=== PATIENT | female | born 1965 | race Caucasian/White ===

== ENCOUNTER → 2017-04-16 12:01 | Outpatient (CLI) | payer MEDICAID, SELFPAY ==
--- NOTE | 2017-04-16 12:06 | RAD_ITS ---
STUDY: X-RAY - ABDOMEN/PELVIS REASON FOR EXAM: Female, 51 years old. Left flank pain TECHNIQUE: Supine views of the abdomen and pelvis were obtained. COMPARISON: July 09, 2016 FINDINGS: The lung bases are unremarkable. There is an unremarkable bowel gas pattern. There is no demonstrated free abdominal air. There is no demonstrated abnormality of the major organs. The soft tissues are unremarkable. The osseous structures are unremarkable. RAD/Abdomen Single View IMPRESSION: No acute abnormalities are seen in the abdomen or pelvis. No abnormal calcifications are seen over the left renal shadow or along the expected course of the left ureter. Electronically Signed: Radha Sosa MD at 23:10 EST Tel Direct: [phone], Service support ,
--- NOTE | 2017-04-16 12:06 | RAD_ITS ---
STUDY: X-RAY - LUMBAR SPINE REASON FOR EXAM: Female, 51 years old. Low back pain TECHNIQUE: Five view(s) of the lumbar spine were obtained. COMPARISON: February 21, 2017 FINDINGS: Normal lumbar lordosis. There is no significant scoliosis. There is normal alignment of the vertebrae. The vertebral bodies show no significant abnormalities. Vertebral body heights are maintained. There are no significant disc abnormalities. The soft tissues are unremarkable. RAD/L/S Spine Min 4 Views IMPRESSION: No significant abnormalities are seen radiographically in the lumbar spine. Electronically Signed: Radha Sosa MD at 23:05 EST Tel Direct: [phone], Service support ,
[2017-04-16 12:11] LABS: Bacteria 0 SEEN /hpf (None Seen); Mucous, Urine 0 SEEN /hpf (<or=2+); White Blood Cells 0 SEEN /hpf (0-5)
[2017-04-16 14:05] LABS: Color, Urine Yellow (Yellow); Glucose, Dipstick Normal (Normal); Ketone-Dipstick Negative (Negative); Leukocyte Esterase-Dipstick Negative /ul (Negative); Nitrite-Dipstick Negative (Negative); Occult Blood-Urine 25 /ul (Negative); Protein-Dipstick Negative (Negative); Urine Bilirubin Dipstick Negative (Negative); Urine Clarity Sl. Cloudy (Clear); Urine Urobilinogen Normal (Normal)
[2017-04-16 14:13] LABS: Red Blood Cells-Urine 0-5 SEEN /hpf (0-5); Squamous Epithelial Cells - UA 0-5 SEEN /hpf (5-10)
[2017-04-16 14:14] LABS: Absolute Lymphocyte Count 2.33 X10^3/ul (0.83-4.51); Absolute Neutrophil Count 5.3 X10^3/uL (2.0-7.7); Basophil# 0.02 X10^3/uL; Basophil% 0.2 % (0-1); Eosinophil# 0.29 X10^3/uL; Eosinophils% 3.3 % (0-5); Hematocrit 45.9 % (37-47); Hemoglobin 15.4 g/dl (12.0-15.0); Lymphocyte # 2.33 X10^3/ul (4.0); Lymphocyte % 26.2 % (19-41); Mean Corp Hgb Conc 33.6 g/gl (32-36); Mean Corpuscular Hgb 30.4 pg (27.0-32.0); Mean Corpuscular Volume 90.7 fL (81-99); Mean Platelet Vol. 9.8 fl (6.2-12.0); Monocyte# 0.97 X10^3/uL; Monocyte% 10.9 % (0-10); Neutrophil # 5.28 X10^3/uL (2.7-7.7); Neutrophil % 59.2 % (47-70); Platelet Count 309 K/mm3 (150-450); RBC Distribution Width CV 13.2 % (11.6-14.6); RBC Distribution Width SD 43.2 fl (35.1-43.9); Red Blood Count 5.06 M/mm3 (4.2-5.4); White Blood Count 8.9 K/mm3 (4.4-11.0)
[2017-04-16 14:18] LABS: POSITIVE COUNT NO; POSITIVE DIFFERENTIAL NO; POSITIVE MORPHOLOGY NO
[2017-04-16 14:35] LABS: BUN 13 mg/dL (7-18); BUN/Creat Ratio 12.1 RATIO (10-20); Creatinine, Serum 1.07 mg/dL (0.55-1.02); EST Glomerular Filtration Rate 57 mL/min (>60); Est Glom Filt Rate - Afr Amer 69 mL/min (>60); Glucose 82 mg/dL (74-106); Protein, Total 7.5 g/dL (6.4-8.2)
[2017-04-16 14:36] LABS: ALB/GLOB Ratio 0.7 RATIO (0.9-2.4); AST(SGOT) 18 U/L (15-37); Alanine Aminotransfer ALT/SGPT 28 U/L (13-56); Alkaline Phosphatase 100 U/L (45-117); Anion Gap 5 (5-15); Chloride 105 mmol/L (98-107); Globulin 4.5 g/dL (2.2-4.2); Potassium 3.9 mmol/L (3.5-5.1); Sodium Level 139 mmol/L (136-145)
== END ==
PROVIDERS: Family Provider Family Medicine; PCP Family Medicine; Visit Provider Family Medicine
DX: R10.9 Unspecified abdominal pain (principal); M54.5 Low back pain
CPT/HCPCS: 36415; 72110; 74018; 80053; 81001; 85025; 87086; 87088

== ENCOUNTER 2017-04-28 16:13 | Emergency (ER) | payer MEDICAID, SELFPAY ==
[2017-04-28 16:14] VITALS: BP 155/93; PULSE 79; RESP 16; TEMP 36.6; O2SAT 96; BMI 44.9
--- NOTE | 2017-04-28 16:25 | RAD_ITS ---
STUDY: X-RAY CHEST REASON FOR EXAM: Female, 51 years old. Cough and wheezing for one week. TECHNIQUE: PA and lateral views of the chest. COMPARISON: November 24, 2016. FINDINGS: Lungs are expanded. There is interstitial thickening visible in both lungs. There is no demonstrated pleural abnormality. Normal size heart. Normal mediastinum and cecilia. Normal visualized pulmonary arteries. Normal visualized aortic arch and descending thoracic aorta. Normal visualized thoracic spine. Normal visualized ribs, clavicles, and shoulders. There is no demonstrated abnormality of the visualized soft tissue structures of the upper abdomen. RAD/Chest PA and Lateral IMPRESSION: No radiographic evidence of acute cardiopulmonary disease. Electronically Signed: Rosalee Villar MD at 17:19 EST , Service support ,
--- NOTE | 2017-04-28 16:29 | ED.DCSUM_ITS ---
- ER Visit Summary Date of Service: 04/28/17 Chief Complaint: Cough History of Present Illness: The patient is a 51 F states for 1 week she has had a cough of yellowish sputum. Denies any hemoptysis. She does have COPD and continues to smoke. She denies fever but has chills. No chest pain. She denies vomiting or diarrhea. Physical Examination: Middle-aged female. Vital signs are stable afebrile. Pulse ox 96% on room air no signs of hypoxia. HEENT exam unremarkable neck nontender. Lungs coarse breath sounds bilaterally equal and symmetrical. Expiratory wheezing and prolonged expiratory phase. No rhonchi. No rales. Heart regular rate and rhythm no murmur. Abdomen is morbidly obese but soft nontender normal bowel sounds no peritoneal signs. She is moving all 4 extremities. They are neurovascularly intact. Calves are nontender. Neurological exam is unremarkable. Test Results: Chest x-ray two-view shows changes no acute process no pneumonia. Emergency Department Course and Treatment: Treated with DuoNeb aerosol. Treatment Plan: Repeat exam at 1730 patient is doing well. Her wheezing is much improved after the aerosol treatment. She will be given a dose of prednisone here and placed on prednisone 40 mg a day for 1 week. She was strongly encouraged to stop smoking. Disposition: dc Impression: Acute bronchitis Acute exacerbation COPD Tobacco abuse This note was generated with [employer] dictation software. It may contain incorrect words, spelling, and punctuation that were not noted in review of the chart prior to signing ED Disposition - Plan for ED Patient: Chief Complaint: Cold Sx Referrals: Ayad Pichardo DO [Primary Care Provider] -
[2017-04-28] MEDS: Ipratropium/Albuterol Sulfate 3 ML AMPUL.NEB INHALATION (16:38)
[2017-04-28 16:41] VITALS: PULSE 96; RESP 16
[2017-04-28 17:08] VITALS: O2SAT 96
[2017-04-28] MEDS: HYDROcodone Bitartrate/Apap 5/325 Tablet PO (17:20)
--- NOTE | 2017-04-28 17:34 | ED.DEP ---
ED Disposition - Plan for ED Patient: Disposition: Home or Assisted Living Chief Complaint: Cold Sx Instructions: ED COPD Flare Prescriptions: Prednisone [Deltasone] 40 mg PO DAILY 10 Days tab Referrals: Ayad Pichardo DO [Primary Care Provider] - 1 Week if not improving Additional Instructions: Absolutely needs to stop smoking. Prednisone 40 mg a day till gone. Call follow-up your primary care physician if not improving. Or return to the ER feeling worse.
[2017-04-28 17:48] VITALS: PULSE 82; RESP 18; O2SAT 95
== END 2017-04-28 17:49 | disposition home or self-care (01) ==
PROVIDERS: Emergency Provider Emergency Medicine; Family Provider Family Medicine; PCP Family Medicine
DX: J44.0 Chronic obstructive pulmonary disease with (acute) lower respiratory infection (principal); J44.1 Chronic obstructive pulmonary disease with (acute) exacerbation; J20.9 Acute bronchitis, unspecified; F41.9 Anxiety disorder, unspecified; F17.200 Nicotine dependence, unspecified, uncomplicated; Z79.899 Other long term (current) drug therapy
CPT/HCPCS: 71046; 94640; 99284; A4216

== ENCOUNTER 2017-05-11 14:50 | Emergency (ER) | payer MEDICAID, SELFPAY ==
[2017-05-11 14:50] VITALS: BP 131/81; PULSE 91; RESP 17; TEMP 36.9; O2SAT 95; BMI 47.7
[2017-05-11] MEDS: oxyCODONE 5 MG Tablet PO (15:28)
--- NOTE | 2017-05-11 15:31 | RAD_ITS ---
STUDY: X-RAY - RIGHT KNEE REASON FOR EXAM: Female, 51 years old. Trauma. Pain. TECHNIQUE: 4 view(s) of the knee. COMPARISON: None. FINDINGS: There is no evidence of fracture or dislocation. There are mild tricompartmental degenerative changes. There are no radiodense foreign bodies. RAD/Knee 4 or More Views IMPRESSION: No fracture or dislocation. Mild degenerative change. Electronically Signed: Oz Aranda, at 15:54 EST Tel , Service support ,
--- NOTE | 2017-05-11 15:53 | ED.VISSUMM ---
- ER Visit Summary Date of Service: 05/11/17 Chief Complaint: [] Right knee pain History of Present Illness: The patient is a 51 F [] complaining of right knee pain. Patient denies injury. Reports knee has been giving out. Reports pain with ambulation. No other complaints at this time. Physical Examination: [] Mild right knee pain with range of motion testing. No significant swelling. No erythema or warmth. No effusion. Test Results: [] Right knee x-ray shows degenerative joint disease without obvious fracture. Emergency Department Course and Treatment: [] Patient given 1 oxycodone for analgesia and underwent x-rays. X-rays reveal no obvious pathology per my interpretation. Patient given prescription for Naprosyn and Vin bandages. She was encouraged to follow-up with her orthopedic surgeon. Treatment Plan: [] Follow-up with orthopedic surgeon. Disposition: [] Discharge, stable. Impression: [] Right knee pain Osteoarthritis This note was generated with [employer] dictation software. It may contain incorrect words, spelling, and punctuation that were not noted in review of the chart prior to signing ED Disposition - Plan for ED Patient: Chief Complaint: Lower Extremity Injury Referrals: Ayad Pichardo DO [Primary Care Provider] -
--- NOTE | 2017-05-11 15:58 | ED.DCSUM_ITS ---
- ER Visit Summary Date of Service: 05/11/17 Chief Complaint: [] Right knee pain History of Present Illness: The patient is a 51 F [] complaining of right knee pain. Patient denies injury. Reports knee has been giving out. Reports pain with ambulation. No other complaints at this time. Physical Examination: [] Mild right knee pain with range of motion testing. No significant swelling. No erythema or warmth. No effusion. Test Results: [] Right knee x-ray shows degenerative joint disease without obvious fracture. Emergency Department Course and Treatment: [] Patient given 1 oxycodone for analgesia and underwent x-rays. X-rays reveal no obvious pathology per my interpretation. Patient given prescription for Naprosyn and Vin bandages. She was encouraged to follow-up with her orthopedic surgeon. Treatment Plan: [] Follow-up with orthopedic surgeon. Disposition: [] Discharge, stable. Impression: [] Right knee pain Osteoarthritis This note was generated with [employer] dictation software. It may contain incorrect words, spelling, and punctuation that were not noted in review of the chart prior to signing ED Disposition - Plan for ED Patient: Chief Complaint: Lower Extremity Injury Referrals: Ayad Pichardo DO [Primary Care Provider] -
--- NOTE | 2017-05-11 15:58 | ED.DEP ---
ED Disposition - Plan for ED Patient: Disposition: Home or Assisted Living Chief Complaint: Lower Extremity Injury Instructions: ED Sprain Knee, What Is Osteoarthritis? Prescriptions: Naproxen 500 mg PO BID PRN PRN #20 tab PRN Reason: Pain Referrals: Ayad Pichardo DO [Primary Care Provider] -
== END 2017-05-11 16:29 | disposition home or self-care (01) ==
LOC: ED 16:26
PROVIDERS: Emergency Provider Emergency Medicine; Family Provider Family Medicine; PCP Family Medicine
DX: M17.11 Unilateral primary osteoarthritis, right knee (principal); M25.561 Pain in right knee; J44.9 Chronic obstructive pulmonary disease, unspecified; E66.9 Obesity, unspecified; Z72.0 Tobacco use; Z79.899 Other long term (current) drug therapy
CPT/HCPCS: 73564; 99283

== ENCOUNTER → 2017-05-31 09:51 | Outpatient (CLI) | payer MEDICAID, SELFPAY ==
--- NOTE | 2017-05-31 09:59 | MRI_ITS ---
STUDY: MRI RIGHT KNEE REASON FOR EXAM: Medial knee pain for years, no specific injury. TECHNIQUE: Standardized fat and water weighted pulse sequences were obtained in all 3 orthogonal planes. COMPARISON: Radiographs 05/11/2017. FINDINGS: Normal medial meniscus. There is arthrosis of the medial femorotibial compartment with small marginal osteophytes and partial-thickness chondral loss (T2 sagittal image 16). There is mild subchondral bone edema of the medial tibial plateau (T2 coronal images 8, 12-14), a stress phenomenon. Normal medial collateral ligamentous complex (MCL). Normal distal semimembranosus, gracilis and semitendinosus tendons. Normal lateral meniscus. Normal hyaline cartilage of the lateral femorotibial compartment. There are small marginal osteophytes of the lateral femorotibial compartment. Normal lateral femoral condyle and tibial plateau. Normal proximal tibiofibular articulation. Normal lateral collateral (fibular) ligament. Normal popliteus tendon. Normal biceps femoris tendon. Normal anterior cruciate ligament (ACL). Normal posterior cruciate ligament (PCL). Normal congruent patellofemoral articulation. There is arthrosis of the patellofemoral compartment with very small marginal osteophytes, partial-thickness chondral loss of the patella (T2 sagittal image 7) and subchondral cystic change of the patella and medial femoral trochlea. Normal medial and lateral patellar retinaculum. Normal quadriceps tendon. Normal patellar tendon. Normal Hoffa's fat pad. There is a small joint effusion. There is a ganglion cyst posterior to the distal posterior cruciate ligament (T2 coronal images 6, 7) measuring 1.4 cm in transverse dimension. There is edema in the anterior subcutis adipose space. The otherwise visualized osseous structures are unremarkable. MRI/Lower Ext Joint Only (Routine) IMPRESSION: Arthrosis of the medial femorotibial and patellofemoral compartments. Mild subchondral bone edema of the medial tibial plateau, a stress phenomenon. Small joint effusion. Ganglion cyst posterior to the distal posterior cruciate ligament. No demonstrated medial meniscal tear. Electronically Signed: Mir Francis MD at 12:38 EDT Tel , Service support ,
== END ==
PROVIDERS: Family Provider Family Medicine; PCP Family Medicine; Visit Provider Orthopaedic Surgery
DX: S83.241A Other tear of medial meniscus, current injury, right knee, initial encounter (principal); X58.XXXA Exposure to other specified factors, initial encounter; Y93.9 Activity, unspecified; Y92.9 Unspecified place or not applicable; Y99.9 Unspecified external cause status
CPT/HCPCS: 73721

== ENCOUNTER 2017-08-04 17:54 | Emergency (ER) | payer MEDICAID, SELFPAY ==
[2017-08-04 17:55] VITALS: BP 139/95; PULSE 85; RESP 16; TEMP 36.1; O2SAT 98; BMI 44.6
--- NOTE | 2017-08-04 18:26 | ED.VISSUMM ---
- ER Visit Summary Date of Service: 08/04/17 Chief Complaint: Acute on chronic right knee pain. History of Present Illness: The patient is a 51 F history of arthritis to her right knee. Has had knee injections before in the past which she states has not given her significant relief. She is also looking for a pain management doctor. She states that she has had pain and intermittent swelling in her right knee for 1-2 weeks. Denies any fever. No redness. No acute trauma. Physical Examination: Well-appearing middle-age female. Vital signs are stable afebrile. H EENT exam unremarkable. Neck nontender no lymphadenopathy. Lungs clear to auscultation bilaterally. Heart regular rate and rhythm no murmur. Abdomen soft without tenderness. Normal bowel sounds. Morbidly obese. She is moving all 4 extremities. Neurovascular intact. Her right knee she has crepitance consistent with arthritis. There is really no significant swelling at this time. ACL PCL, MCL LCL appear to be intact. Extensor mechanism is intact. She has normal range of motion. There is no significant effusion at this time. There is no redness or warmth. No signs of septic joint. Distally the right foot is neurovascularly intact. The calf is nontender. She is a normal DP pulse. Left lower extremity is unremarkable. Neurologically she is awake and alert without focal motor deficits. Test Results: None Emergency Department Course and Treatment: History and exam are consistent with degenerative arthritis of the right knee. She was offered but deferred a knee joint injection. She will be given 2 [place] here for pain. Treatment Plan: Motrin, ice and elevate and limited [place] for pain. Disposition: Discharge Impression: Acute on chronic right knee pain secondary to degenerative joint disease This note was generated with [employer] dictation software. It may contain incorrect words, spelling, and punctuation that were not noted in review of the chart prior to signing ED Disposition - Plan for ED Patient: Chief Complaint: Lower Extremity Injury Referrals: Ayad Pichardo DO [Primary Care Provider] -
--- NOTE | 2017-08-04 18:29 | ED.DCSUM_ITS ---
- ER Visit Summary Date of Service: 08/04/17 Chief Complaint: Acute on chronic right knee pain. History of Present Illness: The patient is a 51 F history of arthritis to her right knee. Has had knee injections before in the past which she states has not given her significant relief. She is also looking for a pain management doctor. She states that she has had pain and intermittent swelling in her right knee for 1-2 weeks. Denies any fever. No redness. No acute trauma. Physical Examination: Well-appearing middle-age female. Vital signs are stable afebrile. H EENT exam unremarkable. Neck nontender no lymphadenopathy. Lungs clear to auscultation bilaterally. Heart regular rate and rhythm no murmur. Abdomen soft without tenderness. Normal bowel sounds. Morbidly obese. She is moving all 4 extremities. Neurovascular intact. Her right knee she has crepitance consistent with arthritis. There is really no significant swelling at this time. ACL PCL, MCL LCL appear to be intact. Extensor mechanism is intact. She has normal range of motion. There is no significant effusion at this time. There is no redness or warmth. No signs of septic joint. Distally the right foot is neurovascularly intact. The calf is nontender. She is a normal DP pulse. Left lower extremity is unremarkable. Neurologically she is awake and alert without focal motor deficits. Test Results: None Emergency Department Course and Treatment: History and exam are consistent with degenerative arthritis of the right knee. She was offered but deferred a knee joint injection. She will be given 2 [place] here for pain. Treatment Plan: Motrin, ice and elevate and limited [place] for pain. Disposition: Discharge Impression: Acute on chronic right knee pain secondary to degenerative joint disease This note was generated with [employer] dictation software. It may contain incorrect words, spelling, and punctuation that were not noted in review of the chart prior to signing ED Disposition - Plan for ED Patient: Chief Complaint: Lower Extremity Injury Referrals: Ayad Pichardo DO [Primary Care Provider] -
--- NOTE | 2017-08-04 18:29 | ED.DEP ---
ED Disposition - Plan for ED Patient: Disposition: Home or Assisted Living Chief Complaint: Lower Extremity Injury Instructions: ED Degenerative Joint Disease Prescriptions: Hydrocodone/Acetaminophen [[place] 7.5-325 Tablet] 1 ea PO Q6H PRN PRN #20 tab PRN Reason: Pain Referrals: Ayad Pichardo DO [Primary Care Provider] - As Needed Robyn Jordan DO [STAFF PHYSICIAN] - As soon as possible Renato Zaidi MD [NON-STAFF] - 1-2 Weeks Delaney Chauhan MD [STAFF PHYSICIAN] - Additional Instructions: Ice to the right knee. Motrin for pain and swelling. [place] for pain. Call and follow-up with Dr. Chauhan for chronic pain. Call and follow-up with Dr. Jordan about possible evaluation of left hand carpal tunnel syndrome. If Dr. Jordan does not take care of carpal tunnel you can try the [place] clinic in [facility].
--- NOTE | 2017-08-04 18:35 | DCINST.ED_ITS ---
ED Disposition - Plan for ED Patient: Disposition: Home or Assisted Living Chief Complaint: Lower Extremity Injury Instructions: ED Degenerative Joint Disease Prescriptions: Hydrocodone/Acetaminophen [[place] 7.5-325 Tablet] 1 ea PO Q6H PRN PRN #20 tab PRN Reason: Pain Referrals: Ayad Pichardo DO [Primary Care Provider] - As Needed Robyn Jordan DO [STAFF PHYSICIAN] - As soon as possible Renato Zaidi MD [NON-STAFF] - 1-2 Weeks Delaney Chauhan MD [STAFF PHYSICIAN] - Additional Instructions: Ice to the right knee. Motrin for pain and swelling. [place] for pain. Call and follow-up with Dr. Chauhan for chronic pain. Call and follow-up with Dr. Jordan about possible evaluation of left hand carpal tunnel syndrome. If Dr. Jordan does not take care of carpal tunnel you can try the [place] clinic in [facility].
[2017-08-04] MEDS: HYDROcodone Bitartrate/Apap 5/325 Tablet PO (18:41)
[2017-08-04 18:43] VITALS: BP 139/95; PULSE 85; RESP 18
== END 2017-08-04 18:45 | disposition home or self-care (01) ==
PROVIDERS: Emergency Provider Emergency Medicine; Family Provider Family Medicine; PCP Family Medicine
DX: M17.11 Unilateral primary osteoarthritis, right knee (principal); M25.561 Pain in right knee; G89.29 Other chronic pain; E66.01 Morbid (severe) obesity due to excess calories; Z72.0 Tobacco use
CPT/HCPCS: 99283

== ENCOUNTER 2017-08-14 20:30 | Emergency (ER) | payer MEDICAID, SELFPAY ==
[2017-08-14 20:31] VITALS: PULSE 98; RESP 18; TEMP 36.1; O2SAT 98; BMI 45.0
[2017-08-14 20:33] VITALS: BP 143/87
[2017-08-14] MEDS: HYDROcodone Bitartrate/Apap 5/325 Tablet PO (21:19)
--- NOTE | 2017-08-14 22:07 | ED.DCSUM_ITS ---
- ER Visit Summary Date of Service: 08/14/17 Chief Complaint: Abscess History of Present Illness: The patient is a 51 F with an abscess to the right posterior parietal scalp over the past week. She denies any spontaneous drainage. She has had similar in the past requiring I&D. Patient has multiple antibiotic allergies listed. Physical Examination: Vital signs unremarkable. Head and neck examination is significant for 2 x 3 similar fluctuant abscess to the right posterior parietal scalp. Heart is regular rate and rhythm without murmur. Lung sounds are clear. Test Results: [] Emergency Department Course and Treatment: Patient was given 2 tabs p.o. [place]. 1/2 cc 1% lidocaine with epinephrine was used locally. 1/2 cm incision was made with return of pus. Wound is cleansed. Patient will be given [place], doxycycline, and Zofran for home. Patient does list doxycycline as an allergy but states it just makes her nauseated, she is willing to take it with nausea meds. Treatment Plan: [] Disposition: Discharge Impression: Scalp abscess status post I&D This note was generated with [employer] dictation software. It may contain incorrect words, spelling, and punctuation that were not noted in review of the chart prior to signing ED Disposition - Plan for ED Patient: Chief Complaint: Abscess Referrals: Ayad Pichardo DO [Primary Care Provider] -
--- NOTE | 2017-08-14 22:07 | ED.DEP ---
ED Disposition - Plan for ED Patient: Disposition: Home or Assisted Living Chief Complaint: Abscess Instructions: ED Abscess IandD Prescriptions: Hydrocodone Bitart/Apap 5-325 [[place] 5MG-325MG] 1 tablet PO Q6H PRN PRN 3 Days #10 tablet PRN Reason: Pain Ondansetron [Zofran Odt] 4 mg PO Q6H PRN PRN #20 tab PRN Reason: Nausea Doxycycline Monohydrate 100 mg PO BID #14 cap Referrals: Ayad Pichardo DO [Primary Care Provider] - 1 Week
--- NOTE | 2017-08-14 22:10 | DCINST.ED_ITS ---
ED Disposition - Plan for ED Patient: Disposition: Home or Assisted Living Chief Complaint: Abscess Instructions: ED Abscess IandD Prescriptions: Hydrocodone Bitart/Apap 5-325 [[place] 5MG-325MG] 1 tablet PO Q6H PRN PRN 3 Days # 10 tablet PRN Reason: Pain Ondansetron [Zofran Odt] 4 mg PO Q6H PRN PRN #20 tab PRN Reason: Nausea Doxycycline Monohydrate 100 mg PO BID #14 cap Referrals: Ayad Pichardo DO [Primary Care Provider] - 1 Week
[2017-08-14 22:15] VITALS: BP 142/80; PULSE 90; RESP 14; O2SAT 99
[2017-08-14] MEDS: Doxycycline 100 MG CAPSULE PO (22:23)
[2017-08-14] MEDS: Ondansetron ODT 4 MG Tablet PO (22:26)
== END 2017-08-14 22:27 | disposition home or self-care (01) ==
PROVIDERS: Emergency Provider Emergency Medicine; Family Provider Family Medicine; PCP Family Medicine
DX: L02.811 Cutaneous abscess of head [any part, except face] (principal); J44.9 Chronic obstructive pulmonary disease, unspecified; I10 Essential (primary) hypertension; M54.9 Dorsalgia, unspecified; Z72.0 Tobacco use; Z79.899 Other long term (current) drug therapy; Z90.710 Acquired absence of both cervix and uterus
CPT/HCPCS: 10060; 99282

== ENCOUNTER 2017-08-18 13:36 | Emergency (ER) | payer MEDICAID, SELFPAY ==
[2017-08-18 13:37] VITALS: BP 125/95; PULSE 91; RESP 16; TEMP 36.7; O2SAT 97; BMI 44.3
--- NOTE | 2017-08-18 13:57 | ED.VISSUMM ---
- ER Visit Summary Date of Service: 08/18/17 Chief Complaint: Abscess History of Present Illness: The patient is a 51 F who complains of right inner thigh abscess. Started yesterday. She states it itches. Denies any drainage. She does have a history of these in the past. She is currently on doxycycline because of a abscess in her scalp. She denies a fever. Physical Examination: Vital signs reviewed. Skin exam reveals a 1.5 x 1.5 cm abscess on the right inner thigh. There is some slight erythema but it is mostly induration. No fluctuance Test Results: None performed Emergency Department Course and Treatment: Patient had incision and drainage at bedside. The area was cleansed with chlorhexidine. Lidocaine was used to anesthetize the area. Cruciate incision was made over the dome. Minimal purulent material returned. There was some blood. Patient is already on doxycycline. She will continue this. She will use warm compresses. I will give her one [place] here for her pain. Treatment Plan: [] Disposition: Discharge Impression: Right inner thigh abscess I&D by ED physician This note was generated with [employer] dictation software. It may contain incorrect words, spelling, and punctuation that were not noted in review of the chart prior to signing ED Disposition - Plan for ED Patient: Chief Complaint: Abscess Referrals: Ayad Pichardo DO [Primary Care Provider] -
--- NOTE | 2017-08-18 13:59 | ED.DEP ---
ED Disposition - Plan for ED Patient: Disposition: Home or Assisted Living Chief Complaint: Abscess Instructions: ED Abscess IandD Referrals: Ayad Pichardo DO [Primary Care Provider] -
[2017-08-18] MEDS: HYDROcodone Bitartrate/Apap 5/325 Tablet PO (14:13)
== END 2017-08-18 14:14 | disposition home or self-care (01) ==
LOC: ED 14:11
PROVIDERS: Emergency Provider Emergency Medicine; Family Provider Family Medicine; PCP Family Medicine
DX: L02.415 Cutaneous abscess of right lower limb (principal); J44.9 Chronic obstructive pulmonary disease, unspecified; Z72.0 Tobacco use; Z79.899 Other long term (current) drug therapy
CPT/HCPCS: 10060; 99283

== ENCOUNTER → 2017-08-22 09:27 | Outpatient (CLI) | payer MEDICAID, SELFPAY ==
--- NOTE | 2017-08-22 09:28 | RAD_ITS ---
STUDY: X-RAY - LEFT WRIST REASON FOR EXAM: Chronic wrist pain, previous carpal tunnel and ganglion surgery. TECHNIQUE: 3 view(s) of the wrist were obtained. COMPARISON: None. FINDINGS: Normal visualized distal radius and ulna. Normal radiocarpal articulation. Normal distal radioulnar articulation. Normal carpal bones. Normal carpal articulations. Normal carpometacarpal articulation of the thumb. Normal second through fifth carpometacarpal articulations. Normal visualized metacarpal bones. The soft tissue structures are unremarkable. RAD/Wrist min 3 Views IMPRESSION: Normal x-ray examination of the left wrist. Electronically Signed: Mir Francis MD at 10:04 EDT Tel , Service support ,
--- NOTE | 2017-08-22 09:28 | RAD_ITS ---
STUDY: X-RAY - RIGHT WRIST REASON FOR EXAM: Chronic pain. TECHNIQUE: 3 view(s) of the wrist were obtained. COMPARISON: Radiographs 04/04/2015. FINDINGS: Normal visualized distal radius. There is a small cyst in the distal ulna without interval change. Normal radiocarpal articulation. Normal distal radioulnar articulation. There is an ossific density at the dorsal aspect of the proximal carpal row, unchanged since the prior exam, possibly representing a remote avulsion injury of the triquetrum. Otherwise, unremarkable carpal bones. Normal carpal articulations. Normal carpometacarpal articulation of the thumb. Normal second through fifth carpometacarpal articulations. Normal visualized metacarpal bones. The soft tissue structures are unremarkable. RAD/Wrist min 3 Views IMPRESSION: No interval change with small ossific density at the dorsal aspect of the wrist, suggestive of remote injury. Electronically Signed: Mir Francis MD at 11:50 EDT Tel , Service support ,
== END ==
PROVIDERS: Family Provider Family Medicine; PCP Family Medicine; Visit Provider Orthopaedic Surgery
DX: M25.531 Pain in right wrist (principal); M25.532 Pain in left wrist
CPT/HCPCS: 73110

== ENCOUNTER 2017-08-29 16:59 | Emergency (ER) | payer MEDICAID, SELFPAY ==
[2017-08-29 17:00] VITALS: BP 140/117; PULSE 111; RESP 16; TEMP 36.9; O2SAT 100; BMI 44.6
--- NOTE | 2017-08-29 17:22 | RAD_ITS ---
STUDY: X-RAY - RIGHT ELBOW REASON FOR EXAM: Female, 51 years old. Trauma TECHNIQUE: 3 view(s) of the elbow. COMPARISON: None. FINDINGS: Normal visualized humerus, radius and ulna. Normal radiocapitellar and ulnotrochlear articulations. The soft tissue structures are unremarkable. RAD/Elbow min 3 Views IMPRESSION: Normal x-ray examination of the elbow. Electronically Signed: Boni Best MD at 17:57 EDT , Service support ,
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
[2017-08-29] MEDS: HYDROcodone Bitartrate/Apap 5/325 Tablet PO (18:20)
[2017-08-29 18:22] VITALS: BP 138/73; PULSE 82; RESP 16; O2SAT 98
== END 2017-08-29 18:23 | disposition home or self-care (01) ==
LOC: ED 17:53
PROVIDERS: Emergency Provider Emergency Medicine; Family Provider Family Medicine; PCP Family Medicine
DX: S09.90XA Unspecified injury of head, initial encounter (principal); S40.021A Contusion of right upper arm, initial encounter; Y04.2XXA Assault by strike against or bumped into by another person, initial encounter; Y93.9 Activity, unspecified; Y92.9 Unspecified place or not applicable; Y99.9 Unspecified external cause status; Z23 Encounter for immunization; J44.9 Chronic obstructive pulmonary disease, unspecified; F41.9 Anxiety disorder, unspecified; Z72.0 Tobacco use; Z79.899 Other long term (current) drug therapy
CPT/HCPCS: 70450; 72125; 73080; 73110; 73130; 99283

== ENCOUNTER 2017-09-05 17:20 | Emergency (ER) | payer MEDICAID, SELFPAY ==
[2017-09-05 17:21] VITALS: BP 137/86; PULSE 84; RESP 18; TEMP 36.6; O2SAT 98; BMI 46.3
--- NOTE | 2017-09-05 18:55 | ED.DCSUM_ITS ---
- ER Visit Summary Date of Service: 09/05/17 Chief Complaint: Bumps on scalp History of Present Illness: The patient is a 51 F presents to the emergency department bumps on scalp. Patient has a history of recurrent abscess on the scalp. She was actually seen here just about 3 weeks ago and had it drained. She was placed on doxycycline. States that her symptoms resolved, but then came back 3 days ago. She has increasing pain in her left scalp. She denies any fevers or chills. She has a history of immunosuppression. Physical Examination: Exam is relatively unremarkable. Patient has 3 small follicular lesions all less than 1 cm with no fluctuance on the left parietal area. There is no streaking or cellulitis. There is no active drainage. Neck is supple. There is no lymphadenopathy. Test Results: [] Emergency Department Course and Treatment: Patient has localized cellulitis of the scalp. There is no large lesions that would require incision and drainage. The patient will be placed back on doxycycline for 10 days. I did review prescription traffic reporter and the patient was upfront about her analgesics. She will be given 2 days of pain control, nausea control, and oral antibiotics. I did peer financial counselor her that her symptoms worsen or not improving in the next 24-48 hours she should return. She will be discharged. Treatment Plan: [] Disposition: Discharge Impression: Scalp folliculitis This note was generated with [employer] dictation software. It may contain incorrect words, spelling, and punctuation that were not noted in review of the chart prior to signing ED Disposition - Plan for ED Patient: Chief Complaint: Abscess Instructions: ED Folliculitis Prescriptions: Hydrocodone Bitart/Apap 5-325 [[place] 5MG-325MG] 1 tab PO Q6H PRN PRN 3 Days #8 tab PRN Reason: Pain Ondansetron [Zofran Odt] 4 mg PO Q8H PRN PRN #10 tab PRN Reason: Nausea Doxycycline Monohydrate 100 mg PO BID #20 cap Referrals: Ayad Pichardo DO [Primary Care Provider] -
[2017-09-05] MEDS: Doxycycline 100 MG CAPSULE PO (19:03)
[2017-09-05] MEDS: HYDROcodone Bitartrate/Apap 5/325 Tablet PO (19:03)
[2017-09-05] MEDS: Ondansetron ODT 4 MG Tablet PO (19:03)
[2017-09-05 19:08] VITALS: PULSE 88; RESP 16
== END 2017-09-05 19:08 | disposition home or self-care (01) ==
LOC: ED 18:41
PROVIDERS: Emergency Provider Emergency Medicine; Family Provider Family Medicine; PCP Family Medicine
DX: L73.8 Other specified follicular disorders (principal); L03.811 Cellulitis of head [any part, except face]; E11.9 Type 2 diabetes mellitus without complications; I10 Essential (primary) hypertension; Z79.899 Other long term (current) drug therapy; Z87.891 Personal history of nicotine dependence
CPT/HCPCS: 99283

== ENCOUNTER 2017-09-28 19:56 | Emergency (ER) | payer MEDICAID, SELFPAY ==
[2017-09-28 19:56] VITALS: BP 133/70; PULSE 81; RESP 14; TEMP 37.1; O2SAT 98; BMI 44.1
--- NOTE | 2017-09-28 20:33 | ED.VIS.GEN ---
History of Present Illness Chief Complaint: Lower Extremity Injury Informant: Patient Onset: - 06-06 Context: Gradual Onset Timing: Continuous Quality: achy Location: both knees and hips Current Severity: Moderate Maximum Severity: Severe Worsened by: walking, bending Relieved by: remaining still Associated Symptoms: no systemic sx or fevers Narrative: Patient states she has long-standing history of arthritis for years especially in her knees which are hurting them most now. She also has a history of fibromyalgia. She thinks it is osteoarthritis in her knees. She states she used to receive cortisone injections which helped temporarily but they do not want to do that anymore. She follows with Dr. Frazier for this problem. Denies any recent injury Prior similar symptoms: Yes - Past Medical History (1) Arthritis Status: Chronic (2) Fibromyalgia Status: Chronic Past Medical History - Allergies and Home Meds Allergies/Adverse Reactions: Allergies ceftriaxone sodium [From Rocephin] Allergy (Verified 09/28/17 19:56) Hives diclofenac potassium [From Cataflam] Adverse Reaction (Verified 09/28/17 19:56) Upset Stomach meperidine HCl [From Demerol] Adverse Reaction (Verified 09/28/17 19:56) Upset Stomach naproxen [From Aleve] Adverse Reaction (Verified 09/28/17 19:56) Upset Stomach Penicillins [PCN] Adverse Reaction (Verified 09/28/17 19:56) Upset Stomach Sulfa (Sulfonamide Antibiotics) Adverse Reaction (Verified 09/28/17 19:56) Upset Stomach Primary Care Physician: Ayad Pichardo DO [Primary Care Provider] - Lives: Spouse/ Significant Other Smoking Status: Current every day smoker Review of Systems All systems negative except as indicated Musculoskeletal: Reports: Arthralgias. Denies: Back pain Neurological: Denies: Headache, Weakness, Parasthesia Psych: Reports: Anxiety Physical Exam Vital Signs/Narrative: Vital Signs Temp Pulse Resp BP Pulse Ox 09/28/17 19:56 98.7 F 81 14 133/70 H 98 Inital Vital Signs reviewed: Yes General: Well nourished, Well developed, Obese Head: Normocephalic, Atraumatic Cardiovascular: - - Strong dorsalis pedis pulses bilaterally. Brisk cap refill bilaterally Extremities: Tenderness - Right knee more than left. No erythema or excessive warmth. Full range of motion but hurts her knees to bend them. No pain with passive range of motion of both hips or ankles. Painless full range of motion throughout her upper extremities. All compartments soft all 4 extremities. Skin: Normal color, No rash Neurological: Alert, Oriented x3, Cranial nerves II-XII grossly intact, Normal Strength, Normal Sensation Psychological: Normal affect Diagnostic/Tx/Re-eval - Medical Decision Making I think she will feel better with a course of prednisone. She states that even with few days prednisone will make her gain weight. However, she is willing to try it and request that the dose be lowered. I will put her on a 5 day course of 20 mg and advised that she follow-up with her knee specialist. She is comfortable with that plan. ED Disposition - Plan for ED Patient: Disposition: Home or Assisted Living Chief Complaint: Lower Extremity Injury Diagnosis: Degenerative arthritis of knee, bilateral Instructions: Understanding Osteoarthritis Prescriptions: Prednisone [Deltasone] 20 mg PO DAILY #8 tab Referrals: Ayad Pichardo DO [Primary Care Provider] - Robyn Jordan DO [STAFF PHYSICIAN] - 1-2 Weeks (call for appt)
[2017-09-28] MEDS: predniSONE 20 MG Tablet PO (20:37)
[2017-09-28] MEDS: HYDROcodone Bitartrate/Apap 5/325 Tablet PO (21:04)
[2017-09-28 21:05] VITALS: RESP 16
--- NOTE | 2017-09-28 21:05 | ED.RN ---
REVIEWED D/C INSTRUCTIONS, FOLLOW UP CARE, PRESCRIPTION, AND S/S THAT WOULD WARRANT A RETURN TO THE ED WITH PT. PT VERBALIZED AN UNDERSTANDING AND DENIES FURTHER QUESTIONS FOR THIS RN. PT SKIN P/W/D, RESP EVEN AND UNLABORED, PT A&O X 3, NO DISTRESS NOTED. PT AMBULATED OUT OF ED, GAIT STEADY.
== END 2017-09-28 21:07 | disposition home or self-care (01) ==
PROVIDERS: Emergency Provider Emergency Medicine
DX: M17.0 Bilateral primary osteoarthritis of knee (principal); M79.7 Fibromyalgia; E66.9 Obesity, unspecified; Z79.899 Other long term (current) drug therapy; F17.200 Nicotine dependence, unspecified, uncomplicated
CPT/HCPCS: 99282

== ENCOUNTER 2017-10-07 19:30 | Emergency (ER) | payer MEDICAID, SELFPAY ==
[2017-10-07 19:31] VITALS: BP 139/77; PULSE 90; RESP 18; TEMP 36.2; O2SAT 95; BMI 44.6
--- NOTE | 2017-10-07 20:31 | US_ITS ---
STUDY: VENOUS DOPPLER ULTRASOUND - BILATERAL LOWER EXTREMITIES REASON FOR EXAM: Female, 51 years old. Bilateral foot pain and swelling. TECHNIQUE: Ultrasound evaluation of the deep vein system to include bess-scale imaging and compression was performed. Bess-scale imaging and Doppler sonographic evaluation, including duplex spectral analysis and qualitative color flow sonography, was performed. COMPARISON: None. FINDINGS: RIGHT LEG Common Femoral Vein: Normal compression, spontaneity and augmentation. Normal color Doppler. Common Femoral Vein/Greater Saphenous Junction: Normal compression, spontaneity and augmentation. Normal color Doppler. Deep Femoral Vein: Normal compression, spontaneity and augmentation. Normal color Doppler. Femoral Proximal: Normal compression, spontaneity and augmentation. Normal color Doppler. Femoral Middle: Normal compression, spontaneity and augmentation. Normal color Doppler. Femoral Distal: Normal compression, spontaneity and augmentation. Normal color Doppler. Popliteal Vein: Normal compression, spontaneity and augmentation. Normal color Doppler. Posterior Tibial Vein: Normal compression. Peroneal Vein: Normal compression. LEFT LEG Common Femoral Vein: Normal compression, spontaneity and augmentation. Normal color Doppler. Common Femoral Vein/Greater Saphenous Junction: Normal compression, spontaneity and augmentation. Normal color Doppler. Deep Femoral Vein: Normal compression, spontaneity and augmentation. Normal color Doppler. Femoral Proximal: Normal compression, spontaneity and augmentation. Normal color Doppler. Femoral Middle: Normal compression, spontaneity and augmentation. Normal color Doppler. Femoral Distal: Normal compression, spontaneity and augmentation. Normal color Doppler. Popliteal Vein: Normal compression, spontaneity and augmentation. Normal color Doppler. Posterior Tibial Vein: Normal compression. Peroneal Vein: Normal compression. Within the popliteal fossa there is a 2.5 x 1.9 x 2.5 cm fluid collection. US/Venous Duplex Imag/Mark Extrem IMPRESSION: No demonstrated deep vein thrombosis. 2.5 x 1.9 x 2.5 cm left popliteal cyst. Electronically Signed: Avril Schulz MD at 21:32 EDT Tel , Service support ,
[2017-10-07 20:45] LABS: Absolute Lymphocyte Count 2.48 X10^3/ul (0.83-4.51); Absolute Neutrophil Count 5.2 X10^3/uL (2.0-7.7); Basophil# 0.01 X10^3/uL; Basophil% 0.1 % (0-1); Eosinophils% 3.3 % (0-5); Hematocrit 42.4 % (37-47); Lymphocyte # 2.48 X10^3/ul (4.0); Lymphocyte % 27.6 % (19-41); Mean Corpuscular Hgb 29.9 pg (27.0-32.0); Mean Corpuscular Volume 90.4 fL (81-99); Mean Platelet Vol. 9.7 fl (6.2-12.0); Monocyte# 1.02 X10^3/uL; Monocyte% 11.4 % (0-10); Neutrophil # 5.15 X10^3/uL (2.7-7.7); Neutrophil % 57.5 % (47-70); POSITIVE COUNT NO; POSITIVE DIFFERENTIAL NO; POSITIVE MORPHOLOGY NO; Platelet Count 240 K/mm3 (150-450); RBC Distribution Width CV 13.1 % (11.6-14.6); RBC Distribution Width SD 42.7 fl (35.1-43.9); Red Blood Count 4.69 M/mm3 (4.2-5.4)
[2017-10-07 20:56] LABS: Anion Gap 4 (5-15); BUN 14 mg/dL (7-18); BUN/Creat Ratio 12.4 RATIO (10-20); Calcium,Total 8.9 mg/dL (8.5-10.1); Chloride 108 mmol/L (98-107); Creatinine, Serum 1.13 mg/dL (0.55-1.02); EST Glomerular Filtration Rate 54 mL/min (>60); Est Glom Filt Rate - Afr Amer 65 mL/min (>60); Estimated Creatinine Clearance 55.14 ml/min; Glucose 105 mg/dL (74-106); Potassium 4.1 mmol/L (3.5-5.1); Sodium Level 141 mmol/L (136-145)
[2017-10-07 21:49] LABS: BNP,B-Type NATRIURETIC PEPTIDE 22.6 pg/mL (0-100)
[2017-10-07 22:14] VITALS: RESP 17
--- NOTE | 2017-10-07 22:31 | ED.VISSUMM ---
- ER Visit Summary Date of Service: 10/07/17 Chief Complaint: Bilateral lower extremity pain and swelling History of Present Illness: The patient is a 51 F with bilateral lower extremity pain and swelling for the past 2 days. Patient denies any injury. She does not have DVT risk factors. She denies history of CHF. She denies having problems with leg swelling in the past. Past history significant for COPD, hypertension, high cholesterol, reflux disease, fiber myalgia, anxiety, and arthritis. Physical Examination: Vital signs unremarkable. Patient sitting upright in bed no acute distress. Heart is regular rate and rhythm. Lung sounds are clear. Abdomen is soft and nontender. Lower external examination was 3+ edema to the bilateral lower extremities below the knee. There is no erythema or sign of infection. She has strong distal pulses. Test Results: Venous ultrasound reveals no evidence of DVT. There is a left popliteal cyst noted. CBC is unremarkable. Chemistry studies significant only for creatinine 1.13. BNP is 22. Emergency Department Course and Treatment: Patient was advised on elevation of her legs. She will be given just 2 tabs of Lasix to take at home. She refuses a dose tonight. Treatment Plan: [] Disposition: Discharge Impression: Bilateral lower extremity edema This note was generated with [employer] dictation software. It may contain incorrect words, spelling, and punctuation that were not noted in review of the chart prior to signing ED Disposition - Plan for ED Patient: Chief Complaint: Lower Extremity Injury Referrals: Care Physician,No Primary [Primary Care Provider] -
--- NOTE | 2017-10-07 22:34 | ED.DEP ---
ED Disposition - Plan for ED Patient: Disposition: Home or Assisted Living Chief Complaint: Lower Extremity Injury Instructions: ED Leg Swelling Bilateral Prescriptions: Furosemide [Lasix] 40 mg PO DAILY #3 tablet Referrals: Apple Mari DO [STAFF PHYSICIAN] - As Needed
--- NOTE | 2017-10-07 22:35 | NURSING ---
NOTIFIED PT GETTING MAD. PT WANTS TO BE D/C SO SHE CAN GO BACK TO [employer]
[2017-10-07] MEDS: oxyCODONE 5 MG Tablet PO (22:40)
[2017-10-07 22:42] VITALS: BP 125/72; PULSE 84; RESP 17; O2SAT 99
== END 2017-10-07 22:43 | disposition home or self-care (01) ==
PROVIDERS: Emergency Provider Emergency Medicine
DX: R60.0 Localized edema (principal); M71.22 Synovial cyst of popliteal space [Baker], left knee; M16.0 Bilateral primary osteoarthritis of hip; M17.0 Bilateral primary osteoarthritis of knee; M46.90 Unspecified inflammatory spondylopathy, site unspecified; M79.7 Fibromyalgia; J44.9 Chronic obstructive pulmonary disease, unspecified; I10 Essential (primary) hypertension; E78.00 Pure hypercholesterolemia, unspecified; K21.9 Gastro-esophageal reflux disease without esophagitis; F41.9 Anxiety disorder, unspecified; Z79.899 Other long term (current) drug therapy
CPT/HCPCS: 80048; 83880; 85025; 93970; 99284; A4216

== ENCOUNTER 2017-10-26 10:43 | Emergency (ER) | payer MEDICAID, SELFPAY ==
[2017-10-26 10:44] VITALS: BP 131/83; PULSE 84; RESP 16; TEMP 36.2; O2SAT 95; BMI 44.0
--- NOTE | 2017-10-26 12:29 | ED.VISSUMM ---
- ER Visit Summary Date of Service: 10/26/17 Chief Complaint: Scalp lumps History of Present Illness: The patient is a 52 F presenting for evaluation secondary to lumps on her scalp. Patient reports that these have been present for 2 months and 1 of them seems to be getting worse. It is associated with increasing pain. She denies any drainage. She was on a course of antibiotics for this which did not seem to alleviate it. Physical Examination: HEENT exam shows some areas of folliculitis on the patient's posterior scalp one area seems to have potential for having some underlying fluctuance no overlying erythema Test Results: None indicated Emergency Department Course and Treatment: Patient's area of fluctuance on her right occipital scalp was cleaned with Betadine. It was anesthetized using 2 cc 1% lidocaine. An 11 blade was used, and a stab incision was made with very minimal fluid expressed. Wound was left open. Patient tolerated this well. Patient was discharged with a course of doxycycline ibuprofen and follow-up with [facility]. Disposition: Discharge Impression: Scalp folliculitis This note was generated with [employer] dictation software. It may contain incorrect words, spelling, and punctuation that were not noted in review of the chart prior to signing ED Disposition - Plan for ED Patient: Disposition: Home or Assisted Living Chief Complaint: Abscess Diagnosis: Folliculitis Instructions: ED Abscess IandD Prescriptions: Doxycycline Monohydrate 100 mg PO BID #14 cap Ibuprofen 800 mg PO TID PRN #15 tab PRN Reason: Pain Referrals: Angelina Rivera [NON-STAFF] - As soon as possible
[2017-10-26 12:32] VITALS: BP 129/59; PULSE 77; RESP 18; O2SAT 95
--- NOTE | 2017-10-26 12:37 | ED.DCSUM_ITS ---
- ER Visit Summary Date of Service: 10/26/17 Chief Complaint: Scalp lumps History of Present Illness: The patient is a 52 F presenting for evaluation secondary to lumps on her scalp. Patient reports that these have been present for 2 months and 1 of them seems to be getting worse. It is associated with increasing pain. She denies any drainage. She was on a course of antibiotics for this which did not seem to alleviate it. Physical Examination: HEENT exam shows some areas of folliculitis on the patient 's posterior scalp one area seems to have potential for having some underlying fluctuance no overlying erythema Test Results: None indicated Emergency Department Course and Treatment: Patient's area of fluctuance on her right occipital scalp was cleaned with Betadine. It was anesthetized using 2 cc 1% lidocaine. An 11 blade was used, and a stab incision was made with very minimal fluid expressed. Wound was left open. Patient tolerated this well. Patient was discharged with a course of doxycycline ibuprofen and follow-up with [facility]. Disposition: Discharge Impression: Scalp folliculitis This note was generated with [employer] dictation software. It may contain incorrect words, spelling, and punctuation that were not noted in review of the chart prior to signing ED Disposition - Plan for ED Patient: Disposition: Home or Assisted Living Chief Complaint: Abscess Diagnosis: Folliculitis Instructions: ED Abscess IandD Prescriptions: Doxycycline Monohydrate 100 mg PO BID #14 cap Ibuprofen 800 mg PO TID PRN #15 tab PRN Reason: Pain Referrals: Angelina Rivera [NON-STAFF] - As soon as possible
== END 2017-10-26 12:38 | disposition home or self-care (01) ==
PROVIDERS: Emergency Provider Emergency Medicine
DX: L73.9 Follicular disorder, unspecified (principal); J44.9 Chronic obstructive pulmonary disease, unspecified; F41.9 Anxiety disorder, unspecified; E66.9 Obesity, unspecified; Z79.899 Other long term (current) drug therapy
CPT/HCPCS: 10060; 99282

== ENCOUNTER 2017-11-03 18:06 | Emergency (ER) | payer MEDICAID, SELFPAY ==
[2017-11-03 18:07] VITALS: BP 128/73; PULSE 95; RESP 18; TEMP 36.1; O2SAT 98; BMI 44.6
--- NOTE | 2017-11-03 18:25 | ED.DCSUM_ITS ---
- ER Visit Summary Date of Service: 11/03/17 Chief Complaint: Cough History of Present Illness: The patient is a 52 F with no primary care physician. She reports she has cough began today. It is nonproductive. She has had subjective fever and chills. She reports that she has been wheezing had moderate difficulty breathing. She has not used her nebulizer she complains of congestion. No sore throat. No chest pain. She reports that she kind of has a headache. She is nauseated. She denies any abdominal pain or vomiting. Physical Examination: Vitals: Stable. Afebrile. General: Well-nourished and well-developed. Head: Normocephalic atraumatic. Neck: Supple, no lymphadenopathy. No JVD. Nontender. Cardiovascular: Regular rate and rhythm. No murmurs. Respiratory: No respiratory distress. Mild wheezing bilaterally with good air movement. Abdominal: Soft, nontender, nondistended, normal bowel sounds. No guarding, rebound, or peritoneal signs. Back: Nontender. Extremities: Nontender, no edema. Skin: Normal color, no rash. Neurologic: Alert and oriented ?3. Cranial nerves II through XII are intact. Normal strength and sensation. Psych: Normal affect. Test Results: EKG is sinus at 92 with artifact and no acute changes. CBC is more for monocytes of 11. Chem-7 is more for creatinine 1.13 and glucose 115. Chest x-ray shows chronic changes. Emergency Department Course and Treatment: Patient had an IV placed. She was given a liter normal saline. She was given albuterol and Atrovent aerosols. Treatment Plan: Patient be discharged with a 5 day burst of prednisone. Instructed to follow-up with the [facility] in 3-5 days not improving. Return to the emergency department for any worsening symptoms. Disposition: To home in improved and stable condition. Impression: 1. COPD exacerbation. This note was generated with [employer] dictation software. It may contain incorrect words, spelling, and punctuation that were not noted in review of the chart prior to signing ED Disposition - Plan for ED Patient: Chief Complaint: Shortness of Breath Instructions: ED COPD Flare Prescriptions: Prednisone [Deltasone] 40 mg PO DAILY #8 tablet Referrals: Angelina Rivera [NON-STAFF] - 3-5 Days if not improving
[2017-11-03 19:01] VITALS: O2SAT 94
[2017-11-03 19:05] VITALS: PULSE 97; RESP 20; O2SAT 95
[2017-11-03] MEDS: Ondansetron 4 MG/2 ML Vial IV (19:08)
[2017-11-03] MEDS: 0.9% Normal Saline 1,000 ML 999 ML IV (19:08)
[2017-11-03 19:14] LABS: Absolute Neutrophil Count 5.7 X10^3/uL (2.0-7.7); Basophil# 0.02 X10^3/uL; Basophil% 0.2 % (0-1); Eosinophils% 3.5 % (0-5); Hematocrit 40.3 % (37-47); Lymphocyte % 19.6 % (19-41); Mean Corp Hgb Conc 32.3 g/gl (32-36); Mean Corpuscular Hgb 29.1 pg (27.0-32.0); Mean Corpuscular Volume 90.4 fL (81-99); Mean Platelet Vol. 9.6 fl (6.2-12.0); Monocyte# 0.97 X10^3/uL; Monocyte% 11.2 % (0-10); Neutrophil # 5.68 X10^3/uL (2.7-7.7); Neutrophil % 65.4 % (47-70); POSITIVE COUNT NO; POSITIVE DIFFERENTIAL NO; POSITIVE MORPHOLOGY NO; Platelet Count 241 K/mm3 (150-450); RBC Distribution Width CV 13.2 % (11.6-14.6); RBC Distribution Width SD 43.2 fl (35.1-43.9); Red Blood Count 4.46 M/mm3 (4.2-5.4); White Blood Count 8.7 K/mm3 (4.4-11.0)
[2017-11-03 19:30] LABS: Anion Gap 10 (5-15); BUN 12 mg/dL (7-18); BUN/Creat Ratio 10.6 RATIO (10-20); Calcium,Total 8.5 mg/dL (8.5-10.1); Chloride 106 mmol/L (98-107); Creatinine, Serum 1.13 mg/dL (0.55-1.02); EST Glomerular Filtration Rate 54 mL/min (>60); Est Glom Filt Rate - Afr Amer 65 mL/min (>60); Estimated Creatinine Clearance 54.52 ml/min; Glucose 115 mg/dL (74-106); Potassium 3.5 mmol/L (3.5-5.1); Sodium Level 142 mmol/L (136-145)
[2017-11-03] MEDS: predniSONE 20 MG Tablet 40 MG PO (20:18)
[2017-11-03 20:19] VITALS: BP 119/73; PULSE 96; RESP 16; O2SAT 96
== END 2017-11-03 20:22 | disposition home or self-care (01) ==
PROVIDERS: Emergency Provider Emergency Medicine
DX: J44.1 Chronic obstructive pulmonary disease with (acute) exacerbation (principal); R11.0 Nausea; F41.9 Anxiety disorder, unspecified; Z72.0 Tobacco use; Z79.899 Other long term (current) drug therapy
CPT/HCPCS: 71046; 80048; 85025; 93005; 94640; 96361; 96374; 99284; J7030; J2405

== ENCOUNTER 2017-12-22 16:17 | Emergency (ER) | payer MEDICAID, SELFPAY ==
[2017-12-22 16:17] VITALS: BP 162/95; PULSE 77; RESP 16; TEMP 36.9; O2SAT 99; BMI 43.5
[2017-12-22] MEDS: oxyCODONE 5 MG Tablet 10 MG PO (16:46)
--- NOTE | 2017-12-22 16:47 | ED.DCSUM_ITS ---
- ER Visit Summary Date of Service: 12/22/17 Chief Complaint: Back pain History of Present Illness: The patient is a 52 F with a history of chronic back pain which occasionally flares. Patient states her back pain worsened about 4 days ago. She denies any new injury. She is been having difficulty sleeping because of the pain. She states the pain does radiate to both legs to the level of her knees. She has had this with her previous flares of pain. She denies bowel or bladder problems. She has not had fever. She been taking ibuprofen as well as Tylenol. Last dose of Tylenol was approximately 3 hours prior to arrival. Patient states that muscle relaxers and steroids typically do not help her when she gets these flares. Past history significant for COPD, hypertension, high cholesterol, back pain, GERD. Physical Examination: Vital signs significant for blood pressure 162/95, otherwise unremarkable. Patient is lying in bed. She appears uncomfortable but she is in no acute distress. Heart is regular rate and rhythm. Lung sounds are clear. Abdomen is soft and nontender. Back examination was reproducible tenderness in the low lumbar area and over the sacrum. Lower extremity examination reveals 1-2+ edema to the bilateral ankles that is symmetric. She has strong distal pulses and normal sensation. She has 1+ bilateral patellar reflexes. She has good strength on testing. Test Results: [] Emergency Department Course and Treatment: [facility] report was obtained and her last narcotic prescription was in September of this year. She is given 10 mg of p.o. oxycodone. On repeat evaluation patient is starting to get some relief. She will be given prescription for Percocet at home. She will continue her ibuprofen as well. Treatment Plan: [] Disposition: Discharge Impression: Acute on chronic back pain This note was generated with [employer] dictation software. It may contain incorrect words, spelling, and punctuation that were not noted in review of the chart prior to signing ED Disposition - Plan for ED Patient: Chief Complaint: Back Referrals: Onesimo Griffith MD [Primary Care Provider] -
--- NOTE | 2017-12-22 17:17 | ED.DEP ---
ED Disposition - Plan for ED Patient: Disposition: Home or Assisted Living Chief Complaint: Back Instructions: ED Sprain Strain Lumbar Referrals: Onesimo Griffith MD [Primary Care Provider] -
--- NOTE | 2017-12-22 17:19 | ED.DEP ---
ED Disposition - Plan for ED Patient: Disposition: Home or Assisted Living Chief Complaint: Back Instructions: ED Sprain Strain Lumbar Prescriptions: Oxycodone HCl/Acetaminophen [Percocet 5/325] 1 tablet PO Q6H PRN PRN 3 Days #12 tablet PRN Reason: Pain Referrals: Onesimo Griffith MD [Primary Care Provider] - 1 Week
[2017-12-22] MEDS: oxyCODONE 5 MG Tablet PO (17:28)
[2017-12-22 17:29] VITALS: BP 128/79; PULSE 81; RESP 15; O2SAT 97
== END 2017-12-22 17:30 | disposition home or self-care (01) ==
PROVIDERS: Emergency Provider Emergency Medicine; Family Provider Internal Medicine; PCP Internal Medicine
DX: M54.9 Dorsalgia, unspecified (principal); G89.29 Other chronic pain; J44.9 Chronic obstructive pulmonary disease, unspecified; I10 Essential (primary) hypertension; E78.00 Pure hypercholesterolemia, unspecified; K21.9 Gastro-esophageal reflux disease without esophagitis; M79.7 Fibromyalgia; Z72.0 Tobacco use; Z79.899 Other long term (current) drug therapy
CPT/HCPCS: 99283

== ENCOUNTER 2017-12-27 11:01 | Emergency (ER) | payer MEDICAID, SELFPAY ==
[2017-12-27 11:02] VITALS: BP 129/67; PULSE 76; RESP 15; TEMP 36.6; O2SAT 96; BMI 43.5
--- NOTE | 2017-12-27 11:18 | ED.RN ---
rt eye abrasion and swelling.
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
[2017-12-27] MEDS: Acetaminophen 500 MG Tablet 1000 MG PO (12:08)
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
[2017-12-27 12:52] VITALS: BP 124/80; PULSE 74; RESP 16; O2SAT 96
== END 2017-12-27 12:53 | disposition home or self-care (01) ==
PROVIDERS: Emergency Provider Emergency Medicine; Family Provider Internal Medicine; PCP Internal Medicine
DX: S00.83XA Contusion of other part of head, initial encounter (principal); S00.211A Abrasion of right eyelid and periocular area, initial encounter; V89.2XXA Person injured in unspecified motor-vehicle accident, traffic, initial encounter; Y93.9 Activity, unspecified; Y92.9 Unspecified place or not applicable; Y99.9 Unspecified external cause status; K21.9 Gastro-esophageal reflux disease without esophagitis; F32.9 Major depressive disorder, single episode, unspecified; F41.9 Anxiety disorder, unspecified; Z72.0 Tobacco use; Z79.899 Other long term (current) drug therapy
CPT/HCPCS: 70450; 70486; 71046; 72125; 99284

== ENCOUNTER 2018-01-17 15:35 | Emergency (ER) | payer MEDICAID, SELFPAY ==
[2018-01-17 15:36] VITALS: BP 140/82; PULSE 90; RESP 14; TEMP 36; O2SAT 95; BMI 43.2
[2018-01-17] MEDS: HYDROcodone Bitartrate/Apap 5/325 Tablet PO (16:36)
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
--- NOTE | 2018-01-17 18:45 | ED.DEP ---
ED Disposition - Plan for ED Patient: Chief Complaint: Back Instructions: ED Low Back Pain Injury Referrals: Onesimo Griffith MD [Primary Care Provider] -
[2018-01-17 18:56] VITALS: BP 144/97; PULSE 86; RESP 16; O2SAT 94
== END 2018-01-17 19:01 | disposition home or self-care (01) ==
LOC: ED 16:30
PROVIDERS: Emergency Provider Emergency Medicine; Family Provider Internal Medicine; PCP Internal Medicine
DX: M54.5 Low back pain (principal); M79.7 Fibromyalgia; M19.90 Unspecified osteoarthritis, unspecified site; K21.9 Gastro-esophageal reflux disease without esophagitis; F32.9 Major depressive disorder, single episode, unspecified; F41.9 Anxiety disorder, unspecified; Z72.0 Tobacco use; Z79.899 Other long term (current) drug therapy
CPT/HCPCS: 99282

== ENCOUNTER 2018-01-30 09:57 | Emergency (ER) | payer MEDICAID, SELFPAY ==
[2018-01-30 09:59] VITALS: BP 138/75; PULSE 78; RESP 20; TEMP 36.1; O2SAT 96; BMI 44.9
--- NOTE | 2018-01-30 10:37 | EKG12_ITS ---
Test Reason : DYSRHYTHMIA Blood Pressure : / mmHG Vent. Rate : 079 BPM Atrial Rate : 079 BPM P-R Int : 164 ms QRS Dur : 068 ms QT Int : 366 ms P-R-T Axes : 056 074 050 degrees QTc Int : 419 ms Normal sinus rhythm Low voltage QRS Borderline ECG Confirmed by SABINO LUIS, TOPHER ([id number]), graphics editor TANNA LAZO ([id number]) on 02/04/2018 3:31:48 PM Referred By: LEX Confirmed By:TOPHER GALLO MD
--- NOTE | 2018-01-30 10:37 | RAD_ITS ---
STUDY: X-RAY CHEST REASON FOR EXAM: Female, 52 years old. Upper abdominal pain. TECHNIQUE: Single AP portable view of the chest. COMPARISON: Comparison is made with prior study dated December 27, 2017. FINDINGS: The lungs are clear and expanded. Scattered calcified granulomas. There is no demonstrated pleural abnormality. Normal size heart. Normal mediastinum and cecilia. Normal visualized pulmonary arteries. Normal visualized aortic arch and descending thoracic aorta. There are degenerative changes of the visualized thoracic spine. Normal visualized ribs, clavicles, and shoulders. There is no demonstrated abnormality of the visualized soft tissue structures of the upper abdomen. RAD/Chest 1 View (Portable) IMPRESSION: Normal x-ray examination of the chest. Electronically Signed: Junior Davis MD at 11:14 EST Tel [phone], Service support ,
[2018-01-30 10:50] LABS: Basophil# 0.02 X10^3/uL; Basophil% 0.3 % (0-1); Eosinophil# 0.26 X10^3/uL; Eosinophils% 3.3 % (0-5); Hematocrit 46.2 % (37-47); Hemoglobin 15.3 g/dl (12.0-15.0); Lymphocyte % 22.5 % (19-41); Mean Corp Hgb Conc 33.1 g/gl (32-36); Mean Corpuscular Hgb 29.9 pg (27.0-32.0); Mean Corpuscular Volume 90.2 fL (81-99); Mean Platelet Vol. 9.5 fl (6.2-12.0); Monocyte# 0.88 X10^3/uL; Neutrophil # 5.03 X10^3/uL (2.7-7.7); Neutrophil % 62.8 % (47-70); Platelet Count 273 K/mm3 (150-450); RBC Distribution Width CV 12.8 % (11.6-14.6); RBC Distribution Width SD 42.3 fl (35.1-43.9); Red Blood Count 5.12 M/mm3 (4.2-5.4)
[2018-01-30] MEDS: Mag Hydrox/Al Hydrox/Simeth 30 ML UDC PO (10:50)
[2018-01-30 10:51] LABS: POSITIVE COUNT NO; POSITIVE DIFFERENTIAL NO; POSITIVE MORPHOLOGY NO
[2018-01-30] MEDS: 0.9% Normal Saline 1,000 ML 1000 ML IV (10:51)
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
[2018-01-30 11:09] LABS: BUN 10 mg/dL (7-18); Creatinine, Serum 1.05 mg/dL (0.55-1.02); Glucose 93 mg/dL (74-106)
[2018-01-30 11:10] LABS: ALB/GLOB Ratio 0.6 RATIO (0.9-2.4); AST(SGOT) 15 U/L (15-37); Alanine Aminotransfer ALT/SGPT 18 U/L (13-56); Alkaline Phosphatase 101 U/L (45-117); Anion Gap 4 (5-15); BUN/Creat Ratio 9.5 RATIO (10-20); Calcium,Total 8.8 mg/dL (8.5-10.1); Chloride 106 mmol/L (98-107); EST Glomerular Filtration Rate 58 mL/min (>60); Est Glom Filt Rate - Afr Amer 71 mL/min (>60); Globulin 4.9 g/dL (2.2-4.2); Lipase 114 U/L (73-393); Potassium 3.8 mmol/L (3.5-5.1); Protein, Total 7.9 g/dL (6.4-8.2); Sodium Level 141 mmol/L (136-145)
--- NOTE | 2018-01-30 11:16 | ED.RN ---
PATIENT LEAVING AMA. THIS NURSE DISCUSSED WITH THE PATIENT TH SEVERITY OF THE HEALTH PROBLEMS THAT WE WERE CHECKING HER FOR AND PATIENT STILL REFUSED TO STAY. NOTIFIED. IV REMOVED BY THIS NURSE.
[2018-01-30 11:22] LABS: Mucous, Urine 0 SEEN /hpf (<or=2+); Red Blood Cells-Urine 0 SEEN /hpf (0-5)
[2018-01-30 11:23] LABS: Color, Urine Straw (Yellow); Glucose, Dipstick Normal (Normal); Ketone-Dipstick Negative (Negative); Leukocyte Esterase-Dipstick Negative /ul (Negative); Nitrite-Dipstick Negative (Negative); Occult Blood-Urine 10 /ul (Negative); Protein-Dipstick Negative (Negative); Urine Bilirubin Dipstick Negative (Negative); Urine Clarity Clear (Clear); Urine Urobilinogen Normal (Normal)
[2018-01-30 11:29] LABS: Bacteria RARE /hpf (None Seen); Squamous Epithelial Cells - UA 0-5 SEEN /hpf (5-10); White Blood Cells 0-5 SEEN /hpf (0-5)
--- OUTSIDE RECORDS SUMMARY | 2018-03-27 13:56 | XMS RPT_ITS ---
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 MIRZA[facility] During your visit today, we recorded the following information about you: Temperature Pulse Respiration Blood pressure 98 degrees 72/minute 20/minute 110/68 Weight Height 122.9 kg 1.59 m Marion Mirza MD 12/03/2017 10:02 PM Signed Chief Complaint Patient presents with: physical/est care HPI Hiro Polanco is a 52 year old female who presents here today for establish care visit. Previously seeing Dr. Pichardo for PCP, last OV was about 3-4 months ago. Complaining today of left sided chest pain which has been present for the last 2-3 days. Described as constant soreness without radiation, currently 5/10. Exacerbated when she leans on her left arm. Treated with ibuprofen 800mg x2 this morning which did not help with symptoms. Admits to lightheadedness and improvement with rest. Denies sweating, nausea, SOB, exertional. Also would like lesions on the left side of her neck checked today. First noticed today with TTP. Denies erythema, drainage, fever, chills. History of folliculitis on her scalp. Has history of COPD, has not had PFTs in the past. Albuterol nebulizer PRN. Currently smoking 1 pack per day. Does not want to quit. Follows up with Dr. Holland for psychiatry for anxiety. Well controlled on current regimen. Refusing immunizations today. Due for screening mammogram. Past medical history, appointments, medications, allergies reviewed. Previous Medical History PAST MEDICAL HISTORY Diagnosis Date - Anemia, unspecified transfused 2002, [facility] - Anxiety Seeing Dr. Holland - Carpal tunnel syndrome - COPD (chronic obstructive pulmonary disease) (HCC) - Depressive disorder, not elsewhere classified hospitalized 1999, [facility], [facility] center Dr. Rubén Merino - Esophageal reflux 04/26/2005 - EXCESSIVE MENSTRUATION 04/26/2005 s/p hysterectomy - Fibromyalgia 05/28/2016 - Morbid obesity (HCC) - Panic disorder with agoraphobia Counseling center, Dr. Rubén Merino - Tobacco use - Vertigo Previous Surgical History PAST SURGICAL HISTORY Procedure Laterality Date - CARPAL TUNNEL left wrist - LAP VAG HYST <=250 G RMV T/O 12/01/2014 LAVH, BSO due to excessive menstrual bleeding - LIGATE FALLOPIAN TUBE 1986 - WRIST SPLINT 06/05 l wrist Family History FAMILY HISTORY Problem Relation Age of Onset - Hypertension Mother - other (ovarian cancer) Mother - Alcohol/Drug Brother ETOH - Cancer Brother lung, liver - other (lung cancer) Maternal Uncle - Cancer Maternal Uncle - Cancer Sister thyroid Patient Allergies ALLERGIES Allergen Reactions - Demerol [Meperidine* GI Upset - Doxycycline Intolerance rapid heart beat anxiety attack. - Penicillins Intolerance rash - Sulfa (Sulfonamide * GI Upset - Caffeine Intolerance - Cephalosporins Rash - Gabapentin Mental Status Change - Iron GI Upset - Naproxen GI Upset - Rocephin [Ceftriaxo* Rash Current Medications Current Outpatient Prescriptions on File Prior to Visit: estradiol (ESTRACE) 1 mg tablet Take 1 tablet by mouth once daily. ERYTHROMYCIN BASE (ERYTHROMYCIN OPHTHALMIC) Use in eyes. meclizine (ANTIVERT) 25 mg tab Take 1 Tablet by Mouth Three Times Daily as Needed (Vertigo Symptoms) albuterol (PROVENTIL) 2.5 mg /3 mL (0.083 %) nebulizer solution Inhale The Contents Of 1 [address]ial Via Nebulizer Every 4 Hours As Needed For Shortness Of Breath Or Wheezing Use Over 5 -15 Minutes LORazepam (ATIVAN) 2 mg tab Take 1 tablet by mouth three times daily as needed. naproxen (NAPROSYN) 500 mg tablet Take 1 tablet by mouth twice daily as needed (for pain/inflammation). Take with food. (Patient not taking: Reported on 09/27/2017 ) HYDROcodone-acetaminophen (NORCO) 5-325 mg per tablet Take 1 tablet by mouth every 6 hours as needed. hydroCHLOROthiazide (HYDRODIURIL, ESIDRIX) 25 mg tablet Take 0.5 tablets by mouth once daily. losartan (COZAAR) 100 mg tablet Take 1 tablet by mouth once daily. venlafaxine hcl(EFFEXOR XR 75 MG 24 HR CAP) Take one(1) tablet daily. No current facility-administered medications on file prior to visit. 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 Lives in house full of people, including ex and his new girlfriend who is , her boyfriend, oldest son and several other friends. Very stressful home / living situation. Saw Dr. Chauhan for pain mgmt on 06/23/12- getting epidural injections Review of Symptoms REVIEW OF SYSTEMS GENERAL: No weight loss, malaise or fevers RESPIRATORY: Negative for cough, hemoptysis, wheezing, COPD, dyspnea or shortness of breath CARDIOVASCULAR: See HPI GI: No nausea, vomiting, or diarrhea SKIN: See HPI EXAM: BP 110/68 (BP Site: Left Arm, BP Position: Sitting, BP Cuff Size: Large Adult) Pulse 72 Temp 36.7 ?C (98 ?F) Resp 20 Ht 159 cm (5' 2.6) Wt 122.9 kg (271 lb) LMP 12/20/2006 SpO2 98% BMI 48.62 kg/m? General Appearance: Well appearing, alert, in no acute distress, well-hydrated, well nourished.. Skin: mild foliculitis on left occiput. Lungs: Lungs clear to auscultation. No wheezing, rhonchi, rales. Heart: RRR without murmur, gallop, or rubs. No ectopy. TTP over left side of chest which reproduces pain. Abdomen: Normal abdominal exam, Abdomen soft, non-tender. Bowel sounds normal. No masses, organomegaly. Extremities: No deformities, edema, skin discoloration, clubbing or cyanosis. Good capillary refill. . Health Maintenance List ANNUAL PCP TEAM CHRONIC DISEASE VISIT due on 10/24/1983 BP CONTROLLED (<130/80) due on 10/24/1983 ONE PNEUMOVAX PRIOR TO AGE 65 due on 1984 COLORECTAL CANCER SCREENING,SEE MODIFIER due on 10/24/2015 DIABETES SCREEN due on 10/19/2016 LIPID SCREEN due on 05/15/2017 MAMMOGRAM due on 05/28/2017 INFLUENZA(1) due on 11/02/2017 PAP EVERY 5 YEARS due on 05/28/2021 HPV EVERY 5 YEARS due on 05/28/2021 DTAP,TDAP,TD(2 - Td) due on 06/20/2022 Data reviewed EKG: NSR at 66 bpm, low voltage QRS ASSESSMENT/PLAN: 1. Chest pain, unspecified type - ICD9: 786.50, ICD10: R07.9 (primary diagnosis) Negative EKG. Agreeable to CXR but refusing cardiac workup despite multiple risk factors. Chest TTP today, likely musculoskeletal cause. - ECG COMPLETE W INTERPRETATION - XR CHEST 2V FRONTAL/LAT 2. Folliculitis - ICD9: 704.8, ICD10: L73.9 Warm compress BID, OTC abx ointment as directed. 3. Morbid obesity (HCC) - ICD9: 278.01, ICD10: E66.01 Discussed improved diet and exercise. - COMP METABOLIC PANEL - LIPID PANEL BASIC - HGB A1C 4. Chronic obstructive pulmonary disease, unspecified COPD type (HCC) - ICD9: 496, ICD10: J44.9 Obtain PFTs, recommend smoking cessation, continue albuterol PRN. - SPIROMETRY - BASELINE AND POST DILATOR 5. Anxiety - ICD9: 300.00, ICD10: F41.9 Controlled on current regimen. Follow up with Dr. Holland. 6. Tobacco use disorder - ICD9: 305.1, ICD10: F17.200 - Cessation encouraged. - Physiologic and physical aspects of tobacco addiction as well as strategies for quitting were discussed. - Counseling was given focusing on the harmful effects of this addiction especially given the patient's medical condition(s) which will be worsened because of the chemicals in tobacco. 7. Screening mammogram, encounter for - ICD9: V76.12, ICD10: Z12.31 - Set up for mammogram, yearly mammogram recommended - Follow up for annual exam in one year. - [facility] S[facility]EN[facility] Marion Mirza MD Referring Provider: SELF [200] Allergies As of Date: 12/02/2017 Noted Allergy Reaction DEMEROL (MEPERIDINE HCL) 01/01/2005 8 - GI Upset DOXYCYCLINE 01/01/2005 5 - Intolerance Comments: rapid heart beat anxiety attack. PENICILLINS 01/01/2005 5 - Intolerance Comments: rash SULFA (SULFONAMIDE ANTIBIOTICS) 01/01/2005 8 - GI Upset CAFFEINE 08/12/2009 5 - Intolerance CEPHALOSPORINS 05/31/2013 2 - Rash GABAPENTIN 05/28/2016 1 - Mental Status Change IRON 05/08/2005 8 - GI Upset NAPROXEN 12/02/2017 8 - GI Upset ROCEPHIN (CEFTRIAXONE SODIUM) 02/22/2005 2 - Rash Date Reviewed: 12/02/2017 Reviewed by: Daina Levy LPN - Fully Assessed Reason for Visit: physical/est care [Other] Primary Visit Diagnosis:Chest pain, unspecified type [R07.9] Other Visit Diagnoses:Folliculitis [L73.9] Morbid obesity (HCC) [E66.01] Chronic obstructive pulmonary disease, unspecified COPD type (HCC) [J44.9] Anxiety [F41.9] Tobacco use disorder [F17.200] Screening mammogram, encounter for [Z12.31] Order(s):ECG COMPLETE W INTERPRETATION [ECG01] Order #: [id number] FUTURE XR CHEST 2V FRONTAL/LAT [[id number]] Order #: [id number] FUTURE COMP METABOLIC PANEL [SQCMP] Order #: [id number] FUTURE LIPID PANEL BASIC [SQLIPB] Order #: [id number] FUTURE HGB A1C [DJFHD7T] Order #: [id number] FUTURE SHIRLEY SCREENING [[id number]] Order #: [id number] FUTURE SPIROMETRY - BASELINE AND POST DILATOR [[id number]] Order #: [id number] FUTURE Prescriptions as of 12/02/2017 Sig: ESTRADIOL 1 MG TABLET Take 1 tablet by mouth once d* MECLIZINE 25 MG TABLET Take 1 Tablet by Mouth Three * ALBUTEROL SULFATE 2.5 MG/3 ML* Inhale The Contents Of 1 Vial* LORAZEPAM 2 MG TABLET Take 1 tablet by mouth three * * EFFEXOR XR 75 MG CAPSULE,EXTE* Take one(1) tablet daily. Problem List As Of Date 12/02/2017 Noted Resolved Depressive disorder, not elsewhere classified [*INVALID FOR* More... ANXIETY STATE NOS [F41.1] INVALID FOR* Esophageal reflux [K21.9] INVALID FOR* More... Chronic airway obstruction, not elsewhere class*INVALID FOR* More... Excessive or frequent menstruation [N92.0] INVALID FOR*02/19/2012 Anemia, unspecified [D64.9] INVALID FOR*02/19/2012 Tobacco use disorder [F17.200] INVALID FOR* More... Urinary tract infection, site not specified [N3*INVALID FOR*02/19/2012 LUMBAGO [M54.5] INVALID FOR* Plantar Fascial Fibromatosis [M72.2] INVALID FOR* Calcaneal spur [M77.30] INVALID FOR* Low blood potassium [E87.6] INVALID FOR* More... Low HDL (under 40) [E78.6] INVALID FOR* Hyperlipidemia LDL goal < 130 [E78.5] INVALID FOR* More... UTI (lower urinary tract infection) [N39.0] INVALID FOR*08/12/2013 Myofascial pain [M79.18] INVALID FOR* DDD (degenerative disc disease), lumbar [M51.36]INVALID FOR* Chronic back pain [M54.9, G89.29] INVALID FOR* More... Physical deconditioning [R53.81] INVALID FOR* More... Chest pain [R07.9] INVALID FOR* More... Dizziness [R42] INVALID FOR* More... Hypertension [I10] INVALID FOR*12/02/2017 More... Actinomyces infection [A42.9] INVALID FOR*12/07/2014 Hematuria [R31.9] INVALID FOR* Morbid obesity (HCC) [E66.01] INVALID FOR* Urgency of urination [R39.15] INVALID FOR* Frequency of urination [R35.0] INVALID FOR* Generalized abdominal pain [R10.84] INVALID FOR* Stress fracture of calcaneus [M84.376A] INVALID FOR* Chronic pelvic pain in female [R10.2, G89.29] INVALID FOR* Adenomyosis [N80.0] INVALID FOR* Dyspareunia due to non-psychogenic cause in fem*INVALID FOR* Medications Discontinued During This Encounter HYDROcodone-acetaminophen (NORCO) 5-* 12/02/2017 Class: Historical Med Route: ORAL Sig: Take 1 tablet by mouth every 6 hours as needed. Disc: Reason for discontinue is not on file. naproxen (NAPROSYN) 500 mg tablet 30 t* 0 04/06/2017 12/02/2017 Route: ORAL Sig: Take 1 tablet by mouth twice daily as needed (for pain/inflammation). Take with food. Patient not taking: Reported on 09/27/2017 Disc: Reason for discontinue is not on file. ERYTHROMYCIN BASE (ERYTHROMYCIN OPHT* 12/02/2017 Class: Historical Med Route: OPHTHALMIC Sig: Use in eyes. Disc: Reason for discontinue is not on file. hydroCHLOROthiazide (HYDRODIURIL, ES* 90 t* 3 05/28/2016 12/02/2017 Class: Med Update Route: ORAL Sig: Take 0.5 tablets by mouth once daily. Disc: Reason for discontinue is not on file. losartan (COZAAR) 100 mg tablet 90 t* 3 06/19/2013 12/02/2017 Class: Print RX Route: ORAL Sig: Take 1 tablet by mouth once daily. Disc: Reason for discontinue is not on file. Disposition: Return in about 3 months (around 03/04/2018). Follow-up and Disposition History Recorded Encounter Status:Closed by MARION MIRZA MD on 12/03/17 INTERNAL MEDICINE Observed: 11/19/2017 Status: F Source: [place] OFFICE VISIT 5:16 PM [facility] Internal Medicine [address] [place] [address] [place] [address] OFFICE VISIT Date of Service: 11/19/17 MR#: [id number] Acct: [id number] Name: HIRO POLANCO Rep #: [id number] : 1965 Provider: Onesimo Ovalle MD Age/Sex: 52/F Location: [facility] Status: Signed Intake Vital Signs11/19/17 Height 5 ft 6 in 11/19/17 Weight: 271 lb 11/19/17 Body Mass Index (BMI) 43.7 11/19/17 Blood Pressure 115/74 Intake Visit Reasons: 1 mo f/u Chief Complaint: 1 mo FU - Cough AND Lt ankle pain Is patient in pain?: Yes (Lt ankle pain) Pain scale (1-10): 9 Allergies ceftriaxone sodium [From Rocephin] Allergy (Verified 11/19/17 08:37) Hives diclofenac potassium [From Cataflam] Adverse Reaction (Verified 11/19/17 08:37) Upset Stomach meperidine HCl [From Demerol] Adverse Reaction (Verified 11/19/17 08:37) Upset Stomach naproxen [From Aleve] Adverse Reaction (Verified 11/19/17 08:37) Upset Stomach Penicillins [PCN] Adverse Reaction (Verified 11/19/17 08:37) Upset Stomach Sulfa (Sulfonamide Antibiotics) Adverse Reaction (Verified 11/19/17 08:37) Upset Stomach Medications Lorazepam [Ativan] 1 mg PO Q12H PRN PRN 12/27/12 [History Confirmed 11/19/17] Venlafaxine XR [Effexor Xr] 75 mg PO DAILY 12/01/14 [History Confirmed 11/19/17] Estradiol 1 mg PO DAILY 02/21/17 [History Confirmed 11/19/17] Ranitidine [Zantac] 150 mg PO BID 09/28/17 [History Confirmed 11/19/17] meclizine 25 mg tablet 25 mg PO QDAY PRN 10/18/17 [History Confirmed 11/19/17] Compression stockings #4 ea 11/11/17 [Rx] ibuprofen 800 mg tablet 800 mg PO TID PRN #60 tab 11/19/17 [Rx Confirmed 11/19/17] PFSH Medical History Abdominal pain (Acute) Anxiety and depression (Acute) Frequent headaches (Acute) Impaired glucose tolerance (Acute) Vertigo (Acute) Arthritis of hip (Chronic) COPD (chronic obstructive pulmonary disease) (Chronic) Chronic constipation (Chronic) Chronic low back pain (Chronic) Dyslipidemia (Chronic) GERD (gastroesophageal reflux disease) (Chronic) Hypertension (Chronic) Osteoarthritis of knee (Chronic) Surgical History History of hysterectomy (Acute) H/O total hysterectomy (Inactive) s/p left wrist (Inactive) Family History Mother Hypertension Ovarian cancer Colon cancer Breast cancer Brother Alcoholism Cancer lung, liver Sister Kidney disease Thyroid disorder Cancer Social History Smoking Status: Current every day smoker alcohol intake: never substance use type: does not use what type of physical activity do you participate in: none HPI HPI Chief Complaint: 1 mo FU - Cough AND Lt ankle pain Details: HIRO POLANCO, is a 52yo F who presents to the office today due to concerns of left ankle pain. Since having sudden onset. Denies any known trauma. Pain is described as sharp and worse with internal rotation of the foot. ROS Const Constitutional: No chills, fatigue, fever(s), frequent falls, malaise, weakness, sleep problems or change in appetite Eyes Eyes: No blurry vision, change in vision, double vision, discharge or visual disturbances ENT ENT: No abnormal hearing, ear pain, ear pressure, tinnitus or dizziness/vertigo Resp Respiratory: No shortness of breath or wheezing Cardio Cardiology: No chest pain at rest, chest pain with exertion, shortness of breath, dyspnea on exertion, generalized swelling, irregular heart rhythm, lightheadedness, orthopnea, fast heart rate or palpitations Gastro GI: No abdominal pain, change in bowel habits, constipation, diarrhea, nausea/dyspepsia or vomiting Genitourinary-Female: No difficulty urinating, burning urination, painful urination, urinary incontinence, urinary frequency, urinary urgency, urinary hesitancy, urinary retention, Frequent nighttime urination/ nocturia, sexual problems, genital lesions, abnormal vaginal bleeding, pelvic pain, vaginal dryness, vaginal odor or Vaginal Itching Musc Musculoskeletal: Positive for joint pain (Left ankle); no back pain, limited range of motion, muscle weakness, numbness or tingling Skin Skin: No change in skin color, itching, rash or wounds Breast Breast: No breast lump or breast pain Neuro Neurology: No frequent falls, weakness, abnormal hearing, numbness, tingling, unsteady gait/balance, dizziness, loss of vision, memory loss or visual disturbances Psych Psychiatric: No memory loss, No anxiety, No change in appetite, No depression, No Thoughts of harming yourself/Others Endo Endocrine: No fatigue, heat intolerance, increased thirst/drinking, increased hunger or increased urination Aller/Imm Allergy/Immunologic: No wheezing, itchy eyes or seasonal allergy symptoms Dio/Lymp Hematologic/Lymphatic: No easy bleeding, easy bruising or enlarged lymph nodes Exam Const General: cooperative, no acute distress Orientation: alert, awake, oriented x3 HENMT Head: atraumatic, normal to inspection, normocephalic Ears: hearing grossly normal bilaterally Resp Effort AND Inspection: normal respiratory effort, able to speak in complete sentences Auscultation: Bilateral: Clear to Auscultation Cardio Rate: regular rate Rhythm: regular rhythm Heart Sounds: S1 normal, S2 normal GI Palpation: soft, no hepatosplenomegaly Musc Musculoskeletal: No muscle weakness Other: Point tenderness of left lateral foot. Tenderness on inversion noted also. Neuro General: alert, awake, oriented x3, moves all extremities, CN's II-XI intact bilaterally Assessment AND Plan 1. Left foot pain M79.672 Plan Acute. No known history of trauma. Possibly a sprain. Rest ice and elevate foot. Ibuprofen as needed. X-ray ordered. Advised to call with worsening symptoms. Follow-up with podiatry as previously scheduled. Orders Orders: 2. COPD exacerbation J44.1 Plan Resolved. No concerns at this time. This note was generated with [employer] dictation software. It may contain incorrect words, spelling, and punctuation that were not noted in checking the note before signing. Plan Detail Other Medications Changed: Coding Level of Care Code Off vis,est,level 3 Diagnoses Left foot pain M79.672 COPD exacerbation J44.1 11/19/17 1716 <Electronically signed by Onesimo Ovalle MD> Date Onesimo Ovalle MD Cosigner Signature: Date (if applicable) CC: INTERNAL MEDICINE Observed: 11/12/2017 Status: F Source: [facility] OFFICE VISIT 11:58 AM [facility] Internal Medicine [address] [place] [address] OFFICE VISIT Date of Service: 11/12/17 MR#: [id number] Acct: [id number] Name: HIRO POLANCO Rep #: [id number] : 1965 Provider: Ayad Lee NP Age/Sex: 52/F Location: [facility] Status: Signed Intake Vital Signs11/12/17 Height 5 ft 6 in Intake Visit Reasons: S/P [facility] ED, COPD Chief Complaint: cough, SOB Is patient in pain?: Yes (headache) Pain scale (1-10): 8 Allergies ceftriaxone sodium [From Rocephin] Allergy (Verified 11/03/17 19:12) Hives diclofenac potassium [From Cataflam] Adverse Reaction (Verified 11/03/17 19:12) Upset Stomach meperidine HCl [From Demerol] Adverse Reaction (Verified 11/03/17 19:12) Upset Stomach naproxen [From Aleve] Adverse Reaction (Verified 11/03/17 19:12) Upset Stomach Penicillins [PCN] Adverse Reaction (Verified 11/03/17 19:12) Upset Stomach Sulfa (Sulfonamide Antibiotics) Adverse Reaction (Verified 11/03/17 19:12) Upset Stomach Medications Lorazepam [Ativan] 1 mg PO Q12H PRN PRN 12/27/12 [History Confirmed 11/12/17] Venlafaxine XR [Effexor Xr] 75 mg PO DAILY 12/01/14 [History Confirmed 11/12/17] Estradiol 1 mg PO DAILY 02/21/17 [History Confirmed 11/12/17] levalbuterol 1.25 mg/3 mL solution for nebulization 1.25 mg INHALATION Q1-4H PRN 03/21/17 [History Confirmed 11/12/17] Ranitidine [Zantac] 150 mg PO BID 09/28/17 [History Confirmed 11/12/17] meclizine 25 mg tablet 25 mg PO QDAY PRN 10/18/17 [History Confirmed 11/12/17] Ibuprofen 800 mg PO TID PRN #15 tab 10/26/17 [Rx Confirmed 11/12/17] Compression stockings #4 ea 11/11/17 [Rx] guaifenesin ER 1,200 mg tablet, extended release 12 hr 1,200 mg PO Q12H PRN #14 tab 11/12/17 [Rx Confirmed 11/12/17] levofloxacin 750 mg tablet 750 mg PO DAILY #5 tab 11/12/17 [Rx Confirmed 11/12/17] prednisone 10 mg tablet See Label Instructions PO QDAY #30 tab 11/12/17 [Rx Confirmed 11/12/17] Post menopausal: Yes PFSH Medical History Abdominal pain (Acute) Anxiety and depression (Acute) Frequent headaches (Acute) Impaired glucose tolerance (Acute) Vertigo (Acute) Arthritis of hip (Chronic) COPD (chronic obstructive pulmonary disease) (Chronic) Chronic constipation (Chronic) Chronic low back pain (Chronic) Dyslipidemia (Chronic) GERD (gastroesophageal reflux disease) (Chronic) Hypertension (Chronic) Osteoarthritis of knee (Chronic) Surgical History History of hysterectomy (Acute) H/O total hysterectomy (Inactive) s/p left wrist (Inactive) Family History Mother Hypertension Ovarian cancer Colon cancer Breast cancer Brother Alcoholism Cancer lung, liver Sister Kidney disease Thyroid disorder Cancer Social History Smoking Status: Current every day smoker alcohol intake: never substance use type: does not use what type of physical activity do you participate in: none HPI HPI Chief Complaint: cough, SOB Details: HIRO POLANCO, is a 52 F who presents to the office today for an ER f/u and complaints of cough and shortness of breath. She has a past medical history of COPD, arthritis and fibromyalgia. The patient presents today with complaints of cough and shortness of breath that have been going on for 10 days. She complains of shortness of breath at rest and with exertion, cough with occasional sputum production yellow thick. She is currently living at the [facility], [place] and states that she has come in contact with numerous sick people. On November 03, 2017 she presented to [facility] emergency room for cough and shortness of breath. She states she was given a breathing treatment, steroids and fluids. She was sent home with a prescription for steroids but admits to not taking because it makes her gain weight. She has been using albuterol nebulizer with moderate relief of her shortness of breath. She is also been using cough syrup with codeine that she states helps reduce her cough. The patient is a poor historian and states that she has been diagnosed with COPD but is unsure if any pulmonary tests were completed. She states she has inhalers that she is supposed to be using but they are locked up in storage and she has not used them for months. She was recently treated with doxycycline for what she says were lumps on her head. The patient otherwise denies any fever, chills, nausea, vomiting, chest pain or pressure, palpitations, orthopnea, lower extremity edema, syncope or presyncopal episodes. ROS Const Constitutional: Positive for headache(s) and excessive sweating; no weight change, body ache, chills, fatigue, sleep problems, change in appetite, snoring, weakness or frequent falls Eyes Eyes: No change in vision, eye pain, light sensitivity or blurry vision ENT ENT: Positive for headache(s); no abnormal hearing, ear pain, tinnitus, nasal congestion, sore throat or neck pain Resp Respiratory: Positive for cough Cough: Yes productive and shortness of breath; no snoring or wheezing Cardio Cardiology: Positive for excessive sweating and generalized swelling (ankles); no chest pain at rest, chest pain with exertion, shortness of breath, dyspnea on exertion, palpitations, orthopnea or lightheadedness Gastro GI: No abdominal pain, change in bowel habits, constipation, diarrhea, vomiting, nausea/dyspepsia or cramping Genitourinary-Female: No burning urination, painful urination, urinary incontinence, urinary frequency, abnormal vaginal bleeding, pelvic pain or other Musc Musculoskeletal: No neck pain, abnormal walking, joint pain, back pain, limited range of motion, numbness, tingling or muscle weakness Skin Skin: No redness, dry skin, itching, lesions, wounds or rash Neuro Neurology: Positive for headache(s); no weakness, frequent falls, abnormal hearing, abnormal walking, numbness, tingling, abnormal speech, dizziness or memory loss Psych Psychiatric: No change in appetite, No memory loss, No anxiety, No depression, No Thoughts of harming yourself/Others Endo Endocrine: Positive for excessive sweating; no fatigue, cold intolerance, increased thirst/drinking, heat intolerance, flushing or increased hunger Aller/Imm Allergy/Immunologic: No wheezing, itchy eyes, hives or seasonal allergy symptoms Dio/Lymp Hematologic/Lymphatic: No easy bleeding, easy bruising or enlarged lymph nodes Exam Const General: cooperative, comfortable, no acute distress, ill appearing acutely Nutritional Appearance: well nourished, obese Orientation: alert, oriented x3 Limitations: mental status not altered [facility] Head: normal to inspection Ears: hearing grossly normal bilaterally, external ears normal, TM's normal bilaterally Nose: external nose normal Face and sinus: normal facial exam, sinuses nontender Mouth: oral mucosae normal Throat: posterior oropharynx normal Eyes General: appearance normal, both eyes and all related structures Neck Neck: normal visual inspection, no lymphadenopathy Chest Chest palpation AND inspection: normal inspection of the chest Resp Effort AND Inspection: normal respiratory effort, able to speak in complete sentences, normal respiratory pattern, symmetric chest movement, audible wheezes, cough Quality of cough: actively coughing Auscultation: Bilateral: Inspiratory Wheezes, Expiratory Wheezes Percussion: percussion normal Cardio Palpation: normal PMI Rate: regular rate Heart Sounds: S1 normal, S2 normal, normal S1 and S2, no click, no gallops, no murmurs, no rubs Musc Musculoskeletal: No joint tenderness, decreased ROM or muscle weakness Skin General: no rashes or lesions noted, elasticity normal, turgor normal Lesions: no lesions Rashes: no rashes Neuro General: alert, awake, oriented x3, CN's II-XI intact bilaterally Speech: speech normal Gait: normal gait Motor: muscle tone normal throughout Extrem General: normal to inspection, normal gait, no edema, no pedal edema Psych Appearance: grossly normal Mental Status: mental status grossly normal Affect: normal affect Attitude: cooperative Thought Process: normal Assessment AND Plan Problems 1. COPD exacerbation J44.1 2. Cough R05 3. SOB (shortness of breath) R06.02 Plan Pt is in an exacerbation of her COPD. Patient given prednisone taper, Levaquin and Mucinex. Encouraged to continue using nebulized albuterol as needed. Recommended to stop taking cough syrup with codeine. Educated on risk of pneumonia and how to properly take meds. Educated on good hand hygiene, avoiding sick contacts and increasing fluid intake especially with Mucinex. Patient will keep previously scheduled appointment with Dr. Ovalle. Patient also has an upcoming appointment with pulmonary. Medications New: Discontinued: Plan Detail Follow Up as previously scheduled Coding Level of Care Code Off vis,est,level 3 Diagnoses COPD exacerbation J44.1 Cough R05 SOB (shortness of breath) R06.02 11/12/17 1158 <Electronically signed by Ayad TORIBIO> Date Ayad TORIBIO Cosigner Signature: Date (if applicable) CC: 12 LEAD ELECTROCARDIOGRAM Observed: 11/05/2017 Status: F Source: RUBEN 1:18 PM [facility] Cardiovascular Services [address] [place] [address] 12 Lead EKG 11/03/17 1900 MR#: [id number] Acct: [id number] Name: HIRO POLANCO Rep #: [id number] : 1965 52 From: Jose Sanchez MD Attending Dr: Status: DEP ER Ordering Dr: Weston Garrett MD Date: 11/03/17 Location: ED Sex: F C Admitted: Test Reason : SOB Blood Pressure : / mmHG Vent. Rate : 092 BPM Atrial Rate : 092 BPM P-R Int : 170 ms QRS Dur : 066 ms QT Int : 350 ms P-R-T Axes : 067 068 056 degrees QTc Int : 432 ms Normal sinus rhythm Low voltage QRS Borderline ECG Confirmed by JOSE SANCHEZ ([id number]), tape editor TANNA LAZO ([id number]) on 11/05/2017 1:17:34 PM Referred By: ANDREEA Confirmed By:JOSE SANCHEZ 11/05/17 1317 Date Jose Sanchez MD CC: No Primary Care Physician; Weston Garrett MD Signed EMERGENCY DEPARTMENT Observed: 11/04/2017 Status: F Source: RUBEN SUMMARY 12:24 AM [facility] Medical Records Department [address] [place] [address] Emergency Department Summary 11/03/17 1824 MR#: [id number] Acct: [id number] Name: HIRO POLANCO Rep #: [id number] : 1965 52 From: Weston Garrett MD PCP: Care Physician, No Primary Status: DEP ER - ER Visit Summary Date of Service: 11/03/17 Chief Complaint: Cough History of Present Illness: The patient is a 52 F with no primary care physician. She reports she has cough began today. It is nonproductive. She has had subjective fever and chills. She reports that she has been wheezing had moderate difficulty breathing. She has not used her nebulizer she complains of congestion. No sore throat. No chest pain. She reports that she kind of has a headache. She is nauseated. She denies any abdominal pain or vomiting. Physical Examination: Vitals: Stable. Afebrile. General: Well-nourished and well-developed. Head: Normocephalic atraumatic. Neck: Supple, no lymphadenopathy. No JVD. Nontender. Cardiovascular: Regular rate and rhythm. No murmurs. Respiratory: No respiratory distress. Mild wheezing bilaterally with good air movement. Abdominal: Soft, nontender, nondistended, normal bowel sounds. No guarding, rebound, or peritoneal signs. Back: Nontender. Extremities: Nontender, no edema. Skin: Normal color, no rash. Neurologic: Alert and oriented 3. Cranial nerves II through XII are intact. Normal strength and sensation. Psych: Normal affect. Test Results: EKG is sinus at 92 with artifact and no acute changes. CBC is more for monocytes of 11. Chem-7 is more for creatinine 1.13 and glucose 115. Chest x-ray shows chronic changes. Emergency Department Course and Treatment: Patient had an IV placed. She was given a liter normal saline. She was given albuterol and Atrovent aerosols. Treatment Plan: Patient be discharged with a 5 day burst of prednisone. Instructed to follow-up with the [facility] in 3-5 days not improving. Return to the emergency department for any worsening symptoms. Disposition: To home in improved and stable condition. Impression: 1. COPD exacerbation. This note was generated with [employer] dictation software. It may contain incorrect words, spelling, and punctuation that were not noted in review of the chart prior to signing ED Disposition - Plan for ED Patient: Chief Complaint: Shortness of Breath Instructions: ED COPD Flare Prescriptions: Prednisone [Deltasone] 40 mg PO DAILY #8 tablet Referrals: [facility] Rivera [NON-STAFF] - 3-5 Days if not improving What to do if you have Problems For any increased pain, shortness of breath, bleeding, nausea or vomiting, chest pain, or any unexpected problems, contact your Primary Care Provider. Call [facility] ([phone]) or report to the closest Emergency Room. Call 911 if necessary. 11/04/17 0024 <Electronically signed by Weston Garrett MD> Date Weston Garrett MD Cosigner Signature (If Indicated): Date CC: No Primary Care Physician CBC W/DIFF, AUTOMATED Collected: 11/03/2017 Status: F Source: RUBEN 6:56 PM [facility] REPOSITORY TYPE CODE TESTS RESULT OUT OF RANGE REFERENCE UNITS LAB L100.1000 4.4-11.0 K/mm3 Normal WBC 8.7 LAB L100.1200 4.2-5.4 M/mm3 Normal RBC 4.46 LAB L100.1300 12.0-15.0 g/dl Normal HGB 13.0 LAB L100.1400 37-47 % Normal HCT 40.3 LAB L100.1500 81-99 fL Normal MCV 90.4 LAB L100.1600 27.0-32.0 pg Normal MCH 29.1 LAB L100.1700 32-36 g/gl Normal MCHC 32.3 LAB L100.1810 11.6-14.6 % Normal RDW CV 13.2 LAB L100.1820 35.1-43.9 fl Normal RDW SD 43.2 LAB L100.1900 150-450 K/mm3 Normal PLT 241 LAB L100.2000 6.2-12.0 fl Normal MPV 9.6 LAB L100.2100 47-70 % Normal NEUT% 65.4 LAB L100.2200 19-41 % Normal LY% 19.6 LAB L100.2300 0-10 % High MONO% 11.2 LAB L100.2400 0-5 % Normal EO% 3.5 LAB L100.2500 0-1 % Normal BASO% 0.2 LAB L100.2550 0.0-0.9 % Normal IM GRAN % 0.100 Result Comment: IG% - Immature Granulocytes (promyelocytes, myelocytes and metamyelocytes) > 1% indicates that a LEFT SHIFT is Present. LAB L100.2620 2.0-7.7 X10 3/uL Normal Absolute Neut 5.7 LAB L100.2720 0.83-4.51 X10 3/ul Normal Absolute Lymph 1.70 Performed By: #### L100.0100 #### [facility] [address] [facility] [address]. [place], [place], [address] BASIC METABOLIC Collected: 11/03/2017 Status: F Source: TRUJILLO ALTO PROFILE (BMP) 6:56 PM [facility] REPOSITORY TYPE CODE TESTS RESULT OUT OF RANGE REFERENCE UNITS LAB L501.0100 74-106 mg/dL High GLU 115 Result Comment: Fasting Glucose result from 100 to 125 mg/dL suggests IMPAIRED HOMEOSTASIS per A.D.A. criteria. Please note revised GLUCOSE reference range effective 2017. LAB L501.1000 7-18 mg/dL Normal BUN 12 LAB L501.1100 0.55-1.02 mg/dL High CREAT,SERUM 1.13 Result Comment: The validity of the calculated GFR AND GFRAA in patients over 70 years has not been determined. Clinical correlation is essential. LAB L501.1110 >60 mL/min Low EST GFR 54 Result Comment: Non- GFR Calc LAB L501.1115 >60 mL/min Normal EST GFR - AA 65 Result Comment: GFR Calc LAB L501.1255 ml/min Normal Estimated CRCL 54.52 LAB L501.1300 10-20 RATIO Normal BUN/CRE 10.6 LAB L501.2200 8.5-10 mg/dL Normal .1 CA 8.5 LAB L501.5300 136-14 mmol/L Normal 5 NA 142 LAB L501.5600 3.5-5. mmol/L Normal 1 K 3.5 LAB L501.5900 98-107 mmol/L Normal CL 106 LAB L501.6100 21.0-3 mmol/L Normal 2.0 CO2 26.0 LAB L501.6200 5-15 Normal GAP 10 Performed By: #### L500.2500 #### [facility] [address] [place], [place], [address] CHEST PA AND LATERAL Observed: 11/03/2017 Status: F Source: RUBEN 6:23 PM [facility] REPOSITORY [facility] Imaging Services [address] [place] [address] Chest PA and Lateral MR#: [id number] Acct: [id number] Name: HIRO POLANCO Rep #: [id number] : 1965 F 52 From: Nick Najera MD PCP: Care Physician, No Primary Status: DEP ER Study: Chest PA and Lateral Date of Exam: 11/03/17 Exam# [id number] Ordering Dr: Weston Garrett MD STUDY: X-RAY CHEST REASON FOR EXAM: Female, 52 years old. Cough TECHNIQUE: Frontal and lateral views of the chest. COMPARISON: 04/28/2017 FINDINGS: The lungs are clear and expanded. There is no demonstrated pleural abnormality. Normal size heart. Normal mediastinum and cecilia. Normal visualized pulmonary arteries. Normal visualized aortic arch and descending thoracic aorta. Normal visualized thoracic spine. Normal visualized ribs, clavicles, and shoulders. There is no demonstrated abnormality of the visualized soft tissue structures of the upper abdomen. RAD/Chest PA and Lateral IMPRESSION: Normal x-ray examination of the chest. Electronically Signed: Nick Najera MD at 20:24 EDT , Service support , CC: No Primary Care Physician; Weston Garrett MD Cable Swager: Signed EMERGENCY DEPARTMENT Observed: 10/26/2017 Status: F Source: RUBEN SUMMARY 5:24 PM [facility] REPOSITORY [facility] Medical Records Department [address] [place] [address] Emergency Department Summary 10/26/17 1229 MR#: [id number] Acct: [id number] Name: HIRO POLANCO Jacek Rep #: [id number] : 1965 52 From: Jerman Bernardo MD PCP: Care Physician, No Primary Status: DEP ER - ER Visit Summary Date of Service: 10/26/17 Chief Complaint: Scalp lumps History of Present Illness: The patient is a 52 F presenting for evaluation secondary to lumps on her scalp. Patient reports that these have been present for 2 months and 1 of them seems to be getting worse. It is associated with increasing pain. She denies any drainage. She was on a course of antibiotics for this which did not seem to alleviate it. Physical Examination: HEENT exam shows some areas of folliculitis on the patient's posterior scalp one area seems to have potential for having some underlying fluctuance no overlying erythema Test Results: None indicated Emergency Department Course and Treatment: Patient's area of fluctuance on her right occipital scalp was cleaned with Betadine. It was anesthetized using 2 cc 1% lidocaine. An 11 blade was used, and a stab incision was made with very minimal fluid expressed. Wound was left open. Patient tolerated this well. Patient was discharged with a course of doxycycline ibuprofen and follow-up with [facility]. Disposition: Discharge Impression: Scalp folliculitis This note was generated with [employer]an dictation software. It may contain incorrect words, spelling, and punctuation that were not noted in review of the chart prior to signing ED Disposition - Plan for ED Patient: Disposition: Home or Assisted Living Chief Complaint: Abscess Diagnosis: Folliculitis Instructions: ED Abscess IandD Prescriptions: Doxycycline Monohydrate 100 mg PO BID #14 cap Ibuprofen 800 mg PO TID PRN #15 tab PRN Reason: Pain Referrals: [facility] Rivera [NON-STAFF] - As soon as possible What to do if you have Problems For any increased pain, shortness of breath, bleeding, nausea or vomiting, chest pain, or any unexpected problems, contact your Primary Care Provider. Call [facility] ([phone]) or report to the closest Emergency Room. Call 911 if necessary. 10/26/17 4954 <Electronically signed by Jerman Bernardo MD> Date Jerman Bernardo MD Cosigner Signature (If Indicated): Date CC: No Primary Care Physician INTERNAL MEDICINE Observed: 10/18/2017 Status: F Source: RUBEN OFFICE VISIT 3:59 PM [facility] Internal Medicine [address] [place] [address] [place] [address] OFFICE VISIT Date of Service: 10/18/17 MR#: [id number] Acct: [id number] Name: HIRO POLANCO Rep #: [id number] : 1965 Provider: Onesimo Ovalle MD Age/Sex: 51/F Location: [facility] Status: Signed Intake Vital Signs10/18/17 Height 5 ft 3 in 10/18/17 Weight: 275 lb 10/18/17 Body Mass Index (BMI) 48.6 10/18/17 Blood Pressure 122/70 10/18/17 Blood Pressure Location Lt radial Intake Visit Reasons: ref by Dr. Jordan/swelling in legs Chief Complaint: lower leg swelling Is patient in pain?: Yes (both knees and feet) Pain scale (1-10): 10 Allergies ceftriaxone sodium [From Rocephin] Allergy (Verified 10/07/17 19:32) Hives diclofenac potassium [From Cataflam] Adverse Reaction (Verified 10/07/17 19:32) Upset Stomach meperidine HCl [From Demerol] Adverse Reaction (Verified 10/07/17 19:32) Upset Stomach naproxen [From Aleve] Adverse Reaction (Verified 10/07/17 19:32) Upset Stomach Penicillins [PCN] Adverse Reaction (Verified 10/07/17 19:32) Upset Stomach Sulfa (Sulfonamide Antibiotics) Adverse Reaction (Verified 10/07/17 19:32) Upset Stomach Medications Lorazepam [Ativan] 2 mg PO Q12H PRN PRN 12/27/12 [History Confirmed 10/18/17] Venlafaxine XR [Effexor Xr] 75 mg PO DAILY 12/01/14 [History Confirmed 10/18/17] Estradiol 1 mg PO DAILY 02/21/17 [History Confirmed 10/18/17] levalbuterol 1.25 mg/3 mL solution for nebulization 1.25 mg INHALATION Q1-4H PRN 03/21/17 [History Confirmed 10/18/17] Ranitidine [Zantac] 150 mg PO BID 09/28/17 [History Confirmed 10/18/17] compression stockings. #4 ea 10/18/17 [Rx Confirmed 10/18/17] meclizine 25 mg tablet 25 mg PO QDAY PRN 10/18/17 [History Confirmed 10/18/17] Post menopausal: Yes PFSH Medical History Abdominal pain (Acute) Anxiety and depression (Acute) Frequent headaches (Acute) Impaired glucose tolerance (Acute) Vertigo (Acute) Arthritis of hip (Chronic) COPD (chronic obstructive pulmonary disease) (Chronic) Chronic constipation (Chronic) Chronic low back pain (Chronic) Dyslipidemia (Chronic) GERD (gastroesophageal reflux disease) (Chronic) Hypertension (Chronic) Osteoarthritis of knee (Chronic) Surgical History History of hysterectomy (Acute) H/O total hysterectomy (Inactive) s/p left wrist (Inactive) Family History Mother Hypertension Ovarian cancer Colon cancer Breast cancer Brother Alcoholism Cancer lung, liver Sister Kidney disease Thyroid disorder Cancer Social History Smoking Status: Current every day smoker alcohol intake: never substance use type: does not use what type of physical activity do you participate in: none HPI HPI Chief Complaint: lower leg swelling Details: HIRO POLANCO, is a 51yo F who presents to the office today to establish care. She also has some concerns. She was referred by her orthopedic surgeon due to concerns of bilateral lower extremity swelling. She reports a chronic history of bilateral lower extremity swelling. Denies any prior known history of heart disease however, she also reports shortness of breath. Swelling is said to be improved in the morning but worse with prolonged standing. There is significant history of increased somnolence. Had been recommended sleep study in the past however she has not done this. Also of concern is bilateral foot pain. Said to be worse on rising from a sitting or lying position and after prolonged periods on her feet. ROS Const Constitutional: Positive for frequent falls (due to foot and knee pain); no weight change, body ache, chills, fatigue, fever(s), change in appetite, snoring, weakness or excessive sweating Eyes Eyes: No change in vision, eye pain, light sensitivity or blurry vision ENT ENT: No abnormal hearing, ear pain, tinnitus, nasal congestion, sore throat or neck pain Resp Respiratory: Positive for cough and wheezing; no snoring or shortness of breath Cardio Cardiology: No excessive sweating, chest pain at rest, chest pain with exertion, shortness of breath, dyspnea on exertion, palpitations, orthopnea or lightheadedness Gastro GI: Positive for heartburn; no abdominal pain, change in bowel habits, constipation, diarrhea, vomiting, nausea/dyspepsia or cramping Genitourinary-Female: No burning urination, painful urination, urinary incontinence, urinary frequency, abnormal vaginal bleeding, pelvic pain or other Musc Musculoskeletal: Positive for joint pain and back pain; no neck pain, abnormal walking or limited range of motion Skin Skin: No redness, dry skin, itching, lesions, wounds or rash Neuro Neurology: Positive for frequent falls (due to foot and knee pain); no weakness, abnormal hearing, abnormal walking, abnormal speech, dizziness or memory loss Psych Psychiatric: No change in appetite, No memory loss, Positive for anxiety, Positive for depression, No Thoughts of harming yourself/Others Endo Endocrine: No fatigue, excessive sweating, cold intolerance, increased thirst/drinking, heat intolerance, flushing or increased hunger Aller/Imm Allergy/Immunologic: Positive for wheezing; no itchy eyes, hives or seasonal allergy symptoms Dio/Lymp Hematologic/Lymphatic: No easy bleeding, easy bruising or enlarged lymph nodes Exam Const General: cooperative Nutritional Appearance: obese Orientation: alert, awake, oriented x3 [facility] Head: atraumatic, normocephalic, normal to inspection Ears: hearing grossly normal bilaterally Resp Effort AND Inspection: normal respiratory effort, able to speak in complete sentences Auscultation: Bilateral: Clear to Auscultation Cardio Rate: regular rate Rhythm: regular rhythm Heart Sounds: S1 normal, S2 normal GI Inspection: obesity Palpation: soft, no hepatosplenomegaly Neuro General: alert, awake, oriented x3, moves all extremities, CN's II-XI intact bilaterally Extrem General: pedal edema bilaterally Location: of the leg Severity: 2+ Psych Appearance: grossly normal Mood: congruent mood Affect: normal affect Assessment AND Plan 1. Bilateral lower extremity edema R60.0 Plan Chronic. Appears to be secondary to some venous insufficiency due to nature of swelling. Venous studies ordered. Compression stockings also ordered. Other conservative measures discussed. Orders Orders: 2. Shortness of breath R06.02 Plan Chronic. More on exertion. I believe this is multifactorial. 2D Echo ordered. Follow up with result. Orders Orders: 3. Hypersomnolence G47.10 Plan Associated with fatigue. Symptoms concerning for sleep apnea. Sleep study ordered. Orders Orders: 4. Bilateral foot pain M79.671; M79.672 Plan Likely due to bilateral plantar fascitis/Tendinitis. Appropriate foot wear and stretching exercises discussed. Refer to Podiatry. Orders Referrals: 5. Obesity E66.9 Plan I believe she will benefit form weight loss surgery due to her significant co morbidities. Life style modifications discussed and encouraged. Discuss referral to a weight loss center at next visit. This note was generated with [employer] software. It may contain incorrect words, spelling, and punctuation that were not noted in checking the note before signing. Orders Orders: Plan Detail Other Orders Orders: Other Medications New: Discontinued: Coding Level of Care Code Off vis,new,level 4 Diagnoses Bilateral lower extremity edema R60.0 Shortness of breath R06.02 Hypersomnolence G47.10 Bilateral foot pain M79.671; M79.672 Obesity E66.9 Serious obesity comorbidity presence: with serious comorbidity Body mass index: BMI 45.0-49.9 10/18/17 4699 <Electronically signed by Onesimo Ovalle MD> Date Onesimo Ovalle MD Cosigner Signature: Date (if applicable) CC: ORTHOPEDIC VISIT Observed: 10/15/2017 Status: F Source: RUBEN REPORT 12:44 PM [facility] REPOSITORY [facility] Orthopaedics AND Sports Medicine [address] [place] [address] OFFICE VISIT Date of Service: 10/10/17 MR#: [id number] Acct: [id number] Name: HIRO OPLANCO Rep #: [id number] : 1965 Provider: Robyn Jordan DO Age/Sex: 51/F Location[facility] Status: Signed Intake Intake Visit Reasons: DISCUSS KNEE SURGERY - BOTH KNEES Allergies ceftriaxone sodium [From Rocephin] Allergy (Verified 10/07/17 19:32) Hives diclofenac potassium [From Cataflam] Adverse Reaction (Verified 10/07/17 19:32) Upset Stomach meperidine HCl [From Demerol] Adverse Reaction (Verified 10/07/17 19:32) Upset Stomach naproxen [From Aleve] Adverse Reaction (Verified 10/07/17 19:32) Upset Stomach Penicillins [PCN] Adverse Reaction (Verified 10/07/17 19:32) Upset Stomach Sulfa (Sulfonamide Antibiotics) Adverse Reaction (Verified 10/07/17 19:32) Upset Stomach Medications Lorazepam [Ativan] 2 mg PO Q12H PRN PRN 12/27/12 [History Confirmed 10/07/17] Venlafaxine XR [Effexor Xr] 75 mg PO DAILY 12/01/14 [History Confirmed 10/07/17] Estradiol 1 mg PO DAILY 02/21/17 [History Confirmed 10/07/17] levalbuterol 1.25 mg/3 mL solution for nebulization 1.25 mg INHALATION Q1-4H PRN 03/21/17 [History Confirmed 10/07/17] Ranitidine [Zantac] 150 mg PO BID 09/28/17 [History Confirmed 10/07/17] Furosemide [Lasix] 40 mg PO DAILY #3 tab 10/07/17 [Rx] PFSH Medical History Abdominal pain (Acute) Anxiety and depression (Acute) Frequent headaches (Acute) Impaired glucose tolerance (Acute) Vertigo (Acute) Arthritis of hip (Chronic) COPD (chronic obstructive pulmonary disease) (Chronic) Chronic constipation (Chronic) Chronic low back pain (Chronic) Dyslipidemia (Chronic) GERD (gastroesophageal reflux disease) (Chronic) Hypertension (Chronic) Osteoarthritis of knee (Chronic) Surgical History H/O total hysterectomy (Inactive) s/p left wrist (Inactive) Family History Mother Hypertension Ovarian cancer Brother Alcoholism Sister Kidney disease Thyroid disorder Cancer Social History Smoking Status: Current every day smoker HPI DISCUSS KNEE SURGERY - BOTH KNEES: Details: HIRO POLANCO is a 51 year old F here today for bilateral knee pain, right is greater than left. She is also complaining of pain in her feet. She has swelling of the feet and ankles and stopping her from being able to walk. She has no PCP at this point. She resides at the [facility] and has to stand on her feet that increases her pain. She went to ED for the swelling and pain and they said she was just retaining fluid but her cardiac test where clear. was prescribed what sounds like lasix, but did not take and has not followed up with pcp since er visit. bilateral le swelling, no calf pain today. patient states they did dopplers and were negative for blood clot. Ortho Exam Right Ankle Skin/Wound: Yes Soft Tissue Swelling Contralateral Normal: No Left Ankle Skin: Yes Soft Tissue Swelling Exam: Yes Soft tissue swelling Assessment AND Plan 1. Bilateral knee pain M25.561; M25.562 Plan patient issues today appear to be much more significant that knee oa and the le swelling, lack of PCP, lack of permanent dwelling, etc are issues that affect her livelihood. we contacted pcp in town, see chart, and got patient in to see them today. patient needs to be on meds that decrease swelling, get her blood drawn and then follow up with us once she is stabilized for either injections or furhter intervention discussion. All questions answered. Patient in agreement of plan.Follow up after seen by dr ovalle/ ayad lee or sooner if pain, swelling, numbness or associated symptoms, or concerns develop. Reviewed her need to address the lower extremity swelling and pain. Will refer to Dr Ovalle for consult and discussion of her fluid retention. She needs to focus on her overall health prior to knee surgery. She has 2+ pitting edema of the ankles today. Follow up after seeing Dr Ovalle or sooner if pain, swelling, numbness or associated symptoms, or concerns develop. All questions answered. Patient in agreement of plan. 2. Swelling of both ankles M25.471; M25.472 Coding Level of Care Code Off vis,est,level 4 Diagnoses Bilateral knee pain M25.561; M25.562 Swelling of both ankles M25.471; M25.472 10/15/17 1244 <Electronically signed by Robyn Jordan DO> Date Robyn Harman Signature: Date (if applicable) CC: Onesimo Ovalle MD EMERGENCY DEPARTMENT Observed: 10/07/2017 Status: F Source: [place] SUMMARY 11:29 PM [facility] REPOSITORY [facility] Medical Records Department [address] [place] [address] Emergency Department Summary 10/07/17 2231 MR#: [id number] Acct: [id number] Name: HIRO POLANCO Rep #: [id number] : 1965 51 From: Radha Austin MD PCP: Care Physician, No Primary Status: DEP ER - ER Visit Summary Date of Service: 10/07/17 Chief Complaint: Bilateral lower extremity pain and swelling History of Present Illness: The patient is a 51 F with bilateral lower extremity pain and swelling for the past 2 days. Patient denies any injury. She does not have DVT risk factors. She denies history of CHF. She denies having problems with leg swelling in the past. Past history significant for COPD, hypertension, high cholesterol, reflux disease, fiber myalgia, anxiety, and arthritis. Physical Examination: Vital signs unremarkable. Patient sitting upright in bed no acute distress. Heart is regular rate and rhythm. Lung sounds are clear. Abdomen is soft and nontender. Lower external examination was 3+ edema to the bilateral lower extremities below the knee. There is no erythema or sign of infection. She has strong distal pulses. Test Results: Venous ultrasound reveals no evidence of DVT. There is a left popliteal cyst noted. CBC is unremarkable. Chemistry studies significant only for creatinine 1.13. BNP is 22. Emergency Department Course and Treatment: Patient was advised on elevation of her legs. She will be given just 2 tabs of Lasix to take at home. She refuses a dose tonight. Treatment Plan: [] Disposition: Discharge Impression: Bilateral lower extremity edema This note was generated with Field[employer]ation software. It may contain incorrect words, spelling, and punctuation that were not noted in review of the chart prior to signing ED Disposition - Plan for ED Patient: Chief Complaint: Lower Extremity Injury Referrals: Care Physician,No Primary [Primary Care Provider] - What to do if you have Problems For any increased pain, shortness of breath, bleeding, nausea or vomiting, chest pain, or any unexpected problems, contact your Primary Care Provider. Call [facility] ([phone]) or report to the closest Emergency Room. Call 911 if necessary. 10/07/172328 <Electronically signed by Radha Austin MD> Date Radha Austin MD Cosigner Signature (If Indicated): Date CC: No Primary Care Physician DISCHARGE INSTRUCTION Observed: 10/07/2017 Status: F Source: [place] 10:35 PM [facility] REPOSITORY [facility] Medical Records Department [address] [place] [address] Discharge Instruction 10/07/172233 MR#: [id number] Acct: [id number] Name: HIRO POLANCO Rep #: [id number] : 1965 51 From: Radha Austin MD PCP: Care Physician, No Primary Status: REG ER ED Disposition - Plan for ED Patient: Disposition: Home or Assisted Living Chief Complaint: Lower Extremity Injury Instructions: ED Leg Swelling Bilateral Prescriptions: Furosemide [Lasix] 40 mg PO DAILY #3 tablet Referrals: Apple Mari DO [STAFF PHYSICIAN] - As Needed What to do if you have Problems For any increased pain, shortness of breath, bleeding, nausea or vomiting, chest pain, or any unexpected problems, contact your Primary Care Provider. Call [facility] ([phone]) or report to the closest Emergency Room. Call 911 if necessary. 10/07/172234 <Electronically signed by Radha Austin MD> Date Radha Sullivan Signature (If Indicated): Date CC: No Primary Care Physician CBC W/DIFF, AUTOMATED Collected: 10/07/2017 Status: F Source: [place] 8:35 PM [facility] REPOSIT[facility] TYPE CODE TESTS RESULT OUT OF RANGE REFERENCE UNITS LAB L100.1000 4.4-11.0 K/mm3 Normal WBC 9.0 LAB L100.1200 4.2-5.4 M/mm3 Normal RBC 4.69 LAB L100.1300 12.0-15.0 g/dl Normal HGB 14.0 LAB L100.1400 37-47 % Normal HCT 42.4 LAB L100.1500 81-99 fL Normal MCV 90.4 LAB L100.1600 27.0-32.0 pg Normal MCH 29.9 LAB L100.1700 32-36 g/gl Normal MCHC 33.0 LAB L100.1810 11.6-14.6 % Normal RDW CV 13.1 LAB L100.1820 35.1-43.9 fl Normal RDW SD 42.7 LAB L100.1900 150-450 K/mm3 Normal PLT 240 LAB L100.2000 6.2-12.0 fl Normal MPV 9.7 LAB L100.2100 47-70 % Normal NEUT% 57.5 LAB L100.2200 19-41 % Normal LY% 27.6 LAB L100.2300 0-10 % High MONO% 11.4 LAB L100.2400 0-5 % Normal EO% 3.3 LAB L100.2500 0-1 % Normal BASO% 0.1 LAB L100.2550 0.0-0.9 % Normal IM GRAN % 0.100 Result Comment: IG% - Immature Granulocytes (promyelocytes, myelocytes and metamyelocytes) > 1% indicates that a LEFT SHIFT is Present. LAB L100.2620 2.0-7.7 X10 3/uL Normal Absolute Neut 5.2 LAB L100.2720 0.83-4.51 X10 3/ul Normal Absolute Lymph 2.48 Performed By: #### L100.0100 #### [facility] [address] [place], [place], [address] BASIC METABOLIC Collected: 10/07/2017 Status: F Source: [place] PROFILE (BMP) 8:35 PM [facility] REPOSITORY TYPE CODE TESTS RESULT OUT OF RANGE REFERENCE UNITS LAB L501.0100 74-106 mg/dL Normal GLU 105 Result Comment: Fasting Glucose result from 100 to 125 mg/dL suggests IMPAIRED HOMEOSTASIS per A.D.A. criteria. Please note revised GLUCOSE reference range effective 2017. LAB L501.1000 7-18 mg/dL Normal BUN 14 LAB L501.1100 0.55-1.02 mg/dL High CREAT,SERUM 1.13 Result Comment: The validity of the calculated GFR AND GFRAA in patients over 70 years has not been determined. Clinical correlation is essential. LAB L501.1110 >60 mL/min Low EST GFR 54 Result Comment: Non- GFR Calc LAB L501.1115 >60 mL/min Normal EST GFR - AA 65 Result Comment: GFR Calc LAB L501.1255 ml/min Normal Estimated CRCL 55.14 LAB L501.1300 10-20 RATIO Normal BUN/CRE 12.4 LAB L501.2200 8.5-10 mg/dL Normal .1 CA 8.9 LAB L501.5300 136-14 mmol/L Normal 5 NA 141 LAB L501.5600 3.5-5. mmol/L Normal 1 K 4.1 Result Comment: Slight Hemolysis, Result may be falsely increased. LAB L501.5900 98-107 mmol/L High CL 108 LAB L501.6100 21.0-32.0 mmol/L Normal CO2 29.0 LAB L501.6200 5-15 Low 4 GAP Performed By: #### L500.2500 #### [facility] [address] [place], [place], [address] BNP,B-TYPE NATRIURETIC Collected: 10/07/2017 Status: F Source: [place] PEPTIDE 8:35 PM [facility] REPOSITORY TYPE CODE TESTS RESULT OUT OF RANGE REFERENCE UNITS LAB L503.6620 0-100 pg/mL Normal B-TYPE 22.6 SUBHA PEP Performed By: #### L503.6620 #### [facility] [address] [place], [address] VENOUS DUPLEX Observed: 10/07/2017 Status: F Source: [place] IMAG/MARK EXTREM 8:31 PM [facility] REPOSITORY [facility] Imaging Services [address] [place] [address] Venous Duplex Imag/Mark Extrem MR#: [id number] Acct: [id number] Name: HIRO POLANCO Rep #: [id number] : 1965 F 51 From: Avril Schulz MD PCP: Care Physician, No Primary Status: REG ER Study: Venous Duplex Imag/Mark Extrem Date of Exam: 10/07/17 Exam# [id number] Ordering Dr: Radha Austin MD STUDY: VENOUS DOPPLER ULTRASOUND - BILATERAL LOWER EXTREMITIES REASON FOR EXAM: Female, 51 years old. Bilateral foot pain and swelling. TECHNIQUE: Ultrasound evaluation of the deep vein system to include bess-scale imaging and compression was performed. Bess-scale imaging and Doppler sonographic evaluation, including duplex spectral analysis and qualitative color flow sonography, was performed. COMPARISON: None. FINDINGS: RIGHT LEG Common Femoral Vein: Normal compression, spontaneity and augmentation. Normal color Doppler. Common Femoral Vein/Greater Saphenous Junction: Normal compression, spontaneity and augmentation. Normal color Doppler. Deep Femoral Vein: Normal compression, spontaneity and augmentation. Normal color Doppler. Femoral Proximal: Normal compression, spontaneity and augmentation. Normal color Doppler. Femoral Middle: Normal compression, spontaneity and augmentation. Normal color Doppler. Femoral Distal: Normal compression, spontaneity and augmentation. Normal color Doppler. Popliteal Vein: Normal compression, spontaneity and augmentation. Normal color Doppler. Posterior Tibial Vein: Normal compression. Peroneal Vein: Normal compression. LEFT LEG Common Femoral Vein: Normal compression, spontaneity and augmentation. Normal color Doppler. Common Femoral Vein/Greater Saphenous Junction: Normal compression, spontaneity and augmentation. Normal color Doppler. Deep Femoral Vein: Normal compression, spontaneity and augmentation. Normal color Doppler. Femoral Proximal: Normal compression, spontaneity and augmentation. Normal color Doppler. Femoral Middle: Normal compression, spontaneity and augmentation. Normal color Doppler. Femoral Distal: Normal compression, spontaneity and augmentation. Normal color Doppler. Popliteal Vein: Normal compression, spontaneity and augmentation. Normal color Doppler. Posterior Tibial Vein: Normal compression. Peroneal Vein: Normal compression. Within the popliteal fossa there is a 2.5 x 1.9 x 2.5 cm fluid collection. US/Venous Duplex Imag/Mark Extrem IMPRESSION: No demonstrated deep vein thrombosis. 2.5 x 1.9 x 2.5 cm left popliteal cyst. Electronically Signed: Avril Schulz MD at 21:32 EDT Tel , Service support , CC: No Primary Care Physician; Radha Austin MD Cable Swager: Signed CNCO Observed: 10/04/2017 Status: COMPLETED Source: [place] 12:00 AM [facility] [place] REPOSITORY Letter Text Hiro Polanco [address] [place] [address] 10/04/2017 [facility] #: [id number] Dear , Due to a change in the provider's schedule it has been necessary to reschedule your Appointment. Your original appointment was scheduled for 12/25/2017 at 2:00 PM with Marion Mirza M.D. Your new appointment is now scheduled on 01/03/2018 at 2:00 PM with Marion Mirza M.D. If this new appointment is not convenient for you, please contact our office at [phone]. Thank you for choosing the [facility] as your Healthcare Provider . Sincerely, Family Medicine Appointment Office CNCO Observed: 09/30/2017 Status: COMPLETED Source: [place] 12:00 AM [facility] [place] REPOSITORY Letter Text Sherin Forte CNM [facility] [address] [place], [place] [address] Hiro Vossier [address] [place] [id number] 09/30/2017 Dear Hiro, This letter is to inform you that the culture(s) you had recently were normal. If you have any questions or further problems or concerns, please feel free to call our office at [phone]. We appreciate your confidence in choosing the [facility] for your medical care and we look forward to seeing you at your next appointment. The [facility] EMERGENCY DEPARTMENT Observed: 09/28/2017 Status: F Source: [place] SUMMARY 8:40 PM [facility] REPOSITORY [facility] Medical Records Department [address] [place] [address] Emergency Department Summary 09/28/172032 MR#: [id number] Acct: [id number] Name: HIRO POLANCO Rep #: [id number] : 1965 51 From: Johnny Mckinney MD PCP: Ayad Pichardo DO Status: REG ER History of Present Illness Chief Complaint: Lower Extremity Injury Informant: Patient Onset: Days - 4- Context: Gradual Onset Timing: Continuous Quality: achy Location: both knees and hips Current Severity: Moderate Maximum Severity: Severe Worsened by: walking, bending Relieved by: remaining still Associated Symptoms: no systemic sx or fevers Narrative: Patient states she has long-standing history of arthritis for years especially in her knees which are hurting them most now. She also has a history of fibromyalgia. She thinks it is osteoarthritis in her knees. She states she used to receive cortisone injections which helped temporarily but they do not want to do that anymore. She follows with Dr. Frazier for this problem. Denies any recent injury Prior similar symptoms: Yes - Past Medical History (1) Arthritis Status: Chronic (2) Fibromyalgia Status: Chronic Past Medical History - Allergies and Home Meds Allergies/Adverse Reactions: Allergies ceftriaxone sodium [From Rocephin] Allergy (Verified 09/28/17 19:56) Hives diclofenac potassium [From Cataflam] Adverse Reaction (Verified 09/28/17 19:56) Upset Stomach meperidine HCl [From Demerol] Adverse Reaction (Verified 09/28/17 19:56) Upset Stomach naproxen [From Aleve] Adverse Reaction (Verified 09/28/17 19:56) Upset Stomach Penicillins [PCN] Adverse Reaction (Verified 09/28/17 19:56) Upset Stomach Sulfa (Sulfonamide Antibiotics) Adverse Reaction (Verified 09/28/17 19:56) Upset Stomach Primary Care Physician: Ayad Pichardo DO [Primary Care Provider] - Lives: Spouse/ Significant Other Smoking Status: Current every day smoker Review of Systems All systems negative except as indicated Musculoskeletal: Reports: Arthralgias. Denies: Back pain Neurological: Denies: Headache, Weakness, Parasthesia Psych: Reports: Anxiety Physical Exam Vital Signs/Narrative: Vital Signs 09/28/17 19:56 98.7 F 81 14 133/70 H 98 Inital Vital Signs reviewed: Yes General: Well nourished, Well developed, Obese Head: Normocephalic, Atraumatic Cardiovascular: - - Strong dorsalis pedis pulses bilaterally. Brisk cap refill bilaterally Extremities: Tenderness - Right knee more than left. No erythema or excessive warmth. Full range of motion but hurts her knees to bend them. No pain with passive range of motion of both hips or ankles. Painless full range of motion throughout her upper extremities. All compartments soft all 4 extremities. Skin: Normal color, No rash Neurological: Alert, Oriented x3, Cranial nerves II-XII grossly intact, Normal Strength, Normal Sensation Psychological: Normal affect Diagnostic/Tx/Re-eval - Medical Decision Making I think she will feel better with a course of prednisone. She states that even with few days prednisone will make her gain weight. However, she is willing to try it and request that the dose be lowered. I will put her on a 5 day course of 20 mg and advised that she follow-up with her knee specialist. She is comfortable with that plan. ED Disposition - Plan for ED Patient: Disposition: Home or Assisted Living Chief Complaint: Lower Extremity Injury Diagnosis: Degenerative arthritis of knee, bilateral Instructions: Understanding Osteoarthritis Prescriptions: Prednisone [Deltasone] 20 mg PO DAILY #8 tab Referrals: Ayad Pichardo DO [Primary Care Provider] - Robyn Jordan DO [STAFF PHYSICIAN] - 1-2 Weeks (call for appt) What to do if you have Problems For any increased pain, shortness of breath, bleeding, nausea or vomiting, chest pain, or any unexpected problems, contact your Primary Care Provider. Call [facility] ([phone]) or report to the closest Emergency Room. Call 911 if necessary. 09/28/172039 <Electronically signed by Johnny Mckinney MD> Date Johnny Mckinney MD Cosigner Signature (If Indicated): Date CC: Ayad Pichardo DO Observed: 09/27/2017 Status: F Source: [place]ONAS PREP 3:11 PM [facility] REPOSITORY Sp. Request/Comment: - Swab Smear Result - Negative for Trichomonas vaginalis antigen This test was developed and its performance characteristics determined by [facility] [place] ([facility]). It has not been cleared or approved by the FDA. -[facility] is regulated under CLIA as qualified to perform high-complexity testing. This test is used for clinical purposes. It should not be regarded as investigational or for research. Performed By: #### TRICHO #### [facility] [address] [place], [place] [address] CNOV Observed: 09/27/2017 Status: COMPLETED Source: [place] 2:30 PM [facility] REPOSITORY Office Visit (WOOB) HIRO POLANCO ([id number]) 1965 F U[place] Date Time Provider Department 09/27/17 2:30 PM SHERIN FORTE ([place]) WOOB During your visit today, we recorded the following information about you: Blood pressure Weight 120/84 122.5 kg Sherin Forte ALEXISERIKA 09/27/2017 3:01 PM Signed Roll Inspector offered: Patient declines. Hiro Polanco is a 51 year old female who presents for problem visit vaginal discharge. HPI: Here today for vaginal itching and vaginal odor for past week. Denies any new medications or changes in personal care products. Patient also requesting STD testing. PAST MEDICAL HISTORY Diagnosis Date - Anemia, unspecified transfused 2002, [facility] - Carpal tunnel syndrome - Chronic airway obstruction, not elsewhere classified - Depressive disorder, not elsewhere classified hospitalized 1999, [facility], Counseling center Dr. Rubén Merino - Esophageal reflux 04/26/2005 - EXCESSIVE MENSTRUATION 04/26/2005 - Fibromyalgia 05/28/2016 - Panic disorder with agoraphobia Counseling center, Dr. Rubén Merino PAST SURGICAL HISTORY Procedure Laterality Date - CARPAL TUNNEL left wrist - LAP VAG HYST <=250 G RMV T/O 12/01/14 [facility], BSO - LIGATE FALLOPIAN TUBE 1986 - WRIST SPLINT 06/05 l wrist FAMILY HISTORY Problem Relation Age of Onset - Hypertension Mother - ovarian cancer [OTHER] Mother - Alcohol/Drug Brother - lung cancer [OTHER] Maternal Uncle - Cancer Maternal Uncle - Cancer Sister thyroid Social History Marital status: Spouse name: Years of education: 10 Number of children: 4 Occupational History Occupation Employer Comment disabled Social History Main Topics Smoking status: Current Every Day Smoker Packs/day: 1.00 Years: 20.00 Types: Cigarettes Smokeless tobacco: Never Used Alcohol use: No Drug use: No Sexual activity: Yes Partners with: Male control/protection: Tubal Ligation Social History Narrative Homemaker, 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 Lives in house full of people, including ex and his new girlfriend who is , her boyfriend, oldest son and several other friends. Very stressful home / living situation. Saw Dr. Chauhan for pain mgmt on 06/23/12- getting epidural injections Current Outpatient Prescriptions: estradiol (ESTRACE) 1 mg tablet Take 1 tablet by mouth once daily. ERYTHROMYCIN BASE (ERYTHROMYCIN OPHTHALMIC) Use in eyes. meclizine (ANTIVERT) 25 mg tab Take 1 Tablet by Mouth Three Times Daily as Needed (Vertigo Symptoms) albuterol (PROVENTIL) 2.5 mg /3 mL (0.083 %) nebulizer solution Inhale The Contents Of 1 Vial Via Nebulizer Every 4 Hours As Needed For Shortness Of Breath Or Wheezing Use Over 5 -15 Minutes LORazepam (ATIVAN) 2 mg tab Take 1 tablet by mouth three times daily as needed. (Patient taking differently: Take 1 mg by mouth three times daily as needed.) venlafaxine hcl(EFFEXOR XR 75 MG 24 HR CAP) Take one(1) tablet daily. naproxen (NAPROSYN) 500 mg tablet Take 1 tablet by mouth twice daily as needed (for pain/inflammation). Take with food. (Patient not taking: Reported on 09/27/2017 ) HYDROcodone-acetaminophen (NORCO) 5-325 mg per tablet Take 1 tablet by mouth every 6 hours as needed. hydroCHLOROthiazide (HYDRODIURIL, ESIDRIX) 25 mg tablet Take 0.5 tablets by mouth once daily. losartan (COZAAR) 100 mg tablet Take 1 tablet by mouth once daily. No current facility-administered medications for this visit. Allergies As of Date: 09/27/2017 Allergen Noted Reaction DEMEROL [MEPERIDINE HCL] 01/01/2005 GI Upset DOXYCYCLINE 01/01/2005 Intolerance PENICILLINS 01/01/2005 Intolerance SULFA (SULFONAMIDE ANTIBIOTICS) 01/01/2005 GI Upset CAFFEINE 08/12/2009 Intolerance CEPHALOSPORINS 05/31/2013 Rash GABAPENTIN 05/28/2016 Mental Status Change IRON 05/08/2005 GI Upset ROCEPHIN [CEFTRIAXONE SODIUM] 02/22/2005 Rash Fully Assessed 09/27/2017 REVIEW OF SYSTEMS Abdomen: No bloating, early satiety, indigestion, or increased flatulence. No abdominal pain, nausea, vomiting, diarrhea, or constipation. Bladder: No dysuria, gross hematuria, urinary frequency, urinary urgency, or incontinence. Breast: No breast lumps, nipple d/c, overlying skin changes, redness or skin retraction. Expanded ROS: N/A Allergies and current medication updated:Yes EXAM: BP 120/84 Wt 270 lb (122.5kg) LMP 12/20/2006 GENERAL: pleasant, female in no apparent distress HEENT: Normocephalic and atraumatic NECK: Supple and full range of motion PELVIC: external genitalia normal, normal Bartholin's glands, urethra, Col[place]'s glands, no vulvar lesions, no cervical lesions, good vaginal support, physiologic discharge present, no odor. Diminished rugation, atrophic changes. normal appearing perineal body and perianal region BIMANUAL: uterus normal size, shape and consistency, no adnexal masses and non-tender NEURO: alert and oriented x3,exam grossly non-focal EXTREMITIES: normal ASSESSMENT AND PLAN: 1. Vaginal discharge - ICD9: 623.5, ICD10: N89.8 (primary diagnosis) 2. Vaginal odor - ICD9: 625.8, ICD10: N89.8 3. Vaginal irritation - ICD9: 623.9, ICD10: N89.8 4. Possible exposure to STD - ICD9: V01.6, ICD10: Z20.2 -BV, yeast, Trich, GC/CT done today. Will call patient with results. 5. To schedule annual exam. ELEANOR Rodriguez APRN.CNM 09/27/2017 3:11 PM Signed Addended by: SHERIN FORTE on: 09/27/2017 03:11 PM Modules accepted: Orders Referring Provider: SELF [[id number]] Allergies As of Date: 09/27/2017 Noted Allergy Reaction DEMEROL (MEPERIDINE HCL) 01/01/2005 8 - GI Upset DOXYCYCLINE 01/01/2005 5 - Intolerance Comments: rapid heart beat anxiety attack. PENICILLINS 01/01/2005 5 - Intolerance Comments: rash SULFA (SULFONAMIDE ANTIBIOTICS) 01/01/2005 8 - GI Upset CAFFEINE 08/12/2009 5 - Intolerance CEPHALOSPORINS 05/31/2013 2 - Rash GABAPENTIN 05/28/2016 1 - Mental Status Change IRON 05/08/2005 8 - GI Upset ROCEPHIN (CEFTRIAXONE SODIUM) 02/22/2005 2 - Rash Date Reviewed: 09/27/2017 Reviewed by: Bhargavi Galarza Ma - Fully Assessed Reason for Visit: Vaginal Problem [117] Cmt: Itching Primary Visit Diagnosis:Vaginal discharge [N89.8] Other Visit Diagnoses:Vaginal odor [N89.8] Vaginal irritation [N89.8] Possible exposure to STD [Z20.2] Order(s):BACT/ROMÁN VAG GRAM STAIN [SQBVCNSM] Order #: [id number] FUTURE TRICHOMONAS PREP [SQTRICHO] Order #: [id number] GC/CHLAMYDIA DNA DET [SQGCCAMP] Order #: [id number] Prescriptions as of 09/27/2017 Sig: ESTRADIOL 1 MG TABLET Take 1 tablet by mouth once d* ERYTHROMYCIN OPHTHALMIC Use in eyes. MECLIZINE 25 MG TABLET Take 1 Tablet by Mouth Three * ALBUTEROL SULFATE 2.5 MG/3 ML* Inhale The Contents Of 1 Vial* LORAZEPAM 2 MG TABLET Take 1 tablet by mouth three * Patient taking differently: Take 1 mg by mouth three time* * EFFEXOR XR 75 MG CAPSULE,EXTE* Take one(1) tablet daily. NAPROXEN 500 MG TABLET Take 1 tablet by mouth twice * Patient not taking: Reported on 09/27/2017 HYDROCODONE 5 MG-ACETAMINOPHE* Take 1 tablet by mouth every * HYDROCHLOROTHIAZIDE 25 MG TAB* Take 0.5 tablets by mouth onc* LOSARTAN 100 MG TABLET Take 1 tablet by mouth once d* Problem List As Of Date 09/27/2017 Noted Resolved Depressive disorder, not elsewhere classified [*INVALID FOR* More... ANXIETY STATE NOS [F41.1] INVALID FOR* Esophageal reflux [K21.9] INVALID FOR* More... Chronic airway obstruction, not elsewhere class*INVALID FOR* More... Excessive or frequent menstruation [N92.0] INVALID FOR*02/19/2012 Anemia, unspecified [D64.9] INVALID FOR*02/19/2012 Tobacco use disorder [F17.200] INVALID FOR* More... Urinary tract infection, site not specified [N3*INVALID FOR*02/19/2012 LUMBAGO [M54.5] INVALID FOR* Plantar Fascial Fibromatosis [M72.2] INVALID FOR* Calcaneal spur [M77.30] INVALID FOR* Low blood potassium [E87.6] INVALID FOR* More... Low HDL (under 40) [E78.6] INVALID FOR* Hyperlipidemia LDL goal < 130 [E78.5] INVALID FOR* More... UTI (lower urinary tract infection) [N39.0] INVALID FOR*08/12/2013 Myofascial pain [M79.1] INVALID FOR* DDD (degenerative disc disease), lumbar [M51.36]INVALID FOR* Chronic back pain [M54.9, G89.29] INVALID FOR* More... Physical deconditioning [R53.81] INVALID FOR* More... Chest pain [R07.9] INVALID FOR* More... Dizziness [R42] INVALID FOR* More... Hypertension [I10] INVALID FOR* More... Actinomyces infection [A42.9] INVALID FOR*12/07/2014 Hematuria [R31.9] INVALID FOR* Morbid obesity (HCC) [E66.01] INVALID FOR* Urgency of urination [R39.15] INVALID FOR* Frequency of urination [R35.0] INVALID FOR* Generalized abdominal pain [R10.84] INVALID FOR* Stress fracture of calcaneus [M84.376A] INVALID FOR* Chronic pelvic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 here today for bilateral wrist pain and numbness that has been increasing over the last few months. She complains of n/t into most of the fingers as well as itching sensation. She has not been dropping things but notes that the left hand feels weak. Denies bracing, emg or injections. She also complains of a ganglion cyst in the radial aspect of the left wrist. ROS Const Reports weakness Musc Reports as per HPI, Reports joint pain, Reports tingling Neuro Yes weakness, Yes tingling, Yes radiating pain, Yes as per HPI Ortho Exam Left Wrist/Hand Skin/Wound: Yes CDI Contralateral Normal: Yes A1 yuriy trigger: No Left Wrist: Yes ROM-Extension 0-60, Yes ROM-Flexion 0-80, Yes ROM-Pronation 0-80, Yes ROM-Supination 0-90 and Yes Durken's Test Motor: EPL: 5, FDP-2: 5, 1st Dorsal Interosseous: 5, APB: 5 Sensation: Radial: I, Ulnar: I, Median: D WRIST: neg two pt Assessment AND Plan Plan X-rays were reviewed. There is no obvious fracture, dislocation, or lucency noted. Educated on the anatomy of the hand and innervation of the nerves. Explained that she has carpal tunnel and decreased ulnar innervation in the left hand as well. We will order an EMG, instructed to wear braces at night. Follow up after EMG or sooner if pain, swelling, numbness or associated symptoms, or concerns develop. All questions answered. Patient in agreement of plan. Orders Orders: Coding Level of Care Code Off vis,est,level 4 08/22/17 1236 <Electronically signed by Robyn Jordan DO> Date Robyn Jordan DO Cosigner Signature: Date (if applicable) CC: WRIST MIN 3 VIEWS Observed: 08/22/2017 Status: F Source: RUBEN 9:28 AM [facility] REPOSITORY [facility] Imaging Services [address] [place] [address] Wrist min 3 Views MR#: [id number] Acct: [id number] Name: HIRO POLANCO Rep #: [id number] : 1965 F 51 From: Mir Francis MD PCP: Ayad Pichardo DO Status: REG CLI Study: Wrist min 3 Views Date of Exam: 08/22/17 Exam# [id number] Ordering Dr: Robyn Jordan DO STUDY: X-RAY - LEFT WRIST REASON FOR EXAM: Chronic wrist pain, previous carpal tunnel and ganglion surgery. TECHNIQUE: 3 view(s) of the wrist were obtained. COMPARISON: None. FINDINGS: Normal visualized distal radius and ulna. Normal radiocarpal articulation. Normal distal radioulnar articulation. Normal carpal bones. Normal carpal articulations. Normal carpometacarpal articulation of the thumb. Normal second through fifth carpometacarpal articulations. Normal visualized metacarpal bones. The soft tissue structures are unremarkable. RAD/Wrist min 3 Views IMPRESSION: Normal x-ray examination of the left wrist. Electronically Signed: Mir Francis MD at 10:04 EDT Tel , Service support , CC: Robyn Jordan DO; Ayad Pichardo DO Cable Swager: Signed WRIST MIN 3 VIEWS Observed: 08/22/2017 Status: F Source: RUBEN 9:28 AM [facility] REPOSITORY [facility] Imaging Services [address] [place] [address] Wrist min 3 Views MR#: [id number] Acct: [id number] Name: HIRO POLANCO Rep #: [id number] : 1965 F 51 From: Mir Francis MD PCP: Ayad Pichardo DO Status: REG CLI Study: Wrist min 3 Views Date of Exam: 08/22/17 Exam# [id number] Ordering Dr: Robyn Jordan DO STUDY: X-RAY - RIGHT WRIST REASON FOR EXAM: Chronic pain. TECHNIQUE: 3 view(s) of the wrist were obtained. COMPARISON: Radiographs 04/04/2015. FINDINGS: Normal visualized distal radius. There is a small cyst in the distal ulna without interval change. Normal radiocarpal articulation. Normal distal radioulnar articulation. There is an ossific density at the dorsal aspect of the proximal carpal row, unchanged since the prior exam, possibly representing a remote avulsion injury of the triquetrum. Otherwise, unremarkable carpal bones. Normal carpal articulations. Normal carpometacarpal articulation of the thumb. Normal second through fifth carpometacarpal articulations. Normal visualized metacarpal bones. The soft tissue structures are unremarkable. RAD/Wrist min 3 Views IMPRESSION: No interval change with small ossific density at the dorsal aspect of the wrist, suggestive of remote injury. Electronically Signed: Mir Francis MD at 11:50 EDT Tel , Service support , CC: Robyn Jordan DO; Ayad Pichardo DO Cable Swager: Signed DISCHARGE INSTRUCTION Observed: 08/18/2017 Status: F Source: RUBEN 1:59 PM [facility] REPOSITORY [facility] Medical Records Department [address] [place] [address] Discharge Instruction 08/18/17 1359 MR#: [id number] Acct: [id number] Name: HIRO POLANCO Rep #: [id number] : 1965 51 From: Cesar Bautista MD PCP: Ayad Pichardo DO Status: PRE ER ED Disposition - Plan for ED Patient: Disposition: Home or Assisted Living Chief Complaint: Abscess Instructions: ED Abscess IandD Referrals: Ayad Pichardo DO [Primary Care Provider] - What to do if you have Problems For any increased pain, shortness of breath, bleeding, nausea or vomiting, chest pain, or any unexpected problems, contact your Primary Care Provider. Call [facility] ([phone]) or report to the closest Emergency Room. Call 911 if necessary. 08/18/17 8592 <Electronically signed by Cesar Bautista MD> Date Cesar Bautista MD Cosigner Signature (If Indicated): Date CC: Ayad Pichardo DO EMERGENCY DEPARTMENT Observed: 08/15/2017 Status: F Source: [place] SUMMARY 12:27 AM [facility] REPOSITORY [facility] Medical Records Department [address] [place] [address] Emergency Department Summary 08/14/17 2206 MR#: [id number] Acct: [id number] Name: HIRO POLANCO Rep #: [id number] : 1965 51 From: Radha Austin MD PCP: Ayad Pichardo DO Status: DEP ER - ER Visit Summary Date of Service: 08/14/17 Chief Complaint: Abscess History of Present Illness: The patient is a 51 F with an abscess to the right posterior parietal scalp over the past week. She denies any spontaneous drainage. She has had similar in the past requiring I AND D. Patient has multiple antibiotic allergies listed. Physical Examination: Vital signs unremarkable. Head and neck examination is significant for 2 x 3 similar fluctuant abscess to the right posterior parietal scalp. Heart is regular rate and rhythm without murmur. Lung sounds are clear. Test Results: [] Emergency Department Course and Treatment: Patient was given 2 tabs p.o. Rosedale. 1/2 cc 1% lidocaine with epinephrine was used locally. 1/2 cm incision was made with return of pus. Wound is cleansed. Patient will be given Rosedale, doxycycline, and Zofran for home. Patient does list doxycycline as an allergy but states it just makes her nauseated, she is willing to take it with nausea meds. Treatment Plan: [] Disposition: Discharge Impression: Scalp abscess status post I AND D This note was generated with Naviscan dictation software. It may contain incorrect words, spelling, and punctuation that were not noted in review of the chart prior to signing ED Disposition - Plan for ED Patient: Chief Complaint: Abscess Referrals: Ayad Pichardo DO [Primary Care Provider] - What to do if you have Problems For any increased pain, shortness of breath, bleeding, nausea or vomiting, chest pain, or any unexpected problems, contact your Primary Care Provider. Call [facility] ([phone]) or report to the closest Emergency Room. Call 911 if necessary. 08/15/17 0027 <Electronically signed by Radha Austin MD> Date Radha Austin MD Cosigner Signature (If Indicated): Date CC: Ayad Pichardo DO DISCHARGE INSTRUCTION Observed: 08/14/2017 Status: F Source: RUBEN 10:10 PM [facility] REPOSITORY [facility] Medical Records Department [address] [place] [address] Discharge Instruction 08/14/17 2207 MR#: [id number] Acct: [id number] Name: SHERRIHIRO L Rep #: [id number] : 1965 51 From: Radha Austin MD PCP: Ayad Pichardo DO Status: REG ER ED Disposition - Plan for ED Patient: Disposition: Home or Assisted Living Chief Complaint: Abscess Instructions: ED Abscess IandD Prescriptions: Hydrocodone Bitart/Apap 5-325 [Rosedale 5MG-325MG] 1 tablet PO Q6H PRN PRN 3 Days #10 tablet PRN Reason: Pain Ondansetron [Zofran Odt] 4 mg PO Q6H PRN PRN #20 tab PRN Reason: Nausea Doxycycline Monohydrate 100 mg PO BID #14 cap Referrals: Ayad Pichardo, [Primary Care Provider] - 1 Week What to do if you have Problems For any increased pain, shortness of breath, bleeding, nausea or vomiting, chest pain, or any unexpected problems, contact your Primary Care Provider. Call [facility] ([phone]) or report to the closest Emergency Room. Call 911 if necessary. 08/14/170 <Electronically signed by Radha Austin MD> Date Radha Austin MD Cosigner Signature (If Indicated): Date CC: Ayad Pichardo DO EMERGENCY DEPARTMENT Observed: 08/05/2017 Status: F Source: [place] SUMMARY 12:18 AM [facility] Medical Records Department [address] [place] [address] Emergency Department Summary 08/04/17 1826 MR#: [id number] Acct: [id number] Name: SHERRIHIRO Jacek Rep #: [id number] : 1965 51 From: Boni Anaya MD PCP: Ayad Pichardo DO Status: DEP ER - ER Visit Summary Date of Service: 08/04/17 Chief Complaint: Acute on chronic right knee pain. History of Present Illness: The patient is a 51 F history of arthritis to her right knee. Has had knee injections before in the past which she states has not given her significant relief. She is also looking for a pain management doctor. She states that she has had pain and intermittent swelling in her right knee for 1-2 weeks. Denies any fever. No redness. No acute trauma. Physical Examination: Well-appearing middle-age female. Vital signs are stable afebrile. H EENT exam unremarkable. Neck nontender no lymphadenopathy. Lungs clear to auscultation bilaterally. Heart regular rate and rhythm no murmur. Abdomen soft without tenderness. Normal bowel sounds. Morbidly obese. She is moving all 4 extremities. Neurovascular intact. Her right knee she has crepitance consistent with arthritis. There is really no significant swelling at this time. ACL PCL, MCL LCL appear to be intact. Extensor mechanism is intact. She has normal range of motion. There is no significant effusion at this time. There is no redness or warmth. No signs of septic joint. Distally the right foot is neurovascularly intact. The calf is nontender. She is a normal DP pulse. Left lower extremity is unremarkable. Neurologically she is awake and alert without focal motor deficits. Test Results: None Emergency Department Course and Treatment: History and exam are consistent with degenerative arthritis of the right knee. She was offered but deferred a knee joint injection. She will be given 2 Rosedale here for pain. Treatment Plan: Motrin, ice and elevate and limited Rosedale for pain. Disposition: Discharge Impression: Acute on chronic right knee pain secondary to degenerative joint disease This note was generated with Naviscan dictation software. It may contain incorrect words, spelling, and punctuation that were not noted in review of the chart prior to signing ED Disposition - Plan for ED Patient: Chief Complaint: Lower Extremity Injury Referrals: Ayad Pichardo, [Primary Care Provider] - What to do if you have Problems For any increased pain, shortness of breath, bleeding, nausea or vomiting, chest pain, or any unexpected problems, contact your Primary Care Provider. Call [facility] ([phone]) or report to the closest Emergency Room. Call 911 if necessary. 08/05/17 0018 <Electronically signed by Boni Anaya MD> Date Boni Anaya MD Cosigner Signature (If Indicated): Date CC: Ayad Pichardo DO DISCHARGE INSTRUCTION Observed: 08/05/2017 Status: F Source: RUBEN 12:18 AM [facility] REPOSITORY [facility] Medical Records Department [address] [address] Discharge Instruction 08/04/17 1829 MR#: [id number] Acct: [id number] Name: HIRO POLANCO Rep #: [id number] : 1965 51 From: Boni Anaya MD PCP: Ayad Pichadro DO Status: DEP ER ED Disposition - Plan for ED Patient: Disposition: Home or Assisted Living Chief Complaint: Lower Extremity Injury Instructions: ED Degenerative Joint Disease Prescriptions: Hydrocodone/Acetaminophen [Rosedale 7.5-325 Tablet] 1 ea PO Q6H PRN PRN #20 tab PRN Reason: Pain Referrals: Ayad Pichardo DO [Primary Care Provider] - As Needed Robyn Jordan DO [STAFF PHYSICIAN] - As soon as possible Renato Zaidi MD [NON-STAFF] - 1-2 Weeks Delaney Chauhan MD [STAFF PHYSICIAN] - Additional Instructions: Ice to the right knee. Motrin for pain and swelling. Rosedale for pain. Call and follow-up with Dr. Chauhan for chronic pain. Call and follow-up with Dr. Jordan about possible evaluation of left hand carpal tunnel syndrome. If Dr. Jordan does not take care of carpal tunnel you can try the [facility] in [facility]. What to do if you have Problems For any increased pain, shortness of breath, bleeding, nausea or vomiting, chest pain, or any unexpected problems, contact your Primary Care Provider. Call [facility] ([phone]) or report to the closest Emergency Room. Call 911 if necessary. 08/05/17 0018 <Electronically signed by Boni Anaya MD> Date Boni Anaya MD Cosigner Signature (If Indicated): Date CC: Ayad Pichardo DO LOWER EXT JOINT ONLY Observed: 05/31/2017 Status: F Source: RUBEN (ROUTINE) 9:59 AM [facility] REPOSITORY [facility] Imaging Services [address] [place] [address] Lower Ext Joint Only (Routine) MR#: [id number] Acct: [id number] Name: HIRO POLANCO Rep #: [id number] : 1965 F 51 From: Mir Francis MD PCP: Ayad Pichardo DO Status: REG CLI Study: Lower Ext Joint Only (Routine) Date of Exam: 05/31/17 Exam# [id number] Ordering Dr: Robyn Jordan DO STUDY: MRI RIGHT KNEE REASON FOR EXAM: Medial knee pain for years, no specific injury. TECHNIQUE: Standardized fat and water weighted pulse sequences were obtained in all 3 orthogonal planes. COMPARISON: Radiographs 05/11/2017. FINDINGS: Normal medial meniscus. There is arthrosis of the medial femorotibial compartment with small marginal osteophytes and partial-thickness chondral loss (T2 sagittal image 16). There is mild subchondral bone edema of the medial tibial plateau (T2 coronal images 8, 12-14), a stress phenomenon. Normal medial collateral ligamentous complex (MCL). Normal distal semimembranosus, gracilis and semitendinosus tendons. Normal lateral meniscus. Normal hyaline cartilage of the lateral femorotibial compartment. There are small marginal osteophytes of the lateral femorotibial compartment. Normal lateral femoral condyle and tibial plateau. Normal proximal tibiofibular articulation. Normal lateral collateral (fibular) ligament. Normal popliteus tendon. Normal biceps femoris tendon. Normal anterior cruciate ligament (ACL). Normal posterior cruciate ligament (PCL). Normal congruent patellofemoral articulation. There is arthrosis of the patellofemoral compartment with very small marginal osteophytes, partial-thickness chondral loss of the patella (T2 sagittal image 7) and subchondral cystic change of the patella and medial femoral trochlea. Normal medial and lateral patellar retinaculum. Normal quadriceps tendon. Normal patellar tendon. Normal Hoffa's fat pad. There is a small joint effusion. There is a ganglion cyst posterior to the distal posterior cruciate ligament (T2 coronal images 6, 7) measuring 1.4 cm in transverse dimension. There is edema in the anterior subcutis adipose space. The otherwise visualized osseous structures are unremarkable. MRI/Lower Ext Joint Only (Routine) IMPRESSION: Arthrosis of the medial femorotibial and patellofemoral compartments. Mild subchondral bone edema of the medial tibial plateau, a stress phenomenon. Small joint effusion. Ganglion cyst posterior to the distal posterior cruciate ligament. No demonstrated medial meniscal tear. Electronically Signed: Mir Francis MD at 12:38 EDT Tel , Service support , CC: Robyn Jordan DO; Ayad Pichardo DO Cable Swager: Signed ORTHOPEDIC VISIT Observed: 05/14/2017 Status: F Source: [place] REPORT 3:04 PM [facility] REPOSITORY [facility] Orthopaedics AND Sports Medicine [address] [place] [address] OFFICE VISIT Date of Service: 05/14/17 MR#: [id number] Acct: [id number] Name: HIRO POLANCO Rep #: [id number] : 1965 Provider: Robyn Jordan DO Age/Sex: 51/F Location: [facility] Status: Signed Intake Intake Visit Reasons: bilateral knee pain Is patient in pain?: Yes Pain scale (1-10): 10 Allergies ceftriaxone sodium [From Rocephin] Allergy (Verified 05/14/17 12:47) Hives diclofenac potassium [From Cataflam] Adverse Reaction (Verified 05/14/17 12:47) Upset Stomach doxycycline Adverse Reaction (Verified 05/14/17 12:47) Upset Stomach meperidine HCl [From Demerol] Adverse Reaction (Verified 05/14/17 12:47) Upset Stomach naproxen [From Aleve] Adverse Reaction (Verified 05/14/17 12:47) Upset Stomach Penicillins [PCN] Adverse Reaction (Verified 05/14/17 12:47) Upset Stomach Sulfa (Sulfonamide Antibiotics) Adverse Reaction (Verified 05/14/17 12:47) Upset Stomach Medications Lorazepam [Ativan] 2 mg PO Q12H PRN PRN 12/27/12 [History Confirmed 05/14/17] Meclizine HCl [Antivert] 25 mg PO DAILY 12/27/12 [History Confirmed 05/14/17] Venlafaxine XR [Effexor Xr] 75 mg PO DAILY 12/01/14 [History Confirmed 05/14/17] Estradiol 1 mg PO DAILY 02/21/17 [History Confirmed 05/14/17] levalbuterol 1.25 mg/3 mL solution for nebulization 1.25 mg INHALATION Q1-4H PRN 03/21/17 [History Confirmed 05/14/17] Naproxen 500 mg PO BID PRN PRN #20 tab 05/11/17 [Rx Confirmed 05/14/17] Pantoprazole Sodium [Protonix] 40 mg PO BID 05/11/17 [History Confirmed 05/14/17] PFSH Medical History Abdominal pain (Acute) Anxiety and depression (Acute) Frequent headaches (Acute) Impaired glucose tolerance (Acute) Vertigo (Acute) Arthritis of hip (Chronic) COPD (chronic obstructive pulmonary disease) (Chronic) Chronic constipation (Chronic) Chronic low back pain (Chronic) Dyslipidemia (Chronic) GERD (gastroesophageal reflux disease) (Chronic) Hypertension (Chronic) Osteoarthritis of knee (Chronic) Surgical History H/O total hysterectomy (Inactive) s/p left wrist (Inactive) Family History Mother Hypertension Ovarian cancer Brother Alcoholism Sister Kidney disease Thyroid disorder Cancer Social History Smoking Status: Current every day smoker HPI bilateral knee pain: Details: HIRO POLANCO is a 51 year old F here today for bilateral knees. On 03/21/17 she received injection in right knee which helped for about 2- 3 weeks. She complains of constant medial right knee pain with intermittent medial left knee pain. She complains of pain radiating down her right calf. No swelling. No tingling/numbness. She did not go to see Dr. Chauhan as recommended for her back pain. Frequently knees are giving out, she has fallen frequently. Right knee locking. She takes Naproxen for pain but is not helping with the pain. ROS Const Reports system reviewed and no additional complaints, except as docu Eyes Reports system reviewed and no additional complaints, except as docu ENT Reports system reviewed and no additional complaints, except as docu Card Reports system reviewed and no additional complaints, except as docu Resp Reports system reviewed and no additional complaints, except as docu GI Reports system reviewed and no additional complaints, except as docu Reports system reviewed and no additional complaints, except as docu Musc Reports joint pain Skin/Breast Reports system reviewed and no additional complaints, except as docu Neuro Yes system reviewed and no additional complaints, except as docu Psych Reports system reviewed and no additional complaints, except as docu Endo Reports system reviewed and no additional complaints, except as docu Dio/Lymph Reports system reviewed and no additional complaints, except as docu Aller/Immun Reports system reviewed and no additional complaints, except as docu Ortho Exam Left Knee Homans Sign: No Knee ROM: Yes ROM-Extension -20 to 0, Yes ROM-Passive Extension -10 to 0, Yes ROM-Passive Flexion 0-140, Yes ROM-Flexion 0-140 Examination: Yes med jt line tenderness, Yes Enmanuel's Test, Yes Pain with flexion, No Lat jt line tenderness, No TTP inf pole patella, No Crepitus, No Dial at 90, No Dial at 60, Yes Duck Walk (unable) Office Procedures Ortho Injections Injections Yes Knee Left Details: Obtained consent for injection. Under sterile conditions, injected the patients left knee with a 10cc cocktail of 8cc bupivacaine and 2cc kenalog . The patient tolerated the injection well without any noted complication. Patient should call our office if redness develops, pain worsens or if they have any concerns. Office Meds Kenalog Performing Provider: Robyn Jordan DO Administered by: Robyn Jordan DO on 05/14/17 14:17 Dose Route Admin Location Lot Number Expiration DateNDC Life Science Research Assistant 2 mg Intra-Articularleft knee [id number] 07/01/18 [id number] BRISTOL LAZCANO SQUIBB Assessment AND Plan Problems 1. Bilateral knee pain M25.561; M25.562 2. Torn medial meniscus S83.249A Plan Patient has medial knee pain right greater than left. She had an injection and has been doing home exercises with limited benefit. States that it is clicking and unstable she is unable to walk around Effexor daily life. She has essentially failed conservative treatment of her right knee at this point wants to know what else can be done. An MRI will determine whether or not she will be a good candidate for surgical intervention for knee arthroscopy. As that is the next step. We injected her left knee today for pain control and also told her that losing weight and getting stronger would be of benefit to her knees as well as her overall body function. We gave her the information on Dr. Rodriguez told her to see him for chronic pain management for lower back issues. Patient is aware and agreement of plan she will follow-up with us after the MRI of her right knee. Told to call with increased pain numbness tingling or other issues arise Patient aware and agree with plan. Follow-up after MRI. This note was generated with Naviscan dictation software. It may contain incorrect words, spelling, and punctuation that were not noted in checking the note before signing. Orders Orders: Medications Discontinued: Kenalog (triamcinolone acetonide)2 mg (0.2 mL) Intra-Articular ONCM25.562 Kiley Valencia Discontinued Reason: Office E NS Medication has been Documented as given Coding Level of Care Code Off vis,est,level 4 Diagnoses Bilateral knee pain M25.561; M25.562 Torn medial meniscus S83.249A Additional Codes parcel post carrier.knee ([id number]) 05/14/17 1504 <Electronically signed by Robyn Jordan DO> Date Robyn Jordan DO Cosigner Signature: Date (if applicable) CC: EMERGENCY DEPARTMENT Observed: 05/11/2017 Status: F Source: [place] SUMMARY 5:00 PM [facility] REPOSITORY [facility] Medical Records Department [address] [place] [address] Emergency Department Summary 05/11/17 1553 MR#: [id number] Acct: [id number] Name: HIRO POLANCO Rep #: [id number] : 1965 51 From: Caitlin Munoz DO PCP: Ayad Pichardo DO Status: DEP ER - ER Visit Summary Date of Service: 05/11/17 Chief Complaint: [] Right knee pain History of Present Illness: The patient is a 51 F [] complaining of right knee pain. Patient denies injury. Reports knee has been giving out. Reports pain with ambulation. No other complaints at this time. Physical Examination: [] Mild right knee pain with range of motion testing. No significant swelling. No erythema or warmth. No effusion. Test Results: [] Right knee x-ray shows degenerative joint disease without obvious fracture. Emergency Department Course and Treatment: [] Patient given 1 oxycodone for analgesia and underwent x-rays. X-rays reveal no obvious pathology per my interpretation. Patient given prescription for Naprosyn and Vin bandages. She was encouraged to follow-up with her orthopedic surgeon. Treatment Plan: [] Follow-up with orthopedic surgeon. Disposition: [] Discharge, stable. Impression: [] Right knee pain Osteoarthritis This note was generated with Naviscan dictation software. It may contain incorrect words, spelling, and punctuation that were not noted in review of the chart prior to signing ED Disposition - Plan for ED Patient: Chief Complaint: Lower Extremity Injury Referrals: Ayad Pichardo DO [Primary Care Provider] - What to do if you have Problems For any increased pain, shortness of breath, bleeding, nausea or vomiting, chest pain, or any unexpected problems, contact your Primary Care Provider. Call AA Party Registry ([phone]) or report to the closest Emergency Room. Call 911 if necessary. 05/11/17 1700 <Electronically signed by Caitlin Munoz DO> Date Caitlin Munoz DO Cosigner Signature (If Indicated): Date CC: Ayad Pichardo DO DISCHARGE INSTRUCTION Observed: 05/11/2017 Status: F Source: [place] 3:59 PM [facility] REPOSITORY [facility] Medical Records Department [address] [address] Discharge Instruction 05/11/17 1558 MR#: [id number] Acct: [id number] Name: HIRO POLANCO Jacek Rep #: [id number] : 1965 51 From: Caitlin Munoz DO PCP: Ayad Pichardo DO Status: PRE ER ED Disposition - Plan for ED Patient: Disposition: Home or Assisted Living Chief Complaint: Lower Extremity Injury Instructions: ED Sprain Knee, What Is Osteoarthritis? Prescriptions: Naproxen 500 mg PO BID PRN PRN #20 tab PRN Reason: Pain Referrals: Ayad Pichardo DO [Primary Care Provider] - What to do if you have Problems For any increased pain, shortness of breath, bleeding, nausea or vomiting, chest pain, or any unexpected problems, contact your Primary Care Provider. Call Doctors Registry ([phone]) or report to the closest Emergency Room. Call 911 if necessary. 05/11/17 1559 <Electronically signed by Caitlin Munoz DO> Date Caitlin Munoz DO Cosigner Signature (If Indicated): Date CC: Ayad Pichardo DO KNEE 4 OR MORE Observed: 05/11/2017 Status: F Source: [place] VIEWS 3:21 PM [facility] REPOSITORY [facility] Imaging Services [address] [place] [address] Knee 4 or More Views MR#: [id number] Acct: [id number] Name: HIRO POLANCO Rep #: [id number] : 1965 F 51 From: Oz Aranda MD PCP: Ayad Pichardo DO Status: PRE ER Study: Knee 4 or More Views Date of Exam: 05/11/17 Exam# [id number] Ordering Dr: Caitlin Munoz DO STUDY: X-RAY - RIGHT KNEE REASON FOR EXAM: Female, 51 years old. Trauma. Pain. TECHNIQUE: 4 view(s) of the knee. COMPARISON: None. FINDINGS: There is no evidence of fracture or dislocation. There are mild tricompartmental degenerative changes. There are no radiodense foreign bodies. RAD/Knee 4 or More Views IMPRESSION: No fracture or dislocation. Mild degenerative change. Electronically Signed: Oz Aranda, at 15:54 EST Tel , Service support , CC: Ayad Pichadro DO; Caitlin Munoz DO Cable Swager: Signed EMERGENCY DEPARTMENT Observed: 04/29/2017 Status: F Source: [place] SUMMARY 12:05 AM [facility] REPOSITORY [facility] Medical Records Department [address] [place] [address] Emergency Department Summary 04/28/17 1627 MR#: [id number] Acct: [id number] Name: HIRO POLANCO Rep #: [id number] : 1965 51 From: Boni Anaya MD PCP: Ayad Pichardo DO Status: DEP ER - ER Visit Summary Date of Service: 04/28/17 Chief Complaint: Cough History of Present Illness: The patient is a 51 F states for 1 week she has had a cough of yellowish sputum. Denies any hemoptysis. She does have COPD and continues to smoke. She denies fever but has chills. No chest pain. She denies vomiting or diarrhea. Physical Examination: Middle-aged female. Vital signs are stable afebrile. Pulse ox 96% on room air no signs of hypoxia. HEENT exam unremarkable neck nontender. Lungs coarse breath sounds bilaterally equal and symmetrical. Expiratory wheezing and prolonged expiratory phase. No rhonchi. No rales. Heart regular rate and rhythm no murmur. Abdomen is morbidly obese but soft nontender normal bowel sounds no peritoneal signs. She is moving all 4 extremities. They are neurovascularly intact. Calves are nontender. Neurological exam is unremarkable. Test Results: Chest x-ray two-view shows changes no acute process no pneumonia. Emergency Department Course and Treatment: Treated with DuoNeb aerosol. Treatment Plan: Repeat exam at 1730 patient is doing well. Her wheezing is much improved after the aerosol treatment. She will be given a dose of prednisone here and placed on prednisone 40 mg a day for 1 week. She was strongly encouraged to stop smoking. Disposition: dc Impression: Acute bronchitis Acute exacerbation COPD Tobacco abuse This note was generated with Naviscan dictation software. It may contain incorrect words, spelling, and punctuation that were not noted in review of the chart prior to signing ED Disposition - Plan for ED Patient: Chief Complaint: Cold Sx Referrals: Ayad Pichardo, [Primary Care Provider] - What to do if you have Problems For any increased pain, shortness of breath, bleeding, nausea or vomiting, chest pain, or any unexpected problems, contact your Primary Care Provider. Call Doctors Registry ([phone]) or report to the closest Emergency Room. Call 911 if necessary. 04/29/17 0005 <Electronically signed by Boni Anaya MD> Date Boni Anaya MD Cosigner Signature (If Indicated): Date CC: Ayad Pichardo DO DISCHARGE INSTRUCTION Observed: 04/29/2017 Status: F Source: [place] 12:05 AM [facility] REPOSITORY [facility] Medical Records Department [address] [place] [address] Discharge Instruction 04/28/17 1734 MR#: [id number] Acct: [id number] Name: HIRO POLANCO Rep #: [id number] : 1965 51 From: Boni Anaya MD PCP: Ayad Pichardo DO Status: DEP ER ED Disposition - Plan for ED Patient: Disposition: Home or Assisted Living Chief Complaint: Cold Sx Instructions: ED COPD Flare Prescriptions: Prednisone [Deltasone] 40 mg PO DAILY 10 Days tab Referrals: Ayad Pichardo DO [Primary Care Provider] - 1 Week if not improving Additional Instructions: Absolutely needs to stop smoking. Prednisone 40 mg a day till gone. Call follow-up your primary care physician if not improving. Or return to the ER feeling worse. What to do if you have Problems For any increased pain, shortness of breath, bleeding, nausea or vomiting, chest pain, or any unexpected problems, contact your Primary Care Provider. Call AA Party Registry ([phone]) or report to the closest Emergency Room. Call 911 if necessary. 04/29/17 0005 <Electronically signed by Boni Anaya MD> Date Boni Anaya MD Cosigner Signature (If Indicated): Date CC: Ayad Pichardo DO CHEST PA AND LATERAL Observed: 04/28/2017 Status: F Source: [place] 4:26 PM [facility] REPOSITORY [facility] Imaging Services [address] [place] [address] Chest PA and Lateral MR#: [id number] Acct: [id number] Name: HIRO POLANCO Rep #: [id number] : 1965 F 51 From: Rosalee Lazo MD PCP: Ayad Pichardo DO Status: REG ER Study: Chest PA and Lateral Date of Exam: 04/28/17 Exam# [id number] Ordering Dr: Boni Anaya MD STUDY: X-RAY CHEST REASON FOR EXAM: Female, 51 years old. Cough and wheezing for one week. TECHNIQUE: PA and lateral views of the chest. COMPARISON: November 24, 2016. FINDINGS: Lungs are expanded. There is interstitial thickening visible in both lungs. There is no demonstrated pleural abnormality. Normal size heart. Normal mediastinum and cecilia. Normal visualized pulmonary arteries. Normal visualized aortic arch and descending thoracic aorta. Normal visualized thoracic spine. Normal visualized ribs, clavicles, and shoulders. There is no demonstrated abnormality of the visualized soft tissue structures of the upper abdomen. RAD/Chest PA and Lateral IMPRESSION: No radiographic evidence of acute cardiopulmonary disease. Electronically Signed: Rosalee Lazo MD at 17:19 EST , Service support , CC: Boni Anaya MD; Ayad JordanMarino DO Cable Swager: Signed URINALYSIS, COMPLETE Collected: 04/16/2017 Status: F Source: [place] 12:10 PM [facility] RE[facility] Order Comment: How was Urine Obtained? CLEAN CATCH TYPE CODE TESTS RESULT OUT OF RANGE REFERENCE UNITS LAB L400.3000 Yellow COLOR Normal Yellow LAB L400.3050 Clear Normal CLARITY Sl. Cloudy LAB L400.3200 Normal mg/dl Normal GLUCOSE, UR Normal LAB L400.3300 Negative mg/dL Normal BILIRUBIN URINE Negative LAB L400.3400 Negative mg/dl Normal KETONE UR Negative LAB L400.3465 1.002-1.030 Normal SP.GR. DIPSTX 1.010 LAB L400.3550 5.0 - 8.0 pH UR Normal 6.0 LAB L400.3600 Negative mg/dl PROT Normal DIPSTX Negative LAB L400.3700 Normal mg/dl Normal UROBILI Normal LAB L400.3750 Negative Normal NITRITE UR Negative LAB L400.3780 Negative /ul High 25 OCCULT BLOOD-UR LAB L400.3800 Negative /ul LEUK Normal ESTERASE Negative LAB L400.4050 0-5 /hpf WBC 0 Normal SEEN LAB L400.4100 0-5 /hpf Normal RBC-UA 0-5 SEEN LAB L400.4150 5-10 /hpf SQUAM Normal EPI 0-5 SEEN LAB L400.4300 None Seen /hpf 0 Normal BACTERIA SEEN LAB L400.4350 <or=2+ /hpf 0 Normal MUCUS, URINE SEEN Performed By: #### L400.0001 #### [facility] [address] [place], [address] CBC W/DIFF, AUTOMATED Collected: 04/16/2017 Status: F Source: [place] 12:10 PM [facility] RE[facility] TYPE CODE TESTS RESULT OUT OF RANGE REFERENCE UNITS LAB L100.1000 4.4-11.0 K/mm3 Normal WBC 8.9 LAB L100.1200 4.2-5.4 M/mm3 Normal RBC 5.06 LAB L100.1300 12.0-15.0 g/dl High HGB 15.4 LAB L100.1400 37-47 % Normal HCT 45.9 LAB L100.1500 81-99 fL Normal MCV 90.7 LAB L100.1600 27.0-32.0 pg Normal MCH 30.4 LAB L100.1700 32-36 g/gl Normal MCHC 33.6 LAB L100.1810 11.6-14.6 % Normal RDW CV 13.2 LAB L100.1820 35.1-43.9 fl Normal RDW SD 43.2 LAB L100.1900 150-450 K/mm3 Normal PLT 309 LAB L100.2000 6.2-12.0 fl Normal MPV 9.8 LAB L100.2100 47-70 % Normal NEUT% 59.2 LAB L100.2200 19-41 % Normal LY% 26.2 LAB L100.2300 0-10 % High MONO% 10.9 LAB L100.2400 0-5 % Normal EO% 3.3 LAB L100.2500 0-1 % Normal BASO% 0.2 LAB L100.2550 0.0-0.9 % Normal IM GRAN % 0.200 Result Comment: IG% - Immature Granulocytes (promyelocytes, myelocytes and metamyelocytes) > 1% indicates that a LEFT SHIFT is Present. LAB L100.2620 2.0-7.7 X10 3/uL Normal Absolute Neut 5.3 LAB L100.2720 0.83-4.51 X10 3/ul Normal Absolute Lymph 2.33 Performed By: #### L100.0100 #### [facility] [address] [place], [address] COMPREHENSIVE METABOLIC Collected: 04/16/2017 Status: F Source: [place] [facility] 12:10 PM [facility] RE[facility] TYPE CODE TESTS RESULT OUT OF RANGE REFERENCE UNITS LAB L501.0100 74-106 mg/dL Normal GLU 82 Result Comment: Please note revised GLUCOSE reference range effective 2017. LAB L501.1000 7-18 mg/dL Normal BUN 13 LAB L501.1100 0.55-1.02 mg/dL High CREAT,SERUM 1.07 Result Comment: The validity of the calculated GFR AND GFRAA in patients over 70 years has not been determined. Clinical correlation is essential. LAB L501.1110 >60 mL/min Low EST GFR 57 Result Comment: Non- GFR Calc LAB L501.1115 >60 mL/min Normal EST GFR - AA 69 Result Comment: GFR Calc LAB L501.1300 10-20 RATIO Normal BUN/CRE 12.1 LAB L501.1500 6.4-8.2 g/dL T Normal PROT 7.5 LAB L501.1800 3.2-5.0 g/dL Low ALB 3.0 LAB L501.1950 2.2-4.2 g/dL High GLOB 4.5 LAB L501.2000 0.9-2.4 RATIO Low A/G 0.7 LAB L501.2200 8.5-10.1 mg/dL CA Normal 9.0 LAB L501.4100 15-37 U/L Normal AST 18 LAB L501.4305 45-117 U/L Normal ALK P 100 LAB L501.4405 13-56 U/L Normal ALT 28 Result Comment: Please note revised ALT reference range effective 2017. LAB L501.4600 0.20-1.00 mg/dL Normal T BILI 0.30 LAB L501.5300 136-145 mmol/L Normal NA 139 LAB L501.5600 3.5-5.1 mmol/L Normal K 3.9 LAB L501.5900 98-107 mmol/L Normal CL 105 LAB L501.6100 21.0-32.0 mmol/L Normal CO2 29.0 LAB L501.6200 5-15 Normal GAP 5 Performed By: #### L500.4050 #### [facility] [address] [facility] [place], [address] Observed: 04/16/2017 Status: F Source: [place] CULTURE, URINE 12:10 PM [facility] REPOSITORY Urine Culture Probable skin contamination. ORGANISM 1: Mixed Gram Positive Organisms [place] Count >100,000 MIX CULTURE Mixed contaminants. Submit a new specimen if indicated. Performed By: #### M100.0650 #### [facility] [address] [facility] [place], [address] L/S SPINE MIN 4 Observed: 04/16/2017 Status: F Source: [place] VIEWS 12:06 PM [facility] REPOSITORY [facility] Imaging Services [address] [place] [address] L/S Spine Min 4 Views MR#: [id number] Acct: [id number] Name: HIRO POLANCO Rep #: [id number] : 1965 F 51 From: Radha Sosa MD PCP: Ayad Pichardo DO Status: REG CLI Study: L/S Spine Min 4 Views Date of Exam: 04/16/17 Exam# [id number] Ordering Dr: Ayad Pichardo DO STUDY: X-RAY - LUMBAR SPINE REASON FOR EXAM: Female, 51 years old. Low back pain TECHNIQUE: Five view(s) of the lumbar spine were obtained. COMPARISON: February 21, 2017 FINDINGS: Normal lumbar lordosis. There is no significant scoliosis. There is normal alignment of the vertebrae. The vertebral bodies show no significant abnormalities. Vertebral body heights are maintained. There are no significant disc abnormalities. The soft tissues are unremarkable. RAD/L/S Spine Min 4 Views IMPRESSION: No significant abnormalities are seen radiographically in the lumbar spine. Electronically Signed: Radha Sosa MD at 23:05 EST Tel Direct: [phone], Service support , CC: Ayad Pichardo DO Cable Swager: Signed ABDOMEN SINGLE VIEW Observed: 04/16/2017 Status: F Source: [place] 12:06 PM [facility] REPOSITORY [facility] Imaging Services [address] [place], [place] [address] [address] Abdomen Single View MR#: [id number] Acct: [id number] Name: HIRO POLANCO Rep #: [id number] : 1965 F 51 From: Radha Sosa MD PCP: Ayad Pichardo DO Status: REG CLI Study: Abdomen Single View Date of Exam: 04/16/17 Exam# [id number] Ordering Dr: Ayad Pichardo DO STUDY: X-RAY - ABDOMEN/PELVIS REASON FOR EXAM: Female, 51 years old. Left flank pain TECHNIQUE: Supine views of the abdomen and pelvis were obtained. COMPARISON: July 09, 2016 FINDINGS: The lung bases are unremarkable. There is an unremarkable bowel gas pattern. There is no demonstrated free abdominal air. There is no demonstrated abnormality of the major organs. The soft tissues are unremarkable. The osseous structures are unremarkable. RAD/Abdomen Single View IMPRESSION: No acute abnormalities are seen in the abdomen or pelvis. No abnormal calcifications are seen over the left renal shadow or along the expected course of the left ureter. Electronically Signed: Radha Sosa MD at 23:10 EST Tel Direct: [phone], Service support , CC: Ayad Pichardo DO Cable Swager: Signed Observed: 04/06/2017 Status: F Source: [place] URINE CULTURE 11:11 PM [facility] REPOSITORY Sp. Request/Comment: - Specimen received in preservative Culture Result - 10,000 - <50,000 CFU/ml Normal urogenital gus Performed By: #### URCUL #### [facility] [address] [place] [address] PROGRESS Observed: 04/06/2017 Status: COMPLETED Source: [place] 11:27 AM [facility] REPOSITORY HNO ID: [id number] Author: Caridad (Slicing Machine Feeder) Azeb Service: (none) Author Type: Nurse Practitioner Type: Progress Notes Filed: 04/06/2017 11:43 AM Note Text: HUSSEIN Hiro Polanco is a 51 year old female who presents with left flank pain for one day. She rates the pain a 7/10. She took ibuprofen yesterday for the pain. She describes the pain as tight. Review of Systems Constitutional: Negative. Negative for fever. Respiratory: Negative. Cardiovascular: Negative. Gastrointestinal: Positive for diarrhea and nausea. Negative for abdominal pain and vomiting. Genitourinary: Positive for flank pain (left) and urgency. Negative for dysuria and hematuria. Musculoskeletal: Negative for back pain. BP 116/80 Pulse 72 Temp 37 ?C (98.6 ?F) (Tympanic) Resp 18 Wt 122.3 kg (269 lb 9.6 oz) LMP 12/20/2006 BMI 47.76 kg/m2 PAST MEDICAL HISTORY Diagnosis Date - Anemia, unspecified transfused 2002, [facility] - Carpal tunnel syndrome - Chronic airway obstruction, not elsewhere classified - Depressive disorder, not elsewhere classified hospitalized 1999, [facility], Counseling center Dr. Rubén Merino - Esophageal reflux 04/26/2005 - EXCESSIVE MENSTRUATION 04/26/2005 - Fibromyalgia 05/28/2016 - Panic disorder with agoraphobia Counseling center, Dr. Rubén Merino PAST SURGICAL HISTORY Procedure Laterality Date - CARPAL TUNNEL left wrist - LAP VAG HYST <=250 G RMV T/O 12/01/14 L[facility], BSO - LIGATE FALLOPIAN TUBE 1986 - WRIST SPLINT 04 l wrist ALLERGIES Demerol [Meperidine Hcl]; Doxycycline; Penicillins; Sulfa (Sulfonamide Antibiotics); Caffeine; Cephalosporins; Gabapentin; Iron; Rocephin [Ceftriaxone Sodium] MEDICATIONS estradiol (ESTRACE) 1 mg tablet Take 1 tablet by mouth once daily. ERYTHROMYCIN BASE (ERYTHROMYCIN OPHTHALMIC) Use in eyes. meclizine (ANTIVERT) 25 mg tab Take 1 Tablet by Mouth Three Times Daily as Needed (Vertigo Symptoms) albuterol (PROVENTIL) 2.5 mg /3 mL (0.083 %) nebulizer solution Inhale The Contents Of 1 Vial Via Nebulizer Every 4 Hours As Needed For Shortness Of Breath Or Wheezing Use Over 5 -15 Minutes LORazepam (ATIVAN) 2 mg tab Take 1 tablet by mouth three times daily as needed. venlafaxine hcl(EFFEXOR XR 75 MG 24 HR CAP) Take one(1) tablet daily. HYDROcodone-acetaminophen (NORCO) 5-325 mg per tablet Take 1 tablet by mouth every 6 hours as needed. hydroCHLOROthiazide (HYDRODIURIL, ESIDRIX) 25 mg tablet Take 0.5 tablets by mouth once daily. losartan (COZAAR) 100 mg tablet Take 1 tablet by mouth once daily. FAMILY HISTORY Problem Relation Age of Onset - Hypertension Mother - ovarian cancer [OTHER] Mother - Alcohol/Drug Brother - lung cancer [OTHER] Maternal Uncle - Cancer Maternal Uncle - Cancer Sister thyroid Social History Substance Use Topics - Smoking status: Current Every Day Smoker Packs/day: 1.00 Years: 20.00 Types: Cigarettes - Smokeless tobacco: Never Used - Alcohol use No Physical Exam Constitutional: She is well-developed, well-nourished, and in no distress. Obese Cardiovascular: Normal rate, regular rhythm and normal heart sounds. Pulmonary/Chest: Effort normal and breath sounds normal. No respiratory distress. She has no wheezes. Abdominal: Bowel sounds are normal. There is no hepatosplenomegaly. There is no tenderness. There is CVA tenderness (left). Neurological: She is alert. Skin: Skin is warm and dry. No rash noted. Nursing note and vitals reviewed. ASSESSMENT/PLAN: 1. Flank pain - ICD9: 789.09, ICD10: R10.9 (primary diagnosis) - UA DIP B/O-positive for blood, nitrites - URINE CULTURE - Patient advised if flank pain worsens or she develops a fever or nausea, she should go to ER where abdominal imaging can be performed. 2. Acute cystitis with hematuria - ICD9: 595.0, ICD10: N30.01 - NITROFURANTOIN MONOHYDRATE AND MACROCRYSTAL 100 MG ORAL CAP - NAPROXEN 500 MG TABLET - Encourage fluid intake - Follow-up with your PCP in 3-5 days if symptoms have not improved or sooner if symptoms worsen - Discussed red flags and need for immediate medical evaluation if any occur. - Discussed supportive care treatment with fluids, rest and analgesia. - Discussed expected course of illness Caridad Bowie CNP ORTHOPEDIC VISIT Observed: 03/21/2017 Status: F Source: [place] REPORT 4:05 PM [facility] REPOSITORY [facility] [address] [place] [address] [address] [place] [address] OFFICE VISIT Date of Service: 03/21/17 MR#: [id number] Acct: [id number] Name: HIRO POLANCO Rep #: [id number] : 1965 Provider: Robyn Jordan DO Age/Sex: 51/F [place] [facility] [place]: Signed Intake Intake Visit Reasons: LEFT KNEE Is patient in pain?: Yes Pain scale (1-10): 10 Allergies ceftriaxone sodium [From Rocephin] Allergy (Verified 03/21/17 09:57) Hives diclofenac potassium [From Cataflam] Adverse Reaction (Verified 03/21/17 09:57) Upset Stomach doxycycline Adverse Reaction (Verified 03/21/17 09:57) Upset Stomach meperidine HCl [From Demerol] Adverse Reaction (Verified 03/21/17 09:57) Upset Stomach naproxen [From Aleve] Adverse Reaction (Verified 03/21/17 09:57) Upset Stomach Penicillins [PCN] Adverse Reaction (Verified 03/21/17 09:57) Upset Stomach Sulfa (Sulfonamide Antibiotics) Adverse Reaction (Verified 03/21/17 09:57) Upset Stomach Medications Lorazepam [Ativan] 2 mg PO Q12H PRN PRN 12/27/12 [History Confirmed 03/21/17] Meclizine HCl [Antivert] 25 mg PO DAILY 12/27/12 [History Confirmed 03/21/17] Venlafaxine XR [Effexor Xr] 75 mg PO DAILY 12/01/14 [History Confirmed 03/21/17] Albuterol Inhaler [Ventolin Hfa (SP)] 1 - 2 puff INHALATION Q4H PRN PRN 06/25/15 [History Confirmed 03/21/17] Ranitidine [Zantac] 150 mg PO BID 01/29/17 [History Confirmed 03/21/17] Estradiol 1 mg PO DAILY 02/21/17 [History Confirmed 03/21/17] fluticasone 200 mcg-vilanterol 25 mcg/dose powder for inhalation 1 inh INHALATION Q24H 03/21/17 [History Confirmed 03/21/17] levalbuterol 1.25 mg/3 mL solution for nebulization 1.25 mg INHALATION Q1-4H PRN 03/21/17 [History Confirmed 03/21/17] tiotropium bromide 18 mcg capsule with inhalation device 1 cap INHALATION QDAY 03/21/17 [History Confirmed 03/21/17] PFS Medical History Abdominal pain (Acute) Anxiety and depression (Acute) Frequent headaches (Acute) Impaired glucose tolerance (Acute) Vertigo (Acute) Arthritis of hip (Chronic) COPD (chronic obstructive pulmonary disease) (Chronic) Chronic constipation (Chronic) Chronic low back pain (Chronic) Dyslipidemia (Chronic) GERD (gastroesophageal reflux disease) (Chronic) Hypertension (Chronic) Osteoarthritis of knee (Chronic) Surgical History H/O total hysterectomy (Inactive) s/p left wrist (Inactive) Family History Mother Hypertension Ovarian cancer Brother Alcoholism Sister Kidney disease Thyroid disorder Cancer Social History Smoking Status: Current every day smoker HPI LEFT KNEE: Details: HIRO POLANCO is a 51 year old F here today for bilateral knee pain. She complains of bilateral lateral, medial knee pain with the right knee worse. She does complain of pain radiating down her right leg. She complains of right knee swelling. No tingling/numbness. Frequent locking of the right knee, occasionally the left. Frequently the right knee is giving out and she has fallen. She takes Ibuprofen for pain but is not helping. She would like bilateral knee injections. Her last injections were on 11/30/16 along with aspirations of both knees. ROS Const Reports system reviewed and no additional complaints, except as docu Eyes Reports system reviewed and no additional complaints, except as docu ENT Reports system reviewed and no additional complaints, except as docu Card Reports system reviewed and no additional complaints, except as docu Resp Reports system reviewed and no additional complaints, except as docu GI Reports system reviewed and no additional complaints, except as docu Reports system reviewed and no additional complaints, except as docu Musc Reports joint pain, Reports joint swelling Skin/Breast Reports system reviewed and no additional complaints, except as docu Neuro Yes system reviewed and no additional complaints, except as docu Psych Reports system reviewed and no additional complaints, except as docu Endo Reports system reviewed and no additional complaints, except as docu Dio/Lymph Reports system reviewed and no additional complaints, except as docu Aller/Immun Reports system reviewed and no additional complaints, except as docu Ortho Exam Right Knee Skin/Wound: Yes CDI Contralateral Normal: No Swelling: No Homans Sign: No Knee ROM: Yes ROM-Extension -20 to 0, Yes ROM-Flexion 0-140 Examination: Med jt line tenderness, Pain with flexion Left Knee Skin/Wound: Yes CDI Contralateral Normal: No Swelling: No Homans Sign: No Examination: Med jt line tenderness, Pain with flexion Office Procedures Ortho Injections Injections Yes Knee Right Details: Obtained consent for injection. Under sterile conditions, injected the patients right knee with a 10cc cocktail of 8cc bupivacaine and 2cc kenalog. The patient tolerated the injection well without any noted complication. Patient should call our office if redness develops, pain worsens or if they have any concerns. Office Meds Kenalog Performing Provider: Robyn Jordan DO Administered by: Robyn Jordan DO on 03/21/17 10:36 Dose Route Admin Location Lot Number Expiration DateNDC Life [employer] Research Assistant 2 mg Intra-Articularright knee [id number] 06/02/18 4811-7125-35 [employer] Assessment AND Plan 1. Chronic pain of both knees M25.561; M25.562; G89.29 Plan Treatment options are injections, she is trying to postpone surgery. Discussed seeing Dr Chauhan for her back pain. She is also wheezing during exam and instructed to follow up with her pcp and gave her the AAOS program to work on. If this injection fails we will order an MRI of the right knee. Follow up as needed or sooner if pain, swelling, numbness or associated symptoms, or concerns develop. All questions answered. Patient in agreement of plan. 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 ([id number]) 03/21/17 1605 <Electronically signed by Robyn Jordan DO> Date Robyn Jordan DO Cosigner Signature: Date (if applicable) CC: EMERGENCY DEPARTMENT Observed: 02/21/2017 Status: F Source: [place]UJ[place] AL[place] SUMMARY 10:39 PM [facility] REPOSITORY [facility] Medical Records Department [address] [place] [address] Emergency Department Summary 02/21/17 1729 MR#: [id number] Acct: [id number] Name: HIRO POLANCO Jacek Rep #: [id number] : 1965 51 From: eJrman Anna MD PCP: Care Physician, No Primary Status: DEP ER - ER Visit Summary Date of Service: 02/21/17 Chief Complaint: Fall, knee pain, back pain History of Present Illness: The patient is a 51 F obese female presents to the emergency department 1 week after fall. Patient states she has recurrent effusions in her knee. She follows with Dr. Anand and will intermittently have them drained. She states she has been unable to be seen for the past month. She states a week ago, she got pulled off of her porch by her dog. She landed on her right hip. Since then, she has had increasing pain in her low back and hip. She is also noted some fluid in her knee. She denies any fevers. She has been taking ibuprofen with little relief. She is still able to ambulate. Physical Examination: Name is relatively unremarkable. Patient has no midline lumbar tenderness. Her pelvis is stable. There is no pain with palpation along the hip. She does have a small effusion of the knee and guards against range of motion, but when distracted her examination is unremarkable. There is no gross laxity is appreciated. Her pulses are normal. Test Results: [] Emergency Department Course and Treatment: The patient had plain films done of her lumbar spine and of her knee. There is no evidence of acute fracture. She is no gross laxity of the joint. She does have a small effusion, but nothing that I feel would benefit from arthrocentesis. The patient was given 2 days of acute analgesics. She will follow-up with orthopedics as initially prescribed. Treatment Plan: [] Disposition: Discharge Impression: 1. Lumbar contusion status post fall 2. Knee sprain status post fall This note was generated with [employer] dictation software. It may contain incorrect words, spelling, and punctuation that were not noted in review of the chart prior to signing ED Disposition - Plan for ED Patient: Disposition: Home or Assisted Living Chief Complaint: Fall Instructions: ED Mechanical Fall Prescriptions: Hydrocodone Bitart/Apap 5-325 [[place] 5/325] 1 tab PO Q4H PRN PRN #6 tab PRN Reason: Pain Referrals: Care Physician,No Primary [Primary Care Provider] - What to do if you have Problems For any increased pain, shortness of breath, bleeding, nausea or vomiting, chest pain, or any unexpected problems, contact your Primary Care Provider. Call [facility] ([phone]) or report to the closest Emergency Room. Call 911 if necessary. 02/21/17 5854 <Electronically signed by Jerman Anna MD> Date Jerman Anna MD Cosigner Signature (If Indicated): Date CC: No Primary Care Physician KNEE 4 OR MORE Observed: 02/21/2017 Status: F Source: RUBEN VIEWS 5:12 PM [facility] REPOSITORY [facility] Imaging Services [address] [place] [address] Knee 4 or More Views MR#: [id number] Acct: [id number] Name: HIRO POLANCO Rep #: [id number] : 1965 F 51 From: Anibal Bean MD PCP: Care Physician, No Primary Status: REG ER Study: Knee 4 or More Views Date of Exam: 02/21/17 Exam# [id number] Ordering Dr: Jerman Anna MD STUDY: X-RAY - RIGHT KNEE REASON FOR EXAM: Female, 51 years old. Pain after fall TECHNIQUE: 4 view(s) of the knee. COMPARISON: None. FINDINGS: Normal visualized distal femur. Normal visualized proximal tibia and fibula. Normal proximal tibiofibular articulation. There is moderate degenerative arthrosis of the medial femorotibial compartment with moderate joint space narrowing. Normal lateral femorotibial compartment. Normal patellofemoral articulation. The soft tissue structures are unremarkable. RAD/Knee 4 or More Views IMPRESSION: No acute osseous injury is evident. Electronically Signed: Anibal Bean MD at 17:55 EST Tel , Service support , CC: No Primary Care Physician; Jerman Anna MD Cable Swager: Signed LUMBAR SPINE 2 OR 3 Observed: 02/21/2017 Status: F Source: RUBEN VIEWS 5:12 PM [facility] REPOSITORY [facility] Imaging Services [address] [place] [address] Lumbar Spine 2 or 3 Views MR#: [id number] Acct: [id number] Name: HIRO POLANCO Rep #: [id number] : 1965 F 51 From: Anibal Bean MD PCP: Care Physician, No Primary Status: REG ER Study: Lumbar Spine 2 or 3 Views Date of Exam: 02/21/17 Exam# [id number] Ordering Dr: Jerman Anna MD STUDY: X-RAY - LUMBAR SPINE REASON FOR EXAM: Female, 51 years old. Pain after fall TECHNIQUE: 3 view(s) of the lumbar spine were obtained. COMPARISON: None FINDINGS: Normal lumbar lordosis. There is no substantial scoliosis. There is a normal alignment of the vertebrae. Normal vertebral bodies and endplates. Normal disc space heights. There is atherosclerotic calcification of the abdominal aorta without a demonstrated aneurysm. RAD/Lumbar Spine 2 or 3 Views IMPRESSION: No acute osseous abnormality is evident. Comment: If there is further clinical concern for a radiographically occult spinal fracture, consider CT correlation if possible. Electronically Signed: Anibal Bean MD at 17:55 EST Tel , Service support , CC: No Primary Care Physician; Jerman Anna MD Cable Swager: Signed ALLERGIES ALLERGIES DATE TYPE / NAME / CODE REACTION SEVERITY SOURCE CODE 02/16/2018 Drug meperidine Upset Stomach Unknown [place] Allergy/41 HCl/C143603078(RXNOR Community 3176703( M) [facility] CT) Repository 02/16/2018 Drug ceftriaxone Hives Unknown [place] Allergy/41 sodium/M570372393(RX Community 3258613( NORM) [facility] CT) Repository 02/16/2018 Drug diclofenac Upset Stomach Unknown [place] Allergy/41 potassium/G199362746 Community 6056110( (RXNORM) [facility] CT) Repository 02/16/2018 Drug Penicillins/I4502260 Upset Stomach Unknown [place] Allergy/41 76(RXNORM) Community 3177974([facility] OME CT) Repository 02/16/2018 Drug Sulfa (Sulfonamide Upset Stomach Unknown [place] Allergy/41 Antibiotics)/V307776 Community 6906752( 491(RXNORM) Hospital OME CT) Repository 02/16/2018 Drug naproxen/L064499287( Upset Stomach Unknown [place] Allergy/41 RXNORM) Community 6515763([facility] OMED CT) Repository 12/02/2017 DRUG NAPROXEN GI UPSET [place] INGREDI/41 Clinic Main 0199700([facility] OME CT) Repository 08/29/2017 Drug doxycycline/Y2663078 Upset Stomach Unknown [place] Allergy/41 48(RXNORM) Community 8090272([facility]) Repository 05/28/2016 DRUG GABAPENTIN Mental Chg [place] INGREDI/41 Clinic Main 5493847([facility] OMED CT) Repository 05/31/2013 Drug CEPHALOSPORINS RASH [place] Class/4195 Clinic Main 66561([facility] ED CT) Repository 08/12/2009 DRUG CAFFEINE INTOLERANCE [place] INGREDI/41 Clinic Main 7842949([facility] OMED CT) Repository 05/08/2005 DRUG IRON GI UPSET [place] INGREDI/41 Clinic Main 2156582([facility] OMED CT) Repository 02/22/2005 DRUG CEFTRIAXONE SODIUM RASH [place] [facility]GREDI/41 [facility] 01/01/2005 DRUG MEPERIDINE HCL GI UPSET High [place] INGREDI/41 Clinic Main 7642620([facility] OMED CT) Repository 01/01/2005 DRUG DOXYCYCLINE INTOLERANCE High [place] INGREDI/41 Clinic Main 9822473([facility] OMED CT) Repository 01/01/2005 Drug PENICILLINS INTOLERANCE Med [place] Class/4195 Clinic Main [address]40([facility] ED CT) Repository 01/01/2005 Drug SULFA (SULFONAMIDE GI UPSET Med [place] Class/4195 ANTIBIOTICS) Clinic Main [address]236([facility] ED CT) Repository ENCOUNTERS ENCOUNTERS ADMIT/DISCHARGE ACCOUNT ADMITTING ENCOUNTER LOCATION SOURCE NUMBER CLASS 02/18/2018/02/19/20 [id number] Ambulatory BMSBuilding:B [place] 18 MS.BIM [facility] Repository 02/16/2018/02/17/20 [id number] Emergency [place] Hospital ing:ED Repository 02/04/2018/02/05/20 [id number] Ambulatory BMSBuilding:B [place] 18 MS.NAV [facility] Repository 01/30/2018/01/31/20 [id number] Emergency [address] Hospital ing:ED Repository 01/17/2018/01/18/20 [id number] Emergency [address] Hospital ing:ED Repository 01/10/2018/01/14/20 [id number] Ambulatory [address] Repository 12/27/2017/12/28/19 [id number] Emergency [address] Hospital ing:ED Repository 12/22/2017/12/23/19 [id number] Emergency [address] Hospital ing:ED Repository 12/03/2017 [id number] Ambulatory [facility] Hospital ing:SL Repository 12/02/2017/12/04/19 [id number] Ambulatory [address] Repository 12/02/2017/12/05/19 [id number] Ambulatory [address] Repository 11/26/2017 [id number] Ambulatory BMSBuilding:B [place] MS.NAV [facility] Repository 11/22/2017 [id number] Ambulatory [facility] Hospital ing:CVS Repository 11/19/2017/11/20/19 [id number] Ambulatory BMSBuilding:B [place] 18 MS.NAV [facility] Repository 11/12/2017/11/13/19 [id number] Ambulatory BMSBuilding:B [place] 18 MS.NAV [facility] Repository 11/03/2017/11/04/19 [id number] Emergency [address] Hospital ing:ED Repository 10/26/2017/10/27/19 [id number] Emergency [address] Hospital ing:ED Repository 10/18/2017/10/19/19 [id number] Ambulatory BMSBuilding:B [place] 18 MS.NAV [facility] Repository 10/10/2017/10/11/19 [id number] Ambulatory BMSBuilding:B [place] 18 MS.[facility] Repository 10/07/2017/10/08/19 [id number] Emergency [place] [facility] Hospital ing:ED Repository 09/28/2017/09/29/19 [id number] Emergency [place] [facility] [facility] ing[facility]ED Repository 09/27/2017/10/01/19 [id number] Ambulatory [address] Repository 09/05/2017/09/06/19 [id number] Emergency [place] [address] [facility] ing:ED Repository 08/29/2017/08/30/19 [id number] Emergency [place] [facility] Hospital ing:ED Repository 08/22/2017 [id number] Ambulatory [facility] Hospital ing:HPRAD Repository 08/22/2017/08/23/19 [id number] Ambulatory BMSBuilding:B [place] 18 MS.[facility] Repository 08/18/2017/08/19/19 [id number] Emergency [place] [facility] Hospital ing:ED Repository 08/14/2017/08/15/19 [id number] Emergency [place] [facility] Hospital ing:ED Repository 08/04/2017/08/05/19 [id number] Emergency [place] [facility] Hospital ing:ED Repository 05/31/2017 [id number] Ambulatory [facility] Hospital ing:MRI Repository 05/14/2017/05/15/19 [id number] Ambulatory BMSBuilding:B [place] 18 MS.[facility] Repository 05/11/2017/05/12/19 [id number] Emergency [place] [facility] Hospital ing:ED Repository 04/28/2017/04/28/19 [id number] Emergency [place] [address] [facility] Hospital ing:ED Repository 04/16/2017 [id number] Ambulatory [facility] Hospital ing:MTLAB Repository 04/06/2017/04/06/19 [id number] Ambulatory [address] Repository 03/21/2017/03/21/19 [id number] Ambulatory BMSBuilding:B [place] 18 [facility] Repository 02/21/2017/02/22/20 [id number] Emergency [place] 17 [facility] ing:ED Repository PAYERS PAYERS ENCOUNTER GUARANTOR PAYER SUBSCRIBER SOURCE 02/18/2018 HIRO Read Primary HIRO Miranda NAPIERPO BOX Insurance:CARESOURCEP NAPIERDOB: [address] Number: [id number] [address]Kme: [id number] Repository Date:2018-02-04P O (HP) [address]ATTN: [place] [address]KX: 02/18/2018 Secondary NOT GIVENUNK [place] Insurance:SELF PAY [facility] Number: Effective Repository Date:2018-02-04 02/16/2018 HIRO Read Primary HIRO Miranda N[address]ER[address] BOX Insurance:CARESOURCEP NAPIERDOB: [address] Number: [id number] [place] [address]Ojh: [id number] Repository Date:2018-02-16P O (HP) [address]ATTN: [place] [address]ZW: 02/16/2018 Secondary NOT GIVENUNK [place] Insurance:SELF PAY [facility] Number: Effective Repository Date:2018-02-16 02/04/2018 HIRO Read Primary HIRO Miranda N[address]ER[address] BOX Insurance:CARESOURCEP NAPIERDOB: [address] Number: [id number] [place] [address]Dca: [id number] Repository Date:2018-02-03P O (HP) [address]ATTN: [place] [address]TK: 02/04/2018 Secondary NOT GIVENUNK [place] Insurance:SELF PAY [facility] Number: Effective Repository Date:2018-02-04 01/30/2018 HIRO Read Primary HIRO Miranda N[address]OX Insurance:CARESOURCEP NAPIERDOB: [address] Number: [id number] [address]Huy: [id number] Repository Date:2018-01-30P O (HP) [address]ATTN: [place] [address]DU: 01/30/2018 Secondary NOT GIVENUNK [place] Insurance:SELF PAY [facility] Number: Effective Repository Date:2018-01-30 01/17/2018 HIRO Read Primary HIRO Miranda N[address]OX Insurance:CARESOURCEP NAPIERDOB: [address] Number: [id number] [address]Pvm: [id number] Repository Date:2018-01-17P O (HP) [address]ATTN: [place] [address]PB: 01/17/2018 Secondary NOT GIVENUNK [place] Insurance:SELF PAY [facility] Number: Effective Repository Date:2018-01-17 12/27/2017 HIRO Read Primary HIRO Moralesoster NAPIERPO BOX Insurance:CARESOURCEP NAPIERDOB: [address] Number: [id number] [place] [address]Rcs: [id number] Repository Date:2017-12-27P O (HP) [address]ATTN: [place] [address]PM: 12/27/2017 Secondary NOT GIVENUNK [place] Insurance:SELF PAY [facility] Number: Effective Repository Date:2017-12-27 12/22/2017 HIRO Read Primary HIRO Moralesoster NAPIER[address] BOX Insurance:CARESOURCEP NAPIERDOB: [address] Number: [id number] [place] [address]Cnv: [id number] Repository Date:2017-12-22P O (HP) [address]ATTN: [place] [address]PT: 12/22/2017 Secondary NOT GIVENUNK [place] Insurance:SELF PAY [facility] Number: Effective Repository Date:2017-12-22 12/03/2017 HIRO Read Primary HIRO Miranda [id number] [address] Insurance:CARESOURCEP NAPIERDOB: [facility] [address] Number: [id number] [id number] Repository [address]Php: (330) Date:2017-10-18P O [phone] (HP) [address]ATTN: [place] [address]ZI: 12/03/2017 Secondary NOT GIVENUNK [place] Insurance:SELF PAY [facility] Number: Effective Repository Date:2017-10-18 11/26/2017 HIRO Read Primary HIRO Miranda [id number] S Insurance:CARESOURCEP NAPIERDOB: [facility] [address] Number: [id number], [place] [id number] Repository [address]Whq: (330) Date:2017-11-07P O [phone] (HP) [address]ATTN: [place] [address]UI: 11/26/2017 Secondary NOT GIVENUNK [place] Insurance:SELF PAY [facility] Number: Effective Repository Date:2017-11-07 11/22/2017 HIRO Read Primary HIRO Miranda [id number] [address] Insurance:CARESOURCEP NAPIERDOB: [facility] [address] Number: [id number], [place] [id number] Repository [address]Cpt: (330) Date:2017-10-18P O [phone] (HP) [address]ATTN: [place] [address]GS: 11/22/2017 Secondary NOT GIVENUNK [place] Insurance:SELF PAY [facility] Number: Effective Repository Date:2017-10-18 11/19/2017 HIRO Read Primary HIRO Miranda [id number] S Insurance:CARESOURCEP NAPIERDOB: [facility] [address] Number: [id number], [place] [id number] Repository [address]Wkb: (330) Date:2017-10-18P O [phone] () [address]ATTN: [place] [address]KM: 11/19/2017 Secondary NOT GIVENUNK [place] Insurance:SELF PAY [facility] Number: Effective Repository Date:2017-11-19 11/12/2017 HIRO L Primary HIRO Read [place] [id number] S Insurance:CARESOURCEP NAPIERDOB: [facility] olicy Number: [id number], [place] [id number] Repository [address]Qii: (330) Date:2017-11-11P O [phone] () [address]ATTN: [place] [address]FG: 11/12/2017 Secondary NOT GIVENUNK [place] Insurance:SELF PAY [facility] Number: Effective Repository Date:2017-11-11 11/03/2017 HIRO L Primary HIRO Read [place] [id number] S Insurance:CARESOURCEP NAPIERDOB: [facility] olicy Number: [id number], [place] [id number] Repository [address]Oci: (330) Date:2017-11-03P O [phone] () [address]ATTN: [place] [address]DV: 11/03/2017 Secondary NOT GIVENUNK [place] Insurance:SELF PAY [facility] Number: Effective Repository Date:2017-11-03 10/26/2017 HIRO L Primary HIRO Miranda [id number] S Insurance:CARESOURCEP NAPIERDOB: [facility] olicy Number: [id number], [place] [id number] Repository [address]Oct: (330) Date:2017-10-26P O [phone] (HP) [address]ATTN: [place] [address]MU: 10/26/2017 Secondary NOT GIVENUNK [place] Insurance:SELF PAY [facility] Number: Effective Repository Date:2017-10-26 10/18/2017 HIRO L Primary HIRO Moralesoster [id number] S Insurance:CARESOURCEP NAPIERDOB: [address] Number: [id number], [place] [id number] Repository [address]Kee: (330) Date:2017-10-11P O [phone] (HP) [address]ATTN: [place] [address]NZ: 10/18/2017 Secondary NOT GIVENUNK [place] Insurance:SELF PAY [facility] Number: Effective Repository Date:2017-10-18 10/10/2017 HIRO L Primary HIRO Read [place] [id number] S Insurance:CARESOURCEP NAPIERDOB: [facility] olicy Number: [id number], [place] [id number] Repository [address]Ogy: (330) Date:2017-09-17P O [phone] (HP) [address]ATTN: [place] [address]AC: 10/10/2017 Secondary NOT GIVENUNK [place] Insurance:SELF PAY [facility] Number: Effective Repository Date:2017-10-10 10/07/2017 HIRO L Primary HIRO Read [place] [id number] S Insurance:CARESOURCEP NAPIERDOB: [facility] olicy Number: [id number], [place] [id number] Repository [address]Qhw: (330) Date:2017-10-07P O [phone] (HP) [address]ATTN: [place] [address]UC: 10/07/2017 Secondary NOT GIVENUNK [place] Insurance:SELF PAY [facility] Number: Effective Repository Date:2017-10-07 09/28/2017 HIRO Read Primary HIRO Miranda [id number] S Insurance:CARESOURCEP NAPIERDOB: [address] Number: [id number], [place] [id number] Repository [address]Nyz: (330) Date:2017-09-28P O [phone] (HP) [address]ATTN: [place] [address]QH: 09/28/2017 Secondary NOT GIVENUNK [place] Insurance:SELF PAY [facility] Number: Effective Repository Date:2017-09-28 09/05/2017 HIRO Read Primary HIRO Read [place] [id number] 1/2 Insurance:CARESOURCEP NAPIERDOB: [facility] [address] [facility] Number: [id number] [id number] Repository [address]Zle: (330) Date:2017-09-05P O [phone] (HP) [address]ATTN: CLAIMS [place] [address]QB: 09/05/2017 Secondary NOT GIVENUNK Ruben Insurance:SELF PAY [facility] Number: Effective Repository Date:2017-09-05 08/29/2017 HIRO Read Primary HIRO Read Ruben [id number] 1/2 Insurance:CARESOURCEP NAPIERDOB: Community [address] olic Number: [id number] [id number] Repository [address]Qrn: (330) Date:2017-08-29P O [phone] (HP) [address]ATTN: [place] [address]MG: 08/29/2017 Secondary NOT GIVENUNK Ruben Insurance:SELF PAY [facility] Number: Effective Repository Date:2017-08-29 08/22/2017 HIRO L Primary HIRO Read Ruben [id number] 1/2 Insurance:CARESOURCEP NAPIERDOB: Community [address] olicy Number: [id number], [place] [id number] Repository [address]Eeo: (330) Date:2017-08-22P O [phone] () [address]ATTN: [place] [address]MD: 08/22/2017 Secondary NOT GIVENUNK Ruben Insurance:SELF PAY [facility] Number: Effective Repository Date:2017-08-22 08/22/2017 HIRO L Primary HIRO Read Ruben [id number] 1/2 Insurance:CARESOURCEP NAPIERDOB: Community [address] olicy Number: [id number], [place] [id number] Repository [address]Hiv: (330) Date:2017-08-13 O [phone] () [address]ATTN: [place] [address]PM: 08/22/2017 Secondary NOT GIVENUNK [place] Insurance:SELF PAY [facility] Number: Effective Repository Date:2017-08-22 08/18/2017 HIRO L Primary HIRO L Ruben [id number] 1/2 Insurance:CARESOURCEP NAPIERDOB: Community [address] olicy Number: [id number], [place] [id number] Repository [address]Guy: (330) Date:2017-08-18P O [phone] () [address]ATTN: [place] [address]VG: 08/18/2017 Secondary NOT GIVENUNK Ruben Insurance:SELF PAY [facility] Number: Effective Repository Date:2017-08-18 08/14/2017 HIRO L Primary HIRO Read [place] [id number] 1/2 Insurance:CARESOURCEP NAPIERDOB: Community [address] olicy Number: [id number], [place] [id number] Repository [address]Igf: (330) Date:2017-08-14P O [phone] (HP) [address]ATTN: [place] [address]DM: 08/14/2017 Secondary NOT GIVENUNK [place] Insurance:SELF PAY [facility] Number: Effective Repository Date:2017-08-14 08/04/2017 HIRO Read Primary HIRO Miranda [id number] 1/2 Insurance:CARESOURCEP NAPIERDOB: Community [address] [address] olicy Number: [id number], [place] [id number] Repository [address]Cyx: (330) Date:2017-08-04P O [phone] (HP) [address]ATTN: [place] [address]AH: 08/04/2017 Secondary NOT GIVENUNK Ruben Insurance:SELF PAY [facility] Number: Effective Repository Date:2017-08-04 05/31/2017 HIRO Read Primary HIRO Moralesoster [id number] 1/2 Insurance:CARESOURCEP NAPIERDOB: Community [address] olicy Number: [id number], [place] [id number] Repository [address]Cdw: (330) Date:2017-05-23P O [phone] (HP) [address]ATTN: [facility] [place] [address]GG: 05/31/2017 Secondary NOT GIVENUNK Rub[place] Insurance:SELF PAY [facility] Number: Effective Repository Date:2017-05-23 05/14/2017 Hiro Read Primary Hiro Miranda [id number] 1/2 Insurance:CARESOURCEP Nap[place]DOB: Community [address] Number: [id number], [place] [id number] Repository [address]Bfz: (330) Date:2017-05-10P O [phone] (HP) [address]ATTN: [place] [address]CD: 05/14/2017 Secondary NOT GIVENUNK Ruben Insurance:SELF PAY [facility] Number: Effective Repository Date:2017-05-10 05/11/2017 Hiro L Primary Hiro Read [place] [id number] 1/2 Insurance:CARESOURCEP NapierDOB: Community [address] Number: [id number], [place] [id number] Repository [address]Vjb: (330) Date:2017-05-11P O [phone] () [address]ATTN: [place] [address]PP: 05/11/2017 Secondary NOT GIVENUNK [place] Insurance:SELF PAY [facility] Number: Effective Repository Date:2017-05-11 04/28/2017 Hiro L Primary Hiro L Ruben [id number] 1/2 Insurance:CARESOURCEP NapierDOB: Community [address] Number: [id number], [place] [id number] Repository [address]Rwg: (330) Date:2017-04-28P O [phone] (HP) [address]ATTN: [place] [address]IR: 04/28/2017 Secondary NOT GIVENUNK Rub[place] Insurance:SELF PAY [facility] Number: Effective Repository Date:2017-04-28 04/16/2017 Hiro L Primary Hiro L Ruben [id number] 1/2 Insurance:CARESOURCEP NapierDOB: [facility] [address] Number: [id number], [place] [id number] Repository [address]Nnx: (330) Date:2017-04-16P O [phone] (HP) [address]ATTN: [place] [address]KV: 04/16/2017 Secondary NOT GIVENUNK [place] Insurance:SELF PAY [facility] Number: Effective Repository Date:2017-04-16 03/21/2017 Hiro L Primary Hiro L Ruben [id number] 1/2 Insurance:CARESOURCEP Nap[place]DOB: Community [address] Number: [id number], [place] [id number] Repository [address]Wze: (330) Date:2017-02-19P O [phone] () [address]ATTN: [place] [address]VG: 03/21/2017 Secondary NOT GIVENUNK [place] Insurance:SELF PAY [facility] Number: Effective Repository Date:2017-02-19 02/21/2017 Hiro Read Primary Hiro L Rub[place] [address] 03/05 Insurance:CARESOURCEP BipinierDOB: Community [address] leonicy Number: [id number], [place] [id number] Repository [address]Njr: (330) Date:2017-02-21P O [phone] () [address]ATTN: [place] [address]HQ: 02/21/2017 Secondary NOT GIVENUNK Ruben Insurance:SELF PAY [facility] Number: Effective Repository Date:2017-02-21
== END 2018-01-30 11:18 | disposition left against medical advice (07) ==
LOC: ED 11:14
PROVIDERS: Emergency Provider Emergency Medicine; Family Provider Internal Medicine; PCP Internal Medicine
DX: R10.13 Epigastric pain (principal); J44.9 Chronic obstructive pulmonary disease, unspecified; I10 Essential (primary) hypertension; E78.5 Hyperlipidemia, unspecified; M79.7 Fibromyalgia; K21.9 Gastro-esophageal reflux disease without esophagitis; F17.200 Nicotine dependence, unspecified, uncomplicated; Z79.899 Other long term (current) drug therapy; Z87.11 Personal history of peptic ulcer disease
CPT/HCPCS: 71045; 80053; 81001; 83690; 84484; 85025; 93005; 96360; 99282; J7030; A4216; J2405

== ENCOUNTER 2018-02-16 18:30 | Emergency (ER) | payer MEDICAID, SELFPAY ==
[2018-02-04 16:27] VITALS: BMI 44.9
[2018-02-16 18:31] VITALS: BP 131/84; PULSE 98; RESP 18; TEMP 36.6; O2SAT 93; BMI 42.5
--- NOTE | 2018-02-16 18:36 | ED.VISSUMM ---
- ER Visit Summary Date of Service: 02/16/18 Chief Complaint: Back pain and bilateral knee pain History of Present Illness: The patient is a 52 F resents with back and bilateral knee pain that has been getting worse over the past several days. Patient states she has chronic pain in her back and knees due to degenerative arthritis. Patient denies any trauma or injury. Patient states the pain is worse with any movement and ambulation. Patient states the pain starts in her low back and radiates to both knees. Patient denies any bowel or bladder changes. Patient denies any saddle anesthesia. Physical Examination: Vital signs are stable. Patient is afebrile. Patient is in no acute distress. Musculoskeletal exam reveals tenderness of the lumbar spine paraspinal muscles. There is spasm of the paraspinal muscles. There is no bony crepitance or step-off noted. Range of motion was limited all motion secondary to pain. Examination of the knees revealed some tenderness bilaterally. There is decreased range of motion bilateral. There is no effusion. There is no edema or ecchymosis noted. There is no laxity appreciated. Posterior tibial pulses are equal bilateral. There are no sensory deficits noted. The remaining physical exam is within normal limits. Emergency Department Course and Treatment: Patient was given a dose of [employer] and Norflex here. Patient was given a prescription for Norflex. She was instructed to follow-up with her primary care physician in 5-7 days. Patient understood and was agreeable with the plan. All questions were answered. Disposition: Discharge home Impression: Acute exacerbation of chronic back and knee pain. This note was generated with [employer] dictation software. It may contain incorrect words, spelling, and punctuation that were not noted in review of the chart prior to signing ED Disposition - Plan for ED Patient: Disposition: Home or Assisted Living Chief Complaint: Back Diagnosis: Back pain, Bilateral knee pain Instructions: ED Back Care Tips, ED Chronic Pain Management Prescriptions: Orphenadrine [Norflex ER] 100 mg PO DAILY PRN #10 tab PRN Reason: Muscle Spasm Referrals: Onesimo Griffith MD [Primary Care Provider] -
--- NOTE | 2018-02-16 18:41 | ED.DCSUM_ITS ---
- ER Visit Summary Date of Service: 02/16/18 Chief Complaint: Back pain and bilateral knee pain History of Present Illness: The patient is a 52 F resents with back and bilateral knee pain that has been getting worse over the past several days. Patient states she has chronic pain in her back and knees due to degenerative arthritis. Patient denies any trauma or injury. Patient states the pain is worse with any movement and ambulation. Patient states the pain starts in her low back and radiates to both knees. Patient denies any bowel or bladder changes. Patient denies any saddle anesthesia. Physical Examination: Vital signs are stable. Patient is afebrile. Patient is in no acute distress. Musculoskeletal exam reveals tenderness of the lumbar spine paraspinal muscles. There is spasm of the paraspinal muscles. There is no bony crepitance or step-off noted. Range of motion was limited all motion secondary to pain. Examination of the knees revealed some tenderness bilaterally. There is decreased range of motion bilateral. There is no effusion. There is no edema or ecchymosis noted. There is no laxity appreciated. Posterior tibial pulses are equal bilateral. There are no sensory deficits noted. The remaining physical exam is within normal limits. Emergency Department Course and Treatment: Patient was given a dose of [place] and Norflex here. Patient was given a prescription for Norflex. She was instructed to follow-up with her primary care physician in 5-7 days. Patient understood and was agreeable with the plan. All questions were answered. Disposition: Discharge home Impression: Acute exacerbation of chronic back and knee pain. This note was generated with [employer] dictation software. It may contain incorrect words, spelling, and punctuation that were not noted in review of the chart prior to signing ED Disposition - Plan for ED Patient: Disposition: Home or Assisted Living Chief Complaint: Back Diagnosis: Back pain, Bilateral knee pain Instructions: ED Back Care Tips, ED Chronic Pain Management Prescriptions: Orphenadrine [Norflex ER] 100 mg PO DAILY PRN #10 tab PRN Reason: Muscle Spasm Referrals: Onesimo Griffith MD [Primary Care Provider] -
[2018-02-16] MEDS: Orphenadrine 100 MG Tablet PO (19:10)
[2018-02-16] MEDS: HYDROcodone Bitartrate/Apap 5/325 Tablet PO (19:10)
--- NOTE | 2018-02-16 19:14 | ED.RN ---
PT GIVEN WRITTEN AND VERBAL DISCHARGE INSTRUCTIONS AND HOME GOING PRESCRIPTIONS. PT VERBALIZES UNDERSTANDING. PT EDUCATED NOT TO DRIVE WHEN TAKING NARCOTIC MEDICATION. PT VERBALIZES UNDERSTANDING AND AMBULATES OUT OF DEPT WITH FRIEND.
--- OUTSIDE RECORDS SUMMARY | 2018-05-21 13:48 | XMS RPT_ITS ---
:1965 Author Organization OHIP Support Name Relationship Address Phone D Unavailable Unavailable Unavailable KAI, JEY Unavailable [address] + [place] [address] NICOLA, SANDRA Unavailable Unavailable + [place] [address] D Unavailable Unavailable Unavailable KAI, JEY Unavailable [address] + [place] [address] NICOLA, SANDRA Unavailable . + ., [place] . D Unavailable Unavailable Unavailable KAI, JEY Unavailable [address] + [place] [address] NICOLA, SANDRA Unavailable . + ., [place] . D Unavailable Unavailable Unavailable KAI, JEY Unavailable [address] + [place] [address] NICOLA, SANDRA Unavailable . + ., [place] . D Unavailable Unavailable Unavailable KAI, JEY Unavailable [address] + [place] [address] NICOLA, SANDRA Unavailable . + ., [place] . D Unavailable Unavailable Unavailable KIA, JEY Unavailable [address] + [place] [address] NICOLA, SANDRA Unavailable Unavailable + D Unavailable Unavailable Unavailable KAI, JEY Unavailable [address] + [place] [address] NICOLA, SANDRA Unavailable Unavailable + D Unavailable Unavailable Unavailable KAI, JEY Unavailable Unavailable + NICOLA, SANDRA Unavailable Unavailable + D Unavailable Unavailable Unavailable KAI, JEY Unavailable Unavailable + NICOLA, SANDRA Unavailable Unavailable + D Unavailable Unavailable Unavailable KAI, JEY Unavailable [address] + [place] [address] NICOLA, SANDRA Unavailable . + ., [place] . D Unavailable Unavailable Unavailable KAI, JEY Unavailable [address] + [place] [address] NICOLA, SANDRA Unavailable . + ., [place] . D Unavailable Unavailable Unavailable KAI, JEY Unavailable [address] + [place] [address] NICOLA, SANDRA Unavailable Unavailable + D Unavailable Unavailable Unavailable KAI, JEY Unavailable [address] + [place] [address] NICOLA, SANDRA Unavailable . + ., [place] . D Unavailable Unavailable Unavailable KAI, JEY Unavailable [address] + [place] [address] NICOLA, SANDRA Unavailable . + ., [place] . D Unavailable Unavailable Unavailable KAI, JEY Unavailable [address] + [place] [address] NICOLA, SANDRA Unavailable Unavailable + D Unavailable Unavailable Unavailable KAI, JEY Unavailable [address] + [place] [address] NICOLA, SANDRA Unavailable Unavailable + D Unavailable Unavailable Unavailable KAI, JEY Unavailable [address] + [place] [address] NICOLA, SANDRA Unavailable . + [place] [address] D Unavailable Unavailable Unavailable KAI, JEY Unavailable [address] + [place] [address] NICOLA, SANDRA Unavailable . + [place] [address] D Unavailable Unavailable Unavailable KAI, JEY Unavailable [address] + [place] [address] NICOLA, SANDRA Unavailable . + [place] [address] D Unavailable Unavailable Unavailable KAI, JEY Unavailable [address] + [place] [address] NICOLA, SANDRA Unavailable . + [place] [address] D Unavailable Unavailable Unavailable KAI, JEY Unavailable [address] + [place] [address] NICOLA, SANDRA Unavailable . + [place] [address] D Unavailable Unavailable Unavailable KAI, JEY Unavailable [address] + [place] [address] NICOLA, SANDRA Unavailable . + [place] [address] D Unavailable Unavailable Unavailable KAI, JEY Unavailable [address] + [place] [address] NICOLA, SANDRA Unavailable . + [place] [address] D Unavailable Unavailable Unavailable KAI, JEY Unavailable [address] + [place] [address] NICOLA, SANDRA Unavailable . + [place] [address] D Unavailable Unavailable Unavailable KAI, JEY Unavailable [address] + [place] [address] NICOLA, SANDRA Unavailable Unavailable + D Unavailable Unavailable Unavailable KAI, JEY Unavailable [address] + [place] [address] NICOLA, SANDRA Unavailable Unavailable + D Unavailable Unavailable Unavailable KAI, JEY Unavailable [address] + [place] [address] NICOLA, SANDRA Unavailable Unavailable + D Unavailable Unavailable Unavailable D Unavailable Unavailable Unavailable KAI, JEY Unavailable [address] + [place] [address] D Unavailable Unavailable Unavailable KAI, JEY Unavailable [address] + [place] [address] NICOLA, SANDRA Unavailable . + [place] [address] D Unavailable Unavailable Unavailable KAI, JEY Unavailable [address] + [place] [address] NICOLA, SANDRA Unavailable . + [place] [address] D Unavailable Unavailable Unavailable KAI, JEY Unavailable [address] + [place] [address] NICOLA, SANDRA Unavailable . + [place] [address] D Unavailable Unavailable Unavailable KAI, JEY Unavailable [address] + [place] [address] NICOLA, SANDRA Unavailable . + [place] [address] Care Team Providers Name Role Phone SHERIN FORTE ([facility]) Attending Unavailable MARION MIRZA) Attending Unavailable MARION MIRZA) Referring Unavailable Oleghe, Efewongbe Primary Care Unavailable Jersey Denise Attending Unavailable Oleghe, Efewongbe Attending Unavailable Oleghe, Efewongbe Referring Unavailable Marino, Ayad Attending Unavailable Marino, Ayad Referring Unavailable Marino, Ayad Primary Care Unavailable Marino, Ayad Primary Care Unavailable Boni Anaya Attending Unavailable Oleghe, Efewongbe Primary Care Unavailable Patricia Griffin Attending Unavailable Oleghe, Efewongbe Primary Care Unavailable Jerman Anna Attending Unavailable Marino, Ayad Primary Care Unavailable Caitlin Munoz Attending Unavailable Robyn Jordan Attending Unavailable Marino, Ayad Referring Unavailable Marino, Ayad Primary Care Unavailable Robyn Jordan Attending Unavailable Robyn Jordan Referring Unavailable Marino, Ayad Primary Care Unavailable Marino, Ayad Primary Care Unavailable Boni Anaya Attending Unavailable Marino, Ayad Primary Care Unavailable Radha Austin Attending Unavailable Marino, Ayad Primary Care Unavailable Cesar Bautista Attending Unavailable Robyn Jordan Attending Unavailable Marino, Ayad Referring Unavailable Marino, Ayad Primary Care Unavailable Robyn Jordan Attending Unavailable Chiclorenzoli, Robyn Referring Unavailable Marino, Ayad Primary Care [...] Unavailable Weston Garrett Attending Unavailable Ayad Lee TETRYL NITRATOR OPERATOR-C Attending Unavailable Oleghe, Efewongbe Referring Unavailable Primay [...] Unavailable Jose Berman Attending Unavailable Ayad Lee TETRYL NITRATOR OPERATOR-C Attending Unavailable Oleghe, Efewongbe Referring Unavailable PROBLEMS PROBLEMS DATE TYPE CONDITION / CODE ATTENDING STATUS SOURCE 03/04/2018 Unknown S83.91XA - Sprain [place], Active [place] of unspecified [facility] site of right Hospital knee, initial Repository encounter / S83.91XA(ICD-10) 12/22/2017 Unknown S39.012A - Strain Radha Austin Active [place] of muscle, fascia Community and tendon of Hospital lower back, Repository initial encounter / S39.012A(ICD-10) 07/28/2013 Active Chest pain, NA Active [facility] unspecified / Main [place] R07.9(ICD-10) Repository 11/19/2017 Unknown M79.672 - Pain in [place], Active [place] left foot / [place] Community M79.672(ICD-10) Hospital Repository 10/18/2017 Unknown R60.0 - Localized Oleg[place], Active [place] edema / [place] Community R60.0(ICD-10) Hospital Repository 10/18/2017 Unknown R06.02 - [place], Active [place] Shortness of [facility] breath / Hospital R06.02(ICD-10) Repository 10/18/2017 Unknown G47.10 - Oleghe, Active [place] Hypersomnia, [facility] unspecified / Hospital G47.10(ICD-10) Repository 10/18/2017 Unknown M79.671 - Pain in [place], Active [place] right foot / [place] Community M79.671(ICD-10) Hospital Repository 10/18/2017 Unknown E66.9 - Obesity, [place], Active [place] unspecified / [facility] E66.9(ICD-10) Hospital Repository 10/18/2017 Unknown Z00.00 - [place], Active [place] Encounter for [facility] Hospital medical Repository examination without abnormal findings / Z00.00(ICD-10) 10/18/2017 Unknown R73.9 - Oleghe, Active [place] Hyperglycemia, [facility] unspecified / Hospital R73.9(ICD-10) Repository 09/06/2017 Unknown L02.91 - Jerman Anna Active [place] Cutaneous Community abscess, Hospital unspecified / Repository L02.91(ICD-10) 08/22/2017 Unknown M25.531 - Pain in [place], Active [place] right wrist / Robyn Community M25.531(ICD-10) Hospital Repository 08/22/2017 Unknown M25.532 - Pain in [place], Active [place] left wrist / Robyn Community M25.532(ICD-10) Hospital Repository 08/22/2017 Unknown G56.02 - Carpal [place], Active [place] tunnel syndrome, [facility] left upper limb / Hospital G56.02(ICD-10) Repository 08/05/2017 Unknown M19.90 - Boni Anaya Active [place] Unspecified Community osteoarthritis, Hospital unspecified site Repository / M19.90(ICD-10) 04/16/2017 Unknown R10.9 - Ayad Pichardo Active [place] Unspecified Community abdominal pain / Hospital R10.9(ICD-10) Repository 04/16/2017 Unknown M54.5 - Low back Ayad Pichardo Active [place] pain / Community M54.5(ICD-10) Hospital Repository PROCEDURES PROCEDURES No Procedure Records FoundRESULTS RESULTS EMERGENCY DEPARTMENT Observed: 03/11/2018 Status: F Source: [place] SUMMARY 1:26 AM [facility] REPOSITORY [facility] Medical Records Department [address] [place] [address] Emergency Department Summary 03/10/18 2217 MR#: [id number] Acct: [id number] Name: HIRO POLANCO Rep #: [id number] : 1965 52 From: Jerman Anna MD PCP: Onesimo Ovalle MD Status: DEP ER - ER Visit Summary Date of Service: 03/10/18 Chief Complaint: Knee pain History of Present Illness: The patient is a 52 F presents to the emergency department with atraumatic left knee pain. The patient had these symptoms worsening over the past few months. She is been seen for the multiple times. She is scheduled to have knee surgery by Dr. Tabares. States pain is worsened over the weekend. She has not been taken anything for. She denies any falls. She denies any trauma. She denies any fevers or chills. Physical Examination: Exam is relatively unremarkable. Flexion and extension are preserved. There is no effusion over the knee. Problems are soft. Pulses are normal. Test Results: [] Emergency Department Course and Treatment: The patient has a benign examination. I no suspicion of septic joint. She had no trauma. There is no bruising. She was able to ambulate to the room. I do feel that this is more an exacerbation of her chronic arthralgia. She will be given 1 day of analgesics and will need to follow-up with orthopedics for reevaluation. Patient be discharged home. Treatment Plan: [] Disposition: Discharge Impression: Left knee arthralgia This note was generated with [employer] dictation software. It may contain incorrect words, spelling, and punctuation that were not noted in review of the chart prior to signing ED Disposition - Plan for ED Patient: Chief Complaint: Lower Extremity Injury Instructions: ED Sprain Knee Prescriptions: Walker [Ultra-Light Rollator] 1 ea X1 #1 ea Referrals: Robyn Jordan DO [STAFF PHYSICIAN] - What to do if you have Problems For any increased pain, shortness of breath, bleeding, nausea or vomiting, chest pain, or any unexpected problems, contact your Primary Care Provider. Call [facility] ([phone]) or report to the closest Emergency Room. Call 911 if necessary. 03/11/18 0126 <Electronically signed by Jerman Anna MD> Date Jerman Anna MD Cosigner Signature (If Indicated): Date CC: Onesimo Ovalle MD EMERGENCY DEPARTMENT Observed: 03/04/2018 Status: F Source: [place] SUMMARY 9:23 PM [facility] REPOSITORY [facility] Medical Records Department [address] [place] [address] Emergency Department Summary 03/04/182119 MR#: [id number] Acct: [id number] Name: HIRO POLANCO Jacek Rep #: [id number] : 1965 52 From: Patricia Griffin MD PCP: Onesimo Ovalle MD Status: REG ER - ER Visit Summary Date of Service: 03/04/18 Chief Complaint: Bilateral knee pain History of Present Illness: The patient is a 52 F presenting with bilateral knee pain. Patient states she is awaiting surgery per Dr. Jordan for knee replacements. She has a history of arthritis. She states her pain in her knees has been persistent. She has fallen multiple times directly onto her knees. She has not hit her head or lost consciousness. She has tried ibuprofen at home. She states that she was homeless until recently. She was unable to have surgery until she had a place to live. She is now awaiting appointment to schedule surgery. Physical Examination: Vitals are stable. Patient is afebrile. Alert no acute distress. HEENT exam is unremarkable. Neck is supple. Lungs are clear and equal bilaterally. Heart is regular rate and rhythm. Extremities bilateral anterior knee tenderness, no erythema, no warmth. Normal distal pulses. Active full range of motion. Skin is warm and dry. No focal neurologic deficit. Remainder of exam is unremarkable. Emergency Department Course and Treatment: Bilateral knee x-rays were obtained due to fall. She has degenerative changes. She is given [place] x1. She is advised to follow-up with Dr. Jordan. Advised return to ED for any worsening complaints. Disposition: Discharge home Impression: Bilateral knee pain status post fall This note was generated with [employer] dictation software. It may contain incorrect words, spelling, and punctuation that were not noted in review of the chart prior to signing ED Disposition - Plan for ED Patient: Chief Complaint: Lower Extremity Injury Instructions: ED Sprain Knee Prescriptions: Hydrocodone Bitart/Apap 5-325 [[place] 5MG-325MG] 1 tablet PO Q6H PRN PRN 3 Days #10 tablet PRN Reason: Pain Referrals: Robyn Jordan DO [STAFF PHYSICIAN] - Onesimo Ovalle MD [Primary Care Provider] - What to do if you have Problems For any increased pain, shortness of breath, bleeding, nausea or vomiting, chest pain, or any unexpected problems, contact your Primary Care Provider. Call [facility] ([phone]) or report to the closest Emergency Room. Call 911 if necessary. 03/04/182122 <Electronically signed by Patricia Griffin MD> Date Patricia Griffin MD Cosigner Signature (If Indicated): Date CC: Onesimo Ovalle MD DISCHARGE INSTRUCTION Observed: 03/04/2018 Status: F Source: [place] 9:12 PM [facility] REPOSITORY [facility] Medical Records Department [address] [place] [address] Discharge Instruction 03/04/182110 MR#: [id number] Acct: [id number] Name: HIRO POLANCO Rep #: [id number] : 1965 52 From: Patricia Griffin MD PCP: Onesimo Ovalle MD Status: REG ER ED Disposition - Plan for ED Patient: Chief Complaint: Lower Extremity Injury Instructions: ED Sprain Knee Prescriptions: Hydrocodone Bitart/Apap 5-325 [[place] 5MG-325MG] 1 tablet PO Q6H PRN PRN 3 Days #10 tablet PRN Reason: Pain Referrals: Onesimo Ovalle MD [Primary Care Provider] - Robyn Jordan DO [STAFF PHYSICIAN] - What to do if you have Problems For any increased pain, shortness of breath, bleeding, nausea or vomiting, chest pain, or any unexpected problems, contact your Primary Care Provider. Call [facility] ([phone]) or report to the closest Emergency Room. Call 911 if necessary. 03/04/182111 <Electronically signed by Patricia Griffin MD> Date Patricia Griffin MD Cosigner Signature (If Indicated): Date CC: Onesimo Ovalle MD KNEE 4 OR MORE Observed: 03/04/2018 Status: F Source: [place] VIEWS 7:51 PM [facility] REPOSITORY [facility] Imaging Services [address] [place] [address] Knee 4 or More Views MR#: [id number] Acct: [id number] Name: HIRO POLANCO Jacek Rep #: [id number] : 1965 F 52 From: Jamison Schulz MD PCP: Onesimo Ovalle MD Status: REG ER Study: Knee 4 or More Views Date of Exam: 03/04/18 Exam# [id number] Ordering Dr: Patricia Griffin MD STUDY: X-RAY - LEFT KNEE REASON FOR EXAM: Female, 52 years old. Trauma TECHNIQUE: 4 view(s) of the knee. COMPARISON: Prior study of 06/05/2016 FINDINGS: Normal visualized distal femur. Normal visualized proximal tibia and fibula. Normal proximal tibiofibular articulation. There is mild degenerative arthrosis of the medial femorotibial compartment. Normal lateral femorotibial compartment. There is mild degenerative arthrosis of the patellofemoral articulation. The soft tissue structures are unremarkable. RAD/Knee 4 or More Views IMPRESSION: Degenerative arthrosis. There is no evidence of fracture, dislocation, free intra-articular calcifications, or suprapatellar effusion. Electronically Signed: Jamison Schulz MD at 20:50 EST , Service support , CC: Patricia Griffin MD; Onesimo Ovalle MD B2B Sales Professional: Signed KNEE 4 OR MORE Observed: 03/04/2018 Status: F Source: [place] VIEWS 7:48 PM [facility] REPOSITORY [facility] Imaging Services [address] [place] [address] Knee 4 or More Views MR#: [id number] Acct: [id number] Name: HIOR POLANCO Rep #: [id number] : 1965 F 52 From: Boni Best MD PCP: Onesimo Ovalle MD Status: REG ER Study: Knee 4 or More Views Date of Exam: 03/04/18 Exam# [id number] Ordering Dr: Patricia Griffin MD STUDY: X-RAY - RIGHT KNEE REASON FOR EXAM: Female, 52 years old. Posttraumatic pain TECHNIQUE: 4 view(s) of the knee. COMPARISON: None. FINDINGS: Normal visualized distal femur. Normal visualized proximal tibia and fibula. Normal proximal tibiofibular articulation. Narrowed medial femorotibial compartment. Normal lateral femorotibial compartment. Normal patellofemoral articulation. Mild spurring of the upper pole of the patella The soft tissue structures are unremarkable. RAD/Knee 4 or More Views IMPRESSION: Degenerative changes. No evidence for acute fracture Electronically Signed: Boni Best MD at 20:30 EST , Service support , CC: Patricia Griffin MD; Onesimo Ovalle MD B2B Sales Professional: Signed INTERNAL MEDICINE Observed: 02/24/2018 Status: F Source: [place] OFFICE VISIT 8:31 AM [facility] [address] [place] [address] [address] [place] [address] OFFICE VISIT Date of Service: 02/18/18 MR#: [id number] Acct: [id number] Name: MARILEEHIRO L Rep #: [id number] : 1965 Provider: Onesimo Ovalle MD Age/Sex: 52/F Location: [facility] Status: Signed Intake Vital Signs02/18/18 Body Mass Index (BMI) 42.5 02/18/18 Height 5 ft 6 in 02/18/18 Weight: 266 lb Intake Visit Reasons: 2 WK FU Chief Complaint: Back and Knee pain Allergies ceftriaxone sodium [From Rocephin] Allergy (Verified 02/16/18 18:31) Hives diclofenac potassium [From Cataflam] Adverse Reaction (Verified 02/16/18 18:31) Upset Stomach meperidine HCl [From Demerol] Adverse Reaction (Verified 02/16/18 18:31) Upset Stomach naproxen [From Aleve] Adverse Reaction (Verified 02/16/18 18:31) Upset Stomach Penicillins [PCN] Adverse Reaction (Verified 02/16/18 18:31) Upset Stomach Sulfa (Sulfonamide Antibiotics) Adverse Reaction (Verified 02/16/18 18:31) Upset Stomach Medications Lorazepam [Ativan] 1 mg PO Q12H PRN PRN 12/27/12 [History Confirmed 02/16/18] Venlafaxine XR [Effexor Xr] 75 mg PO DAILY 12/01/14 [History Confirmed 02/16/18] Estradiol 1 mg PO DAILY 02/21/17 [History Confirmed 02/16/18] meclizine 25 mg tablet 25 mg PO QDAY PRN 10/18/17 [History Confirmed 02/16/18] ibuprofen 800 mg tablet 800 mg PO TID PRN #60 tab 11/19/17 [Rx Confirmed 02/16/18] omeprazole 40 mg capsule,delayed release 40 mg PO DAILY #30 cap 02/04/18 [Rx Confirmed 02/16/18] Post menopausal: Yes PFSH Medical History Abdominal [...] participate in: none HPI HPI Chief Complaint: Back and Knee pain Details: HIRO POLANCO, is a 52yo F who presents to the office today for follow up of recent ER visit where she was seen for back pain. She reports a chronic history of back pain and had followed up with pain management in the past however, she states that she stopped following because she did not want any injections in her back . She was also seen by Ortho for bilateral knee osteoarthritis and per patient, surgery was recommended but she did not follow up. She states that she has received several knee injections without significant help. ROS Const Constitutional: No weight change, body ache, chills, fatigue, sleep problems, fever(s), change in appetite, snoring, headache(s) or excessive sweating Eyes Eyes: No change in vision, eye pain, light sensitivity or blurry vision ENT ENT: No headache(s), abnormal hearing, ear pain, tinnitus, nasal congestion, sore throat or neck pain Resp Respiratory: No snoring, cough or wheezing Cardio Cardiology: No excessive sweating, chest pain at rest, chest pain with exertion, shortness of breath, dyspnea on exertion, palpitations, orthopnea or lightheadedness Gastro GI: No abdominal pain, change in bowel habits, constipation, diarrhea, vomiting, nausea/dyspepsia or cramping Genitourinary-Female: No burning urination, painful urination, urinary incontinence, urinary frequency, abnormal vaginal bleeding, pelvic pain or other Musc Musculoskeletal: Positive for joint pain, back pain and other (knee and hip pain ); no neck pain, abnormal walking, limited range of motion, numbness or tingling Skin Skin: No redness, dry skin, itching, lesions, wounds or rash Neuro Neurology: No headache(s), abnormal hearing, abnormal walking, numbness, tingling, abnormal speech or memory loss Psych Psychiatric: No change [...] S2 normal GI Palpation: soft, no hepatosplenomegaly Neuro General: alert, awake, oriented x3, moves all extremities, CN's II-XI intact bilaterally Psych Appearance: grossly normal Mental Status: mental status grossly normal Affect: normal affect Assessment AND Plan 1. Chronic back pain M54.9; G89.29 Plan Chronic. Recent ER visit however no acute exacerbation. No neurological deficit. Had followed up with patient management. She was advised to again. Topical NSAID and Tylenol as needed. 2. Bilateral knee pain M25.561; M25.562 Plan Chronic history of bilateral knee osteoarthritis for which she had followed up with Ortho in the past however, has not done so lately. She states that surgery had been recommended. Advised schedule a follow up. Lots of confounding issues/factors. Patient is currently homeless and lives at the [facility]. Not very compliant with management plan and follow up. Pain management as above. Coding Level of Care Code Off vis,est,level 3 Diagnoses Chronic back pain M54.9; G89.29 Bilateral knee pain M25.561; M25.562 02/24/18 0831 <Electronically signed by Onesimo Ovalle MD> Date Onesimo Ovalle MD Cosigner Signature: Date (if applicable) CC: TITA Observed: 02/21/2018 Status: COMPLETED Source: [place] 12:00 AM [facility] REPOSITORY Telephone (WOOB) HIRO POLANCO ([id number]) 1965 F Date Time Provider Department 02/21/18 LILLIANA ENCISO During your visit today, we recorded the following information about you: Rissa Olsen LPN 02/21/2018 11:50 AM Signed Patient had a hysterectomy 11/2014 and is taking estrace 1 mg tablet and is asking if she should have the dosage increased d/t a recent increase in hot flashes and mood swings. Lilliana Enciso MD 02/21/2018 2:43 PM Signed I will increase it to 1.5 mg. MD Koki Valdez RN 02/21/2018 2:47 PM Signed Patient notified and voiced understanding. The following approved medications have been transmitted electronically. Signed Prescriptions Disp Refills estradiol (ESTRACE) 1 mg tablet 45 tablet 5 Sig: Take 1.5 tablets by mouth once daily. BOB: No Authorizing Provider: LILLIANA ENCISO Pharmacy Information Pharmacy Address Telephone [facility] [address] [phone] Koki Batista RN Allergies As of Date: 02/21/2018 Noted Allergy Reaction DEMEROL (MEPERIDINE HCL) 01/01/2005 [...] Ma - Fully Assessed Reason for Visit: Medication Question [1478] Order(s):estradiol (ESTRACE) 1 mg tabletTake 1.5 tablets by mouth once daily.Disp: 45 tabletRfl: 5 Prescriptions as of 02/21/2018 Sig: TIOTROPIUM BROMIDE 1.25 MCG/A* every day ALBUTEROL SULFATE 2.5 MG/3 ML* Inhale The Contents Of 1 Vial* ESTRADIOL 1 MG TABLET Take 1.5 tablets by mouth onc* LORAZEPAM 2 MG TABLET Take 1 tablet by mouth three * MECLIZINE 25 MG TABLET Take 1 Tablet by Mouth Three * RANITIDINE 150 MG TABLET Take 1 tablet by mouth twice * * EFFEXOR XR 75 MG CAPSULE,EXTE* Take one(1) tablet daily. Problem List As Of Date 02/21/2018 Noted Resolved Depressive disorder, not elsewhere classified [...] ordered this encounter Disp Refills Start End ESTRADIOL 1 MG TABLET 45 t* 5 02/21/2018 Route: ORAL Sig: Take 1.5 tablets by mouth once daily. Medications Discontinued During This Encounter estradiol (ESTRACE) 1 mg tablet 30 t* 5 02/17/2018 02/21/2018 Route: ORAL Sig: TAKE 1 TABLET BY MOUTH ONCE DAILY. Disc: Reason for discontinue is not on file. Encounter Status:Closed by LILLIANA ENCISO MD on 02/21/18 EMERGENCY DEPARTMENT Observed: 02/16/2018 Status: F Source: REGINA SUMMARY 7:08 PM [facility] REPOSITORY [facility] Medical Records Department [address] [place] [address] Emergency Department Summary 02/16/18 1836 MR#: [id number] Acct: [id number] Name: HIRO POLANCO Rep #: [id number] : 1965 52 From: Jersey Denise DO [...] Treatment: Patient was given a dose of [place] and Norflex here. Patient was given a prescription for Norflex. She was instructed to follow-up with her primary care physician in 5-7 days. Patient understood and was agreeable with the plan. All questions were answered. Disposition: Discharge home Impression: Acute exacerbation of chronic back and knee pain. This note was generated with CrowdScannerr dictation software. It may contain incorrect words, [...] your Primary Care Provider. Call [facility] ([phone]) or report to the closest Emergency Room. Call 911 if necessary. 02/16/181907 <Electronically signed by Jersey Denise DO> Date Jersey Denise DO Cosigner Signature (If Indicated): Date CC: Onesimo Ovalle MD INTERNAL MEDICINE Observed: 02/04/2018 Status: F Source: RUBEN OFFICE VISIT 5:24 PM [facility] Internal Medicine [facility] [place] [address] [place] [address] OFFICE VISIT Date of Service: 02/04/18 MR#: [id number] Acct: [id number] Name: HIRO POLANCO Rep #: [id number] : 1965 Provider: Ayad Lee NP Age/Sex: 52/F Location[place] [facility] Status: Signed Intake Vital Signs02/04/18 Height 5 [...] listed above. The patient was seen in [facility] emergency department on 01/30/2018 with similar complaints [...] 2 weeks. She has not taken any jhuw-pcr-urdocvv medications for this. The cough is keeping [...] oriented x3 Limitations: mental status not altered [facility] Head: normal to inspection Ears: hearing grossly [...] <Electronically signed by Ayad TORIBIO> Date Ayad ROLLINSC Cosigner Signature: Date (if applicable) CC: 12 LEAD ELECTROCARDIOGRAM Observed: 02/04/2018 Status: F Source: RUBEN 3:32 PM [facility] REPOSITORY [facility] Cardiovascular Services [address] [place] [address] 12 Lead EKG 01/30/18 1051 MR#: [id number] Acct: [id number] Name: HIRO POLANCO Jacek Rep #: [id number] : 1965 52 From: Gio Dozier MD [...] Borderline ECG Confirmed by SABINO LUIS, GIO ([id number]), film editor TANNA LZAO ([id number]) on 02/04/2018 3:31:48 PM Referred By: LXE Confirmed By:GIO DOZIER MD 02/04/18 1531 Date Gio Dozier MD CC: Jose Berman MD; Onesimo Ovalle MD Signed EMERGENCY DEPARTMENT Observed: 01/30/2018 Status: F Source: RUBEN SUMMARY 3:55 PM [facility] REPOSITORY [facility] Medical Records Department [address] [place] [address] Emergency Department Summary 01/30/18 1052 MR#: [id number] Acct: [id number] Name: HIRO POLANCO Rep #: [id number] : 1965 52 From: Jose Berman MD [...] abdominal pain This note was generated with wutaboutation software. It may contain incorrect words, spelling, [...] your Primary Care Provider. Call [facility] ([phone]) or report to the closest Emergency Room. Call 911 if necessary. 01/30/18 1555 <Electronically signed by Jose Berman MD> Date Jose Berman MD Cosigner Signature (If Indicated): Date CC: Onesimo Ovalle MD CHEST 1 VIEW Observed: 01/30/2018 Status: F Source: REGINA (PORTABLE) 10:40 AM [facility] REPOSITORY [facility] Imaging Services [address] [place] [address] Chest 1 View (Portable) MR#: [id number] Acct: [id number] Name: HIRO POLANCO Rep #: [id number] : 1965 F 52 From: Junior Davis MD PCP: Onesimo Ovalle MD Status: REG ER Study: Chest 1 View (Portable) Date of Exam: 01/30/18 Exam# [id number] Ordering Dr: Jose Berman MD STUDY: X-RAY [...] Junior Davis MD at 11:14 EST Tel [phone], Service support , CC: Jose Berman MD; Onesimo Ovalle MD B2B Sales Professional: Signed URINALYSIS, COMPLETE Collected: 01/30/2018 Status: F Source: RUBEN 10:40 AM [facility] REPOSITORY Order Comment: How was Urine [...] URINE SEEN Performed By: #### L400.0001 #### [facility] [address] [place], [place], [id number] CBC W/DIFF, AUTOMATED Collected: 01/30/2018 Status: F Source: REGINA 10:35 AM [facility] REPOSITORY TYPE CODE TESTS RESULT OUT [...] Lymph 1.80 Performed By: #### L100.0100 #### [facility] [address] [place], [address] COMPREHENSIVE METABOLIC Collected: 01/30/2018 Status: F Source: RUBEN PRABHAKAR 10:35 AM [facility] REPOSITORY TYPE CODE TESTS RESULT OUT [...] Performed By: #### L500.4050, L501.2450, L501.4010 #### [facility] [address] [place], [address] LIPASE Collected: 01/30/2018 Status: F Source: REGINA 10:35 AM [facility] REPOSITORY TYPE CODE TESTS RESULT OUT OF RANGE REFERENCE UNITS LAB L501.2450 73-393 U/L Normal LIPASE 114 Performed By: #### L500.4050, L501.2450, L501.4010 #### [facility] [address] [place], [address] TROPONIN-I Collected: 01/30/2018 Status: F Source: REGINA 10:35 AM [facility] REPOSITORY TYPE CODE TESTS RESULT OUT OF RANGE REFERENCE UNITS LAB L501.4010 <0.045 ng/mL Normal < 0.015 TROPONIN-I Result Comment: TROPONIN-I EXPECTED VALUES <0.045 Negative 0.045 - 0.590 Consistent with Cardiac Damage > OR = 0.600 Critical Value Not every elevated troponin is indicative of MA. These values should be used with clinical judgement in examining the patient's clinical picture for diagnosis. To establish a diagnosis of MA versus myocardial injury, there must be a demonstrated rise and/or fall in the troponin values, in addition to ischemic symptoms, EKG changes, new regional wall motion abnormality, and/or angiographical evidence. PLEASE NOTE: REFERENCE RANGES EDITED 17 Performed By: #### L500.4050, L501.2450, L501.4010 #### [facility] [address] [place], [address] DISCHARGE INSTRUCTION Observed: 01/18/2018 Status: F Source: REGINA 12:55 AM [facility] REPOSITORY [facility] Medical Records Department [address] [place] [address] Discharge Instruction 01/17/18 1845 MR#: [id number] Acct: [id number] Name: HIRO POLANCO Rep #: [id number] : 1965 52 From: Jose Berman MD [...] your Primary Care Provider. Call [facility] ([phone]) or report to the closest Emergency Room. Call 911 if necessary. 01/18/18 0055 <Electronically signed by Jose Berman MD> Date Jose Berman MD Cosigner Signature (If Indicated): Date CC: Onesimo Ovalle MD EMERGENCY DEPARTMENT Observed: 01/18/2018 Status: F Source: REGINA SUMMARY 12:55 AM [facility] REPOSITORY [facility] Medical Records Department [address] [place] [address] Emergency Department Summary 01/17/18 1844 MR#: [id number] Acct: [id number] Name: HIRO POLANCO Rep #: [id number] : 1965 52 From: Jose Berman MD [...] Department Course and Treatment: Patient treated with [place] and Flexeril. On reevaluation, her symptoms have improved. She would like to go home. She was given a short course of [place]. Her prescription report was unremarkable for any current opioids. Patient will follow up with her primary care doctor. Treatment Plan: As above Disposition: Discharge Impression: 1. Low back pain This note was generated with CrowdScannerr dictation software. It may contain incorrect words, [...] your Primary Care Provider. Call [facility] ([phone]) or report to the closest Emergency Room. Call 911 if necessary. 01/18/18 0055 <Electronically signed by Jose Berman MD> Date Jose Berman MD Cosigner Signature (If Indicated): Date CC: Onesimo Ovalle MD PROGRESS Observed: 01/10/2018 Status: COMPLETED Source: WISE 1:43 PM [facility] [place] REPOSITORY HNO ID: [id number] Author: Prateek Shrestha) Tenzin Service: (none) Author Type: Physician Pharmacy Technologist Type: Progress Notes Filed: 01/10/2018 1:47 PM [...] hysterectomy - Fibromyalgia 05/28/2016 - Morbid obesity ([facility]) - Panic disorder with agoraphobia Counseling center, [...] MG-GUAIFENESIN 100 MG/5 ML ORAL LIQUID Prateek R Athy, PA-C CNOV Observed: 01/10/2018 Status: COMPLETED Source: WISE 10:15 AM [facility] REPOSITORY Office Visit (WSTR) HIRO POLANCO ([id number]) 1965 F Date Time Provider Department 01/10/18 10:15 AM PRATEEK CHRISTINA) [facility] During your visit today, we recorded the [...] disorder with agoraphobia Counseling center, Dr. Rubén Wilber - Tobacco use - Vertigo Current Outpatient [...] EMERGENCY DEPARTMENT Observed: 12/27/2017 Status: F Source: REGINA SUMMARY 5:47 PM [facility] REPOSITORY [facility] Medical Records Department [address] [place] [address] Emergency Department Summary 12/27/17 1230 MR#: [id number] Acct: [id number] Name: HIRO POLANOC Rep #: [id number] : 1965 52 From: Jerman Bernardo MD [...] moderate speed This note was generated with CrowdScannerr dictation software. It may contain incorrect words, [...] your Primary Care Provider. Call [facility] ([phone]) or report to the closest Emergency Room. Call 911 if necessary. 12/27/17 1747 <Electronically signed by Jerman Bernardo MD> Date Jerman Bernardo MD Cosigner Signature (If Indicated): Date CC: Onesimo Ovalle MD BRAIN/HEAD WITHOUT Observed: 12/27/2017 Status: F Source: RUBEN CONTRAST 11:38 AM [facility] REPOSITORY [facility] Imaging Services [address] [place] [address] Brain/Head without Contrast MR#: [id number] Acct: [id number] Name: MARILEEHIRO Jacek Rep #: [id number] : 1965 F 52 From: Quincy Chamberlain MD PCP: Onesimo Ovalle MD Status: REG ER Study: Brain/Head without Contrast Date of Exam: 12/27/17 Exam# [id number] Ordering Dr: Jerman Bernardo MD STUDY: CT [...] , CC: Onesimo Ovalle MD; Jerman Bernardo B2B Sales Professional: Signed SPINE CERVICAL Observed: 12/27/2017 Status: F Source: REGINA WITHOUT CONTRAS 11:38 AM [facility] REPOSITORY [facility] Imaging Services [address] [place] [address] Spine Cervical without Contras MR#: [id number] Acct: [id number] Name: HIRO POLANCO Rep #: [id number] : 1965 F 52 From: Quincy Chamberlain MD PCP: Onesimo Ovalle MD Status: REG ER Study: Spine Cervical without Contras Date of Exam: 12/27/17 Exam# [id number] Ordering Dr: Jerman Bernardo MD STUDY: CT [...] , CC: Onesimo Ovalle MD; Jerman Bernardo B2B Sales Professional: Signed SINUS/FACIAL BONE Observed: 12/27/2017 Status: F Source: RUBEN 11:38 AM [facility] REPOSITORY [facility] Imaging Services [facility] [place] [address] Sinus/Facial Bone MR#: [id number] Acct: [id number] Name: HIRO POLANCO Rep #: [id number] : 1965 F 52 From: Quincy Chamberlain MD PCP: Onesimo Ovalle MD Status: REG ER Study: Sinus/Facial Bone Date of Exam: 12/27/17 Exam# [id number] Ordering Dr: Jerman Bernardo MD STUDY: CT [...] , CC: Onesimo Ovalle MD; Jerman Bernardo B2B Sales Professional: Signed CHEST PA AND LATERAL Observed: 12/27/2017 Status: F Source: REGINA 11:38 AM [facility] REPOSITORY [facility] Imaging Services [address] [place] [address] Chest PA and Lateral MR#: [id number] Acct: [id number] Name: HIRO POLANCO Rep #: [id number] : 1965 F 52 From: Quincy Chamberlain MD PCP: Onesimo Ovalle MD Status: REG ER Study: Chest PA and Lateral Date of Exam: 12/27/17 Exam# [id number] Ordering Dr: Jerman Bernardo MD STUDY: X-RAY [...] , CC: Onesimo Ovalle MD; Jerman Bernardo B2B Sales Professional: Signed EMERGENCY DEPARTMENT Observed: 12/22/2017 Status: F Source: REGINA SUMMARY 6:10 PM [facility] REPOSITORY [facility] Medical Records Department [address] [place] [address] Emergency Department Summary 12/22/17 1645 MR#: [id number] Acct: [id number] Name: HIRO POLANCO Rep #: [id number] : 1965 52 From: Radha Austin MD [...] back pain This note was generated with CrowdScannerr dictation software. It may contain incorrect words, [...] your Primary Care Provider. Call [facility] ([phone]) or report to the closest Emergency Room. Call 911 if necessary. 12/22/17 1810 <Electronically signed by Radha Austin MD> Date Radha Austin MD Cosigner Signature (If Indicated): Date CC: Onesimo Ovalle MD DISCHARGE INSTRUCTION Observed: 12/22/2017 Status: F Source: RUBEN 6:10 PM [facility] REPOSITORY [facility] Medical Records Department [address] [place] [address] Discharge Instruction 12/22/177 MR#: [id number] Acct: [id number] Name: HIRO POLANCO Rep #: [id number] : 1965 52 From: Radha Austin MD [...] problems, contact your Primary Care Provider. Call [facility] Registry ([phone]) or report to the closest Emergency Room. Call 911 if necessary. 12/22/171809 <Electronically signed by Radha Austin MD> Date Radha Austin MD Cosigner Signature (If Indicated): Date CC: Onesimo Ovalle MD DISCHARGE INSTRUCTION Observed: 12/22/2017 Status: F Source: RUBEN 5:20 PM [facility] REPOSITORY [facility] Medical Records Department [address] [place] [address] Discharge Instruction 12/22/171718 MR#: [id number] Acct: [id number] Name: HIRO POLANCO Jacek Rep #: [id number] : 1965 52 From: Radha Austin MD [...] your Primary Care Provider. Call [facility] ([phone]) or report to the closest Emergency Room. Call 911 if necessary. 12/22/17 1720 <Electronically signed by Radha Austin MD> Date Radha Austin MD Cosigner Signature (If Indicated): Date CC: Onesimo Ovalle MD ECG COMPLETE W Observed: 12/02/2017 Status: F Source: WISE INTERPRETATION 2:38 PM [facility] REPOSITORY NAME : HIRO POLANCO PID : [id number] : 1965 Gender : Female Race : ORD : [id number] Procedure Date : Dec 02 2017 14:38:08 [...] ms QTC Calculation(Bezet) : 415 ms P Hansen : 72 degrees R Hansen : 70 degrees T Hansen : 54 degrees Test Reason : Location : [facility] : [facility] Overread By : JERMAN SUÁREZ D.O. Edited By : JERMAN SUÁREZ D.O. Referred By : MARION MIRZA Acquired by : DAINA LEVY, PROGRESS Observed: 12/02/2017 Status: COMPLETED Source: WISE 2:23 PM [facility] REPOSITORY HNO ID: [id number] Author: Marion Vanessa) Yuki Service: (none) Author [...] for annual exam in one year. - [facility] SCREENING Marion Mirza MD CNOV Observed: 12/02/2017 Status: COMPLETED Source: WISE 2:00 PM [facility] REPOSITORY Office Visit (FAMPWS) HIRO POLANCO ([id number]) 1965 F [place] Date Time Provider Department 12/02/17 2:00 PM MARION MIRZA) FAMPWS During your visit today, we recorded the [...] Described as constant soreness without radiation, currently 07/11. Exacerbated when she leans on her left [...] hospitalized 1999, MDD, Counseling center Dr. [place]én eMrino - Esophageal reflux 04/26/2005 - EXCESSIVE MENSTRUATION [...] for annual exam in one year. - [facility] SCREENING Marion Mirza MD Referring Provider: SELF [...] Date Reviewed: 12/02/2017 Reviewed by: Daina Levy LEAD RAMP SERVICE MAN - Fully Assessed Reason for Visit: physical/est care [Other] Primary Visit Diagnosis:Chest pain, unspecified type [R07.9] Other Visit Diagnoses:Folliculitis [L73.9] Morbid obesity (HCC) [E66.01] Chronic obstructive pulmonary disease, unspecified COPD type (HCC) [J44.9] Anxiety [F41.9] Tobacco use disorder [F17.200] Screening mammogram, encounter for [Z12.31] Order(s):ECG COMPLETE W INTERPRETATION [ECG01] Order #: [id number] FUTURE XR CHEST 2V FRONTAL/LAT [0297299] Order #: [id number] FUTURE COMP METABOLIC PANEL [SQCMP] Order #: [id number] FUTURE LIPID PANEL BASIC [SQLIPB] Order #: [id number] FUTURE HGB A1C [WJNZL9G] Order #: [id number] FUTURE SHIRLEY SCREENING [5098878] Order #: [id number] FUTURE SPIROMETRY - BASELINE AND POST DILATOR [6221434] Order #: [id number] FUTURE Prescriptions as of 12/02/2017 Sig: ESTRADIOL [...] F Source: RUBEN OFFICE VISIT 5:16 PM [facility] Internal Medicine [address] [place] [address] [place] [address] OFFICE VISIT Date of Service: 11/19/17 MR#: [id number] Acct: [id number] Name: MARILEEHIRO L Rep #: [id number] : 1965 Provider: Onesimo Ovalle MD Age/Sex: 52/F Location: [facility] Status: Signed Intake Vital Signs11/19/17 Height 5 [...] this time. This note was generated with wutaboutation software. It may contain incorrect words, spelling, [...] F Source: RUBEN OFFICE VISIT 11:58 AM [facility] Internal Medicine [address] [place] [address] [place] [address] OFFICE VISIT Date of Service: 11/12/17 MR#: [id number] Acct: [id number] Name: HIRO POLANCO Rep #: [id number] : 1965 Provider: Ayad Lee NP Age/Sex: 52/F Location[place] [facility] Status: Signed Intake Vital Signs11/12/17 Height 5 ft 6 in Intake Visit Reasons: S/P [facility] ED, COPD Chief Complaint: cough, SOB Is [...] thick. [facility] [place] and states that she has come in contact with numerous sick people. On November 03, 2017 she presented to [facility] emergency room for cough and shortness of [...] oriented x3 Limitations: mental status not altered [facility] Head: normal to inspection Ears: hearing grossly [...] LEAD ELECTROCARDIOGRAM Observed: 11/05/2017 Status: F Source: REGINA 1:18 PM [facility] REPOSITORY [facility] Cardiovascular Services [facility] [place] [address] 12 Lead EKG 11/03/17 1900 MR#: [id number] Acct: [id number] Name: HIRO POLANCO Rep #: [id number] : 1965 52 From: Jose Sanchez MD [...] Borderline ECG Confirmed by JOSE SANCHEZ ([id number]), film editor TANNA LAZO ([id number]) on 11/05/2017 1:17:34 PM Referred By: ANDREEA Confirmed By:JOSE SANCHEZ 11/05/17 1317 Date Jose Sanchez MD CC: No Primary Care Physician; Weston Garrett MD Signed EMERGENCY DEPARTMENT Observed: 11/04/2017 Status: F Source: REGINA SUMMARY 12:24 AM [facility] REPOSITORY [facility] Medical Records Department [address] [place] [address] Emergency Department Summary 11/03/17 1824 MR#: [id number] Acct: [id number] Name: HIRO POLANCO Rep #: [id number] : 1965 52 From: Weston Garrett MD [...] COPD exacerbation. This note was generated with CrowdScannerr dictation software. It may contain incorrect words, [...] problems, contact your Primary Care Provider. Call [facility] ([phone]) or report to the closest Emergency Room. Call 911 if necessary. 11/04/17 0024 <Electronically signed by Weston Garrett MD> Date Weston Garrett MD Cosigner Signature (If Indicated): Date CC: No Primary Care Physician CBC W/DIFF, AUTOMATED Collected: 11/03/2017 Status: F Source: REGINA 6:56 PM [facility] REPOSITORY TYPE CODE TESTS RESULT OUT [...] Lymph 1.70 Performed By: #### L100.0100 #### [facility] [address] [place], [address] BASIC METABOLIC Collected: 11/03/2017 Status: F Source: RUBEN PROFILE ([facility]) 6:56 PM [facility] REPOSITORY TYPE CODE TESTS RESULT OUT [...] GAP 10 Performed By: #### L500.2500 #### [facility] [address] [place], [address] CHEST PA AND LATERAL Observed: 11/03/2017 Status: F Source: REGINA 6:23 PM [facility] REPOSITORY [facility] Imaging Services [address] [place] [address] Chest PA and Lateral MR#: [id number] Acct: [id number] Name: HIRO POLANCO Rep #: [id number] : 1965 F 52 From: Nick Najera MD PCP: Care Physician, No Primary Status: DEP ER Study: Chest PA and Lateral Date of Exam: 11/03/17 Exam# [id number] Ordering Dr: Weston Garrett MD STUDY: X-RAY [...] No Primary Care Physician; Weston Garrett MD B2B Sales Professional: Signed EMERGENCY DEPARTMENT Observed: 10/26/2017 Status: F Source: REGINA SUMMARY 5:[address] [facility] Medical Records Department [address] [place] [address] Emergency Department Summary 10/26/17 1229 MR#: [id number] Acct: [id number] Name: HIRO POLANCO Rep #: [id number] : 1965 52 From: Jerman Bernardo MD PCP: Care Physician, No Primary Status: [facility] ER - ER Visit Summary Date of [...] course of doxycycline ibuprofen and follow-up with [facility] clinic. Disposition: Discharge Impression: Scalp folliculitis This note was generated with CrowdScannerr dictation software. It may contain incorrect words, [...] your Primary Care Provider. Call [facility] ([phone]) or report to the closest Emergency Room. Call 911 if necessary. 10/26/17 2064 <Electronically signed by Jerman Bernardo MD> Date Jerman Bernardo MD Cosigner Signature (If Indicated): Date CC: No Primary Care Physician INTERNAL MEDICINE Observed: 10/18/2017 Status: F Source: RUBEN OFFICE VISIT 3:59 PM [facility] Internal Medicine [address] [place] [address] [place] [address] OFFICE VISIT Date of Service: 10/18/17 MR#: [id number] Acct: [id number] Name: HIRO POLANCO Rep #: [id number] : 1965 Provider: Onesimo Ovalle MD Age/Sex: 51/F Location: [facility] Status: Signed Intake Vital Signs10/18/17 Height 5 [...] Appearance: obese Orientation: alert, awake, oriented x3 [facility] Head: atraumatic, normocephalic, normal to inspection Ears: [...] next visit. This note was generated with wutaboutation software. It may contain incorrect words, spelling, [...] comorbidity Body mass index: BMI 45.0-49.9 10/18/17 1559 <Electronically signed by Onesimo Ovalle MD> Date Onesimo Ovalle MD Cosigner Signature: Date (if applicable) CC: ORTHOPEDIC VISIT Observed: 10/15/2017 Status: F Source: RUBEN REPORT 12:44 PM [facility] REPOSITORY [facility] [address] [place] [address] OFFICE VISIT Date of Service: 10/10/17 MR#: [id number] Acct: [id number] Name: HIRO POLANCO Rep #: [id number] : 1965 Provider: Robyn Jordan DO Age/Sex: 51/F Location: [facility] Status: Signed Intake Intake Visit Reasons: DISCUSS [...] at this point. She resides at the [facility] and has to stand on her feet [...] signed by Robyn Jordan DO> Date Robyn Niigner Signature: Date (if applicable) CC: Onesimo Ovalle MD EMERGENCY DEPARTMENT Observed: 10/07/2017 Status: F Source: REGINA SUMMARY 11:29 PM [facility] REPOSITORY [facility] Medical Records Department [address] [place] [address] Emergency Department Summary 10/07/17 2231 MR#: [id number] Acct: [id number] Name: HIRO POLANCO Rep #: [id number] : 1965 51 From: Radha Austin MD [...] extremity edema This note was generated with CrowdScannerr dictation software. It may contain incorrect words, [...] problems, contact your Primary Care Provider. Call [facility] ([phone]) or report to the closest Emergency Room. Call 911 if necessary. 10/07/172328 <Electronically signed by Radha Austin MD> Date Radha Austin MD Cosigner Signature (If Indicated): Date CC: No Primary Care Physician DISCHARGE INSTRUCTION Observed: 10/07/2017 Status: F Source: RUBEN 10:35 PM [facility] REPOSITORY [facility] Medical Records Department [address] [place] [address] Discharge Instruction 10/07/172233 MR#: [id number] Acct: [id number] Name: HIRO POLANCO Rep #: [id number] : 1965 51 From: Radha Austin MD [...] your Primary Care Provider. Call [facility] ([phone]) or report to the closest Emergency Room. Call 911 if necessary. 10/07/172234 <Electronically signed by Radha Austin MD> Date Radha Austin MD Cosigner Signature (If Indicated): Date CC: No Primary Care Physician CBC W/DIFF, AUTOMATED Collected: 10/07/2017 Status: F Source: RUBEN 8:35 PM [facility] REPOSITORY TYPE CODE TESTS RESULT OUT [...] Lymph 2.48 Performed By: #### L100.0100 #### [facility] [address] [place], [address] BASIC METABOLIC Collected: 10/07/2017 Status: F Source: RUBEN PROFILE (BMP) 8:35 PM [facility] REPOSITORY TYPE CODE TESTS RESULT OUT [...] 4 GAP Performed By: #### L500.2500 #### [facility] [address], [address] BNP,B-TYPE NATRIURETIC Collected: 10/07/2017 Status: F Source: RUBEN PEPTIDE 8:35 PM [facility] REPOSITORY TYPE CODE TESTS RESULT OUT OF RANGE REFERENCE UNITS LAB L503.6620 0-100 pg/mL Normal B-TYPE 22.6 SUBHA PEP Performed By: #### L503.6620 #### [facility] [address] [place], [address] VENOUS DUPLEX Observed: 10/07/2017 Status: F Source: RUBEN IMAG/MARK EXTREM 8:31 PM [facility] REPOSITORY [facility] Imaging Services [address] [place] [address] Venous Duplex Imag/Mark Extrem MR#: [id number] Acct: [id number] Name: HIRO POLANCO Rep #: [id number] : 1965 F 51 From: Avril Schulz MD PCP: Care Physician, No Primary Status: REG ER Study: Venous Duplex Imag/Mark Extrem Date of Exam: 10/07/17 Exam# [id number] Ordering Dr: Radha Austin MD STUDY: VENOUS [...] No Primary Care Physician; Radha Austin MD B2B Sales Professional: Signed CNCO Observed: 10/04/2017 Status: COMPLETED Source: WISE 12:00 AM [facility] REPOSITORY Letter Text Hirocasa Polanco [address] [place] [address] 10/04/2017 CCF #: [id number] Dear , Due to a change in the provider's schedule it has been necessary to reschedule your Appointment. Your original appointment was scheduled for 12/25/2017 at 2:00 PM with Marion Mirza M.D. Your new appointment is now scheduled on 01/03/2018 at 2:00 PM with Marion Mirza M.D. If this new appointment is not convenient for you, please contact our office at [phone]. Thank you for choosing the [facility] as your Healthcare Provider . Sincerely, Family Medicine Appointment Office CNCO Observed: 09/30/2017 Status: COMPLETED Source: WISE 12:00 AM [facility] REPOSITORY Letter Text Sherin Forte CNM [facility] [address] [place], [place] [address] Hiro Polanco [address] [place] [address] 09/30/2017 Dear Hiro, This letter is to inform you that the culture(s) you had recently were normal. If you have any questions or further problems or concerns, please feel free to call our office at [phone]. We appreciate your confidence in choosing the [facility] for your medical care and we look forward to seeing you at your next appointment. [facility] EMERGENCY DEPARTMENT Observed: 09/28/2017 Status: F Source: RUBEN SUMMARY 8:40 PM [facility] REPOSITORY [facility] Medical Records Department [address] [place] [address] Emergency Department Summary 09/28/172032 MR#: [id number] Acct: [id number] Name: HIRO POLANCO Rep #: [id number] : 1965 51 From: Johnny Mckinney MD PCP: Ayad Pichardo DO Status: REG ER History of Present Illness Chief Complaint: Lower Extremity Injury Informant: Patient Onset: - - Context: Gradual Onset Timing: Continuous Quality: achy [...] your Primary Care Provider. Call [facility] ([phone]) or report to the closest Emergency Room. Call 911 if necessary. 09/28/172039 <Electronically signed by Johnny Mckinney MD> Date Johnny Sullivan Signature (If Indicated): Date CC: Ayad Pichardo DO Observed: 09/27/2017 Status: F Source: WISE TRICHOMONAS PREP 3:11 PM [facility] REPOSITORY Sp. Request/Comment: - Swab Smear Result - Negative for Trichomonas vaginalis antigen This test was developed and its performance characteristics determined by [facility] Path[facility] Medicine [place] [facility] It has not been cleared or approved by the FDA. [facility] is regulated under CLIA as qualified to perform high-complexity testing. This test is used for clinical purposes. It should not be regarded as investigational or for research. Performed By: #### TRICHO #### [facility] [address] [place], [place] [address] CNOV Observed: 09/27/2017 Status: COMPLETED Source: WISE 2:30 PM [facility] REPOSITORY Office Visit (WOOB) HIRO POLANCO ([id number]) 1965 F [facility] Date Time Provider Department 09/27/17 2:30 PM SHERIN FORTE ([facility]) WOOB During your visit today, we recorded the following information about you: Blood pressure Weight 120/84 122.5 kg Sherin Forte APRN.CNM 09/27/2017 3:01 PM Signed Supervisor Color Making offered: Patient declines. Hiro Polanco is a [...] external genitalia normal, normal Bartholin's glands, urethra, [place]'s glands, no vulvar lesions, no cervical lesions, [...] Order(s):BACT/ROMÁN VAG GRAM STAIN [SQBVCNSM] Order #: [id number] FUTURE TRICHOMONAS PREP [SQTRICHO] Order #: [id number] GC/CHLAMYDIA DNA DET [SQGCCAMP] Order #: [id number] Prescriptions as of 09/27/2017 Sig: ESTRADIOL 1 [...] on 09/27/17 Observed: 09/27/2017 Status: F Source: WISE BACT/CAND VAG GRM ST 2:30 PM [facility] REPOSITORY Sp. Request/Comment: - Swab Smear Result - BACTERIAL VAGINOSIS RESULT: Stain results consistent with normal vaginal gus. Rare Polymorphonuclear leukocytes Few Epithelial cells YEAST SCREEN RESULT No Yeast observed Performed By: #### BVCNSM #### [facility] [address] [place] [address] GC/CHLAMYDIA AMPLIF Collected: 09/27/2017 Status: F Source: WISE 2:30 PM [facility] REPOSITORY TYPE CODE TESTS RESULT OUT OF REFERENCE UNITS RANGE LAB GCCTSR GC/Chlam Amp Cervix Source LAB GCAMPL GC Negative Amplification for Neisseria gonorrhoeae by amplification. LAB CLAMPL Chlamydia Negative Amplif for Chlamydia trachomatis by amplification. Performed By: #### GCCT #### [facility] [place] [address] PROGRESS Observed: 09/27/2017 Status: COMPLETED Source: WISE 2:24 PM [facility] REPOSITORY HNO ID: [id number] Author: Sherin (Octavio Forte Service: (none) Author Type: Print Cutter Type: Progress Notes Filed: 09/27/2017 3:01 PM Note Text: Supervisor Color Making offered: Patient declines. Hiro Polanco is a [...] external genitalia normal, normal Bartholin's glands, urethra, [place]'s glands, no vulvar lesions, no cervical lesions, [...] 5. To schedule annual exam. Sherin Forte APRN.CNM EMERGENCY DEPARTMENT Observed: 09/21/2017 Status: F Source: REGINA SUMMARY 10:42 PM [facility] REPOSITORY [facility] Medical Records Department [address] [facility] [place] [address] Emergency Department Summary 08/18/17 1357 MR#: [id number] Acct: [id number] Name: HIRO POLANCO Rep #: [id number] : 1965 51 From: Cesar Bautista MD PCP: Ayad Pichardo DO Status: DEP ER ADDENDUM by Cesar Bautista MD on 09/21/17 at 2242 Simple I AND D Date Cesar Bautisat MD cc: Ayad Pichardo DO * Signed [...] warm compresses. I will give her one [place] here for her pain. Treatment Plan: [] Disposition: Discharge Impression: Right inner thigh abscess I AND D by ED physician This note was generated with CrowdScannerr dictation software. It may contain incorrect words, [...] your Primary Care Provider. Call [facility] ([phone]) or report to the closest Emergency Room. Call 911 if necessary. 08/18/17 3363 <Electronically signed by Cesar Bautista MD> Date Cesar Bautista MD Cosigner Signature (If Indicated): Date CC: Ayad Pichardo DO EMERGENCY DEPARTMENT Observed: 09/05/2017 Status: F Source: REGINA SUMMARY 10:57 PM [facility] REPOSITORY [facility] Medical Records Department [address] [place] [address] Emergency Department Summary 09/05/17 1853 MR#: [id number] Acct: [id number] Name: HIRO POLANCO Rep #: [id number] : 1965 51 From: Jerman Anna MD [...] for 10 days. I did review prescription slip operator and the patient was upfront about her analgesics. She will be given 2 days of pain control, nausea control, and oral antibiotics. I did prevocational/rehabilitation counselor her that her symptoms worsen or not improving in the next 24-48 hours she should return. She will be discharged. Treatment Plan: [] Disposition: Discharge Impression: Scalp folliculitis This note was generated with CrowdScannerr dictation software. It may contain incorrect words, spelling, and punctuation that were not noted in review of the chart prior to signing ED Disposition - Plan for ED Patient: Chief Complaint: Abscess Instructions: ED Folliculitis Prescriptions: Hydrocodone Bitart/Apap 5-325 [[place] 5MG-325MG] 1 tab PO Q6H PRN PRN [...] your Primary Care Provider. Call [facility] ([phone]) or report to the closest Emergency Room. Call 911 if necessary. 09/05/17 8797 <Electronically signed by Jerman Anna MD> Date Jerman Anna MD Cosigner Signature (If Indicated): Date CC: Ayad Marino DO EMERGENCY DEPARTMENT Observed: 08/29/2017 Status: F Source: REGINA SUMMARY 8:37 PM [facility] REPOSITORY [facility] Medical Records Department [address] [place] [address] Emergency Department Summary 08/29/17 1729 MR#: [id number] Acct: [id number] Name: HIRO POLANCO Rep #: [id number] : 1965 51 From: Patricia Griffin MD [...] extremity contusion/abrasion This note was generated with CrowdScann[employer] dictation software. It may contain incorrect words, [...] your Primary Care Provider. Call [facility] ([phone]) or report to the closest Emergency Room. Call 911 if necessary. 08/29/172036 <Electronically signed by Patricia Griffin MD> Date Patricia Griffin MD Cosigner Signature (If Indicated): Date CC: Ayad Pichardo DO DISCHARGE INSTRUCTION Observed: 08/29/2017 Status: F Source: REGINA 6:05 PM [facility] REPOSITORY [facility] Medical Records Department [address] [place] [address] Discharge Instruction 08/29/171804 MR#: [id number] Acct: [id number] Name: HIRO POLANCO Rep #: [id number] : 1965 51 From: Patricia Griffin MD [...] your Primary Care Provider. Call [facility] ([phone]) or report to the closest Emergency Room. Call 911 if necessary. 08/29/171804 <Electronically signed by Patricia Griffin MD> Date Patricia Griffin MD Cosigner Signature (If Indicated): Date CC: Ayad Pichardo DO BRAIN/HEAD WITHOUT Observed: 08/29/2017 Status: F Source: RUBEN CONTRAST 5:23 PM [facility] REPOSITORY [facility] Imaging Services [address] [place] [address] Brain/Head without Contrast MR#: [id number] Acct: [id number] Name: HIRO POLANCO Rep #: [id number] : 1965 F 51 From: Boni Best MD PCP: Ayad Pichardo DO Status: PRE ER Study: Brain/Head without Contrast Date of Exam: 08/29/17 Exam# [id number] Ordering Dr: Patricia Griffin MD STUDY: CT [...] scan of the brain. Electronically Signed: Boni Bset MD at 17:50 EDT , Service support , CC: Patricia Griffin MD; Ayad Marino B2B Sales Professional: Signed SPINE CERVICAL Observed: 08/29/2017 Status: F Source: RUBEN WITHOUT CONTRAS 5:23 PM [facility]OSPITAL REPOSITORY [facility] Imaging Services [address] [place] [address] Spine Cervical without Contras MR#: [id number] Acct: [id number] Name: HIRO POLANCO Rep #: [id number] : 1965 F 51 From: Boni Best MD PCP: Ayad Pichardo DO Status: REG ER Study: Spine Cervical without Contras Date of Exam: 08/29/17 Exam# [id number] Ordering Dr: Patricia Griffin MD STUDY: CT [...] CC: Patricia Griffin MD; Ayad Pichardo DO B2B Sales Professional: Signed ELBOW MIN 3 VIEWS Observed: 08/29/2017 Status: F Source: RUBEN 5:23 PM [facility]OSPITAL REPOSITORY [facility] Imaging Services [address] [place] [address] Elbow min 3 Views MR#: [id number] Acct: [id number] Name: HIRO POLANCO Rep #: [id number] : 1965 F 51 From: Boni Best MD PCP: Ayad Pichardo DO Status: REG ER Study: Elbow min 3 Views Date of Exam: 08/29/17 Exam# [id number] Ordering Dr: Patricia Griffin MD STUDY: X-RAY [...] CC: Patricia Griffin MD; Ayad Pichardo DO B2B Sales Professional: Signed HAND MIN 3 VIEWS Observed: 08/29/2017 Status: F Source: RUBEN 5:23 PM [facility]OSPITAL REPOSITORY [facility] Imaging Services [address] [place] [address] Hand Min 3 Views MR#: [id number] Acct: [id number] Name: HIRO POLANCO Rep #: [id number] : 1965 F 51 From: Boni Best MD PCP: Ayad Pichardo DO Status: REG ER Study: Hand Min 3 Views Date of Exam: 08/29/17 Exam# [id number] Ordering Dr: Patricia Griffin MD STUDY: X-RAY [...] CC: Patricia Griffin MD; Ayad Pichardo DO B2B Sales Professional: Signed WRIST MIN 3 VIEWS Observed: 08/29/2017 Status: F Source: REGINA 5:23 PM [facility] REPOSITORY [facility] Imaging Services [facility] [place] [address] Wrist min 3 Views MR#: [id number] Acct: [id number] Name: HIRO POLANCO Rep #: [id number] : 1965 F 51 From: Boni Best MD PCP: Ayad Pichardo DO Status: REG ER Study: Wrist min 3 Views Date of Exam: 08/29/17 Exam# [id number] Ordering Dr: Patricia Griffin MD STUDY: X-RAY [...] CC: Patricia Griffin MD; Ayad Pichardo DO B2B Sales Professional: Signed ORTHOPEDIC VISIT Observed: 08/22/2017 Status: F Source: RUBEN REPORT 12:36 PM [facility] REPOSITORY [facility]opa[facility]ics [facility] Sports Medicine [address] [place] [address] OFFICE VISIT Date of Service: 08/22/17 MR#: [id number] Acct: [id number] Name: MARILEEHIRO Jacek Rep #: [id number] : 1965 Provider: Robyn Jordan DO Age/Sex: 51/F [place] [facility] [place]: Signed Intake Intake Visit Reasons: Bilat [...] 08/22/2017 Status: F Source: RUBEN 9:28 AM [facility] REPOSITORY [facility] Imaging Services [address] [place] [address] Wrist min 3 Views MR#: [id number] Acct: [id number] Name: HIRO POLANCO Rep #: [id number] : 1965 F 51 From: Mir Francis MD PCP: Ayad Pichardo DO Status: REG CLI Study: Wrist min 3 Views Date of Exam: 08/22/17 Exam# [id number] Ordering Dr: Robyn Jordan DO STUDY: X-RAY [...] CC: Robyn Jordan DO; Ayad Pichardo DO B2B Sales Professional: Signed WRIST MIN 3 VIEWS Observed: 08/22/2017 Status: F Source: REGINA 9:28 AM [facility] REPOSITORY [facility] Imaging Services [address] [place] [address] Wrist min 3 Views MR#: [id number] Acct: [id number] Name: MARILEEHIRO Read Rep #: [id number] : 1965 F 51 From: Mir Francis MD PCP: Ayad Pichardo DO Status: REG CLI Study: Wrist min 3 Views Date of Exam: 08/22/17 Exam# [id number] Ordering Dr: Robyn Jordan DO STUDY: X-RAY [...] CC: Robyn Jordan DO; Ayad Pichardo DO B2B Sales Professional: Signed DISCHARGE INSTRUCTION Observed: 08/18/2017 Status: F Source: REGINA 1:59 PM [facility] REPOSITORY [facility] Medical Records Department [address] [place] [address] Discharge Instruction 08/18/17 1359 MR#: [id number] Acct: [id number] Name: HIRO POLANCO Rep #: [id number] : 1965 51 From: Cesar Bautista MD [...] your Primary Care Provider. Call [facility] ([phone]) or report to the closest Emergency Room. Call 911 if necessary. 08/18/17 1353 <Electronically signed by Cesar Bautista MD> Date Cesar Bautista MD Cosigner Signature (If Indicated): Date CC: Ayad Pichardo DO EMERGENCY DEPARTMENT Observed: 08/15/2017 Status: F Source: REGINA SUMMARY 12:27 AM [facility] REPOSITORY [facility] Medical Records Department [address] [place] [address] Emergency Department Summary 08/14/17 2206 MR#: [id number] Acct: [id number] Name: HIRO POLANCO Rep #: [id number] : 1965 51 From: Radha Austin MD [...] Treatment: Patient was given 2 tabs p.o. [place]. 1/2 cc 1% lidocaine with epinephrine was used locally. 1/2 cm incision was made with return of pus. Wound is cleansed. Patient will be given [place], doxycycline, and Zofran for home. Patient does list doxycycline as an allergy but states it just makes her nauseated, she is willing to take it with nausea meds. Treatment Plan: [] Disposition: Discharge Impression: Scalp abscess status post I AND D This note was generated with CrowdScannerr dictation software. It may contain incorrect words, [...] your Primary Care Provider. Call [facility] ([phone]) or report to the closest Emergency Room. Call 911 if necessary. 08/15/17 0027 <Electronically signed by Radha Austin MD> Date Radha Austin MD Cosigner Signature (If Indicated): Date CC: Aayd Pichardo DO DISCHARGE INSTRUCTION Observed: 08/14/2017 Status: F Source: REGINA 10:10 PM [facility] REPOSITORY [facility] Medical Records Department [address] [place] [address] Discharge Instruction 08/14/17 2207 MR#: [id number] Acct: [id number] Name: HIRO POLANCO Rep #: [id number] : 1965 51 From: Radha Austin MD PCP: Ayad Pichardo DO Status: REG ER ED Disposition - Plan for ED Patient: Disposition: Home or Assisted Living Chief Complaint: Abscess Instructions: ED Abscess IandD Prescriptions: Hydrocodone Bitart/Apap 5-325 [[place] 5MG-325MG] 1 tablet PO Q6H PRN PRN 3 Days #10 tablet PRN Reason: Pain Ondansetron [Zofran Odt] 4 mg PO Q6H PRN PRN #20 tab PRN Reason: Nausea Doxycycline Monohydrate 100 mg PO BID #14 cap Referrals: Ayad Pichardo DO [Primary Care Provider] - 1 Week What to do if you have Problems For any increased pain, shortness of breath, bleeding, nausea or vomiting, chest pain, or any unexpected problems, contact your Primary Care Provider. Call [facility] ([phone]) or report to the closest Emergency Room. Call 911 if necessary. 08/14/17 2210 <Electronically signed by Radha Austin MD> Date Radha Austin MD Cosigner Signature (If Indicated): Date CC: Ayad Pichardo DO EMERGENCY DEPARTMENT Observed: 08/05/2017 Status: F Source: REGINA SUMMARY 12:[address] [facility] Medical Records Department [address] [place] [address] Emergency Department Summary 08/04/17 1826 MR#: [id number] Acct: [id number] Name: MARILEEHIRO L Rep #: [id number] : 1965 51 From: Boni Anaya MD [...] joint injection. She will be given 2 [place] here for pain. Treatment Plan: Motrin, ice and elevate and limited [place] for pain. Disposition: Discharge Impression: Acute on chronic right knee pain secondary to degenerative joint disease This note was generated with CrowdScannerr dictation software. It may contain incorrect words, spelling, and punctuation that were not noted in review of the chart prior to signing ED Disposition - Plan for ED Patient: Chief Complaint: Lower Extremity Injury Referrals: Ayad Pichardo, DO [Primary Care Provider] - What to do if you have Problems For any increased pain, shortness of breath, bleeding, nausea or vomiting, chest pain, or any unexpected problems, contact your Primary Care Provider. Call [facility] ([phone]) or report to the closest Emergency Room. Call 911 if necessary. 08/05/17 0018 <Electronically signed by Boni Anaya MD> Date Boni Anaya MD Cosigner Signature (If Indicated): Date CC: Ayad Pichardo DO DISCHARGE INSTRUCTION Observed: 08/05/2017 Status: F Source: RUBEN 12:18 AM [facility] REPOSITORY [facility] Medical Records Department [facility] [address] [address] Discharge Instruction 08/04/17 1829 MR#: [id number] Acct: [id number] Name: HIRO POLANCO Rep #: [id number] : 1965 51 From: Boni Anaya MD PCP: Ayad Pichardo DO Status: DEP ER ED Disposition - Plan for ED Patient: Disposition: Home or Assisted Living Chief Complaint: Lower Extremity Injury Instructions: ED Degenerative Joint Disease Prescriptions: Hydrocodone/Acetaminophen [[place] 7.5-325 Tablet] 1 ea PO Q6H PRN PRN #20 tab PRN Reason: Pain Referrals: Ayad Pichardo DO [Primary Care Provider] - As Needed Robyn Jordan DO [STAFF PHYSICIAN] - As soon as possible Renato Zaidi MD [NON-STAFF] - 1-2 Weeks Delaney Chauhan MD [STAFF PHYSICIAN] - Additional Instructions: Ice to the right knee. Motrin for pain and swelling. [place] for pain. Call and follow-up with Dr. Chauhan for chronic pain. Call and follow-up with Dr. Jordan about possible evaluation of left hand carpal tunnel syndrome. If Dr. Jordan does not take care of carpal tunnel you can try the [facility]. What to do if you have Problems For any increased pain, shortness of breath, bleeding, nausea or vomiting, chest pain, or any unexpected problems, contact your Primary Care Provider. Call [facility] ([phone]) or report to the closest Emergency Room. Call 911 if necessary. 08/05/17 0018 <Electronically signed by Boni Anaya MD> Date Boni Anaya MD Cosigner Signature (If Indicated): Date CC: Ayad Pichardo DO LOWER EXT JOINT ONLY Observed: 05/31/2017 Status: F Source: REGINA (ROUTINE) 9:59 AM [facility] REPOSITORY [facility] Imaging Services [address] [place] [address] Lower Ext Joint Only (Routine) MR#: [id number] Acct: [id number] Name: HIRO POLANCO Rep #: [id number] : 1965 F 51 From: Mir Francis MD PCP: Marino RUELAS,Ayad Status: REG CLI Study: Lower Ext Joint Only (Routine) Date of Exam: 05/31/17 Exam# [id number] Ordering Dr: Robyn Jordan DO STUDY: MRI [...] CC: Robyn Jordan DO; Ayad Pichardo DO B2B Sales Professional: Signed ORTHOPEDIC VISIT Observed: 05/14/2017 Status: F Source: REGINA REPORT 3:04 PM [facility] REPOSITORY [facility] Orthopaedics AND Sports Medicine [address] [place] [address] OFFICE VISIT Date of Service: 05/14/17 MR#: [id number] Acct: [id number] Name: HIRO POLANCO Rep #: [id number] : 1965 Provider: Robyn Jordan DO Age/Sex: 51/F [place] [facility] [place]: Signed Intake Intake Visit Reasons: bilateral [...] Route Admin Location Lot Number Expiration DateNDC Engraver Picture 2 mg Intra-Articularleft knee [id number] 07/01/18 4266-6952-78 360TS Knock KnockIBB Assessment AND Plan Problems 1. Bilateral knee [...] after MRI. This note was generated with [employer]annerr dictation software. It may contain incorrect words, [...] M25.562 Torn medial meniscus S83.249A Additional Codes powder line repairer.knee (36165) 05/14/17 1504 <Electronically signed by Robyn Jordan DO> Date Robyn Jordan DO Cosigner Signature: Date (if applicable) CC: EMERGENCY DEPARTMENT Observed: 05/11/2017 Status: F Source: RUBEN SUMMARY 5:00 PM [facility] REPOSITORY [facility] Medical Records Department [address] [place] [address] Emergency Department Summary 05/11/17 1553 MR#: [id number] Acct: [id number] Name: HIRO POLANCO Rep #: [id number] : 1965 51 From: Caitlin Munoz DO [...] pain Osteoarthritis This note was generated with Crowd[employer]ann[employer] dictation software. It may contain incorrect words, [...] your Primary Care Provider. Call [facility] ([phone]) or report to the closest Emergency Room. Call 911 if necessary. 05/11/17 1700 <Electronically signed by Caitlin Munoz DO> Date Caitlin Munoz DO Cosigner Signature (If Indicated): Date CC: Ayad Pichardo DO DISCHARGE INSTRUCTION Observed: 05/11/2017 Status: F Source: RUBEN 3:59 PM [facility] HOSPITAL REPOSITORY [facility] Medical Records Department [address] [place] [address] Discharge Instruction 05/11/17 1558 MR#: [id number] Acct: [id number] Name: HIRO POLANCO Rep #: [id number] : 1965 51 From: Caitlin Munoz DO [...] your Primary Care Provider. Call [facility] ([phone]) or report to the closest Emergency Room. Call 911 if necessary. 05/11/17 1559 <Electronically signed by Caitlin Munoz DO> Date Caitlin Munoz DO Cosigner Signature (If Indicated): Date CC: Ayad Pichardo DO KNEE 4 OR MORE Observed: 05/11/2017 Status: F Source: RUBEN VIEWS 3:21 PM [facility] REPOSITORY [facility] Imaging Services [address] [place] [address] Knee 4 or More Views MR#: [id number] Acct: [id number] Name: HIRO POLANCO Rep #: [id number] : 1965 F 51 From: Oz Aranda MD PCP: Ayad Pichardo DO Status: PRE ER Study: Knee 4 or More Views Date of Exam: 05/11/17 Exam# [id number] Ordering Dr: Caitlin Munoz DO STUDY: X-RAY [...] dislocation. Mild degenerative change. Electronically Signed: Oz Manoj, at 15:54 EST Tel , Service support , CC: Ayad Pichardo DO; Caitlin Munoz DO B2B Sales Professional: Signed EMERGENCY DEPARTMENT Observed: 04/29/2017 Status: F Source: REGINA SUMMARY 12:05 AM [facility] REPOSITORY [facility] Medical Records Department [address] [place] [address] Emergency Department Summary 04/28/17 1627 MR#: [id number] Acct: [id number] Name: HIRO POLANCO Rep #: [id number] : 1965 51 From: Boni Anaya MD [...] Tobacco abuse This note was generated with CrowdScannerr dictation software. It may contain incorrect words, [...] your Primary Care Provider. Call [facility] ([phone]) or report to the closest Emergency Room. Call 911 if necessary. 04/29/17 0005 <Electronically signed by Boni Anaya MD> Date Boni Anaya MD Cosigner Signature (If Indicated): Date CC: Ayad Pichardo DO DISCHARGE INSTRUCTION Observed: 04/29/2017 Status: F Source: RUBEN 12:05 AM [facility] REPOSITORY [facility] Medical Records Department [address] [place] [address] Discharge Instruction 04/28/17 1734 MR#: [id number] Acct: [id number] Name: MARILEEHIRO Jacek Rep #: [id number] : 1965 51 From: Boni Anaya MD [...] your Primary Care Provider. Call [facility] ([phone]) or report to the closest Emergency Room. Call 911 if necessary. 04/29/17 0005 <Electronically signed by Boni Anaya MD> Date Boni Anaya MD Cosigner Signature (If Indicated): Date CC: Ayad Pichardo DO CHEST PA AND LATERAL Observed: 04/28/2017 Status: F Source: REGINA 4:26 PM [facility] REPOSITORY [facility] Imaging Services [address] [place] [address] Chest PA and Lateral MR#: [id number] Acct: [id number] Name: HIRO POLANCO Rep #: [id number] : 1965 F 51 From: Rosalee Lazo MD PCP: Ayad Pichardo DO Status: REG ER Study: Chest PA and Lateral Date of Exam: 04/28/17 Exam# [id number] Ordering Dr: Boni Anaya MD STUDY: X-RAY [...] support , CC: Boni Anaya MD; Ayad Pichardo DO B2B Sales Professional: Signed URINALYSIS, COMPLETE Collected: 04/16/2017 Status: F Source: RUBEN 12:10 PM [facility] REPOSITORY Order Comment: How was Urine [...] URINE SEEN Performed By: #### L400.0001 #### [facility] [address] [place], [place], [id number] CBC W/DIFF, AUTOMATED Collected: 04/16/2017 Status: F Source: REGINA 12:10 PM [facility] REPOSITORY TYPE CODE TESTS RESULT OUT [...] Lymph 2.33 Performed By: #### L100.0100 #### [facility] [address] [facility] [place], [address] COMPREHENSIVE METABOLIC Collected: 04/16/2017 Status: F Source: RUBEN PRABHAKAR 12:10 PM [facility] REPOSITORY TYPE CODE TESTS RESULT OUT [...] GAP 5 Performed By: #### L500.4050 #### [facility] [address] [place], [address] Observed: 04/16/2017 Status: F Source: RUBEN CULTURE, URINE 12:10 PM [facility] REPOSITORY Urine Culture Probable skin contamination. ORGANISM 1: Mixed Gram Positive Organisms [place] Count >100,000 MIX CULTURE Mixed contaminants. Submit a new specimen if indicated. Performed By: #### M100.0650 #### [facility] [address] [place], [address] L/S SPINE MIN 4 Observed: 04/16/2017 Status: F Source: RUBEN VIEWS 12:06 PM [facility] REPOSITORY [facility] Imaging Services [address] [place] [address] L/S Spine Min 4 Views MR#: [id number] Acct: [id number] Name: IHRO POLANCO Rep #: [id number] : 1965 F 51 From: Radha Sosa MD PCP: Ayad Pichardo DO Status: REG CLI Study: L/S Spine Min 4 Views Date of Exam: 04/16/17 Exam# [id number] Ordering Dr: Ayad Pichardo DO STUDY: X-RAY [...] Sosa MD at 23:05 EST Tel Direct: [phone], Service support , CC: Aayd Pichardo DO B2B Sales Professional: Signed ABDOMEN SINGLE VIEW Observed: 04/16/2017 Status: F Source: RUBEN 12:06 PM [facility] REPOSITORY [facility] Imaging Services [address] [place] [address] Abdomen Single View MR#: [id number] Acct: [id number] Name: HIRO POLANCO Rep #: [id number] : 1965 F 51 From: Radha Sosa MD PCP: Ayad Pichardo DO Status: REG CLI Study: Abdomen Single View Date of Exam: 04/16/17 Exam# [id number] Ordering Dr: Ayad Pichardo DO STUDY: X-RAY [...] Sosa MD at 23:10 EST Tel Direct: [phone], Service support , CC: Ayad Pichardo DO B2B Sales Professional: Signed Observed: 04/06/2017 Status: F Source: TAPIA URINE CULTURE 11:11 PM [facility] REPOSITORY Sp. Request/Comment: - Specimen received in preservative Culture Result - 10,000 - <50,000 CFU/ml Normal urogenital gus Performed By: #### URCUL #### [facility] [address] [place], [place] [address] PROGRESS Observed: 04/06/2017 Status: COMPLETED Source: WISE 11:27 AM [facility] REPOSITORY HNO ID: [id number] Author: Caridad Bowie Service: (none) Author Type: Nurse Practitioner Type: Progress Notes Filed: 04/06/2017 11:43 AM Note Text: HUSSEIN Hiro Polanco is a 51 year old female who presents with left flank pain for one day. She rates the pain a 09/10. She took ibuprofen yesterday for the pain. [...] 1986 - WRIST SPLINT 06/05 l wrist ALLERGIES Demerol [Meperidine Hcl]; Doxycycline; [...] - Discussed expected course of illness Caridad Bowie, BHUPENDRA ALLERGIES ALLERGIES DATE TYPE / NAME / CODE REACTION SEVERITY SOURCE CODE 03/10/2018 Drug meperidine Upset Stomach Unknown [place] Allergy/41 HCl/[id number](RXNOR Community 8002775([facility]) [facility]) Repository 03/10/2018 Drug ceftriaxone Hives Unknown [place] Allergy/41 sodium/N134846562(RX Community 1934607( NORM) [facility]) Repository 03/10/2018 Drug diclofenac Upset Stomach Unknown [place] Allergy/41 potassium/[id number] Community 9338795( (RXNORM) [facility]) Repository 03/10/2018 Drug Penicillins/B3271129 Upset Stomach Unknown [place] Allergy/41 76(RXNORM) Community 2090810([facility]) Repository 03/10/2018 Drug Sulfa (Sulfonamide Upset Stomach Unknown [place] Allergy/41 Antibiotics)/J594396 Community 1646391( 491(RXNORM) [facility]) Repository 03/10/2018 Drug naproxen/F958445091( Upset Stomach Unknown [place] Allergy/41 RXNORM) Community 9955006([facility]) Repository 12/02/2017 DRUG NAPROXEN GI UPSET [place] INGREDI/41 Clinic Main 4349243([facility]) Repository 08/29/2017 Drug doxycycline/T2918692 Upset Stomach Unknown [place] Allergy/41 48(RXNORM) Community 6449361([facility]) Repository 05/28/2016 DRUG GABAPENTIN Mental Chg [place] INGREDI/41 Clinic Main 2890949([facility]) Repository 05/31/2013 Drug CEPHALOSPORINS RASH [place] Class/4195 Clinic Main [address]([facility]) Repository 08/12/2009 DRUG CAFFEINE INTOLERANCE [place] INGREDI/41 Clinic Main 7158921([facility]) Repository 05/08/2005 DRUG IRON GI UPSET [place] INGREDI/41 Clinic Main 4766831([facility]) Repository 02/22/2005 DRUG CEFTRIAXONE SODIUM RASH [place] INGREDI/41 Clinic Main 2383545([facility] [place] [facility]) Repository 01/01/2005 DRUG MEPERIDINE HCL GI UPSET [place] INGREDI/41 Clinic Main 7048589([facility]) Repository 01/01/2005 DRUG DOXYCYCLINE INTOLERANCE High [place] INGREDI/41 Clinic Main 9279677([facility]) Repository 01/01/2005 Drug PENICILLINS INTOLERANCE [facility] Class/4195 Clinic Main [address]([facility] ED [facility]) Repository 01/01/2005 Drug SULFA (SULFONAMIDE GI UPSET [facility] Class/4195 ANTIBIOTICS) Clinic Main [address]([facility] ED [facility]) Repository ENCOUNTERS ENCOUNTERS ADMIT/DISCHARGE ACCOUNT ADMITTING ENCOUNTER LOCATION SOURCE NUMBER CLASS 03/10/2018/03/10/19 [id number] Emergency [address] ing:ED Repository 03/04/2018/03/04/19 [id number] Emergency [address] ing:ED Repository 02/18/2018/02/19/20 [id number] Ambulatory BMSBuilding:B [place] 18 [place] Repository 02/16/2018/02/17/20 [id number] Emergency [address] ing:ED Repository 02/04/2018/02/05/20 [id number] Ambulatory BMSBuilding:B [place] 18 [place] Repository 01/30/2018/01/31/20 [id number] Emergency [address] Hospital ing:ED Repository 01/17/2018/01/18/20 [id number] Emergency [address] Hospital ing:ED Repository 01/10/2018/01/14/20 [id number] Ambulatory [address] Repository 12/27/2017/12/28/19 [id number] Emergency [address] Hospital ing:ED Repository 12/22/2017/12/23/19 [id number] Emergency [address] Hospital ing:ED Repository 12/03/2017 [id number] Ambulatory [facility] Hospital ing:SL Repository 12/02/2017/12/04/19 [id number] Ambulatory [address] Repository 12/02/2017/12/05/19 [id number] Ambulatory [address] Repository 11/26/2017 [id number] Ambulatory BMSBuilding:B [place] Hospital Repository 11/22/2017 [id number] Ambulatory [facility] Hospital ing:CVS Repository 11/19/2017/11/20/19 [id number] Ambulatory BMSBuilding:B [place] 18 [place].[facility] Hospital Repository 11/12/2017/11/13/19 [id number] Ambulatory BMSBuilding:B [place] 18 [place] Hospital Repository 11/03/2017/11/04/19 [id number] Emergency [address] Hospital ing:ED Repository 10/26/2017/10/27/19 [id number] Emergency [address] Hospital ing:ED Repository 10/18/2017/10/19/19 [id number] Ambulatory BMSBuilding:B [place] 18 [place] Hospital Repository 10/10/2017/10/11/19 [id number] Ambulatory BMSBuilding:B [place] 18 [place].[facility] Hospital Repository 10/07/2017/10/08/19 [id number] Emergency [address] Hospital ing:ED Repository 09/28/2017/09/29/19 [id number] Emergency [address] Hospital ing:ED Repository 09/27/2017/10/01/19 [id number] Ambulatory [address] Repository 09/05/2017/09/06/19 [id number] Emergency [place] Hospital ing:ED Repository 08/29/2017/08/30/19 [id number] Emergency [place] Hospital ing:ED Repository 08/22/2017 [id number] Ambulatory [facility] Hospital ing:HPRAD Repository 08/22/2017/08/23/19 [id number] Ambulatory BMSBuilding:B [place] 18 [place].[facility] Hospital Repository 08/18/2017/08/19/19 [id number] Emergency [place] ing:ED Repository 08/14/2017/08/15/19 [id number] Emergency [address] ing:ED Repository 08/04/2017/08/05/19 [id number] Emergency [address] ing:ED Repository 05/31/2017 [id number] Ambulatory [facility] ing:MRI Repository 05/14/2017/05/15/19 [id number] Ambulatory BMSBuilding:B [address] Repository 05/11/2017/05/12/19 [id number] Emergency [address] ing:ED Repository 04/28/2017/04/28/19 [id number] Emergency [address] ing:ED Repository 04/16/2017 [id number] Ambulatory [facility] ing:MTLAB Repository 04/06/2017/04/06/19 [id number] Ambulatory [address] Repository PAYERS PAYERS ENCOUNTER GUARANTOR PAYER SUBSCRIBER SOURCE 03/10/2018 [facility] [id number] Insurance:CARESOURCEP MARILEEDOB: [facility] Number: [id number] [id number] Repository [address]Xwn: [phone]) Date:2018-03-10P O [phone] () [address]ATTN: [place] [address]NE: 03/10/2018 Secondary NOT GIVENUNK [place] Insurance:SELF PAY [facility] Number: Effective Repository Date:2018-03-10 03/04/2018 [facility] MARILEEPO BOX Insurance:CARESOURCEP NAPIERDOB: [facility] [address] [place] [address], [facility] Number: [id number] Indian Medical Center [address]Ydj: [id number] Repository Date:2018-03-04P O () [address]ATTN: [place] [address]YW: 03/04/2018 Secondary NOT GIVENUNK [place] Insurance:SELF PAY [facility] Number: Effective Repository Date:2018-03-04 02/18/2018 HIRO Read Primary HIRO Read [place] NAPIERPO BOX Insurance:CARESOURCEP NAPIERDOB: [address] Number: [id number] Indian Medical Center [address]Ubp: [id number] Repository Date:2018-02-04P O (HP) [address]ATTN: [place] [address]PC: 02/18/2018 Secondary NOT GIVENUNK [place] Insurance:SELF PAY [facility] Number: Effective Repository Date:2018-02-04 02/16/2018 HIRO Read Primary HIRO Read [place] NAPIERPO BOX Insurance:CARESOURCEP NAPIERDOB: [address] Number: [id number] Indian Medical Center [address]Gpu: [id number] Repository Date:2018-02-16P O (HP) [address]ATTN: [place] [address]HB: 02/16/2018 Secondary NOT GIVENUNK [place] Insurance:SELF PAY [facility] Number: Effective Repository Date:2018-02-16 02/04/2018 HIRO Read Primary HIRO Read [place] N[address]ERPO BOX Insurance:CARESOURCEP NAPIERDOB: [address] Number: [id number] Indian Medical Center [address]Ivb: [id number] Repository Date:2018-02-03P O (HP) [address]ATTN: [place] [address]ZL: 02/04/2018 Secondary NOT GIVENUNK [place] Insurance:SELF PAY [facility] Number: Effective Repository Date:2018-02-04 01/30/2018 HIRO L Primary HIRO Read [place] N[address]ER[address] BOX Insurance:CARESOURCEP NAPIERDOB: [address] Number: [id number] Indian Medical Center [address]Ymj: [id number] Repository Date:2018-01-30P O (HP) [address]ATTN: [place] [address]RJ: 01/30/2018 Secondary NOT GIVENUNK [place] Insurance:SELF PAY [facility] Number: Effective Repository Date:2018-01-30 01/17/2018 HIRO L Primary HIRO Read [place] [address] Insurance:CARESOMARIE POLANCODOB: [address] Number: [id number] Indian Medical Center [address]Cga: [id number] Repository Date:2018-01-17P O (HP) [address]ATTN: [place] [address]CJ: 01/17/2018 Secondary NOT GIVENUNK [place] Insurance:SELF PAY [facility] Number: Effective Repository Date:2018-01-17 12/27/2017 HIRO L Primary HIRO L [place] [address] Insurance:CARESOMARIE POLANCODOB: [address] Number: [id number] Indian Medical Center [address]Ukm: [id number] Repository Date:2017-12-27P O (HP) [address]ATTN: [place] [address]WR: 12/27/2017 Secondary NOT GIVENUNK [place] Insurance:SELF PAY [facility] Number: Effective Repository Date:2017-12-27 12/22/2017 HIRO L Primary HIRO L [place] [address] Insurance:CARESOMARIE POLANCODOB: [address] Number: [id number] Indian Medical Center [address]Pgc: [id number] Repository Date:2017-12-22P O (HP) [address]ATTN: [place] [address]FD: 12/22/2017 Secondary NOT GIVENUNK [place] Insurance:SELF PAY [facility] Number: Effective Repository Date:2017-12-22 12/03/2017 HIRO Read Primary HIRO [place] [id number] Insurance:CARESOURCEP [facility]APIERDOB: [facility] Number: [id number] [place], [place] [id number] Repository [address]Pfh: [phone]) Date:2017-10-18P O [phone] () [address]ATTN: [place] [address]HA: 12/03/2017 Secondary NOT GIVENUNK [place] Insurance:SELF PAY [facility] Number: Effective Repository Date:2017-10-18 11/26/2017 HIRO Read Primary H[place]O [place] [id number] S Insurance:CARESOURCEP NAPIERDOB: [facility] Number: [id number] [place], [place] [id number] Repository [address]Wof: ([phone]) Date:2017-11-07P O [phone] () [address]ATTN: [place] [address]FK: 11/26/2017 Secondary NOT GIVENUNK [place] Insurance:SELF PAY [facility] Number: Effective Repository Date:2017-11-07 11/22/2017 HIRO Read Primary HIRO [place] [id number] S Insurance:CARESOURCEP NAPIERDOB: [facility] Number: [id number] [place], [place] [id number] Repository [address]Rlf: ([phone]) Date:2017-10-18P O [phone] () [address]ATTN: [place] [address]EM: 11/22/2017 Secondary NOT GIVENUNK [place] Insurance:SELF PAY [facility] Number: Effective Repository Date:2017-10-18 11/19/2017 HIRO L Primary HIRO [place] [id number] S Insurance:CARESOURCEP NAPIERDOB: [facility] [employer] [employer] Number: [id number] [place], [place] [id number] Repository [address]Zsf: ([phone]) Date:2017-10-18P O [phone] (HP) [address]ATTN: [place] [address]XS: 11/19/2017 Secondary NOT GIVENUNK [place] Insurance:SELF PAY [facility] Number: Effective Repository Date:2017-11-19 11/12/2017 HIRO L Primary HIRO L [place] [id number] S Insurance:CARESOURCEP NAPIERDOB: [facility] [employer] Number: [id number] [place], [place] [id number] Repository [address]Ndh: ([phone]) Date:2017-11-11P O [phone] (HP) [address]ATTN: [place] [address]XE: 11/12/2017 Secondary NOT GIVENUNK [place] Insurance:SELF PAY [facility] Number: Effective Repository Date:2017-11-11 11/03/2017 HIRO L Primary HIRO L [place] [id number] S Insurance:CARESOURCEP NAPIERDOB: [facility] MARK[facility] [employer] Number: [id number] [place], [place] [id number] Repository [address]Fsz: ([phone]) Date:2017-11-03P O [phone] (HP) [address]ATTN: [place] [address]JA: 11/03/2017 Secondary NOT GIVENUNK [place] Insurance:SELF PAY [facility] Number: Effective Repository Date:2017-11-03 10/26/2017 HIRO L Primary HIRO L [place] [id number] S Insurance:CARESOURCEP NAPIERDOB: [facility]ET [facility] Number: [id number] [place], [place] [id number] Repository [address]Tyf: ([phone]) Date:2017-10-26P O [phone] (HP) [address]ATTN: [place] [address]SD: 10/26/2017 Secondary NOT GIVENUNK [place] Insurance:SELF PAY [facility] Number: Effective Repository Date:2017-10-26 10/18/2017 HIRO Read Primary HIRO [place] [id number] S Insurance:CARESOURCEP NAPIERDOB: Community [facility] [employer] Number: [id number] [place], [place] [id number] Repository [address]Yua: (330) Date:2017-10-11P O [phone] (HP) [address]ATTN: [place] [address]ZQ: 10/18/2017 Secondary NOT GIVENUNK [place] Insurance:SELF PAY [facility] Number: Effective Repository Date:2017-10-18 10/10/2017 HIRO Read Primary HIRO [place] [id number] S Insurance:CARESOURCEP NAPIERDOB: [facility] MARKET [employer] Number: [id number] [place], [place] [id number] Repository [address]Nxv: (330) Date:2017-09-17P O [phone] (HP) [address]ATTN: [place] [address]DP: 10/10/2017 Secondary NOT GIVENUNK [place] Insurance:SELF PAY [facility] Number: Effective Repository Date:2017-10-10 10/07/2017 HIRO Read Primary HIRO [place] [id number] S Insurance:CARESOURCEP NAPIERDOB: [facility] [employer] Number: [id number] [place], [place] [id number] Repository [address]Nkf: (330) Date:2017-10-07P O [phone] (HP) [address]ATTN: [place] [address]ZI: 10/07/2017 Secondary NOT GIVENUNK [place] Insurance:SELF PAY [facility] Number: Effective Repository Date:2017-10-07 09/28/2017 HIRO L Primary HIRO Read [place] [id number] S Insurance:CARESOURCEP NAPIERDOB: [facility] [employer] Number: [id number] [place], [place] [id number] Repository [address]Syy: (330) Date:2017-09-28P O [phone] (HP) [address]ATTN: [place] [address]AA: 09/28/2017 Secondary NOT GIVENUNK [place] Insurance:SELF PAY [facility] Number: Effective Repository Date:2017-09-28 09/05/2017 HIRO L Primary HIRO Read [place] [id number] 1/2 Insurance:CARESOURCEP NAPIERDOB: Community [address] Number: [id number] [place], [place] [id number] Repository [address]Iyv: (330) Date:2017-09-05P O [phone] (HP) [address]ATTN: [place] [address]JE: 09/05/2017 Secondary NOT GIVENUNK [place] Insurance:SELF PAY [facility] Number: Effective Repository Date:2017-09-05 08/29/2017 HIRO L Primary HIRO Read [place] [id number] 1/2 Insurance:CARESOURCEP NAPIERDOB: [facility] [employer] [address] Number: [id number] Valley, [place] [id number] Repository [address]Uwn: (330) Date:2017-08-29P O [phone] (HP) [address]ATTN: [place] [address]JC: 08/29/2017 Secondary NOT GIVENUNK [place] Insurance:SELF PAY [facility] Number: Effective Repository Date:2017-08-29 08/22/2017 HIRO L Primary HIRO Read [place] [id number] 1/2 Insurance:CARESOURCEP NAPIERDOB: Community [address] [address] Number: [id number] [place], [place] [id number] Repository [address]Mak: (330) Date:2017-08-22P O [phone] (HP) [address]ATTN: [place] [address]JB: 08/22/2017 Secondary NOT GIVENUNK [place] Insurance:SELF PAY [facility] Number: Effective Repository Date:2017-08-22 08/22/2017 HIRO Read Primary HIRO Read [place] [id number] 1/2 Insurance:CARESOURCEP NAPIERDOB: Community [address] [address] Number: [id number] Valley, [place] [id number] Repository [address]Vgk: (330) Date:2017-08-13 O [phone] (HP) [address]ATTN: [place] [address]GO: 08/22/2017 Secondary NOT GIVENUNK [place] Insurance:SELF PAY [facility] Number: Effective Repository Date:2017-08-22 08/18/2017 HIRO L Primary HIRO Read [place] [id number] 1/2 Insurance:CARESOURCEP NAPIERDOB: Community [address] Number: [id number] Valley, [place] [id number] Repository [address]Mtc: (330) Date:2017-08-18P O [phone] (HP) [address]ATTN: [place] [address]DM: 08/18/2017 Secondary NOT GIVENUNK [place] Insurance:SELF PAY [facility] Number: Effective Repository Date:2017-08-18 08/14/2017 HIRO L Primary HIRO Read [place] [id number] 1/2 Insurance:CARESOURCEP NAPIERDOB: Community [address] olicy Number: [id number] [place], [place] [id number] Repository [address]Dti: (330) Date:2017-08-14P O [phone] (HP) [address]ATTN[place] [address]HC: 08/14/2017 Secondary NOT GIVENUNK [place] Insurance:SELF PAY [facility] Number: Effective Repository Date:2017-08-14 08/04/2017 HIRO Read Primary HIRO Miranda [id number] 1/2 Insurance:CARESOURCEP NAPIERDOB: Community [address] o[address] Number: [id number] Valley, [place] [id number] Repository [address]Xji: (330) Date:2017-08-04P O [phone] () [address]ATTN: [place] [address]KB: 08/04/2017 Secondary NOT GIVENUNK [place] Insurance:SELF PAY [facility] Number: Effective Repository Date:2017-08-04 05/31/2017 HIRO Read Primary HIRO Miranda [id number] 1/2 Insurance:CARESOURCEP NAPIERDOB: Community [address] o[address] Number: [id number] Valley, [place] [id number] Repository [address]Wsh: (330) Date:2017-05-23P O [phone] () [address]ATTN: [place] [address]KG: 05/31/2017 Secondary NOT GIVENUNK [place] Insurance:SELF PAY [facility] Number: Effective Repository Date:2017-05-23 05/14/2017 Hiro Read Primary Hiro Miranda [id number] 1/2 Insurance:CARESOURCEP Nap[place]DOB: Community [address] Number: [id number], [place] [id number] Repository [address]Gds: (330) Date:2017-05-10P O [phone] () [address]ATTN: [place] [address]DB: 05/14/2017 Secondary NOT GIVENUNK [place] Insurance:SELF PAY [facility] Number: Effective Repository Date:2017-05-10 05/11/2017 Hiro Read Primary Hiro [id number] 1/2 Insurance:CARESOURCEP NapierDOB: Community [address] Number: [id number], [place] [id number] Repository [address]Hck: (330) Date:2017-05-11P O [phone] (HP) [address]ATTN: [place] [address]QQ: 05/11/2017 Secondary NOT GIVENUNK [place] Insurance:SELF PAY [facility] Number: Effective Repository Date:2017-05-11 04/28/2017 Hiro Read Primary Hiro Read [place] [id number] 1/2 Insurance:CARESOURCEP NapierDOB: Community [address] Number: [id number], [place] [id number] Repository [address]Uoz: (330) Date:2017-04-28P O [phone] (HP) [address]ATTN: [place] [address]MA: 04/28/2017 Secondary NOT GIVENUNK [place] Insurance:SELF PAY [facility] Number: Effective Repository Date:2017-04-28 04/16/2017 Hiro Read Primary Hiro Miranda [id number] 1/2 Insurance:CARESOURCEP NapierDOB: Community [address] Number: [id number], [place] [id number] Repository [address]Dfo: (330) Date:2017-04-16P O [phone] (HP) [address]ATTN: [place] [address]RA: 04/16/2017 Secondary NOT GIVENUNK [place] Insurance:SELF PAY [facility] Number: Effective Repository Date:2017-04-16
== END 2018-02-16 19:16 | disposition home or self-care (01) ==
PROVIDERS: Emergency Provider Emergency Medicine; Family Provider Internal Medicine; PCP Internal Medicine
DX: M54.9 Dorsalgia, unspecified (principal); M25.562 Pain in left knee; M25.561 Pain in right knee; G89.29 Other chronic pain; M62.830 Muscle spasm of back; M17.0 Bilateral primary osteoarthritis of knee; R51 Headache; E66.9 Obesity, unspecified; F32.1 Major depressive disorder, single episode, moderate; F41.9 Anxiety disorder, unspecified; Z72.0 Tobacco use; Z79.890 Hormone replacement therapy; Z79.899 Other long term (current) drug therapy
CPT/HCPCS: 99283

== ENCOUNTER 2018-03-04 18:44 | Emergency (ER) | payer MEDICAID, SELFPAY ==
[2018-02-18 14:01] VITALS: BMI 42.5
[2018-03-04 18:45] VITALS: BP 123/78; PULSE 89; RESP 16; TEMP 36.4; O2SAT 98; BMI 43.7
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
[2018-03-04] MEDS: HYDROcodone Bitartrate/Apap 5/325 Tablet PO (20:12)
--- NOTE | 2018-03-04 21:11 | ED.DEP ---
ED Disposition - Plan for ED Patient: Chief Complaint: Lower Extremity Injury Instructions: ED Sprain Knee Prescriptions: Hydrocodone Bitart/Apap 5-325 [[place] 5MG-325MG] 1 tablet PO Q6H PRN PRN 3 Days #10 tablet PRN Reason: Pain Referrals: Onesimo Griffith MD [Primary Care Provider] - Robyn Jordan DO [STAFF PHYSICIAN] -
--- NOTE | 2018-03-04 21:20 | ED.VISSUMM ---
- ER Visit Summary Date of Service: 03/04/18 Chief Complaint: Bilateral knee pain History of Present Illness: The patient is a 52 F presenting with bilateral knee pain. Patient states she is awaiting surgery per Dr. Jordan for knee replacements. She has a history of arthritis. She states her pain in her knees has been persistent. She has fallen multiple times directly onto her knees. She has not hit her head or lost consciousness. She has tried ibuprofen at home. She states that she was homeless until recently. She was unable to have surgery until she had a place to live. She is now awaiting appointment to schedule surgery. Physical Examination: Vitals are stable. Patient is afebrile. Alert no acute distress. HEENT exam is unremarkable. Neck is supple. Lungs are clear and equal bilaterally. Heart is regular rate and rhythm. Extremities bilateral anterior knee tenderness, no erythema, no warmth. Normal distal pulses. Active full range of motion. Skin is warm and dry. No focal neurologic deficit. Remainder of exam is unremarkable. Emergency Department Course and Treatment: Bilateral knee x-rays were obtained due to fall. She has degenerative changes. She is given Helix x1. She is advised to follow-up with Dr. Jordan. Advised return to ED for any worsening complaints. Disposition: Discharge home Impression: Bilateral knee pain status post fall This note was generated with [employer] dictation software. It may contain incorrect words, spelling, and punctuation that were not noted in review of the chart prior to signing ED Disposition - Plan for ED Patient: Chief Complaint: Lower Extremity Injury Instructions: ED Sprain Knee Prescriptions: Hydrocodone Bitart/Apap 5-325 [Helix 5MG-325MG] 1 tablet PO Q6H PRN PRN 3 Days #10 tablet PRN Reason: Pain Referrals: Robyn Jordan DO [STAFF PHYSICIAN] - Onesimo Griffith MD [Primary Care Provider] -
--- NOTE | 2018-03-04 21:23 | ED.DCSUM_ITS ---
- ER Visit Summary Date of Service: 03/04/18 Chief Complaint: Bilateral knee pain History of Present Illness: The patient is a 52 F presenting with bilateral knee pain. Patient states she is awaiting surgery per Dr. Jordan for knee replacements. She has a history of arthritis. She states her pain in her knees has been persistent. She has fallen multiple times directly onto her knees. She has not hit her head or lost consciousness. She has tried ibuprofen at home. She states that she was homeless until recently. She was unable to have surgery until she had a place to live. She is now awaiting appointment to schedule surgery. Physical Examination: Vitals are stable. Patient is afebrile. Alert no acute distress. HEENT exam is unremarkable. Neck is supple. Lungs are clear and equal bilaterally. Heart is regular rate and rhythm. Extremities bilateral anterior knee tenderness, no erythema, no warmth. Normal distal pulses. Active full range of motion. Skin is warm and dry. No focal neurologic deficit. Remainder of exam is unremarkable. Emergency Department Course and Treatment: Bilateral knee x-rays were obtained due to fall. She has degenerative changes. She is given [place] x1. She is advised to follow-up with Dr. Jordan. Advised return to ED for any worsening complaints. Disposition: Discharge home Impression: Bilateral knee pain status post fall This note was generated with [employer] dictation software. It may contain incorrect words, spelling, and punctuation that were not noted in review of the chart prior to signing ED Disposition - Plan for ED Patient: Chief Complaint: Lower Extremity Injury Instructions: ED Sprain Knee Prescriptions: Hydrocodone Bitart/Apap 5-325 [[place] 5MG-325MG] 1 tablet PO Q6H PRN PRN 3 Days #10 tablet PRN Reason: Pain Referrals: Robyn Jordan DO [STAFF PHYSICIAN] - Onesimo Griffith MD [Primary Care Provider] -
[2018-03-04 21:45] VITALS: BP 114/66; PULSE 83; RESP 18; O2SAT 97
== END 2018-03-04 21:38 | disposition home or self-care (01) ==
LOC: ED 19:28
PROVIDERS: Emergency Provider Emergency Medicine; Family Provider Internal Medicine; PCP Internal Medicine
DX: M25.561 Pain in right knee (principal); M25.562 Pain in left knee; X58.XXXA Exposure to other specified factors, initial encounter; Y93.9 Activity, unspecified; Y92.9 Unspecified place or not applicable; Y99.9 Unspecified external cause status; R29.6 Repeated falls; F32.9 Major depressive disorder, single episode, unspecified; F41.9 Anxiety disorder, unspecified; Z72.0 Tobacco use; Z79.899 Other long term (current) drug therapy
CPT/HCPCS: 73564; 99283; J2405

== ENCOUNTER 2018-03-10 19:34 | Emergency (ER) | payer MEDICAID, SELFPAY ==
[2018-03-10 19:35] VITALS: BP 146/85; PULSE 93; RESP 18; TEMP 36.7; O2SAT 95; BMI 44.9
[2018-03-10 22:05] VITALS: RESP 17
--- NOTE | 2018-03-10 22:17 | ED.VISSUMM ---
- ER Visit Summary Date of Service: 03/10/18 Chief Complaint: Knee pain History of Present Illness: The patient is a 52 F presents to the emergency department with atraumatic left knee pain. The patient had these symptoms worsening over the past few months. She is been seen for the multiple times. She is scheduled to have knee surgery by Dr. Tabares. States pain is worsened over the weekend. She has not been taken anything for. She denies any falls. She denies any trauma. She denies any fevers or chills. Physical Examination: Exam is relatively unremarkable. Flexion and extension are preserved. There is no effusion over the knee. Problems are soft. Pulses are normal. Test Results: [] Emergency Department Course and Treatment: The patient has a benign examination. I no suspicion of septic joint. She had no trauma. There is no bruising. She was able to ambulate to the room. I do feel that this is more an exacerbation of her chronic arthralgia. She will be given 1 day of analgesics and will need to follow-up with orthopedics for reevaluation. Patient be discharged home. Treatment Plan: [] Disposition: Discharge Impression: Left knee arthralgia This note was generated with [employer] dictation software. It may contain incorrect words, spelling, and punctuation that were not noted in review of the chart prior to signing ED Disposition - Plan for ED Patient: Chief Complaint: Lower Extremity Injury Instructions: ED Sprain Knee Prescriptions: Walker [Ultra-Light Rollator] 1 ea X1 #1 ea Referrals: Robyn Jordan DO [STAFF PHYSICIAN] -
[2018-03-10] MEDS: HYDROcodone Bitartrate/Apap 5/325 Tablet PO (22:20)
[2018-03-10 22:22] VITALS: BP 125/67; PULSE 89; RESP 17; O2SAT 97
== END 2018-03-10 22:27 | disposition home or self-care (01) ==
PROVIDERS: Emergency Provider Emergency Medicine; Family Provider Internal Medicine; PCP Internal Medicine
DX: M25.562 Pain in left knee (principal); J44.9 Chronic obstructive pulmonary disease, unspecified; F41.9 Anxiety disorder, unspecified; Z72.0 Tobacco use; Z79.899 Other long term (current) drug therapy
CPT/HCPCS: 99282

== ENCOUNTER 2018-03-27 13:30 | Emergency (ER) | payer MEDICAID, SELFPAY ==
[2018-03-27 10:00] VITALS: BMI 44.9
[2018-03-27 13:32] VITALS: BP 119/71; PULSE 90; RESP 16; TEMP 36.7; O2SAT 98; BMI 44.9
[2018-03-27] MEDS: HYDROcodone Bitartrate/Apap 5/325 Tablet PO (14:07)
--- NOTE | 2018-03-27 14:45 | ED.VISSUMM ---
- ER Visit Summary Date of Service: 03/27/18 Chief Complaint: [] Left knee pain History of Present Illness: The patient is a 52 F [] she has had chronic left knee pain for months she indicates she had extensive outpatient evaluation of this process by orthopedic surgeons she is been told she has severe degenerative condition requiring knee surgery, she was on Percocet however her surgeons want to stop the Percocet, she indicates she scheduled for surgery in the next few weeks but then her surgeon became unavailable due to health condition and she is pending that procedure. No trauma no fever no cough no change in her chronic condition Physical Examination: [] General, no distress resting comfortably HEENT is generally unremarkable The neck is supple no adenopathy Cardiovascular, regular rate and rhythm Lungs, clear bilateral Abdomen, soft nontender Extremities, no clubbing cyanosis or edema, the left knee she has diffuse generalized discomfort in the knee she has ability to flex and extend complains of discomfort the patella is in good position there may be a small effusion, the tib-fib ankle and foot are unremarkable no signs of arterial insufficiency or venous insufficiency and she assures me this is the normal exam and normal appearance of her left knee for many months Neurologic, awake alert answering questions appropriately moving all 4 extremities Test Results: [] Emergency Department Course and Treatment: [] Long conversation with her I explained to her that her issue was likely related to her chronic condition that she agrees no additional studies are necessary as again she is scheduled to have surgery for this process she indicates her doctors are prescribed Percocet, explained her her pain management cannot be assumed from the emergency department must be provided by her outpatient providers based on state regulations etc. she understands, she is given 2 [place] here to follow with her outpatient providers for further management Treatment Plan: [] Disposition: [] home stable Impression: [] Recurrent left knee pain history of arthritis in both knees This note was generated with [employer] dictation software. It may contain incorrect words, spelling, and punctuation that were not noted in review of the chart prior to signing ED Disposition - Plan for ED Patient: Chief Complaint: Lower Extremity Injury Referrals: Onesimo Griffith MD [Primary Care Provider] -
--- NOTE | 2018-03-27 14:48 | ED.DEP ---
ED Disposition - Plan for ED Patient: Chief Complaint: Lower Extremity Injury Instructions: ED Knee Pain UKO Referrals: Onesimo Griffith MD [Primary Care Provider] - Additional Instructions: Follow-up with all of your outpatient providers for further management and pain control
== END 2018-03-27 15:21 | disposition home or self-care (01) ==
LOC: ED 15:02
PROVIDERS: Emergency Provider Emergency Medicine; Family Provider Internal Medicine; PCP Internal Medicine
DX: M17.0 Bilateral primary osteoarthritis of knee (principal); G89.29 Other chronic pain; Z79.899 Other long term (current) drug therapy
CPT/HCPCS: 99283

== ENCOUNTER → 2018-04-22 17:32 | Outpatient (CLI) | payer MEDICAID, SELFPAY ==
[2018-03-27 13:32] VITALS: BMI 44.9
[2018-04-22 13:10] VITALS: BMI 44.9
--- NOTE | 2018-04-22 17:52 | MRI_ITS ---
STUDY: MRI LEFT KNEE REASON FOR EXAM: Knee pain for 2 years, no specific injury. TECHNIQUE: Standardized fat and water weighted pulse sequences were obtained in all 3 orthogonal planes. COMPARISON: Radiographs 03/04/2018. FINDINGS: There is a small subtle complex tear of the free margin of the posterior horn of the medial meniscus (proton-density sagittal images 28-30). There is arthrosis of the medial femorotibial compartment with partial thickness chondral loss (T2 sagittal images 16, 17) and very mild subchondral bone edema. Normal medial collateral ligamentous complex (MCL). Normal distal semimembranosus, gracilis and semitendinosus tendons. Normal lateral meniscus. Normal hyaline cartilage of the lateral femorotibial compartment. Normal lateral femoral condyle and tibial plateau. Normal proximal tibiofibular articulation. Normal lateral collateral (fibular) ligament. Normal popliteus tendon. Normal biceps femoris tendon. Normal anterior cruciate ligament (ACL). Normal posterior cruciate ligament (PCL). Normal congruent patellofemoral articulation. There is arthrosis of the patellofemoral compartment with very small marginal osteophytes, partial-thickness chondral loss, especially of the medial patellar facet (T2 sagittal image 12) and subchondral cystic change of the patella. Normal medial and lateral patellar retinaculum. Normal quadriceps tendon. Normal patellar tendon. Normal Hoffa's fat pad. There is a small joint effusion with focal synovitis at the medial aspect of the patellofemoral compartment (T2 axial images 13-15). There intra-articular bodies posterior to the root of the posterior horn of the medial meniscus/posterior to the distal posterior cruciate ligament (proton-density sagittal images 22-24), the largest measuring 0.9 cm in length. There is a small popliteal cyst (T2 sagittal images 16-19). There is edema in the anterior subcutis adipose space. The otherwise visualized osseous structures are unremarkable. MRI/Lower Ext Joint Only (Routine) IMPRESSION: Arthrosis of the medial femorotibial and patellofemoral compartments. Small subtle medial meniscal tear. Posterior intra-articular bodies. Small joint effusion with focal synovitis at the medial aspect of the patellofemoral compartment. Small popliteal cyst. Electronically Signed: Mir Francis MD at 8:44 EST Tel , Service support ,
== END ==
PROVIDERS: Family Provider Internal Medicine; PCP Internal Medicine; Referring Provider Orthopaedic Surgery; Visit Provider Orthopaedic Surgery
DX: M17.12 Unilateral primary osteoarthritis, left knee (principal)
CPT/HCPCS: 73721

== ENCOUNTER 2018-05-06 09:31 | Emergency (ER) | payer MEDICAID, SELFPAY ==
[2018-04-22 13:10] VITALS: BMI 44.9
[2018-05-06 09:31] VITALS: BP 165/111; PULSE 71; RESP 20; TEMP 36.1; O2SAT 97; BMI 44.4
--- NOTE | 2018-05-06 09:52 | NURSING ---
PAGED DR EDEN FOR DR VEE
--- NOTE | 2018-05-06 09:58 | ED.VISSUMM ---
- ER Visit Summary Date of Service: 05/06/18 Chief Complaint: Look at my toes. That is the problem. History of Present Illness: The patient is a 52 F who was seen by president/[employer] on Saturday and had the nail removed from the right and left great toe. There also was a chemical application which would cause mild inflammation. Dr. Johanny polk was contacted to obtain what was done because patient is unable to tell me. She denies fever, chills night sweats. She denies anything other than pain and what she believes to be an infection of her right and left great toe Physical Examination: [] The right and left great toe have mild erythema medial side. There is no warmth, induration, lymphangitis or popliteal lymphadenopathy. There is no neurovascular compromise. DP and PT pulses are palpable but diminished. Test Results: None were obtained Emergency Department Course and Treatment: Spoke with president[employer] who performed the procedure on Saturday Treatment Plan: [place] tablet and contact Dr. Orlando's for office visit Disposition: Discharge in stable condition Impression: Pain and mild inflammation status post removal of nail right and left great toe This note was generated with [employer] dictation software. It may contain incorrect words, spelling, and punctuation that were not noted in review of the chart prior to signing ED Disposition - Plan for ED Patient: Disposition: Home or Assisted Living Instructions: ED Wound Check Post Op No Infec, ED Post Op Pain Referrals: Onesimo Griffith MD [Primary Care Provider] - Elham Orlando DPM [STAFF PHYSICIAN] -
--- NOTE | 2018-05-06 10:03 | ED.DCSUM_ITS ---
- ER Visit Summary Date of Service: 05/06/18 Chief Complaint: Look at my toes. That is the problem. History of Present Illness: The patient is a 52 F who was seen by auto mechanic supervisor on Saturday and had the nail removed from the right and left great toe. There also was a chemical application which would cause mild inflammation. Dr. Johanny polk was contacted to obtain what was done because patient is unable to tell me. She denies fever, chills night sweats. She denies anything other than pain and what she believes to be an infection of her right and left great toe Physical Examination: [] The right and left great toe have mild erythema medial side. There is no warmth, induration, lymphangitis or popliteal lymphadenopathy. There is no neurovascular compromise. DP and PT pulses are palpable but diminished. Test Results: None were obtained Emergency Department Course and Treatment: Spoke with auto mechanic supervisor who performed the procedure on Saturday Treatment Plan: [place] tablet and contact Dr. Orlando's for office visit Disposition: Discharge in stable condition Impression: Pain and mild inflammation status post removal of nail right and left great toe This note was generated with [employer] dictation software. It may contain incorrect words, spelling, and punctuation that were not noted in review of the chart prior to signing ED Disposition - Plan for ED Patient: Disposition: Home or Assisted Living Instructions: ED Wound Check Post Op No Infec, ED Post Op Pain Referrals: Onesimo Griffith MD [Primary Care Provider] - Elham Orlando DPM [STAFF PHYSICIAN] -
[2018-05-06] MEDS: HYDROcodone Bitartrate/Apap 5/325 Tablet PO (11:36)
== END 2018-05-06 11:42 | disposition home or self-care (01) ==
PROVIDERS: Emergency Provider Emergency Medicine; Family Provider Internal Medicine; PCP Internal Medicine
DX: G89.18 Other acute postprocedural pain (principal); M79.674 Pain in right toe(s); M79.675 Pain in left toe(s); Z98.890 Other specified postprocedural states; J44.9 Chronic obstructive pulmonary disease, unspecified; I10 Essential (primary) hypertension; M79.7 Fibromyalgia; E66.9 Obesity, unspecified; Z72.0 Tobacco use; F32.9 Major depressive disorder, single episode, unspecified; F41.9 Anxiety disorder, unspecified; Z79.899 Other long term (current) drug therapy
CPT/HCPCS: 99283

== ENCOUNTER → 2018-05-20 17:48 | Outpatient (CLI) | payer MEDICAID, SELFPAY ==
[2018-05-06 09:31] VITALS: BMI 44.4
[2018-05-20 19:57] LABS: M R Staph aureus DNA By PCR Negative (Negative); Probe Check PASS; Staph aureus DNA By PCR POSITIVE (Negative)
== END ==
PROVIDERS: Family Provider Internal Medicine; PCP Internal Medicine; Referring Provider Podiatrist; Visit Provider Podiatrist
DX: L60.0 Ingrowing nail (principal)
CPT/HCPCS: 87070; 87075; 87076; 87077; 87186; 87205; 87640

== ENCOUNTER 2018-05-22 14:21 | Emergency (ER) | payer MEDICAID, SELFPAY ==
[2018-05-22 14:22] VITALS: BP 156/88; PULSE 87; RESP 20; TEMP 36.8; O2SAT 94; BMI 44.4
--- NOTE | 2018-05-22 14:34 | ED.VISSUMM ---
- ER Visit Summary Date of Service: 05/22/18 Chief Complaint: Right hip injury History of Present Illness: The patient is a 52 F who states that she has a right hip injury. She fell off of her air mattress last night. She complains of pain in the right hip and right lower back area. Is worse with walking. She was able to ambulate without any assistance. She took no medications for this at home. Denies any previous fractures or injuries to this area. She does have a history of arthritis and anxiety Physical Examination: Vital signs reviewed. Heart is regular rate and rhythm. Lungs clear to auscultation. Abdomen soft nontender. Her right hip exam has no tenderness to palpation. She has full range of motion with no pain. Her back is tender in the right lumbar paraspinal area. Skin exam reveals no abnormalities. Her neuro Test Results: None performed Emergency Department Course and Treatment: The patient will be treated with Altus here. She has no bony tenderness. I have no suspicion for a hip injury. I feel this is all muscular in the lower back. I will give her one Altus here, Dolobid and Flexeril for home. She will follow-up with her PCP Treatment Plan: [] Disposition: Discharge Impression: Lumbar strain This note was generated with [employer] dictation software. It may contain incorrect words, spelling, and punctuation that were not noted in review of the chart prior to signing ED Disposition - Plan for ED Patient: Referrals: Onesimo Griffith MD [Primary Care Provider] -
--- NOTE | 2018-05-22 14:36 | ED.DEP ---
ED Disposition - Plan for ED Patient: Disposition: Home or Assisted Living Instructions: ED Sprain Strain Lumbar Prescriptions: Cyclobenzaprine [Flexeril] 10 mg PO TID PRN #20 tab PRN Reason: Muscle Spasm Diflunisal [Dolobid] 500 mg PO TID #20 tab Referrals: Onesimo Griffith MD [Primary Care Provider] -
[2018-05-22] MEDS: HYDROcodone Bitartrate/Apap 5/325 Tablet PO (14:38)
[2018-05-22 15:01] VITALS: RESP 18
== END 2018-05-22 15:02 | disposition home or self-care (01) ==
LOC: ED 14:53
PROVIDERS: Emergency Provider Emergency Medicine; Family Provider Internal Medicine; PCP Internal Medicine
DX: S39.012A Strain of muscle, fascia and tendon of lower back, initial encounter (principal); W06.XXXA Fall from bed, initial encounter; Y93.9 Activity, unspecified; Y92.9 Unspecified place or not applicable; Y99.9 Unspecified external cause status; M19.90 Unspecified osteoarthritis, unspecified site; F41.9 Anxiety disorder, unspecified; Z72.0 Tobacco use; Z79.899 Other long term (current) drug therapy
CPT/HCPCS: 99283

== ENCOUNTER 2018-07-11 11:39 | Emergency (ER) | payer MEDICAID, SELFPAY ==
[2018-06-17 13:55] VITALS: BMI 44.4
[2018-07-11 11:40] VITALS: BP 147/82; PULSE 77; RESP 16; TEMP 37.1; O2SAT 95; BMI 44.4
[2018-07-11] MEDS: HYDROcodone Bitartrate/Apap 5/325 Tablet PO (11:57)
--- NOTE | 2018-07-11 11:57 | RAD_ITS ---
STUDY: X-RAY - LUMBAR SPINE REASON FOR EXAM: Female, 52 years old. Low back pain TECHNIQUE: 3 view(s) of the lumbar spine were obtained. COMPARISON: April 16, 2017 FINDINGS: Normal lumbar lordosis. There is no substantial scoliosis. There is a normal alignment of the vertebrae. Normal vertebral bodies. Mild endplate spurring. Normal disc space heights. There is no demonstrated fracture. There is atherosclerotic calcification of the abdominal aorta without a demonstrated aneurysm. RAD/Lumbar Spine 2 or 3 Views IMPRESSION: Mild degenerative changes of the spine, as detailed above. Electronically Signed: Johnny Lua MD at 12:24 EDT , Service support ,
[2018-07-11 12:09] LABS: Bacteria 0 SEEN /hpf (None Seen); Mucous, Urine 0 SEEN /hpf (<or=2+); White Blood Cells 0 SEEN /hpf (0-5)
[2018-07-11 12:15] LABS: Color, Urine Yellow (Yellow); Glucose, Dipstick Normal (Normal); Ketone-Dipstick Negative (Negative); Leukocyte Esterase-Dipstick Negative /ul (Negative); Nitrite-Dipstick Negative (Negative); Occult Blood-Urine 25 /ul (Negative); Protein-Dipstick Negative (Negative); Specific Gravity, Urine 1.005 (1.002-1.030); Urine Bilirubin Dipstick Negative (Negative); Urine Clarity Sl. Cloudy (Clear); Urine Urobilinogen Normal (Normal)
[2018-07-11 12:21] LABS: Red Blood Cells-Urine 0-5 SEEN /hpf (0-5); Squamous Epithelial Cells - UA 0-5 SEEN /hpf (5-10)
--- NOTE | 2018-07-11 12:56 | ED.DCSUM_ITS ---
- ER Visit Summary Date of Service: 07/11/18 Chief Complaint: Left low back pain History of Present Illness: The patient is a 52 F with left low back pain. The patient had a mechanical fall about 2 weeks ago. She fell off a ladder from about 2 feet. She struck her low back. States she was doing better until the past 2 days ago. States the pain returned. States worse when she moves. She is also been having some mild urinary frequency. She is tried ibuprofen with little improvement. She denies any change in gait. She denies any trouble with bowel bladder. She denies any fevers or chills. Physical Examination: Afebrile, vitals unremarkable. Well-appearing female no acute distress. Head is normocephalic, atraumatic. Pupil's equal round reactive, extraocular muscles intact. Neck supple. Heart regular rate and rhythm. Lungs clear, chest nontender. Abdomen soft, nontender, nondistended. No pulsatile mass. Patient has paraspinal tenderness in the lumbar area, but no bony tenderness. Straight leg raise is negative bilaterally. 2+ symmetric lower extremity pulses. 2+ reflexes. No clonus. No weakness of dorsiflexion, plantar flexion, or extensor hallucis longus bilaterally. Test Results: [] Emergency Department Course and Treatment: The patient's pain does seem entirely muscular. However given her fall, I did obtain plain films. These were unremarkable. Patient was given oral analgesics with improvement of her symptoms. She is feeling improved. Again, she has no red flag symptoms. I do not suspect a dangerous process. I do feel that she is safe for outpatient therapy. She will be given antispasmodics. She will be discharged home. Treatment Plan: [] Disposition: Discharge Impression: 1. Lumbar strain with spasm This note was generated with [employer] dictation software. It may contain incorrect words, spelling, and punctuation that were not noted in review of the chart prior to signing ED Disposition - Plan for ED Patient: Instructions: ED Sprain Strain Lumbar Prescriptions: Cyclobenzaprine [Flexeril] 10 mg PO TID PRN #20 tab PRN Reason: Muscle Spasm Referrals: Onesimo Griffith MD [Primary Care Provider] -
[2018-07-11 13:16] VITALS: PULSE 78; RESP 16; O2SAT 97
== END 2018-07-11 13:17 | disposition home or self-care (01) ==
LOC: ED 12:19
PROVIDERS: Emergency Provider Emergency Medicine; Family Provider Internal Medicine; PCP Internal Medicine
DX: S39.012A Strain of muscle, fascia and tendon of lower back, initial encounter (principal); M62.830 Muscle spasm of back; W11.XXXA Fall on and from ladder, initial encounter; Y93.9 Activity, unspecified; Y92.9 Unspecified place or not applicable; Y99.9 Unspecified external cause status; R35.0 Frequency of micturition; K21.9 Gastro-esophageal reflux disease without esophagitis; Z79.899 Other long term (current) drug therapy
CPT/HCPCS: 72100; 81001; 99283

== ENCOUNTER 2018-10-04 21:37 | Emergency (ER) | payer MEDICAID, SELFPAY ==
[2018-09-22 09:43] VITALS: BMI 44.4
[2018-10-04 21:38] VITALS: BP 157/94; PULSE 78; RESP 16; TEMP 36.3; O2SAT 95; BMI 46.1
[2018-10-04 23:32] VITALS: BP 148/86; PULSE 80; RESP 18; O2SAT 96
--- NOTE | 2018-10-04 23:43 | ED.VISSUMM ---
- ER Visit Summary Date of Service: 10/04/18 Chief Complaint: Laceration History of Present Illness: The patient is a 52 F presenting with laceration left ring finger. She states that she was washing dishes and a glass broke. She cut her left ring finger. Last tetanus is unknown. She is not on anticoagulants. No other complaints. Physical Examination: Vitals are stable. Patient is afebrile. Alert no acute distress. HEENT exam is unremarkable. Neck is supple. Lungs are clear and equal bilaterally. Heart is regular rate and rhythm. Extremities 1.5 cm flap laceration dorsal aspect of left ring finger. Tendon function is intact. Normal cap refill. Skin is warm and dry. No focal neurologic deficit. Remainder of exam is unremarkable. Emergency Department Course and Treatment: Patient was given tetanus IM. X-ray left hand shows degenerative joint disease of the hand, there is no acute bone injury. There is no evidence of radiopaque foreign body . Wound was irrigated. Closed with Dermabond. Aluminum/foam splint was applied. Advised wound care instructions. Advised to follow-up with primary care physician. Advised return to ED for worsening complaints. Disposition: Discharge home Impression: Left ring finger laceration, laceration repair This note was generated with [employer] dictation software. It may contain incorrect words, spelling, and punctuation that were not noted in review of the chart prior to signing ED Disposition - Plan for ED Patient: Instructions: LACERATION, Extremity (Skin Glue) Prescriptions: Hydrocodone Bitart/Apap 5-325 [[place] 5MG-325MG] 1 tab PO Q6H PRN PRN 3 Days #8 tab PRN Reason: Pain Prescription Printed Referrals: Onesimo Griffith MD [Primary Care Provider] -
--- NOTE | 2018-10-04 23:59 | RAD_ITS ---
STUDY: X-RAY - RIGHT HAND REASON FOR EXAM: Female, 52 years old. pt cut fourth digit on R hand on piece of glass. TECHNIQUE: 3 view(s) of the hand. COMPARISON: None. FINDINGS: Normal radiocarpal articulation. There is a lucent lesion in the distal end of the ulna measures 8 mm most likely represent a subchondral cyst from degenerative changes in the distal radioulnar joint. Normal visualized carpal bones. Normal carpal articulations Normal carpometacarpal articulation of the thumb. Normal second through fifth carpometacarpal joints. Normal metacarpi. Normal metacarpophalangeal joint of the thumb. Normal interphalangeal joint of the thumb. Normal proximal and distal phalanges of the thumb. Normal metacarpophalangeal joints of the second through fifth fingers. Degenerative changes in the proximal interphalangeal joint of the middle finger. Normal phalanges of the second through fifth fingers. The soft tissue structures are unremarkable. RAD/Hand Min 3 Views IMPRESSION: Degenerative joint disease of the hand, as described above. There is no acute bone injury. There is no evidence of radiopaque foreign body Electronically Signed: Alejandrina De La Cruz, at 2:03 EDT Tel , Service support ,
--- NOTE | 2018-10-05 01:21 | DCINST.ED_ITS ---
ED Disposition - Plan for ED Patient: Instructions: LACERATION, Extremity (Skin Glue) Prescriptions: Hydrocodone Bitart/Apap 5-325 [[place] 5MG-325MG] 1 tablet PO Q6H PRN PRN 3 Days #8 tablet PRN Reason: Pain Referrals: Onesimo Griffith MD [Primary Care Provider] -
[2018-10-05] MEDS: HYDROcodone Bitartrate/Apap 5/325 Tablet PO (02:01)
--- NOTE | 2018-10-05 02:12 | ED.RN ---
PATIENT REPORTS THE PREVIOUS NURSE DID GIVEN HER THE TETANUS SHOT IN THE RIGHT DELTOID.
[2018-10-05 02:13] VITALS: BP 157/94; PULSE 80; RESP 15; O2SAT 97
== END 2018-10-05 02:14 | disposition home or self-care (01) ==
LOC: ED 10-05 00:46
PROVIDERS: Emergency Provider Emergency Medicine; Family Provider Internal Medicine; PCP Internal Medicine
DX: S61.215A Laceration without foreign body of left ring finger without damage to nail, initial encounter (principal); W25.XXXA Contact with sharp glass, initial encounter; Y93.G1 Activity, food preparation and clean up; Y92.9 Unspecified place or not applicable; Y99.9 Unspecified external cause status; Z23 Encounter for immunization; J44.9 Chronic obstructive pulmonary disease, unspecified; F41.9 Anxiety disorder, unspecified; Z72.0 Tobacco use; Z79.899 Other long term (current) drug therapy
CPT/HCPCS: 12001; 73130; 90715; 99284

== ENCOUNTER → 2018-10-27 10:50 | Outpatient (CLI) | payer MEDICAID, SELFPAY ==
[2018-10-27 10:15] VITALS: BMI 46.1
[2018-10-27 12:51] LABS: Absolute Lymphocyte Count 1.86 X10^3/uL (0.83-4.51); Absolute Neutrophil Count 5.5 X10^3/uL (2.0-7.7); Basophil# 0.05 X10^3/uL; Basophil% 0.6 % (0-1); Eosinophil# 0.27 X10^3/uL; Eosinophils% 3.2 % (0-5); Hematocrit 44.1 % (37-47); Hemoglobin 14.5 g/dL (12.0-15.0); Lymphocyte # 1.86 X10^3/ul (4.0); Lymphocyte % 21.9 % (19-41); Mean Corp Hgb Conc 32.9 g/dL (32-36); Mean Corpuscular Hgb 29.7 pg (27.0-32.0); Mean Corpuscular Volume 90.2 fL (81-99); Mean Platelet Vol. 9.7 fl (6.2-12.0); Monocyte# 0.81 X10^3/uL; Monocyte% 9.5 % (0-10); NRBC Flagged by Analyzer 0 % (0-5); Neutrophil # 5.48 X10^3/uL (2.7-7.7); Neutrophil % 64.3 % (47-70); Platelet Count 273 K/mm3 (150-450); RBC Distribution Width CV 12.2 % (11.6-14.6); RBC Distribution Width SD 40.3 fl (35.1-43.9); Red Blood Count 4.89 M/mm3 (4.2-5.4); White Blood Count 8.5 K/mm3 (4.4-11.0)
[2018-10-27 13:10] LABS: ALB/GLOB Ratio 0.6 RATIO (0.9-2.4); AST(SGOT) 16 U/L (15-37); Alanine Aminotransfer ALT/SGPT 19 U/L (13-56); Albumin, Serum 2.9 g/dL (3.2-5.0); Alkaline Phosphatase 96 U/L (45-117); Anion Gap 5 (5-15); BUN 10 mg/dL (7-18); BUN/Creat Ratio 9.3 RATIO (10-20); Calcium,Total 8.8 mg/dL (8.5-10.1); Chloride 105 mmol/L (98-107); Creatinine, Serum 1.08 mg/dL (0.55-1.02); EST Glomerular Filtration Rate 56 mL/min (>60); Est Glom Filt Rate - Afr Amer 68 mL/min (>60); Globulin 4.6 g/dL (2.2-4.2); Glucose 96 mg/dL (74-106); Potassium 3.9 mmol/L (3.5-5.1); Protein, Total 7.5 g/dL (6.4-8.2); Sodium Level 138 mmol/L (136-145)
== END ==
PROVIDERS: Family Provider Internal Medicine; PCP Internal Medicine; Visit Provider Internal Medicine
DX: R53.81 Other malaise (principal); R53.83 Other fatigue
CPT/HCPCS: 36415; 80053; 85025

== ENCOUNTER → 2018-12-01 11:58 | Outpatient (CLI) | payer MEDICAID, SELFPAY ==
[2018-11-28 10:45] VITALS: BMI 46.1
== END ==
PROVIDERS: Family Provider Internal Medicine; PCP Internal Medicine; Visit Provider Internal Medicine
DX: K92.2 Gastrointestinal hemorrhage, unspecified (principal)
CPT/HCPCS: 82274

== ENCOUNTER → 2019-01-09 12:45 | Outpatient (CLI) | payer MEDICAID, SELFPAY ==
[2018-12-04 09:08] VITALS: BMI 46.1
--- NOTE | 2018-12-04 09:47 | HP_ITS ---
Intake Vital Signs 12/04/18 Body Mass Index (BMI) 46.1 12/04/18 Height 5 ft 6 in 12/04/18 Weight: 282 lb 12/04/18 Body Mass Index (BMI) 45.5 12/04/18 Blood Pressure 138/90 H 12/04/18 Blood Pressure Location Rt brachial 12/04/18 Respiratory Rate 18 Intake Visit Reasons: Hemorrhoids Chief Complaint: diarrhea and rectal bleeding Entry Level Sales Representative Required: No Is patient in pain?: Yes (rectal pain) Allergies ceftriaxone sodium [From Rocephin] Allergy (Verified 12/04/18 09:07) Hives diclofenac potassium [From Cataflam] Adverse Reaction (Verified 12/04/18 09:07) Upset Stomach meperidine HCl [From Demerol] Adverse Reaction (Verified 12/04/18 09:07) Upset Stomach naproxen [From Aleve] Adverse Reaction (Verified 12/04/18 09:07) Upset Stomach Penicillins [PCN] Adverse Reaction (Verified 12/04/18 09:07) Upset Stomach Sulfa (Sulfonamide Antibiotics) Adverse Reaction (Verified 12/04/18 09:07) Upset Stomach Medications Lorazepam [Ativan] 1 mg PO Q12H PRN PRN 12/27/12 [History Confirmed 12/04/18] Venlafaxine XR [Effexor Xr] 75 mg PO DAILY 12/01/14 [History Confirmed 12/04/18] Estradiol 1.5 mg PO DAILY 02/21/17 [History Confirmed 12/04/18] Cane 0 x .ROUTE .MEDSUPPLY 05/22/18 [History Confirmed 12/04/18] nicotine 21mg/24hr-14mg/24hr-7mg/24hr daily transderm patch,sequential 1 patch TRANSDERMAL DAILY #56 patch 09/02/18 [Rx Confirmed 12/04/18] Over the top grab bar #1 ea 09/17/18 [Rx Confirmed 12/04/18] meclizine 25 mg tablet 25 mg PO QDAY PRN #30 tab 10/28/18 [Rx Confirmed 12/04/18] omeprazole 40 mg capsule,delayed release 40 mg PO DAILY #90 cap 10/28/18 [Rx Confirmed 12/04/18] acetaminophen 500 mg capsule 500 mg PO Q6H 11/19/18 [History Confirmed 12/04/18] nystatin 100,000 unit/mL oral suspension 400,000 unit PO DAILY #200 ml 11/19/18 [Rx Confirmed 12/04/18] hydrocortisone 2.5 % topical ointment 1 applic TOPICAL BID #28.35 g 11/28/18 [Rx Confirmed 12/04/18] [facility] Medical History (Updated 12/04/18 @ 09:45 by Nestor Sue MD) Rectal bleeding (Acute) Abdominal pain (Acute) Anxiety and depression (Acute) Frequent headaches (Acute) History of hysterectomy (Acute) Impaired glucose tolerance (Acute) Vertigo (Acute) Arthritis of hip (Chronic) COPD (chronic obstructive pulmonary disease) (Chronic) Chronic constipation (Chronic) Chronic low back pain (Chronic) Dyslipidemia (Chronic) GERD (gastroesophageal reflux disease) (Chronic) Hypertension (Chronic) Osteoarthritis of knee (Chronic) Surgical History (Updated 09/28/17 @ 20:40 by Johnny Crenshaw MD) H/O total hysterectomy (Inactive) s/p left wrist (Inactive) Family History (Updated 10/18/17 @ 10:44 by Stephie Barnett) Mother Hypertension Ovarian cancer Colon cancer Breast cancer Brother Alcoholism Cancer lung, liver Sister Kidney disease Thyroid disorder Cancer Social History (Updated 12/04/18 @ 09:47 by Nestor Sue MD) Smoking Status: Current every day smoker Tobacco: How many years used: 40 alcohol intake: never substance use type: does not use what type of physical activity do you participate in: none HPI HPI HPI: HIRO HUNT, is a 53 F who presents to the office today for HPI HPI Surgical H&P: Yes HPI: HIRO HUNT, is a 53 F who presents to the office today for surgical consultation regarding diarrhea followed by rectal bleeding followed by anorectal pain. The patient is referred by her primary care physician Dr. Griffith and a written copy of my surgical consult will be returned to her. The patient has never had a colonoscopy. She is currently using hemorrhoidal creams with no benefit. She states that she has a chronic anxiety disorder. She states that she smokes at least one pack per day of tobacco if not more. She has COPD. She readily states that she has absolutely no pain tolerance. She has COPD. Depression. She thought she might have hemorrhoids. She has not been running any fever or chills ROS General General: Yes weight change and fatigue; no appetite, colon cancer, breast cancer or weakness HEENT HEENT: No difficulty swallowing, eye injury, eye surgery, swollen glands or hoarseness Endo Endocrine: No thyroid disease, diabetes mellitus, thyroid cancer, Hair loss, heat intolerance or cold intolerance Skin Skin: No rash or changing moles Breast Breast: No left breast lump, right breast lump, nipple discharge, breast pain, abnormal mammogram, abnormal US or breast enlargement Musc Musculoskeletal: Yes back problems, arthritis and rheumatoid arthritis; no gout or joint pain Cardio Cardiovascular: No murmur, pacemaker, heart disease, atrial fibrillation, high blood pressure, heart attack, heart stent, palpitations, shortness of breat with exertion or chest pain Psych Psychiatric: Yes depression and anxiety; no hearing voices Resp Respiratory: Yes shortness of breath, Yes sleep apnea, Yes cough, Yes COPD, No asthma, No emphysema, No wheezing Gastro Gastrointestinal: No abdominal pain, No nausea or vomiting, No diarrhea, No constipation, Yes blood in stool, Yes acid reflux, Yes hemorrhoids, No ulcers, No gallbladder problem, No black,tarry stools Dio Hematologic: No blood thinners, No blood disorders, Yes bleeding, No anemia, No blood clots Neuro Neurologic: No system reviewed and no additional complaints, except as docu, No as per HPI, No abnormal walking, No abnormal hearing, No abnormal movements, No abnormal speech, No behavioral changes, No burning sensations, No confusion, No seizure-like activity, No unsteadiness, No dizziness, No localized weakness, No frequent falls, No headache(s), No lack of coordination, No loss of vision, No memory loss, No numbness, No other visual disturbances, No radiating pain, No restless legs, No sensory deficit, No fainting, No tingling, No tremor(s), No weakness, No other Exam Const Nutritional Appearance: obese morbidly obese Orientation: alert, awake Other: Extraordinarily heavy odor of tobacco. BMI is 46.1 [facility] Head: normal to inspection Chest Breast Palpation: No nipple discharge Resp Effort & Inspection: normal respiratory effort, other (Poor respiratory excursion) Cardio Rate: regular rate Rhythm: regular rhythm Heart Sounds: no murmurs GI Other: Markedly overweight, I cannot detect any internal organs, no focal tenderness, nonspecific bowel sounds External anal exam suggests some mild external hemorrhoidal disease on the left. There is no visual evidence of thrombosed hemorrhoid. There is no fluctuance. No erythema. Neuro Cognition: normal cognition Extrem General: no calf tenderness bilaterally Psych Affect: anxious affect Assessment & Plan Problems 1. Rectal bleeding K62.5 Plan I did not attempt a digital rectal exam today because of the patient's high anxiety and pain intolerance. I am recommending to her a colonoscopy with possible biopsy or polypectomy as indicated. I have described the technique benefit risk comp occasions and alternatives. The patient has comorbidities including morbid obesity and COPD and significant tobacco abuse. We will utilize monitored anesthesia care. The patient may require future surgical intervention but at this time I do not have a diagnosis or etiology. I am recommending the colonoscopy to assist with differentiating the findings. We will try to schedule and expedite her care. Appreciate the opportunity of assisting with her surgical management. CC: Dr. Onesimo Sue M.D., F.A.C.S. Coding Level of Care Code 12595 Diagnoses Rectal bleeding K62.5 12/04/18 0947 <Electronically signed by Nestor hernandez MD> Date _ Nestor Sue MD
[2018-12-26 15:14] VITALS: BMI 46.1
== END ==
PROVIDERS: Family Provider Internal Medicine; PCP Internal Medicine; Referring Provider Internal Medicine; Visit Provider Surgery
DX: K62.5 Hemorrhage of anus and rectum (principal); Z53.9 Procedure and treatment not carried out, unspecified reason; K59.00 Constipation, unspecified; K21.9 Gastro-esophageal reflux disease without esophagitis; R19.7 Diarrhea, unspecified; R10.9 Unspecified abdominal pain; J44.9 Chronic obstructive pulmonary disease, unspecified; I10 Essential (primary) hypertension; E78.5 Hyperlipidemia, unspecified; M54.5 Low back pain; G89.29 Other chronic pain; F32.9 Major depressive disorder, single episode, unspecified; F41.9 Anxiety disorder, unspecified; F17.200 Nicotine dependence, unspecified, uncomplicated; E66.01 Morbid (severe) obesity due to excess calories; Z68.42 Body mass index [BMI] 45.0-49.9, adult; Z79.899 Other long term (current) drug therapy; Z90.710 Acquired absence of both cervix and uterus

== ENCOUNTER 2019-02-05 12:57 | Emergency (ER) | payer MEDICAID, SELFPAY ==
[2018-12-26 15:14] VITALS: BMI 46.1
[2019-02-05 12:59] VITALS: BP 160/94; PULSE 79; RESP 16; TEMP 36.6; O2SAT 95; BMI 46.5
--- NOTE | 2019-02-05 13:33 | ED.VIS.GEN ---
History of Present Illness Chief Complaint: Cold Sx Informant: Patient Onset: Weeks Current Severity: Mild Narrative: Runny nose sore throat and cough for about a week He was seen the other day in an outpatient clinic rapid strep throat screen was negative indicates she continues to have a runny nose and a harsh cough presents for evaluation no other complaints no fever no head neck chest or abdominal pain she indicates he has chronic COPD, diabetes high cholesterol all generally well controlled and she is unable to obtain refill of her Proventil from her outpatient providers, no history of NH PE or DVT Past Medical History - Allergies and Home Meds Allergies/Adverse Reactions: Allergies ceftriaxone sodium [From Rocephin] Allergy (Verified 12/05/18 08:20) Hives Cephalosporins Allergy (Verified 12/05/18 08:24) Rash doxycycline Allergy (Verified 12/05/18 08:24) rapid heart rate/anxiety attack gabapentin Allergy (Verified 12/05/18 08:24) Unknown caffeine Adverse Reaction (Verified 12/05/18 08:24) increases anxiety diclofenac potassium [From Cataflam] Adverse Reaction (Verified 12/05/18 08:20) Upset Stomach meperidine HCl [From Demerol] Adverse Reaction (Verified 12/05/18 08:20) Upset Stomach naproxen [From Aleve] Adverse Reaction (Verified 12/05/18 08:20) Upset Stomach Penicillins [PCN] Adverse Reaction (Verified 12/05/18 08:20) Upset Stomach Sulfa (Sulfonamide Antibiotics) Adverse Reaction (Verified 12/05/18 08:20) Upset Stomach Primary Care Physician: Onesimo Griffith MD [Primary Care Provider] - Past Medical History: - - COPD Smoking Status: Current every day smoker Review of Systems General: Denies: Chills, Fever, Sweats Eyes: Denies: Visual changes - bilaterally, Diplopia ENT: Reports: Rhinorrhea. Denies: Sore throat Cardiovascular: Denies: Chest pain, Palpitations Respiratory: Reports: Cough. Denies: Dyspnea, Dyspnea on exertion Gastrointestinal: Denies: Abdominal pain, Nausea, Vomiting, Diarrhea, Melena, Hematochezia Genitourinary: Denies: Dysuria, Hematuria, Frequency Musculoskeletal: Denies: Back pain, Extremity Pain Skin: Denies: Rash, Wounds Neurological: Denies: Headache, Weakness, Numbness Physical Exam Vital Signs/Narrative: Vital Signs Temp Pulse Resp BP Pulse Ox 02/05/19 12:59 97.8 F 79 16 160/94 H 95 General: Well nourished, Well developed, No Acute Distress Head: Normocephalic, Atraumatic Eyes: Perrl, EOMI ENT: Moist mucous membranes, - - Does have rhinorrhea Neck: Supple, Nontender Cardiovascular: Regular rate, Regular rhythm, No murmurs Respiratory: No distress, CTA bilaterally, Chest nontender, - - Patient's lungs are clear should her nose is slightly congested the throat is minimally red her airways intact she has good excursion she speaking in full sentences she has a very subtle intermittent dry cough that she believes is related to the copious rhinorrhea Abdomen: Soft, Nontender, Nondistended, Normal bowel sounds Back: Nontender, Normal Inspection Extremities: Nontender, No edema Skin: Normal color, No rash Neurological: Alert, Oriented x3, Cranial nerves II-XII grossly intact, Normal Strength, Normal Sensation Psychological: Normal affect, Normal Mood Diagnostic/Tx/Re-eval - Medical Decision Making The patient's physical exam and vital signs are generally unremarkable her chief issue is rhinorrhea with harsh cough clinically she looks well we discussed management she simply wants something for the nasal drainage and the cough, I explained x-ray would be of low yield given all of the above she agrees and that is deferred, she was started on Proventil Flonase and she will follow-up with her outpatient providers Home with stable Final impression URI with cough ED Disposition - Plan for ED Patient: Diagnosis: URI Instructions: Copd Flare Prescriptions: Fluticasone 0.05% [Flonase Nasal [place]] 2 spray NASAL DAILY #1 nasal.sry Prescription Printed Albuterol Inhaler [Ventolin Hfa] 1 - 2 puff INHALATION Q4H PRN PRN #1 inhaler PRN Reason: Wheezing Prescription Printed Referrals: Onesimo Griffith MD [Primary Care Provider] -
[2019-02-05 14:04] VITALS: BP 108/72; PULSE 78; RESP 16; O2SAT 95
== END 2019-02-05 14:07 | disposition home or self-care (01) ==
LOC: ED 13:53
PROVIDERS: Emergency Provider Emergency Medicine; Family Provider Internal Medicine; PCP Internal Medicine
DX: J06.9 Acute upper respiratory infection, unspecified (principal); J44.9 Chronic obstructive pulmonary disease, unspecified; E11.9 Type 2 diabetes mellitus without complications; E78.00 Pure hypercholesterolemia, unspecified; F17.200 Nicotine dependence, unspecified, uncomplicated; Z79.899 Other long term (current) drug therapy; Z88.6 Allergy status to analgesic agent; Z88.5 Allergy status to narcotic agent; Z88.2 Allergy status to sulfonamides; Z88.1 Allergy status to other antibiotic agents; Z88.0 Allergy status to penicillin
CPT/HCPCS: 99282

== ENCOUNTER 2019-09-27 18:23 | Emergency (ER) | payer MEDICAID, SELFPAY ==
[2019-09-27 18:24] VITALS: BP 165/108; PULSE 83; RESP 18; TEMP 36.2; O2SAT 96; BMI 45.7
--- NOTE | 2019-09-27 20:47 | RAD_ITS ---
STUDY: X-RAY CHEST REASON FOR EXAM: Female, 53 years old. Sore throat TECHNIQUE: Frontal view of the chest COMPARISON: 01/30/2018 FINDINGS: The lungs are clear. There are no pleural effusions. There is no pneumothorax. The heart is normal in size. The visualized osseous structures are within normal limits. RAD/Chest 1 View (Portable) IMPRESSION: No acute thoracic pathology. Electronically Signed: Oz Aranda, at 21:08 EDT Tel , Service support ,
[2019-09-27 21:09] LABS: Absolute Lymphocyte Count 2.41 X10^3/uL (0.83-4.51); Absolute Neutrophil Count 5.9 X10^3/uL (2.0-7.7); Basophil# 0.03 X10^3/uL; Basophil% 0.3 % (0-1); Eosinophil# 0.27 X10^3/uL; Eosinophils% 2.9 % (0-5); Hematocrit 44.8 % (37-47); Hemoglobin 14.7 g/dL (12.0-15.0); Lymphocyte # 2.41 X10^3/ul (4.0); Lymphocyte % 25.4 % (19-41); Mean Corp Hgb Conc 32.8 g/dL (32-36); Mean Corpuscular Hgb 29.6 pg (27.0-32.0); Mean Corpuscular Volume 90.3 fL (81-99); Monocyte% 8.4 % (0-10); NRBC Flagged by Analyzer 0 % (0-5); Neutrophil # 5.93 X10^3/uL (2.7-7.7); Neutrophil % 62.7 % (47-70); Platelet Count 277 K/mm3 (150-450); RBC Distribution Width CV 12.7 % (11.6-14.6); RBC Distribution Width SD 41.6 fl (35.1-43.9); Red Blood Count 4.96 M/mm3 (4.2-5.4); White Blood Count 9.5 K/mm3 (4.4-11.0)
[2019-09-27 21:26] LABS: ALB/GLOB Ratio 0.7 RATIO (0.9-2.4); AST(SGOT) 24 U/L (15-37); Alanine Aminotransfer ALT/SGPT 21 U/L (13-56); Alkaline Phosphatase 85 U/L (45-117); Anion Gap 3 (5-15); BUN 9 mg/dL (7-18); BUN/Creat Ratio 8.7 RATIO (10-20); Calcium,Total 8.9 mg/dL (8.5-10.1); Chloride 106 mmol/L (98-107); Creatinine, Serum 1.03 mg/dL (0.55-1.02); EST Glomerular Filtration Rate 59 mL/min (>60); Est Glom Filt Rate - Afr Amer 72 mL/min (>60); Estimated Creatinine Clearance 56.84 ml/min; Globulin 4.5 g/dL (2.2-4.2); Glucose 82 mg/dL (74-106); Potassium 4.5 mmol/L (3.5-5.1); Protein, Total 7.5 g/dL (6.4-8.2); Sodium Level 139 mmol/L (136-145)
--- NOTE | 2019-09-27 23:05 | ED.DCSUM_ITS ---
- ER Visit Summary Date of Service: 09/27/19 Chief Complaint: Sore throat History of Present Illness: The patient is a 53 F who presents with a sore throat that is been getting worse over the past week. Patient describes her pain as stabbing. Patient state is over her anterior neck and throat area. Patient denies any fevers or chills. Patient states her pain is worse with talking. Patient admits to some diarrhea but denies any nausea or vomiting. Patient admits to some nasal congestion but denies any rhinorrhea. Patient admits to a sore throat. Patient admits to a cough but denies any sputum production. Physical Examination: Vital signs are stable. Patient is afebrile. Patient is in no acute distress. Oral mucosa is pink and moist. There is erythema in the oropharynx but there are no exudates. Neck is supple. Trachea is midline. There is no JVD or lymphadenopathy appreciated. Heart was regular rate and rhythm. Lungs are clear and equal bilaterally. Cranial nerves II through XII are intact. There are no focal motor or sensory deficits noted. Test Results: CBC and comprehensive metabolic profile was obtained and was within normal limits. Rapid strep was obtained and was negative. Portable chest x-ray was obtained. There is no acute cardiopulmonary process. This was interpreted by the radiologist and reviewed by myself. Emergency Department Course and Treatment: Patient was feeling better on reevaluation. Patient was advised of her findings. Patient was advised that this is most likely a viral pharyngitis. Patient was instructed to drink plenty of fluids. Patient was instructed to follow-up with her primary care physician in 5 to 7 days. Patient understood and was agreeable with the plan. All questions were answered. Disposition: Discharge home Impression: Viral pharyngitis This note was generated with [employer] dictation software. It may contain incorrect words, spelling, and punctuation that were not noted in review of the chart prior to signing ED Disposition - Plan for ED Patient: Disposition: Home or Assisted Living Diagnosis: Viral pharyngitis Instructions: ED Pharyngitis Viral Referrals: Onesimo Griffith MD [Primary Care Provider] - 5-7 Days
[2019-09-27 23:18] VITALS: RESP 18
== END 2019-09-27 23:19 | disposition home or self-care (01) ==
PROVIDERS: Emergency Provider Emergency Medicine; PCP Internal Medicine
DX: J02.9 Acute pharyngitis, unspecified (principal); J44.9 Chronic obstructive pulmonary disease, unspecified; K21.9 Gastro-esophageal reflux disease without esophagitis; F32.9 Major depressive disorder, single episode, unspecified; F41.9 Anxiety disorder, unspecified; E66.9 Obesity, unspecified; Z68.42 Body mass index [BMI] 45.0-49.9, adult; Z72.0 Tobacco use
CPT/HCPCS: 71045; 80053; 85025; 87880; 99282; A4216

== ENCOUNTER 2020-02-19 12:09 | Emergency (ER) | payer MEDICAID, SELFPAY ==
[2020-02-19 12:10] VITALS: BP 164/91; PULSE 69; RESP 14; TEMP 36.1; O2SAT 95; BMI 45.5
--- NOTE | 2020-02-19 12:24 | CT_ITS ---
STUDY: CT ABDOMEN AND PELVIS WITH CONTRAST REASON FOR EXAM: Female, 54 years old. Right lower abdomen pain x 5 days. Prior hysterectomy, hypertension. RADIATION DOSAGE (If Supplied By Facility): CTDIvol = ( 23.72 ) mGy, DLP = ( 1222.73 ) mGycm TECHNIQUE: Transaxial images were obtained from the dome of the diaphragm to the symphysis pubis without oral contrast. IV 100mL Isovue-300 was administered. Sagittal and coronal images were reconstructed. Individualized dose optimization techniques were used for this CT. COMPARISON: Comparison is made with prior study dated 10/09/2015. FINDINGS: Minimally increased markings in the anterior aspect of the lingular segment of the left upper lobe suggestive of linear atelectasis and/or scarring. The visualized portions of the heart are within normal limits. There is decreased attenuation of the liver consistent with steatosis. Normal gallbladder and extrahepatic biliary system. Normal spleen. Normal pancreas. Normal bilateral adrenal glands. Normal right kidney. Normal left kidney. Normal visualized stomach. Normal small intestine. There are multiple colonic diverticula consistent with diverticulosis. There is non-visualization of the appendix. There is scattered atherosclerotic calcification of the abdominal aorta, without a demonstrated aneurysm. Normal inferior vena cava. There is borderline retroperitoneal lymphadenopathy with enlarged nodes no greater than 10mm in the short axis diameter. Normal urinary bladder. There is absence of the uterus consistent with a prior hysterectomy. There is a small umbilical hernia containing fat. There are mild degenerative changes of the visualized lumbar spine. CT/Abdomen/Pelvis W IV Cont ONLY IMPRESSION: Fatty infiltration of the liver. Scattered sigmoid diverticulosis. Electronically Signed: Junior Davis, at 14:26 EST , Service support ,
--- NOTE | 2020-02-19 12:33 | ED.DCSUM_ITS ---
History of Present Illness Informant: Patient - Abdominal Pain/Flank Pain Onset: Days - 3-4 days Context: Gradual Onset Timing: Continuous Quality: Sharp Location: RLQ Current Severity: Moderate Maximum Severity: Severe Worsened by: Movement Relieved by: Nothing - Nausea/Vomiting/Emesis GI Symptom: Nausea. Negative for: Vomiting - Diarrhea/Melena/Hematochezia GI Symptom: Negative for: Diarrhea, Melena, Hematochezia Associated Symptoms: Negative for: Dysuria, Frequency, Hematuria, Urgency Narrative: 54-year-old female was sent in to the emergency department by her primary care physician Dr. العلي to rule out an appendicitis. She has had worsening right lower quadrant pain for the last 3 days. She states that it is constant, worse with movement, nothing completely relieves the pain. She has not had any vomiting or diarrhea but has been nauseated. No urinary symptoms. No back pain. No fevers. The pain does not radiate down her leg. She is not having back pain. She denies history of similar symptoms. Prior similar symptoms: No Recent Illness/Hospitalization: No <Odin Vegas - Last Filed: 02/19/20 14:36> <Jersey Denise - Last Filed: 02/19/20 15:08> Chief Complaint: Abd Pain Past Medical History Prior records reviewed: Yes Past Medical History: - - COPD and anxiety Surgical History: no surgical history Smoking Status: Current every day smoker <Odin Vegas - Last Filed: 02/19/20 14:36> <Jersey Denise - Last Filed: 02/19/20 15:08> - Allergies and Home Meds Allergies/Adverse Reactions: Allergies ceftriaxone sodium [From Rocephin] Allergy (Verified 02/19/20 12:13) Hives Cephalosporins Allergy (Verified 02/19/20 12:13) Rash doxycycline Allergy (Verified 02/19/20 12:13) rapid heart rate/anxiety attack gabapentin Allergy (Verified 02/19/20 12:13) Unknown caffeine Adverse Reaction (Verified 02/19/20 12:13) increases anxiety diclofenac potassium [From Cataflam] Adverse Reaction (Verified 02/19/20 12:13) Upset Stomach meperidine HCl [From Demerol] Adverse Reaction (Verified 02/19/20 12:13) Upset Stomach naproxen [From Aleve] Adverse Reaction (Verified 02/19/20 12:13) Upset Stomach Penicillins [PCN] Adverse Reaction (Verified 02/19/20 12:13) Upset Stomach Sulfa (Sulfonamide Antibiotics) Adverse Reaction (Verified 02/19/20 12:13) Upset Stomach Primary Care Physician: Onesimo Griffith MD [Primary Care Provider] - Review of Systems All systems negative except as indicated General: Denies: Chills, Fever, Sweats Eyes: Denies: Visual changes - bilaterally, Diplopia ENT: Denies: Rhinorrhea, Sore throat Cardiovascular: Denies: Chest pain, Palpitations Respiratory: Denies: Dyspnea, Cough, Dyspnea on exertion Gastrointestinal: Reports: Abdominal pain, Nausea. Denies: Vomiting, Diarrhea, Constipation, Melena, Hematochezia Genitourinary: Denies: Dysuria, Hematuria, Frequency Musculoskeletal: Denies: Back pain, Extremity Pain Skin: Denies: Rash, Wounds Neurological: Denies: Headache, Weakness, Numbness <Odin Vegas - Last Filed: 02/19/20 14:36> Physical Exam Vital Signs/Narrative: Vital Signs Temp Pulse Resp BP Pulse Ox 02/19/20 12:10 97.0 F L 69 14 164/91 H 95 Inital Vital Signs reviewed: Yes General: Well nourished, Well developed, No Acute Distress Head: Normocephalic, Atraumatic Eyes: Perrl, EOMI ENT: Moist mucous membranes, No rhinorrhea Neck: Supple, Nontender Cardiovascular: Regular rate, Regular rhythm, No murmurs Respiratory: No distress, CTA bilaterally, Chest nontender Abdomen: Soft, Nondistended, Normal bowel sounds, Tender - Lower quadrant pain on palpation. No Beckford sign. Negative psoas sign. Negative Rovsing sign.. Negative for: Guarding, Rebound tenderness Back: Nontender, Normal Inspection Extremities: Nontender, No edema Skin: Normal color, No rash Neurological: Alert, Oriented x3, Cranial nerves II-XII grossly intact, Normal Strength, Normal Sensation Psychological: Normal affect, Normal Mood <Odin Vegas - Last Filed: 02/19/20 14:36> Vital Signs/Narrative: Vital Signs Temp Pulse Resp BP Pulse Ox 02/19/20 12:10 97.0 F L 69 14 164/91 H 95 <Jersey Denise - Last Filed: 02/19/20 15:08> Diagnostic/Tx/Re-eval CT: Abdomen and Pelvis Impressions Abdomen/Pelvis CT 02/19/20 12:24 IMPRESSION: Fatty infiltration of the liver. Scattered sigmoid diverticulosis. Electronically Signed: Junior Davis, at 14:26 EST , Service support , 02/19/20 12:24 Abdomen/Pelvis W IV Cont ONLY [CT] Stat Laboratory Results 02/19/20 02/19/20 12:55 12:55 WBC 8.5 RBC 4.84 Hgb 14.1 Hct 43.4 MCV 89.7 MCH 29.1 MCHC 32.5 RDW Std Deviation 41.3 RDW Coeff of Viviana 12.4 Plt Count 288 MPV 9.2 Immature Gran % (Auto) 0.400 Neut % (Auto) 64.8 Lymph % (Auto) 23.9 Branch % (Auto) 7.4 Eos % (Auto) 3.1 Baso % (Auto) 0.4 Absolute Neuts (auto) 5.5 Absolute Lymphs (auto) 2.03 Nucleated RBC % 0 Sodium 138 Potassium 4.3 Chloride 107 Carbon Dioxide 27.0 Anion Gap 4 L BUN 14 Creatinine 0.97 Estim Creat Clear Calc 62.07 Est GFR (MDRD) Af Amer 77 Est GFR (MDRD) Non-Af 64 BUN/Creatinine Ratio 14.4 Glucose 95 Calcium 8.9 Total Bilirubin 0.30 AST 23 ALT 23 Alkaline Phosphatase 88 Total Protein 7.3 Albumin 3.0 L Globulin 4.3 H Albumin/Globulin Ratio 0.7 L Lipase 92 - Medical Decision Making Patient declined analgesia and antiemetics. She was given a liter of IV fluids. CBC CMP and lipase were unremarkable. Patient brought her test results from her doctor's office where she had a urinalysis that was negative therefore this was not repeated. CT scan abdomen and pelvis showed no acute findings. Repeat exam patient's abdomen is soft and nontender patient tolerating by mouth she was reassured she feels well and will be discharged home. Advised her to follow-up with her doctor in the next 2 to 3 days. Return precautions given. She was agreeable with plan and all questions were answered <Pelini,Odin PA - Last Filed: 02/19/20 14:36> - Medical Decision Making Patient was seen with me. I did a [id number] examination with the patient. Patient presents with right-sided abdominal pain that has been waxing and waning over the past few days. Patient states the pain has gotten worse. Patient states she still has a good appetite and has been eating normally. Patient denies any fevers or chills. Patient denies any nausea or vomiting. Patient denies any urinary complaints. Oral mucosa is pink and moist. Neck is supple. Trachea is midline. There is no JVD. Heart was regular rate and rhythm. Lungs are clear and equal bilateral. Abdomen is soft. Bowel sounds are normal. There is right upper and right lower quadrant tenderness. There is no rebound or guarding. Rovsing sign was negative. Cranial nerves II through XII are intact. There are no focal motor or sensory deficits noted. CBC and comprehensive metabolic profile were obtained and were within normal limits. Lipase was normal. CT scan of the abdomen and pelvis was obtained. There is no evidence of appendicitis. There is no acute intra-abdominal process. This was interpreted by the radiologist and reviewed by myself. Patient was instructed to follow-up with her primary care physician in 5 to 7 days. Patient understood and was agreeable with the plan. All questions were answered. <Jersey Denise - Last Filed: 02/19/20 15:08> ED Disposition <Odin Vegas - Last Filed: 02/19/20 14:36> <Jersey Denise - Last Filed: 02/19/20 15:08> - Plan for ED Patient: Disposition: Home or Assisted Living Diagnosis: Abdominal pain, CKD (chronic kidney disease), stage III, GERD (gastroesophageal reflux disease) Instructions: ED Abdominal Pain Unkn Cause Fem Prescriptions: Dicyclomine HCl [Bentyl] 20 mg PO TIDAC #20 cap Transmission Status: Received by [facility] Referrals: Onesimo Griffith MD [Primary Care Provider] -
[2020-02-19 13:04] LABS: Absolute Lymphocyte Count 2.03 X10^3/uL (0.83-4.51); Absolute Neutrophil Count 5.5 X10^3/uL (2.0-7.7); Basophil# 0.03 X10^3/uL; Basophil% 0.4 % (0-1); Eosinophil# 0.26 X10^3/uL; Eosinophils% 3.1 % (0-5); Hematocrit 43.4 % (37-47); Hemoglobin 14.1 g/dL (12.0-15.0); Lymphocyte # 2.03 X10^3/ul (4.0); Lymphocyte % 23.9 % (19-41); Mean Corp Hgb Conc 32.5 g/dL (32-36); Mean Corpuscular Hgb 29.1 pg (27.0-32.0); Mean Corpuscular Volume 89.7 fL (81-99); Mean Platelet Vol. 9.2 fl (6.2-12.0); Monocyte# 0.63 X10^3/uL; Monocyte% 7.4 % (0-10); NRBC Flagged by Analyzer 0 % (0-5); Neutrophil # 5.52 X10^3/uL (2.7-7.7); Neutrophil % 64.8 % (47-70); Platelet Count 288 K/mm3 (150-450); RBC Distribution Width CV 12.4 % (11.6-14.6); RBC Distribution Width SD 41.3 fl (35.1-43.9); Red Blood Count 4.84 M/mm3 (4.2-5.4); White Blood Count 8.5 K/mm3 (4.4-11.0)
[2020-02-19 13:22] LABS: ALB/GLOB Ratio 0.7 RATIO (0.9-2.4); AST(SGOT) 23 U/L (15-37); Alanine Aminotransfer ALT/SGPT 23 U/L (13-56); Alkaline Phosphatase 88 U/L (45-117); Anion Gap 4 (5-15); BUN 14 mg/dL (7-18); BUN/Creat Ratio 14.4 RATIO (10-20); Calcium,Total 8.9 mg/dL (8.5-10.1); Chloride 107 mmol/L (98-107); Creatinine, Serum 0.97 mg/dL (0.55-1.02); EST Glomerular Filtration Rate 64 mL/min (>60); Est Glom Filt Rate - Afr Amer 77 mL/min (>60); Estimated Creatinine Clearance 62.07 ml/min; Globulin 4.3 g/dL (2.2-4.2); Glucose 95 mg/dL (74-106); Lipase 92 U/L (73-393); Potassium 4.3 mmol/L (3.5-5.1); Protein, Total 7.3 g/dL (6.4-8.2); Sodium Level 138 mmol/L (136-145)
[2020-02-19] MEDS: 0.9% Normal Saline 1,000 ML 1000 ML IV (13:52)
[2020-02-19] MEDS: Ketorolac 15 MG/ML Vial IV (15:12)
== END 2020-02-19 15:23 | disposition home or self-care (01) ==
PROVIDERS: Emergency Provider Physician Assistant Medical; PCP Internal Medicine
DX: R10.31 Right lower quadrant pain (principal); K76.0 Fatty (change of) liver, not elsewhere classified; K57.30 Diverticulosis of large intestine without perforation or abscess without bleeding; I12.9 Hypertensive chronic kidney disease with stage 1 through stage 4 chronic kidney disease, or unspecified chronic kidney disease; N18.30 Chronic kidney disease, stage 3 unspecified; K21.9 Gastro-esophageal reflux disease without esophagitis; J44.9 Chronic obstructive pulmonary disease, unspecified; F41.9 Anxiety disorder, unspecified; F17.200 Nicotine dependence, unspecified, uncomplicated
CPT/HCPCS: 74177; 80053; 83690; 85025; 96361; 96374; 99284; J7030; Q9967; A4216

== ENCOUNTER → 2020-09-29 14:52 | Outpatient (CLI) | payer MEDICAID, SELFPAY ==
[2020-09-29 14:27] VITALS: BMI 45.5
[2020-09-29 16:48] LABS: Absolute Lymphocyte Count 2.43 X10^3/uL (0.83-4.51); Absolute Neutrophil Count 6.1 X10^3/uL (2.0-7.7); Basophil# 0.04 X10^3/uL; Basophil% 0.4 % (0-1); Eosinophil# 0.28 X10^3/uL; Eosinophils% 2.9 % (0-5); Hematocrit 44.8 % (37-47); Hemoglobin 14.5 g/dL (12.0-15.0); Lymphocyte # 2.43 X10^3/ul (0.83-4.51); Lymphocyte % 25.2 % (19-41); Mean Corp Hgb Conc 32.4 g/dL (32-36); Mean Corpuscular Hgb 29.1 pg (27.0-32.0); Mean Corpuscular Volume 89.8 fL (81-99); Mean Platelet Vol. 10.1 fl (6.2-12.0); Monocyte# 0.74 X10^3/uL; Monocyte% 7.7 % (0-10); NRBC Flagged by Analyzer 0 % (0-5); Neutrophil # 6.13 X10^3/uL (2.7-7.7); Neutrophil % 63.4 % (47-70); Platelet Count 276 K/mm3 (150-450); RBC Distribution Width CV 12.6 % (11.6-14.6); RBC Distribution Width SD 41.3 fl (35.1-43.9); Red Blood Count 4.99 M/mm3 (4.2-5.4); White Blood Count 9.7 K/mm3 (4.4-11.0)
[2020-09-29 17:07] LABS: ALB/GLOB Ratio 0.6 RATIO (0.9-2.4); AST(SGOT) 17 U/L (15-37); Alanine Aminotransfer ALT/SGPT 29 U/L (13-56); Albumin, Serum 2.9 g/dL (3.2-5.0); Alkaline Phosphatase 115 U/L (45-117); Anion Gap 7 (5-15); BUN 14 mg/dL (7-18); BUN/Creat Ratio 14.3 RATIO (10-20); Calcium,Total 9.1 mg/dL (8.5-10.1); Chloride 103 mmol/L (98-107); Creatinine, Serum 0.98 mg/dL (0.55-1.02); EST Glomerular Filtration Rate 63 mL/min (>60); Est Glom Filt Rate - Afr Amer 76 mL/min (>60); Globulin 4.7 g/dL (2.2-4.2); Glucose 121 mg/dL (74-106); Protein, Total 7.6 g/dL (6.4-8.2); Sodium Level 139 mmol/L (136-145)
== END ==
PROVIDERS: PCP Internal Medicine; Referring Provider Internal Medicine; Visit Provider Internal Medicine
DX: F41.8 Other specified anxiety disorders (principal); K46.9 Unspecified abdominal hernia without obstruction or gangrene
CPT/HCPCS: 36415; 80053; 85025

== ENCOUNTER 2021-03-14 13:57 | Emergency (ER) | payer MEDICAID, SELFPAY ==
[2021-03-14 13:57] VITALS: BP 174/100; PULSE 95; RESP 20; TEMP 36.6; O2SAT 97; BMI 46.7
--- NOTE | 2021-03-14 14:32 | EDS_ITS ---
HPI History of Present Illness Chief Complaint: Abscess Informant: patient Narrative Narrative: Right groin abscess noted 4 days ago increasing in size. No fevers or drainage. Tender to palpation. Denies history of diabetes. Has had abscesses however in different areas requiring drainage. History anxiety. History of COPD, CKD stage III. [facility] Medical History Abdominal hernia Abdominal pain Abdominal pain Anxiety and depression Arthritis of hip Chronic constipation Chronic low back pain COPD (chronic obstructive pulmonary disease) COPD (chronic obstructive pulmonary disease) Dyslipidemia Frequent headaches GERD (gastroesophageal reflux disease) Hypertension Impaired glucose tolerance Morbid obesity Osteoarthritis of knee Rectal bleeding SOB (shortness of breath) Tobacco abuse counseling Umbilical hernia Vertigo Home Medications venlafaxine 75 mg PO DAILY 12/01/14 [History Last Taken 02/05/19] estradiol 1.5 mg PO DAILY 02/21/17 [History Last Taken 02/05/19] lorazepam 1 tab PO DAILY 09/27/19 [History Last Taken Unknown] omeprazole 40 mg PO DAILY 09/27/19 [History Last Taken Unknown] meclizine 25 mg tablet 25 mg PO DAILY PRN #30 tab 01/11/21 [Rx Last Taken Unknown] oxycodone-acetaminophen [Percocet] 1 tab PO Q6H PRN 3 Days #12 tab 03/14/21 [Rx Last Taken Unknown] Allergy/AdvReac Type Severity Reaction Status Date / Time ceftriaxone sodium Allergy Hives Verified 03/14/21 13:59 [From Rocephin] Cephalosporins Allergy Rash Verified 03/14/21 13:59 doxycycline Allergy rapid Verified 03/14/21 13:59 heart rate/anxiety attack gabapentin Allergy Unknown Verified 03/14/21 13:59 caffeine AdvReac increases Verified 03/14/21 13:59 anxiety diclofenac potassium AdvReac Upset Verified 03/14/21 13:59 [From Cataflam] Stomach meperidine HCl [From Demerol] AdvReac Upset Verified 03/14/21 13:59 Stomach naproxen [From Aleve] AdvReac Upset Verified 03/14/21 13:59 Stomach Penicillins [PCN] AdvReac Upset Verified 03/14/21 13:59 Stomach Sulfa (Sulfonamide AdvReac Upset Verified 03/14/21 13:59 Antibiotics) Stomach Family History Mother Hypertension Ovarian cancer Colon cancer Breast cancer Brother Alcoholism Cancer lung, liver Sister Kidney disease Thyroid disorder Cancer Surgical History H/O total hysterectomy History of hysterectomy s/p left wrist Social History Smoking Status: Current every day smoker tobacco type: cigarettes Tobacco: How many years used: 40 alcohol intake: never substance use type: does not use what type of physical activity do you participate in: none ROS ROS ED Constitutional Constitutional ED: Denies chills, fever(s) or sweats Eyes Eyes: Denies change in vision ENT ENT ED: Denies dysphagia or sore throat Cardiovascular Cardiovascular: Denies chest pain, leg edema, palpitations or racing heartbeat Respiratory/Chest Respiratory/Chest: Denies cough, dyspnea or dyspnea on exertion Gastrointestinal Gastrointestinal: Denies abdominal pain, diarrhea, nausea or vomiting Genitourinary Genitourinary ED: Denies dysuria, hematuria or urinary frequency Musculoskeletal Musculoskeletal: Denies back pain, extremity pain or neck pain Integumentary Reports abscess; Denies rash or wounds Neurologic Neurologic: Denies headache(s), paresthesias or weakness EXAM Physical Exam Const Vital Signs: 03/14/21 13:57 Temperature 97.8 F Temperature Source Temporal Pulse Rate 95 Respiratory Rate 20 H Blood Pressure 174/100 H Blood Pressure Mean 124 Pulse Ox 97 Oxygen Delivery Method Room Air Positive well nourished, well developed and obese General Appearance ED: well developed and NAD Nutritional Appearance: obese HEENT Reports moist mucous membranes normocephalic and atraumatic Eyes PERRL, EOMs intact bilaterally and conjunctivae normal General Eye ED: Yes normal appearance of both eyes Neck no lymphadenopathy and supple General: Negative for tenderness Chest Wall Chest: Negative for tenderness Resp normal respiratory effort and normal air movement Effort and Inspection: symmetric chest movement; Negative for respiratory distress Cardio regular rate, regular rhythm and no murmurs Peripheral Pulses: pulses 2+ throughout GI normal to inspection, nondistended, normoactive bowel sounds and non-tender Palpation: Negative for guarding or rebound tenderness present Back/Spine no CVA tenderness and no thoracic nor lumbar tenderness Extremity normal to inspection General Extremety ED: Negative for edema or tenderness General Extremity: Negative for edema Neuro oriented x3 and no sensory deficits noted Sensorium / Orientation: awake and alert Skin Skin Narrative: Nursing present for examination. Groin examination noted 3 cm x 2 and half centimeter induration with fluctuance inferior aspect right outer labia. No perennial involvement. No rectal involvement. Tender to palpation. No active drainage. MDM MDM MDM Narrative Medical decision making narrative: Patient presenting with abscess just outside the right labia. There is no perineal or labial involvement. Discussed definitive treatment incision and drainage. Performed without complications. Treated Percocet to help with pain control. She will follow-up with her PCP for wound check. Discussed sitz bath. Procedure note: Verbal consent. Normal sterile conditions. Nursing present throughout. Area was cleansed with Shur-Clens, ropivacaine 0.5% with 8 cc used for local analgesia. Repeat cleansing performed. 11 blade with cruciate incision performed. Loculations broken. Excellent drainage noted. Flushed with 200 cc of normal saline. Patient tolerated procedure well. Patient is being discharged under pandemic conditions under declared global, national and state disaster activation, with limited medical resources. Patient and community understands this. Results discussed in layman's terms to the patient satisfaction. All questions answered in layman's terms. Patient understands importance of follow-up care as directed. Patient has been instructed to return to the ED immediately if new symptoms, problems, or questions occur. We mutually agree with the plan of disposition. The patient understand that they may call or return with any questions or concerns at any time. Discharge Plan Triage Chief Complaint: Abscess ED Provider: Art Donohue Dx/Rx/DC Orders Clinical Impression: Labial abscess Instructions: ED Abscess Incision And Drainage Prescriptions: New oxycodone-acetaminophen [Percocet] 5-325 mg tablet 1 tab PO Q6H PRN (Reason: pain) 3 Days Qty: 12 RF: 0 No Action venlafaxine 75 MG capsule 75 mg PO DAILY RF: 0 estradiol 1 MG tablet 1.5 mg PO DAILY RF: 0 omeprazole 40 MG capsule,delayed release(DR/EC) 40 mg PO DAILY RF: 0 lorazepam 2 mg tablet 1 tab PO DAILY RF: 0 meclizine 25 mg tablet 25 mg PO DAILY PRN (Reason: dizziness) Qty: 30 RF: 1 Primary Care Provider: Boni Dove Referrals: Onesimo Griffith MD [STAFF PHYSICIAN] - 3-5 Days Disposition Disposition: Home, Self Care Discharge Date/Time: 03/14/21 15:26
[2021-03-14] MEDS: oxyCODONE 5 MG Tablet PO (14:35)
[2021-03-14] MEDS: Bupivacaine Mpf 0.5% 30 ML VIAL INFILT (14:36)
== END 2021-03-14 15:26 | disposition home or self-care (01) ==
LOC: ED 15:15
PROVIDERS: Emergency Provider Emergency Medicine; PCP Family Medicine; Visit Provider Emergency Medicine
DX: N76.4 Abscess of vulva (principal); J44.9 Chronic obstructive pulmonary disease, unspecified; E66.01 Morbid (severe) obesity due to excess calories; N18.30 Chronic kidney disease, stage 3 unspecified; I12.9 Hypertensive chronic kidney disease with stage 1 through stage 4 chronic kidney disease, or unspecified chronic kidney disease; F41.9 Anxiety disorder, unspecified; F17.210 Nicotine dependence, cigarettes, uncomplicated; E78.5 Hyperlipidemia, unspecified; Z79.899 Other long term (current) drug therapy; G89.29 Other chronic pain; F32.A Depression, unspecified; K21.9 Gastro-esophageal reflux disease without esophagitis; Z87.19 Personal history of other diseases of the digestive system
CPT/HCPCS: 56405; 99283

== ENCOUNTER 2021-05-01 12:52 | Emergency (ER) | payer MEDICAID, SELFPAY ==
[2021-05-01 12:53] VITALS: BP 158/99; PULSE 89; RESP 18; TEMP 35.8; O2SAT 96; BMI 45.1
--- NOTE | 2021-05-01 13:00 | RAD_ITS ---
STUDY: X-RAY - LEFT ELBOW REASON FOR EXAM: Female, 55 years old. Pain and swelling TECHNIQUE: 3 view(s) of the elbow. COMPARISON: None. FINDINGS: There is no evidence of fracture or dislocation. There are no significant degenerative changes. There are no radiodense foreign bodies. RAD/Elbow min 3 Views IMPRESSION: No fracture or dislocation. Electronically Signed: Oz Aranda MD at 13:41 EST ,
--- NOTE | 2021-05-01 13:28 | EDS_ITS ---
HPI History of Present Illness HPI Narrative: Patient presents with left elbow pain that has been constant for the past 3 to 4 days. Patient states it began rather suddenly. Patient states he was sitting when she felt some numbness and tingling in her arm. Patient states she extended her left elbow. Patient states the pain began immediately after that. Patient states her pain has been constant. Patient describes her pain as stabbing. Patient states her pain is worse with any movement. Patient denies any paresthesias or weakness. Patient states nothing makes her pain any better. Chief Complaint: Upper Extremity Injury Informant: patient Onset/Context/Timing Onset: Days (3-4) Context: Sudden Onset Timing: Continuous Quality of Pain: Stabbing Location: Left elbow Worsened by: Movement Relieved by: Nothing Associated Symptoms Associated Symptoms: Negative for Parasthesia, Weakness and Loss of Funtion PFSH PFSH Medical History Abdominal hernia Abdominal pain Abdominal pain Anxiety and depression Arthritis of hip Chronic constipation Chronic low back pain COPD (chronic obstructive pulmonary disease) COPD (chronic obstructive pulmonary disease) Dyslipidemia Frequent headaches GERD (gastroesophageal reflux disease) Hypertension Impaired glucose tolerance Morbid obesity Osteoarthritis of knee Rectal bleeding SOB (shortness of breath) Tobacco abuse counseling Umbilical hernia Vertigo Home Medications venlafaxine 75 mg PO DAILY 12/01/14 [History Last Taken 02/05/19] estradiol 1.5 mg PO DAILY 02/21/17 [History Last Taken 02/05/19] lorazepam 1 tab PO DAILY 09/27/19 [History Last Taken Unknown] omeprazole 40 mg PO DAILY 09/27/19 [History Last Taken Unknown] meclizine 25 mg tablet 25 mg PO DAILY PRN #30 tab 01/11/21 [Rx Last Taken Unknown] oxycodone-acetaminophen [Percocet] 1 tab PO Q6H PRN 3 Days #12 tab 03/14/21 [Rx Last Taken Unknown] hydrocodone-acetaminophen 1 tab PO Q6H PRN PRN 3 Days #10 tablet 05/01/21 [Rx Last Taken Unknown] Allergy/AdvReac Type Severity Reaction Status Date / Time ceftriaxone sodium Allergy Hives Verified 05/01/21 12:56 [From Rocephin] Cephalosporins Allergy Rash Verified 05/01/21 12:56 doxycycline Allergy rapid Verified 05/01/21 12:56 heart rate/anxiety attack gabapentin Allergy Unknown Verified 05/01/21 12:56 caffeine AdvReac increases Verified 05/01/21 12:56 anxiety diclofenac potassium AdvReac Upset Verified 05/01/21 12:56 [From Cataflam] Stomach meperidine HCl [From Demerol] AdvReac Upset Verified 05/01/21 12:56 Stomach naproxen [From Aleve] AdvReac Upset Verified 05/01/21 12:56 Stomach Penicillins [PCN] AdvReac Upset Verified 05/01/21 12:56 Stomach Sulfa (Sulfonamide AdvReac Upset Verified 05/01/21 12:56 Antibiotics) Stomach Family History Mother Hypertension Ovarian cancer Colon cancer Breast cancer Brother Alcoholism Cancer lung, liver Sister Kidney disease Thyroid disorder Cancer Surgical History H/O total hysterectomy History of hysterectomy s/p left wrist Social History Smoking Status: Current every day smoker tobacco type: cigarettes Tobacco: How many years used: 40 alcohol intake: never substance use type: does not use what type of physical activity do you participate in: none ROS ROS ED Constitutional Constitutional ED: Denies chills or fever(s) Eyes Eyes: Denies blurry vision or change in vision ENT ENT ED: Denies rhinorrhea or sore throat Cardiovascular Cardiovascular: Denies chest pain or palpitations Respiratory/Chest Respiratory/Chest: Denies cough or dyspnea Gastrointestinal Gastrointestinal: Denies nausea or vomiting Genitourinary Genitourinary ED: Denies dysuria or hematuria Musculoskeletal Musculoskeletal: Denies back pain or neck pain Integumentary Denies abscess or rash Neurologic Neurologic: Denies headache(s) or weakness Allergic/Immunologic Allergic/Immunologic ED: Denies mouth swelling or urticaria EXAM Physical Exam Const Vital Signs: 05/01/21 12:53 Temperature 96.5 F L Temperature Source Temporal Pulse Rate 89 Respiratory Rate 18 Blood Pressure 158/99 H Blood Pressure Mean 118 Pulse Ox 96 Oxygen Delivery Method Room Air Positive well nourished, well developed, obese and unkempt General Appearance ED: unkempt, well developed and NAD Nutritional Appearance: obese HEENT Reports moist mucous membranes Neck full ROM and supple Extremity Extremity Narrative: There is tenderness of the posterior aspect of the left elbow with even light palpation. There is no bony crepitance or step-off. There is no obvious deformity noted. Range of motion was limited in all motions of the left elbow secondary to pain. Radial pulses are equal bilaterally. Sensation was intact to light touch in all digits. Capillary refill was less than 2 seconds in all digits. Strength is 5/5 in the radial, median, and ulnar areas. Neuro oriented x3, CN's II-XII intact bilaterally, moves all extremities, no focal motor deficits and no sensory deficits noted Sensorium / Orientation: alert Psych mental status grossly normal Appearance: unkempt MDM MDM MDM Narrative Medical decision making narrative: X-rays of the left elbow were obtained. There are 3 views. On my interpretation, there is no acute fracture or dislocation. There is no joint effusion. Radiologist also interpreted the x- rays and agrees. Patient was given a dose of [place] here. Patient was given a prescription for [place]. Patient is instructed to ice and elevate her left elbow. Patient was instructed to follow-up with her primary care physician in 5 to 7 days. Patient understood and was agreeable with the plan. All questions were answered. Discharge Plan Triage Chief Complaint: Upper Extremity Injury ED Provider: Jersey Denise Dx/Rx/DC Orders Clinical Impression: Elbow pain, left Instructions: ED Sprain, Elbow, ED Pain, Acute, Uncertain Cause Prescriptions: New hydrocodone-acetaminophen [hydrocodone-acetaminophen] 1 TABLET tablet 1 tab PO Q6H PRN PRN (Reason: Pain) 3 Days Qty: 10 RF: 0 No Action venlafaxine 75 MG capsule 75 mg PO DAILY RF: 0 estradiol 1 MG tablet 1.5 mg PO DAILY RF: 0 omeprazole 40 MG capsule,delayed release(DR/EC) 40 mg PO DAILY RF: 0 lorazepam 2 mg tablet 1 tab PO DAILY RF: 0 oxycodone-acetaminophen [Percocet] 5-325 mg tablet 1 tab PO Q6H PRN (Reason: pain) 3 Days Qty: 12 RF: 0 meclizine 25 mg tablet 25 mg PO DAILY PRN (Reason: dizziness) Qty: 30 RF: 1 Primary Care Provider: Boni Dove Referrals: Boni Dove MD [Primary Care Provider] - 3-5 Days Disposition Disposition: Home, Self Care
[2021-05-01] MEDS: HYDROcodone Bitartrate/Apap 5/325 Tablet PO (13:58)
== END 2021-05-01 14:00 | disposition home or self-care (01) ==
PROVIDERS: Emergency Provider Emergency Medicine; PCP Family Medicine; Visit Provider Emergency Medicine
DX: M25.522 Pain in left elbow (principal); J44.9 Chronic obstructive pulmonary disease, unspecified; E66.01 Morbid (severe) obesity due to excess calories; Z68.42 Body mass index [BMI] 45.0-49.9, adult; E78.5 Hyperlipidemia, unspecified; I10 Essential (primary) hypertension; K21.9 Gastro-esophageal reflux disease without esophagitis; F17.210 Nicotine dependence, cigarettes, uncomplicated; Z79.899 Other long term (current) drug therapy
CPT/HCPCS: 73080; 99282

== ENCOUNTER 2021-09-16 16:41 | Emergency (ER) | payer MEDICAID, SELFPAY ==
[2021-09-16 16:42] VITALS: BP 187/112; PULSE 91; RESP 16; TEMP 36.1; O2SAT 94; BMI 45.1
--- NOTE | 2021-09-16 17:17 | ED.VIS.GI ---
HPI HPI - GI History of Present Illness Chief Complaint: Constipation Informant: patient Abdominal Pain/Flank Pain Onset: Days Context: Gradual Onset Timing: Continuous Nausea/Vomiting/Emesis GI Symptom: Negative for Nausea or Vomiting Diarrhea/Melena/Hematochezia GI Symptom: Negative for Diarrhea, Melena or Hematochezia Associated Symptoms Associated Symptoms: Negative for Dysuria or Frequency Narrative Narrative: 55-year-old female prior hysterectomy. About a week ago she had diarrhea. She took several Imodium to improve that. And she also drank chocolate milk which she states constipates her. She thinks between the Imodium and the chocolate milk she has not been constipated the last 3 days. She denies nausea. She denies fever. She really denies any significant abdominal pain. She also states that she has something on the back of her right leg. Denies any insect bites or stings. This is been there couple of days. Prior similar symptoms: Yes Recent Illness/Hospitalization: No PFSH PFSH Medical History Abdominal hernia Abdominal pain Abdominal pain Anxiety and depression Arthritis of hip Chronic constipation Chronic low back pain COPD (chronic obstructive pulmonary disease) Dyslipidemia Frequent headaches GERD (gastroesophageal reflux disease) History of blood transfusion Impaired glucose tolerance Morbid obesity Osteoarthritis of knee Rectal bleeding Redness of skin Smoker SOB (shortness of breath) Tobacco abuse counseling Umbilical hernia Vertigo Wears glasses Home Medications venlafaxine 75 mg capsule,extended release 24 hr (Effexor XR) 75 mg PO DAILY 12/01/14 [History Last Taken 02/05/19] estradiol 1 mg tablet 1.5 mg PO DAILY 02/21/17 [History Last Taken 02/05/19] lorazepam 2 mg tablet 1 tab PO DAILY PRN Anxiety 09/27/19 [History Last Taken Unknown] albuterol sulfate 2.5 mg/0.5 mL solution for nebulization 2.5 mg inhalation Q4H PRN PRN Wheezing 09/06/21 [History Last Taken Unknown] meclizine 25 mg tablet 25 mg PO DAILY PRN dizziness #30 tabs 09/12/21 [Rx Last Taken Unknown] omeprazole 40 mg capsule,delayed release 40 mg PO DAILY #90 caps 09/12/21 [Rx Last Taken Unknown] clindamycin HCl 150 mg capsule 150 mg PO Q6H 10 days #40 caps 09/16/21 [Rx Last Taken Unknown] Allergy/AdvReac Type Severity Reaction Status Date / Time ceftriaxone sodium Allergy Hives Verified 09/16/21 16:45 [From Rocephin] Cephalosporins Allergy Rash Verified 09/16/21 16:45 doxycycline Allergy rapid Verified 09/16/21 16:45 heart rate/anxiety attack gabapentin Allergy Unknown Verified 09/16/21 16:45 caffeine AdvReac increases Verified 09/16/21 16:45 anxiety diclofenac potassium AdvReac Upset Verified 09/16/21 16:45 [From Cataflam] Stomach meperidine HCl [From Demerol] AdvReac Upset Verified 09/16/21 16:45 Stomach naproxen [From Aleve] AdvReac Upset Verified 09/16/21 16:45 Stomach Penicillins [PCN] AdvReac Upset Verified 09/16/21 16:45 Stomach Sulfa (Sulfonamide AdvReac Upset Verified 09/16/21 16:45 Antibiotics) Stomach Family History Mother Hypertension Ovarian cancer Colon cancer Breast cancer Brother Alcoholism Cancer lung, liver Sister Kidney disease Thyroid disorder Cancer Surgical History H/O total hysterectomy History of hysterectomy s/p left wrist Social History Smoking Status: Current every day smoker tobacco type: cigarettes Tobacco: How many years used: 40 alcohol intake: never substance use type: does not use what type of physical activity do you participate in: none ROS ROS ED ROS Narrative Constipation. Review of Systems ROS Unobtainable: Denies due to encephalopathy Constitutional Constitutional ED: Denies chills or fever(s) ENT ENT ED: Denies ear pain Cardiovascular Cardiovascular: Denies chest pain Respiratory/Chest Respiratory/Chest: Denies cough Gastrointestinal Gastrointestinal: Reports constipation and diarrhea; Denies abdominal pain, melena, nausea or vomiting Genitourinary Genitourinary ED: Denies dysuria Musculoskeletal Musculoskeletal: Denies arthralgias Integumentary Reports abscess Neurologic Neurologic: Denies headache(s) Psychiatric Psychiatric: Denies anxiety Endocrine Endocrinology: Denies polydipsia Hematologic/Lymphatic Hematologic/Lymphatic: Denies easy bleeding Allergic/Immunologic Allergic/Immunologic ED: Denies mouth swelling EXAM Physical Exam Narrative Exam Narrative: 55-year-old female vital signs stable blood pressure elevated 187 112. Patient does not look septic toxic no distress. H EENT exam unremarkable. Moist extremities. Lungs clear to auscultation. Heart regular rhythm rate about 85 no murmur. Abdomen morbidly obese but soft nontender normal bowel sounds no peritoneal signs. Moving all 4 extremities. Posterior right hamstring has 1 area that is red and tender it looks like an early abscess. Is not fluctuant. It could also be an insect bite with a local reaction but she has no history of any type of bite. Const Vital Signs: 09/16/21 16:42 Temperature 97 F L Temperature Source Temporal Pulse Rate 91 Respiratory Rate 16 Blood Pressure 187/112 H Blood Pressure Mean 137 Pulse Ox 94 Oxygen Delivery Method Room Air Positive well nourished, well developed and obese; Negative for cachectic, contractures or unkempt General Appearance ED: well developed; Negative for unkempt, cachectic, contractures or pallor Nutritional Appearance: obese; Negative for cachectic HEENT Reports moist mucous membranes; Denies dry mucous membranes atraumatic; Negative for normocephalic, trauma or tenderness Mouth ED: No dry mucous membranes Mouth: No dry mucous membranes Eyes PERRL and EOMs intact bilaterally General Eye ED: Negative for pale conjunctiva Neck no lymphadenopathy, supple and no JVD General: Negative for tenderness Lymph Lymphatic: Negative for other Resp normal respiratory effort Effort and Inspection: Negative for respiratory distress Auscultation: Negative for rales, rhonchi or wheezes Cardio regular rate, regular rhythm, S1 normal heart sound, S2 normal heart sound and no murmurs Rate: Negative for bradycardia Rhythm: Negative for abnormal rhythm GI non-tender, non-distended and no masses Inspection: Negative for abdominal distention Auscultation: normoactive bowel sounds Palpation: soft; Negative for tender, guarding or rigid Back/Spine no CVA tenderness General Back: Negative for CVA tenderness Cervical Spine: Negative for cervical spine tenderness Thoracic Spine / Upper Back: Negative for thoracic spinal tenderness Lumbar Spine / Lower Back: Negative for lumbar spinal tenderness Coccyx: Negative for other Extremity full ROM General Extremety ED: Negative for edema or tenderness General Extremity: Negative for edema Neuro moves all extremities Sensorium / Orientation: alert, oriented to person, oriented to place and oriented to time Motor Exam: strength 5/5 throughout Psych mental status grossly normal and thought process normal Appearance: Negative for unkempt Attitude: No agitated Mood & Affect: Negative for depressed Skin no wounds General Skin Exam: Negative for jaundice or pallor Lesions: no lesions Rashes: No no rashes MDM MDM MDM Narrative Medical decision making narrative: 55-year-old with constipated obtain a KUB. She also has a rash on the back of her right hamstring that I suspect is an early abscess. And will be treated as such. There is no fluctuance I do not think at this time incision and drainage would be of any benefit to her. Secondarily this could also be a local allergic reaction but she has no history of a insect sting. Repeat exam patient doing well at 5:55 PM will be discharged home. Magnesium citrate for constipation. Clindamycin for the right hamstring subcu abscess. Nothing to drain at this time. Radiography Diagnostic Testing: KUB, single view, interpreted by myself shows stool in the rectal vault otherwise really no significant fecal load. No signs of obstruction. Discussed the film with the patient. Discharge Plan Triage Chief Complaint: Constipation ED Provider: Valdo Anaya Dx/Rx/DC Orders Clinical Impression: Constipation, Abscess Instructions: ED Abscess Antibiotic Treatment Only, ED Constipation (Adult) Prescriptions: New clindamycin HCl 150 mg capsule 150 mg PO Q6H 10 Days Qty: 40 0RF No Action venlafaxine [Effexor XR] 75 MG capsule 75 mg PO DAILY Label Comments: DEPRESSION estradiol 1 MG tablet 1.5 mg PO DAILY lorazepam 2 mg tablet 1 tab PO DAILY PRN (Reason: Anxiety) albuterol sulfate 2.5 mg/0.5 mL Solution For Nebulization 2.5 mg INHALATION Q4H PRN PRN (Reason: Wheezing) omeprazole 40 mg capsule,delayed release(DR/EC) 40 mg PO DAILY Qty: 90 1RF meclizine 25 mg tablet 25 mg PO DAILY PRN (Reason: dizziness) Qty: 30 1RF Primary Care Provider: Onesimo Griffith Referrals: Onesimo Griffith MD [Primary Care Provider] - 3-5 Days if not improving Activity Restrictions/Additional Instructions: At home drink the entire bottle of magnesium citrate over like 10 minutes. You can put it with 7-Up or ice to help the taste better. Usually within 2 to 4 hours after drinking patients have a large bowel movement. Plenty of fluids, fruits, vegetables and fiber to help with the constipation. You are started on antibiotic clindamycin for the abscess in the back of your right hamstring. If that gets a lot larger and feels like a water balloon then it needs to be drained. Disposition Disposition: Home, Self Care
--- NOTE | 2021-09-16 17:35 | RAD_ITS ---
INDICATION: constipation EXAMINATION/TECHNIQUE: X-RAY - AP XR Abdomen 1 View COMPARISON: CT abdomen and pelvis 02/19/2020. FINDINGS: BOWEL GAS PATTERN: No abnormally distended, air-filled bowel loops or air fluid levels. No abnormal colonic load to suggest constipation. FREE AIR: Not assessed on a single supine view. ORGANOMEGALY: Not seen. CALCIFICATIONS: No abnormal calcifications observed. LOWER CHEST: No acute pathology. BONES AND SOFT TISSUES: There are some mild degenerative endplate changes lumbar spine. There are morphologic changes bilateral hips suggesting a cam type impingement pattern further supported by bilateral femoral head neck junction subcortical cysts, left greater than right. Correlate for hip pain. RAD/Abdomen Single View IMPRESSION: No constipation. Findings suggesting hip impingement. Correlate clinically and consider dedicated pelvis and hip x-rays if clinically concern. Electronically Signed: Preston Fox DO at 17:59 EDT ,
[2021-09-16] MEDS: Magnesium Citrate 300 ML 150 ML PO (18:10)
[2021-09-16] MEDS: Clindamycin HCl 150 MG Capsule PO (18:11)
== END 2021-09-16 18:12 | disposition home or self-care (01) ==
PROVIDERS: Emergency Provider Emergency Medicine; PCP Internal Medicine; Visit Provider Emergency Medicine
DX: K59.00 Constipation, unspecified (principal); J44.9 Chronic obstructive pulmonary disease, unspecified; E66.01 Morbid (severe) obesity due to excess calories; Z68.42 Body mass index [BMI] 45.0-49.9, adult; L02.415 Cutaneous abscess of right lower limb; E78.5 Hyperlipidemia, unspecified; F32.A Depression, unspecified; F41.9 Anxiety disorder, unspecified; F17.210 Nicotine dependence, cigarettes, uncomplicated; Z90.710 Acquired absence of both cervix and uterus; Z79.899 Other long term (current) drug therapy
CPT/HCPCS: 74018; 99283

== ENCOUNTER 2021-09-21 08:09 | Day surgery (SDC) | payer MEDICAID, SELFPAY ==
--- NOTE | 2021-09-07 11:01 | EKG12_ITS ---
Test Reason : PRE-OP Blood Pressure : / mmHG Vent. Rate : 071 BPM Atrial Rate : 071 BPM P-R Int : 162 ms QRS Dur : 068 ms QT Int : 380 ms P-R-T Axes : 073 064 060 degrees QTc Int : 412 ms Normal sinus rhythm Low voltage QRS Borderline ECG Confirmed by SABINO LUIS, TOPHER ([id number]), scientific editor PAYAM BARAJAS ([id number]) on 09/08/2021 9:47:36 AM Referred By: Odin Woodall Confirmed By:TOPHER GALLO MD
[2021-09-07 12:26] LABS: Hematocrit 44.2 % (37-47); Hemoglobin 14.6 g/dL (12.0-15.0); Mean Corpuscular Volume 87.9 fL (81-99); Mean Platelet Vol. 9.9 fl (6.2-12.0); Platelet Count 295 K/mm3 (150-450); RBC Distribution Width SD 41.8 fl (35.1-43.9); Red Blood Count 5.03 M/mm3 (4.2-5.4); White Blood Count 8.3 K/mm3 (4.4-11.0)
[2021-09-07 12:44] LABS: Anion Gap 4 (5-15); BUN 11 mg/dL (7-18); BUN/Creat Ratio 10.9 RATIO (10-20); Calcium,Total 9.4 mg/dL (8.5-10.1); Chloride 106 mmol/L (98-107); Creatinine, Serum 1.01 mg/dL (0.55-1.02); EST Glomerular Filtration Rate 60 mL/min (>60); Est Glom Filt Rate - Afr Amer 73 mL/min (>60); Glucose 90 mg/dL (74-106); Sodium Level 139 mmol/L (136-145)
[2021-09-21] VITALS (11 sets, daily range): BP systolic 104–161; BP diastolic 57–89; PULSE 63–76; RESP 14–18; TEMP 36.4–37.4; O2SAT 88–100; BMI 48.8
--- NOTE | 2021-09-21 08:47 | PCM.HP.BLA ---
History and Physical Date of Admission: 09/21/21 Intake Vital Signs ? 05/01/2211:53 08/22/2212:08 Height 5 ft 6 in 5 ft 6 in Weight: 280 lb 279 lb BMI 45.1 45.0 BP 158/99 H 174/76 H Blood Pressure Location ? Rt brachial Position ? Sitting Respiration 18 18 Pulse 89 85 Pulse Source ? Monitor Temp 96.5 F L 98.6 F Temp Source Temporal Temporal Pulse Oximetry (%) 96 95 Oxygen Delivery Method ? room air Intake Visit Reasons:?Herina Chief Complaint: hernia consult [employer] Required: No Accompanied by: Is patient in pain?: Yes (3-4) Allergies ceftriaxone sodium [From Rocephin] Allergy (Verified 08/22/21 13:10) HivesCephalosporins Allergy (Verified 08/22/21 13:10) Rashdoxycycline Allergy (Verified 08/22/21 13:10) rapid heart rate/anxiety attackgabapentin Allergy (Verified 08/22/21 13:10) Unknowncaffeine Adverse Reaction (Verified 08/22/21 13:10) increases anxietydiclofenac potassium [From Cataflam] Adverse Reaction (Verified 08/22/21 13:10) Upset Stomachmeperidine HCl [From Demerol] Adverse Reaction (Verified 08/22/21 13:10) Upset Stomachnaproxen [From Aleve] Adverse Reaction (Verified 08/22/21 13:10) Upset StomachPenicillins [PCN] Adverse Reaction (Verified 08/22/21 13:10) Upset StomachSulfa (Sulfonamide Antibiotics) Adverse Reaction (Verified 08/22/21 13:10) Upset Stomach PFSH Medical History? Abdominal hernia Abdominal pain Abdominal pain Anxiety and depression Arthritis of hip Chronic constipation Chronic low back pain COPD (chronic obstructive pulmonary disease) COPD (chronic obstructive pulmonary disease) Dyslipidemia Frequent headaches GERD (gastroesophageal reflux disease) Hypertension Impaired glucose tolerance Morbid obesity Osteoarthritis of knee Rectal bleeding SOB (shortness of breath) Tobacco abuse counseling Umbilical hernia Vertigo Surgical History? H/O total hysterectomy History of hysterectomy s/p left wrist Family History? Mother Hypertension Ovarian cancer Colon cancer Breast cancerBrother Alcoholism Cancer ?? ? lung, liverSister Kidney disease Thyroid disorder Cancer Social History? Smoking Status:? Current every day smoker tobacco type: cigarettes Tobacco: How many years used:? 40 alcohol intake:? never substance use type:? does not use what type of physical activity do you participate in:? none HPI HPI HPI: HIRO HUNT, is a 55 F who presents to the office today for umbilical hernia which is painful.? It has been there for few years but it is getting worse.? It especially hurts her when she presses on it.? She denies nausea or vomiting.? She does have diarrhea. ROS General General: Yes fatigue; No weight change, appetite, colon cancer, breast cancer or weakness HEENT HEENT: No difficulty swallowing, eye injury, eye surgery, swollen glands or hoarseness Endo Endocrine: No thyroid disease, diabetes mellitus, thyroid cancer, Hair loss, heat intolerance or cold intolerance Skin Skin: No rash or changing moles Breast Breast: No left breast lump, right breast lump, nipple discharge, breast pain, abnormal mammogram, abnormal US or breast enlargement Musc Musculoskeletal: Yes back problems and arthritis; No rheumatoid arthritis, gout or joint pain Cardio Cardiovascular: No murmur, pacemaker, heart disease, atrial fibrillation, high blood pressure, heart attack, heart stent, palpitations, shortness of breat with exertion or chest pain Psych Psychiatric: Yes depression and anxiety; No hearing voices Resp Respiratory: Yes shortness of breath, Yes sleep apnea, Yes cough, Yes COPD, No asthma, No emphysema and No wheezing Gastro Gastrointestinal: Yes abdominal pain, No nausea or vomiting, Yes diarrhea, No constipation, Yes blood in stool, Yes acid reflux, Yes hemorrhoids, No ulcers, No gallbladder problem and No black,tarry stools Dio Hematologic: No blood thinners, No blood disorders, No bleeding, No anemia and No blood clots Neuro Neurologic: No system reviewed and no additional complaints, except as documented, No as per HPI, No abnormal gait, No abnormal hearing, No abnormal movements, No abnormal speech, No behavioral changes, No burning sensations, No confusion, No convulsions, No disequilibrium, No dizziness, No localized weakness, No frequent falls, No headache(s), No lack of coordination, No loss of vision, No memory loss, No numbness, No other visual disturbances, No radicular pain, No restless legs, No sensory deficit, No syncope, No tingling, No tremor(s), No weakness and No other Exam Const General: cooperative Nutritional Appearance: obese Orientation: alert and oriented x3 HENMT Head: normal to inspection Neck Neck: normal visual inspection and full ROM Chest Chest palpation & inspection: normal inspection of the chest Resp Effort & Inspection: normal respiratory effort Auscultation: clear to auscultation bilaterally Cardio Rate: regular rate Rhythm: regular rhythm GI Inspection: non-distended Palpation: soft, hernia umbilical and tender Skin General: no rashes or lesions noted Neuro General: patient alert and patient oriented x3 Extrem General: full ROM Psych Appearance: grossly normal Mental Status: mental status grossly normal Assessment and Plan Assessment and Plan (1) Umbilical hernia: ?Status:?Acute ?Qualifiers: ?Obstruction and gangrene presence:?without obstruction or gangrene? Qualified Code(s):?K42.9 - Umbilical hernia without obstruction or gangrene ?Plan: Patient has a large umbilical hernia which is causing her a lot of pain.? It seems to be incarcerated with fat.? I discussed robotic approach with her.? I discussed laparoscopic robotic assisted surgery with mesh placement.? I discussed mesh placement in detail as well as the risks of surgery including but not limited to bleeding, infection, injury to underlying organs, seroma formation or recurrence.? Patient understands all the risks and is when to proceed with robotic assisted laparoscopic umbilical hernia repair with mesh. Odin Woodall MD Pager: [facility] [address] [place] [address], [address] [place] [address] Office: I have re-examined the patient. There are no clinical changes since date of exam.
[2021-09-21] MEDS: Lactated Ringers 1,000 ML 30 ML IV (09:02)
[2021-09-21] MEDS: Clindamycin 900 MG/50 ML BAG 75 MG IV (09:17)
--- NOTE | 2021-09-21 11:15 | PCM.OPRPT ---
Report of Operation Date of Procedure: 09/21/21 Pre-Operative Diagnosis: Incarcerated umbilical hernia Post-Operative Diagnosis: Same Surgery/Procedure Performed:: Robotic assisted laparoscopic incarcerated umbilical hernia repair with mesh Description of Procedure: Patient was brought back to the operating room and general anesthesia was induced. The abdomen was prepped and draped in usual sterile fashion. An incision was made in the left upper quadrant and a Veress needle was placed into the abdomen and a drop test was performed. The abdomen was then insufflated 15 mmHg and the Veress needle was removed and a port was placed. Camera was placed through the port and it was inspected and there were no injuries from entry. Under direct visualization a left lateral and left lower quadrant port were placed under direct visualization. The robot was then docked. With a combination of dissection from the inside and pressure from the outside the incarcerated omental contents were able to be reduced. Next an incision the peritoneum was created using electrocautery scissors and the dissection was carried medially until the hernia was encountered. The hernia was circumferentially dissected and reduced into the abdomen and then dissection continued laterally. Next the hernia defect was closed using a running #1 STRATAFIX suture. 10 x 15 cm ProGrip mesh was then placed into the abdomen and unfolded across the hernia defect completely covering with good overlap. Next the peritoneum was reapproximated using a running 3 OV lock suture to completely cover the mesh. Next the robot was undocked and the abdomen was allowed to desufflate. The ports were removed. The incisions were injected with local anesthetic and closed with interrupted 4-0 Monocryl suture. Steri-Strips and bandages were applied. Patient was awoken and taken to PACU in stable condition. Grafts/Implants Used: 10 x 15 cm ProGrip mesh Admit VTE Documentation VTE Mechan Device Prophylaxis: SCD's
--- NOTE | 2021-09-21 11:23 | DCINST_ITS ---
Discharge Instructions Procedure Hernia Diet Discharge Diet: Light diet - advance as tolerated Activity Discharge Activity: May Not Drive (for 2-3 days or while taking narcotic pain meds.) and May Shower (with the bandage in place 1-2 days after surgery.) Lifting Restrictions: 20 pounds for 6 weeks. Additional Activity Instructions:: Climbing stairs is fine, walking is encouraged. Sitting in bed may be uncomfortable. Sitting up using your lateral muscles (sitting up sideways) is usually more comfortable. Do not drive, work heavy equipment of sign legal documents for 24 hours. Pain medications may cause nausea, you should typically eat light foods as you take your pain medications. Pain medications may also cause constipation. If you have difficulty with this, discuss with your doctor. Dressing / Incision Call your doctor if your incision/area has: Continuous Slow Oozing, Sudden Increased Bleeding, Increased Pain/ Swelling, Increased Redness and Foul Smelling Discharge Call your doctor if you observe: Fever of 101 or Higher Suture Line Care: Avoid Pulling/Pushing and Avoid Pinching/Bending Remove Dressing in: 2 days (Remove clear bandages in 2 days, remove Steri-Strips in 7 to 10 days.) Cleanse incision/area with: Soap & Water Follow Up Care Please Follow Up With: Odni Woodall MD When: Please call to schedule 2 week follow up appointment. [phone] Test Results: Test results from this visit will be discussed in further detail at your follow- up appointment, if applicable. Discharge Plan Admission Attending Provider: Odin Woodall Primary Care Provider: Onesimo Griffith Discharge Orders/Prescriptions Prescriptions: New oxycodone-acetaminophen [Percocet] 5-325 mg tablet 1 - 2 tab PO Q6H PRN (Reason: pain) 5 Days Qty: 30 0RF No Action venlafaxine [Effexor XR] 75 MG capsule 75 mg PO DAILY Label Comments: DEPRESSION estradiol 1 MG tablet 1.5 mg PO DAILY lorazepam 2 mg tablet 1 tab PO DAILY PRN (Reason: Anxiety) albuterol sulfate 2.5 mg/0.5 mL Solution For Nebulization 2.5 mg INHALATION Q4H PRN PRN (Reason: Wheezing) clindamycin HCl 150 mg capsule 150 mg PO Q6H 10 Days Qty: 40 0RF omeprazole 40 mg capsule,delayed release(DR/EC) 40 mg PO DAILY Qty: 90 1RF meclizine 25 mg tablet 25 mg PO DAILY PRN (Reason: dizziness) Qty: 30 1RF Other Ambulatory Orders: 12 Lead EKG (Routine) Location: None Selected Ordered By: Dr. Jersey Neil Referrals / Follow Up: Onesimo Griffith MD [Primary Care Provider] - Disposition Disposition (needs filled in before D/C Order can be placed): Home, Self Care
[2021-09-21 11:35] LABS: Bedside Glucose 122 mg/dL (74-106)
--- NOTE | 2021-09-21 13:20 | SUR.PHASEI ---
PT SPO2 DROPS TO 88% WHEN OFF O2 AND SLEEPING. DR RAMOS AWARE AND IS OK WITH HER LEAVING PACU. PT HAS BEEN UP DRINKING AND EATING IN PACU. PT USING INCENTIVE SPIROMETER.
== END 2021-09-21 13:49 | disposition home or self-care (01) ==
LOC: SDC 08:09 → AC 08:11
PROVIDERS: Anesthesiology; PCP Internal Medicine; Referring Provider Surgery; Visit Provider Surgery
PROC: (CPT 49653; principal; 2021-09-21 09:10)
DX: K42.0 Umbilical hernia with obstruction, without gangrene (principal); J44.9 Chronic obstructive pulmonary disease, unspecified; Z68.42 Body mass index [BMI] 45.0-49.9, adult; N18.30 Chronic kidney disease, stage 3 unspecified; F17.210 Nicotine dependence, cigarettes, uncomplicated; F41.1 Generalized anxiety disorder; F32.A Depression, unspecified; E66.9 Obesity, unspecified; K21.9 Gastro-esophageal reflux disease without esophagitis; G47.30 Sleep apnea, unspecified; Z79.899 Other long term (current) drug therapy
CPT/HCPCS: 49653; S2900; 00840; 36415; 80048; 82962; 85027; 93005; J7120; J2405

== ENCOUNTER → 2021-10-10 | Outpatient (CLI) | payer MEDICAID, SELFPAY ==
[2021-10-10 12:52] LABS: T4 Free Direct 0.92 ng/dL (0.76-1.46)
== END | disposition home or self-care (01) ==
LOC: BIMLAB 10:30
PROVIDERS: PCP Internal Medicine; Referring Provider Internal Medicine; Visit Provider Internal Medicine
DX: K52.9 Noninfective gastroenteritis and colitis, unspecified (principal)
CPT/HCPCS: 36415; 84439; 84443

== ENCOUNTER 2022-03-25 07:25 | Emergency (ER) | payer MEDICAID, SELFPAY ==
[2022-03-25 07:28] VITALS: BP 176/108; PULSE 73; RESP 14; TEMP 36.7; O2SAT 96; BMI 43.5
--- NOTE | 2022-03-25 07:40 | ED.VIS.LOWEX ---
HPI History of Present Illness Chief Complaint: Lower Extremity Injury Narrative Narrative: 56-year-old female presenting with right medial knee pain. She states has had this on and off for years. She used to see Dr. Frazier for this. She had injections in the right knee previously by her. She has now left the practice and gone elsewhere. Patient was seen 2 days ago by the nurse practitioner at the orthopedic office which she believes is [facility]. She had an x-ray done at that time. She also had a knee injection at that time. Patient states that the orthopedic office would not treat her pain. She also states that she has seen her primary care physician who referred her to the orthopedic doctor for pain and she would not treat her pain either. Patient has history of CKD and cannot take NSAIDs. Patient is using Tylenol without relief. Patient denies any new trauma. She reports this pain has been here for several years. [facility] Medical History Abdominal hernia Abdominal pain Abdominal pain Anxiety and depression Arthritis of hip Boil Chronic constipation Chronic diarrhea Chronic low back pain COPD (chronic obstructive pulmonary disease) Dyslipidemia Frequent headaches GERD (gastroesophageal reflux disease) Grief reaction History of blood transfusion Impaired glucose tolerance Morbid obesity FRANK (obstructive sleep apnea) Osteoarthritis of knee Rectal bleeding Redness of skin Smoker SOB (shortness of breath) Tobacco abuse counseling Tobacco use Umbilical hernia Vertigo Wears glasses Home Medications estradiol 1 mg tablet 1.5 mg PO DAILY 02/21/17 [History Last Taken 02/05/19] albuterol sulfate 2.5 mg/0.5 mL solution for nebulization 2.5 mg inhalation Q4H PRN PRN Wheezing 09/06/21 [History Last Taken Unknown] meclizine 25 mg tablet 25 mg PO DAILY PRN dizziness #30 tabs 02/05/22 [Rx Last Taken Unknown] pantoprazole 40 mg tablet,delayed release 40 mg PO BID #180 tabs 03/08/22 [Rx Last Taken Unknown] dextromethorphan HBr 15 mg tablet (Delsym Cough) 30 mg PO .Q12 PRN cough #60 tabs 03/12/22 [Rx Last Taken Unknown] albuterol sulfate 90 mcg/actuation aerosol inhaler 2 puff inhalation Q6H PRN shortness of breath or wheezing #8.5 grams 03/21/22 [Rx Last Taken Unknown] nicotine 21mg/24hr-14mg/24hr-7mg/24hr daily transderm patches,sequentl See Rx Instructions transdermal .COMPLEX #56 patches 03/21/22 [Rx Last Taken Unknown] Allergy/AdvReac Type Severity Reaction Status Date / Time ceftriaxone sodium Allergy Hives Verified 03/08/22 15:53 [From Rocephin] Cephalosporins Allergy Rash Verified 03/08/22 15:53 doxycycline Allergy rapid Verified 03/08/22 15:53 heart rate/anxiety attack gabapentin Allergy Unknown Verified 03/08/22 15:53 caffeine AdvReac increases Verified 03/08/22 15:53 anxiety diclofenac potassium AdvReac Upset Verified 03/08/22 15:53 [From Cataflam] Stomach meperidine HCl [From Demerol] AdvReac Upset Verified 03/08/22 15:53 Stomach naproxen [From Aleve] AdvReac Upset Verified 03/08/22 15:53 Stomach Penicillins [PCN] AdvReac Upset Verified 03/08/22 15:53 Stomach Sulfa (Sulfonamide AdvReac Upset Verified 03/08/22 15:53 Antibiotics) Stomach Family History Mother Hypertension Ovarian cancer Colon cancer Breast cancer Brother Alcoholism Cancer lung, liver Sister Kidney disease Thyroid disorder Cancer Surgical History H/O total hysterectomy History of hysterectomy History of umbilical hernia repair s/p left wrist Social History Smoking Status: Current every day smoker tobacco type: cigarettes Tobacco: How many years used: 40 alcohol intake: never substance use type: does not use what type of physical activity do you participate in: none ROS ROS ED Constitutional Constitutional ED: Denies chills or fever(s) Eyes Eyes: Denies change in vision or diplopia ENT ENT ED: Denies rhinorrhea or sore throat Cardiovascular Cardiovascular: Denies chest pain or palpitations Respiratory/Chest Respiratory/Chest: Denies cough or dyspnea Gastrointestinal Gastrointestinal: Denies abdominal pain or constipation Genitourinary Genitourinary ED: Denies dysuria or hematuria Musculoskeletal Musculoskeletal: Reports other Details: Right knee pain Integumentary Denies abscess or Abrasions Neurologic Neurologic: Denies headache(s) or paresthesias Psychiatric Psychiatric: Denies anxiety or depression EXAM Physical Exam Const Vital Signs: 03/25/22 07:28 Temperature 98.1 F Temperature Source Temporal Pulse Rate 73 Respiratory Rate 14 Blood Pressure 176/108 H Blood Pressure Mean 130 Pulse Ox 96 Oxygen Delivery Method Room Air Positive well nourished General Appearance ED: NAD HEENT normocephalic Resp normal respiratory effort and no retractions Cardio regular rate and regular rhythm Extremity normal to inspection Extremity Narrative: Right knee tender to palpation of the medial joint line. No significant edema. No ecchymosis, erythema. Left knee extensor mechanism intact. No ligamentous laxity. Pain elicited with valgus strain. Neuro oriented x3 and CN's II-XII intact bilaterally Sensorium / Orientation: alert Motor Exam: strength 5/5 throughout Psych mental status grossly normal Skin no wounds MDM MDM MDM Narrative Medical decision making narrative: Patient presenting with chronic right knee pain without any new trauma. She had x-rays performed 2 days ago which showed osteoarthritis. At that point she was at her orthopedic office. She had an injection in the right knee. I did review the record and it appears that she was told to take Tylenol for this. At this point the orthopedic office did not feel it was appropriate to give her any other pain medication. It appears that they had a discussion about osteoarthritis and possible total knee replacement, and that her BMI muscular 40 and she has to quit smoking. She was referred to the weight program. She was offered physical therapy and declined. She was given a knee brace in the office as well. She is not wearing this today. She is ambulatory with antalgic gait. On examination she has tenderness over the medial joint line but there is no evidence of infectious process in the right knee. She was told to come back to the orthopedic office should she have any new pain, swelling, numbness. The patient reports she was told to come to the emergency room. I discussed with her is not appropriate to treat chronic pain from the emergency room. I did offer her 1 [place] here. I will give her a referral to pain management. She can also follow-up with orthopedic doctor or her primary care physician. Impression: 1. Acute exacerbation of chronic right knee pain Lab Data Attestation: I reviewed the patient's lab results. Discharge Plan Triage Chief Complaint: Lower Extremity Injury ED Provider: Roger Garcia Dx/Rx/DC Orders Prescriptions: No Action meclizine 25 mg tablet 25 mg PO DAILY PRN (Reason: dizziness) Qty: 30 1RF pantoprazole 40 mg tablet,delayed release (DR/EC) 40 mg PO BID Qty: 180 2RF estradiol 1 MG tablet 1.5 mg PO DAILY albuterol sulfate 2.5 mg/0.5 mL Solution For Nebulization 2.5 mg INHALATION Q4H PRN PRN (Reason: Wheezing) Delsym Cough 15 mg tablet 30 mg PO .Q12 PRN (Reason: cough) Qty: 60 2RF albuterol sulfate 90 mcg/actuation HFA aerosol inhaler 2 puff inhalation Q6H PRN (Reason: shortness of breath or wheezing) Qty: 8.5 1RF nicotine 21-14-7 mg/24 hr patch, TD daily, sequential See Rx Instructions transdermal .COMPLEX Qty: 56 0RF Rx Instructions: apply 1-21 mg NICOTINE PATCH daily for 28 days; follow with 1-14 mg PATCH daily for 14 days, then 1-7mg PATCH daily for 14 days transdermal Primary Care Provider: Onesimo Griffith Referrals: Onesimo Griffith MD [Primary Care Provider] -
[2022-03-25] MEDS: HYDROcodone Bitartrate/Apap 5/325 Tablet PO (07:57)
== END 2022-03-25 08:33 | disposition home or self-care (01) ==
PROVIDERS: Emergency Provider Student in an Organized Health Care Education/Training Program; PCP Internal Medicine; Visit Provider Student in an Organized Health Care Education/Training Program
DX: M25.561 Pain in right knee (principal); G89.29 Other chronic pain; N18.9 Chronic kidney disease, unspecified; F17.210 Nicotine dependence, cigarettes, uncomplicated
CPT/HCPCS: 99283

== ENCOUNTER 2022-10-16 16:00 | Emergency (ER) | payer MEDICAID, SELFPAY ==
[2022-10-16 16:02] VITALS: BP 151/107; PULSE 86; RESP 18; TEMP 36.4; O2SAT 97; BMI 41.4
--- NOTE | 2022-10-16 19:23 | EX.ED.DYSGE1 ---
HPI History of Present Illness Chief Complaint: General Illness Informant: patient Onset/Context/Timing Onset: Month(s) (2) Narrative Narrative: Patient states she has a tender swollen area on her lower abdominal wall without any systemic symptoms. Started as a pimple 2 months ago, she popped it and thick white stuff came out that she thought was pus, and since then, 2 months ago, it has grown into this. She has had no other discharge or bleeding, it has not gotten smaller, she states it is really painful to touch or have her pants touching. [facility] Medical History Abdominal hernia Abdominal pain Abdominal pain Abdominal pain Anxiety and depression Arthritis of hip Boil Chronic constipation Chronic diarrhea Chronic low back pain COPD (chronic obstructive pulmonary disease) Dyslipidemia Frequent headaches GERD (gastroesophageal reflux disease) Grief reaction History of blood transfusion Impaired glucose tolerance Morbid obesity FRANK (obstructive sleep apnea) Osteoarthritis of knee Rectal bleeding Redness of skin Smoker SOB (shortness of breath) Tobacco abuse counseling Tobacco use Umbilical hernia Vertigo Wears glasses Home Medications estradiol 1 mg tablet 1.5 mg PO DAILY 02/21/17 [History Last Taken 02/05/19] albuterol sulfate 2.5 mg/0.5 mL solution for nebulization 2.5 mg inhalation Q4H PRN PRN Wheezing 09/06/21 [History Last Taken Unknown] bupropion HCl 150 mg tablet,12 hr sustained-release (Wellbutrin SR) 150 mg PO BID Smoking Cessation #180 ea 04/06/22 [Rx Last Taken Unknown] hydrocortisone 2.5 % topical cream 1 applic topical TID PRN rash #30 grams 04/06/22 [Rx Last Taken Unknown] lorazepam 2 mg tablet 1 mg PO QHS PRN PSYCHIATRY 04/06/22 [History Last Taken Unknown] venlafaxine 75 mg capsule,extended release 24 hr (Effexor XR) 75 mg PO DAILY PSYCHIATRY 04/06/22 [History Last Taken Unknown] sucralfate 1 gram tablet (Carafate) 1 g PO QACHS #120 tabs 06/20/22 [Rx Last Taken Unknown] meclizine 25 mg tablet 25 mg PO DAILY PRN dizziness #30 tabs 08/21/22 [Rx Last Taken Unknown] albuterol sulfate 90 mcg/actuation aerosol inhaler 2 puff inhalation Q6H PRN shortness of breath or wheezing #8.5 grams 09/14/22 [Rx Last Taken Unknown] omeprazole 40 mg capsule,delayed release 40 mg PO DAILY #90 caps 09/25/22 [Rx Last Taken Unknown] simethicone 180 mg capsule 180 mg PO BID PRN abdominal distention #60 caps 10/01/22 [Rx Last Taken Unknown] Allergy/AdvReac Type Severity Reaction Status Date / Time ceftriaxone sodium Allergy Hives Verified 10/16/22 16:03 [From Rocephin] Cephalosporins Allergy Rash Verified 10/16/22 16:03 doxycycline Allergy rapid Verified 10/16/22 16:03 heart rate/anxiety attack gabapentin Allergy Unknown Verified 10/16/22 16:03 caffeine AdvReac increases Verified 10/16/22 16:03 anxiety diclofenac potassium AdvReac Upset Verified 10/16/22 16:03 [From Cataflam] Stomach meperidine HCl [From Demerol] AdvReac Upset Verified 10/16/22 16:03 Stomach naproxen [From Aleve] AdvReac Upset Verified 10/16/22 16:03 Stomach Penicillins [PCN] AdvReac Upset Verified 10/16/22 16:03 Stomach Sulfa (Sulfonamide AdvReac Upset Verified 10/16/22 16:03 Antibiotics) Stomach Family History Mother Hypertension Ovarian cancer Colon cancer Breast cancer Brother Alcoholism Cancer lung, liver Sister Kidney disease Thyroid disorder Cancer Surgical History H/O total hysterectomy History of hysterectomy History of umbilical hernia repair s/p left wrist Social History Smoking Status: Current every day smoker tobacco type: cigarettes Tobacco: How many years used: 40 alcohol intake: never substance use type: does not use what type of physical activity do you participate in: none ROS ROS ED Constitutional Constitutional ED: Denies chills or fever(s) Integumentary Reports other Details: Tender swollen area lower abdominal wall EXAM Physical Exam Const Vital Signs: 10/16/22 16:02 10/16/22 18:35 Temperature 97.6 F L Temperature Source Temporal Pulse Rate 86 Respiratory Rate 18 Respiratory Effort Normal Blood Pressure 151/107 H Blood Pressure Mean 121 Pulse Ox 97 Oxygen Delivery Method Room Air Positive well nourished, well developed and obese General Appearance ED: well developed and NAD Nutritional Appearance: obese GI normal to inspection, nondistended, normoactive bowel sounds GI Narrative: Small subcentimeter superficial skin colored lesion lower mid abdominal wall near her pant line, it is approximately 0.5 cm in diameter, with a superficial subcutaneous nodule without any overlying cellulitis or spontaneous discharge. No induration. Inspection: Negative for abdominal distention MDM MDM MDM Narrative Medical decision making narrative: This does not look like an abscess, it looks like a very small nodule of scar tissue that is residual from an abscess. However she states it is very painful. Therefore I offered incision and drainage after local anesthesia to drain what ever could be there. She is amenable to that. After getting a I&D set up and nursing to pull lidocaine, I went back to perform the procedure we agreed upon, but the patient had eloped. Discharge Plan Triage Chief Complaint: General Illness Other Complaint: Abscess ED Provider: Johnny Crenshaw Dx/Rx/DC Orders Clinical Impression: Nodule of skin of abdomen Prescriptions: No Action venlafaxine [Effexor XR] 75 mg capsule,extended release 24hr 75 mg PO DAILY lorazepam 2 mg tablet 1 mg PO QHS PRN (Reason: PSYCHIATRY) bupropion HCl [Wellbutrin SR] 150 mg tablet sustained-release 12 hr 150 mg PO BID Qty: 180 0RF Rx Instructions: Start 150mg for 3 day then increase to twice a day. Separate dose by at least 8 hours, second dose no later than 6pm. Stop smoking after first week of treatment. hydrocortisone 2.5 % cream 1 applic topical TID PRN (Reason: rash) Qty: 30 0RF sucralfate [Carafate] 1 gram tablet 1 g PO QACHS Qty: 120 0RF estradiol 1 MG tablet 1.5 mg PO DAILY albuterol sulfate 2.5 mg/0.5 mL Solution For Nebulization 2.5 mg INHALATION Q4H PRN PRN (Reason: Wheezing) meclizine 25 mg tablet 25 mg PO DAILY PRN (Reason: dizziness) Qty: 30 1RF albuterol sulfate 90 mcg/actuation HFA aerosol inhaler 2 puff inhalation Q6H PRN (Reason: shortness of breath or wheezing) Qty: 8.5 1RF omeprazole 40 mg capsule,delayed release(DR/EC) 40 mg PO DAILY Qty: 90 1RF simethicone 180 mg capsule 180 mg PO BID PRN (Reason: abdominal distention) Qty: 60 1RF Primary Care Provider: Onesimo Griffith Referrals: Onesimo Griffith MD [Primary Care Provider] - Disposition Disposition: Elopement Discharge Date/Time: 10/16/22 20:53
== END 2022-10-16 20:53 | disposition left against medical advice (07) ==
LOC: ED 19:51
PROVIDERS: Emergency Provider Emergency Medicine; PCP Internal Medicine; Visit Provider Emergency Medicine
DX: R22.2 Localized swelling, mass and lump, trunk (principal); F17.210 Nicotine dependence, cigarettes, uncomplicated
CPT/HCPCS: 99283

== ENCOUNTER 2022-12-13 11:34 | Emergency (ER) | payer MEDICAID, SELFPAY ==
[2022-12-13 11:35] VITALS: BP 176/91; PULSE 74; RESP 18; TEMP 36; O2SAT 94; BMI 41.8
--- NOTE | 2022-12-13 12:56 | EDS_ITS ---
HPI History of Present Illness Chief Complaint: Abscess Narrative Narrative: 57-year-old female presenting with a lump on her abdomen which has been present for a couple of months. She states she initially had this and her boyfriend popped this a couple of months ago. It was a small pimple and then got a larger. It was popped again and nothing came out of it. Initially she obtained a white pus type discharge. There is been no opening since. Patient was seen in the ER 2 months ago and was offered to have an incision and drainage and eloped. She has not seen anybody since her time here in the emergency room. Has not made a follow-up with a specialist. She has not had any systemic signs or symptoms. She states she still has pain. She states the area still looks exactly the same. [facility] Medical History Abdominal hernia Abdominal pain Abdominal pain Abdominal pain Anxiety and depression Arthritis of hip Boil Chronic constipation Chronic diarrhea Chronic low back pain COPD (chronic obstructive pulmonary disease) Dyslipidemia Frequent headaches GERD (gastroesophageal reflux disease) Grief reaction History of blood transfusion Impaired glucose tolerance Morbid obesity FRANK (obstructive sleep apnea) Osteoarthritis of knee Rectal bleeding Redness of skin Smoker SOB (shortness of breath) Tobacco abuse counseling Tobacco use Umbilical hernia Vertigo Wears glasses Home Medications estradiol 1 mg tablet 1.5 mg PO DAILY 02/21/17 [History Last Taken 02/05/19] albuterol sulfate 2.5 mg/0.5 mL solution for nebulization 2.5 mg inhalation Q4H PRN PRN Wheezing 09/06/21 [History Last Taken Unknown] bupropion HCl 150 mg tablet,12 hr sustained-release (Wellbutrin SR) 150 mg PO BID Smoking Cessation #180 ea 04/06/22 [Rx Last Taken Unknown] hydrocortisone 2.5 % topical cream 1 applic topical TID PRN rash #30 grams 04/06/22 [Rx Last Taken Unknown] lorazepam 2 mg tablet 1 mg PO QHS PRN PSYCHIATRY 04/06/22 [History Last Taken Unknown] venlafaxine 75 mg capsule,extended release 24 hr (Effexor XR) 75 mg PO DAILY PSYCHIATRY 04/06/22 [History Last Taken Unknown] sucralfate 1 gram tablet (Carafate) 1 g PO QACHS #120 tabs 06/20/22 [Rx Last Taken Unknown] omeprazole 40 mg capsule,delayed release 40 mg PO DAILY #90 caps 09/25/22 [Rx Last Taken Unknown] albuterol sulfate 90 mcg/actuation aerosol inhaler 2 puff inhalation Q6H PRN shortness of breath or wheezing #8.5 grams 11/20/22 [Rx Last Taken Unknown] meclizine 25 mg tablet 25 mg PO DAILY PRN dizziness #30 tabs 11/20/22 [Rx Last Taken Unknown] simethicone 180 mg capsule 180 mg PO BID PRN abdominal distention #60 caps 12/04/22 [Rx Last Taken Unknown] clindamycin HCl 150 mg capsule 450 mg (3 x 150 mg) PO TID 10 days #90 caps 12/02 04/26 [Rx Last Taken Unknown] hydrocodone-acetaminophen 5-325mg 5mg-325mg 1 tab PO Q6H PRN PRN Pain 3 days #12 TABLETS 12/13/22 [Rx Last Taken Unknown] Allergy/AdvReac Type Severity Reaction Status Date / Time ceftriaxone sodium Allergy Hives Verified 12/13/22 11:36 [From Rocephin] Cephalosporins Allergy Rash Verified 12/13/22 11:36 doxycycline Allergy rapid Verified 12/13/22 11:36 heart rate/anxiety attack gabapentin Allergy Unknown Verified 12/13/22 11:36 caffeine AdvReac increases Verified 12/13/22 11:36 anxiety diclofenac potassium AdvReac Upset Verified 12/13/22 11:36 [From Cataflam] Stomach meperidine HCl [From Demerol] AdvReac Upset Verified 12/13/22 11:36 Stomach naproxen [From Aleve] AdvReac Upset Verified 12/13/22 11:36 Stomach Penicillins [PCN] AdvReac Upset Verified 12/13/22 11:36 Stomach Sulfa (Sulfonamide AdvReac Upset Verified 12/13/22 11:36 Antibiotics) Stomach Family History Mother Hypertension Ovarian cancer Colon cancer Breast cancer Brother Alcoholism Cancer lung, liver Sister Kidney disease Thyroid disorder Cancer Surgical History H/O total hysterectomy History of hysterectomy History of umbilical hernia repair s/p left wrist Social History Smoking Status: Current every day smoker tobacco type: cigarettes Tobacco: How many years used: 40 alcohol intake: never substance use type: does not use what type of physical activity do you participate in: none ROS ROS ED Constitutional Constitutional ED: Denies chills, fever(s) or sweats Eyes Eyes: Denies blurry vision or change in vision ENT ENT ED: Denies ear pain or sore throat Cardiovascular Cardiovascular: Denies chest pain, palpitations or racing heartbeat Respiratory/Chest Respiratory/Chest: Denies cough, dyspnea or sputum Gastrointestinal Gastrointestinal: Denies abdominal pain, constipation, diarrhea, nausea or vomiting Genitourinary Genitourinary ED: Denies dysuria, hematuria or urinary frequency Musculoskeletal Musculoskeletal: Denies arthralgias, myalgias or neck pain Integumentary Reports rash; Denies abscess or Abrasions Neurologic Neurologic: Denies headache(s), paresthesias or weakness Psychiatric Psychiatric: Denies anxiety, depression, suicidal ideation or suicidal thoughts Endocrine Endocrinology: Denies polydipsia or polyuria EXAM Physical Exam Const Vital Signs: 12/13/22 11:35 Temperature 96.8 F L Temperature Source Temporal Pulse Rate 74 Respiratory Rate 18 Blood Pressure 176/91 H Blood Pressure Mean 119 Pulse Ox 94 Oxygen Delivery Method Room Air Positive well nourished and unkempt General Appearance ED: unkempt HEENT Reports moist mucous membranes Eyes PERRL Resp normal respiratory effort Effort and Inspection: Negative for retractions Cardio regular rate and regular rhythm GI normal to inspection, nondistended, normoactive bowel sounds Neuro oriented x3 and CN's II-XII intact bilaterally Sensorium / Orientation: alert Psych Appearance: unkempt Skin Skin Narrative: There is a 2 cm area of erythema and swelling over the midline of the abdomen just at the edge of her pannus. It does not appear to be fluctuant. It does look like scar tissue. It is tender to touch. There is no drainage. MDM MDM MDM Narrative Medical decision making narrative: Patient presenting with a chronic wound of the abdomen. It does appear to be swollen but does not appear to be fluctuant. Again I did offer as she was offered last time to drain this or open it to see if anything would come out although this is a chronic wound. I told the patient that we could open this and have her follow-up with general surgery or start antibiotics and have her follow-up with general surgery and she opts for antibiotics and she will do sitz bath's at home. I gave her return precautions. She started on clindamycin as she is allergic to doxycycline and to Bactrim. Return precautions were discussed. Impression: 1. Cellulitis Discharge Plan Triage Chief Complaint: Abscess ED Provider: Roger Garcia Dx/Rx/DC Orders Instructions: ED Cellulitis Prescriptions: New hydrocodone-acetaminophen 5-325 mg tablet 1 tab PO Q6H PRN PRN (Reason: Pain) 3 Days Qty: 12 0RF clindamycin HCl 150 mg capsule 450 mg PO TID 10 Days Qty: 90 0RF No Action venlafaxine [Effexor XR] 75 mg capsule,extended release 24hr 75 mg PO DAILY lorazepam 2 mg tablet 1 mg PO QHS PRN (Reason: PSYCHIATRY) bupropion HCl [Wellbutrin SR] 150 mg tablet sustained-release 12 hr 150 mg PO BID Qty: 180 0RF Rx Instructions: Start 150mg for 3 day then increase to twice a day. Separate dose by at least 8 hours, second dose no later than 6pm. Stop smoking after first week of treatment. hydrocortisone 2.5 % cream 1 applic topical TID PRN (Reason: rash) Qty: 30 0RF sucralfate [Carafate] 1 gram tablet 1 g PO QACHS Qty: 120 0RF estradiol 1 MG tablet 1.5 mg PO DAILY albuterol sulfate 2.5 mg/0.5 mL Solution For Nebulization 2.5 mg INHALATION Q4H PRN PRN (Reason: Wheezing) omeprazole 40 mg capsule,delayed release(DR/EC) 40 mg PO DAILY Qty: 90 1RF meclizine 25 mg tablet 25 mg PO DAILY PRN (Reason: dizziness) Qty: 30 1RF albuterol sulfate 90 mcg/actuation HFA aerosol inhaler 2 puff inhalation Q6H PRN (Reason: shortness of breath or wheezing) Qty: 8.5 1RF simethicone 180 mg capsule 180 mg PO BID PRN (Reason: abdominal distention) Qty: 60 1RF Primary Care Provider: Onesimo Griffith Referrals: Onesimo Griffith MD [Primary Care Provider] - Kary Najera MD [Med Staff - Active Staff] - 3-5 Days Disposition Disposition: Home, Self Care
[2022-12-13] MEDS: HYDROcodone Bitartrate/Apap 5/325 Tablet PO (13:10)
[2022-12-13] MEDS: Clindamycin HCl 150 MG Capsule 450 MG PO (13:10)
== END 2022-12-13 13:15 | disposition home or self-care (01) ==
PROVIDERS: Emergency Provider Student in an Organized Health Care Education/Training Program; PCP Internal Medicine; Visit Provider Student in an Organized Health Care Education/Training Program
DX: L03.311 Cellulitis of abdominal wall (principal); F17.210 Nicotine dependence, cigarettes, uncomplicated; G47.33 Obstructive sleep apnea (adult) (pediatric)
CPT/HCPCS: 99283

== ENCOUNTER → 2023-01-18 | Outpatient (CLI) | payer MEDICAID, SELFPAY ==
[2023-01-18 15:38] LABS: Absolute Lymphocyte Count 2.71 X10^3/uL (0.83-4.51); Absolute Neutrophil Count 5.8 X10^3/uL (2.0-7.7); Basophil# 0.05 X10^3/uL; Basophil% 0.5 % (0-1); Eosinophil# 0.24 X10^3/uL; Eosinophils% 2.5 % (0-5); Hematocrit 44.1 % (37-47); Hemoglobin 13.9 g/dL (12.0-15.0); Lymphocyte # 2.71 X10^3/ul (0.83-4.51); Lymphocyte % 28.1 % (19-41); Mean Corp Hgb Conc 31.5 g/dL (32-36); Mean Corpuscular Hgb 28.6 pg (27.0-32.0); Mean Corpuscular Volume 90.7 fL (81-99); Mean Platelet Vol. 11.7 fl (6.2-12.0); Monocyte# 0.82 X10^3/uL; Monocyte% 8.5 % (0-10); NRBC Flagged by Analyzer 0 % (0-5); POSITIVE COUNT YES; Platelet Count 199 K/mm3 (150-450); RBC Distribution Width CV 13.1 % (11.6-14.6); RBC Distribution Width SD 43.4 fl (35.1-43.9); Red Blood Count 4.86 M/mm3 (4.2-5.4); White Blood Count 9.7 K/mm3 (4.4-11.0)
[2023-01-18 15:42] LABS: Differential Indicated SCAN CRITERIA MET
[2023-01-18 16:23] LABS: Differential Comment SCANNED
[2023-01-18 16:31] LABS: ALB/GLOB Ratio 0.7 RATIO (0.9-2.4); AST(SGOT) 15 U/L (15-37); Alanine Aminotransfer ALT/SGPT 13 U/L (13-56); Albumin, Serum 2.9 g/dL (3.2-5.0); Alkaline Phosphatase 87 U/L (45-117); Anion Gap 6 (5-15); BUN 10 mg/dL (7-18); BUN/Creat Ratio 9.3 RATIO (10-20); Calcium,Total 8.9 mg/dL (8.5-10.1); Chloride 106 mmol/L (98-107); Cholesterol 197 mg/dL (200); Creatinine, Serum 1.07 mg/dL (0.55-1.02); EST Glomerular Filtration Rate 56 mL/min (>60); Est Glom Filt Rate - Afr Amer 68 mL/min (>60); Globulin 4.1 g/dL (2.2-4.2); Glucose 86 mg/dL (74-106); High Density Lipoprotein 39 mg/dL; Sodium Level 141 mmol/L (136-145); Triglycerides 222 mg/dL; Very Low Density Lipoprotein 44 mg/dL (5-40)
== END | disposition home or self-care (01) ==
LOC: BIMLAB 14:31
PROVIDERS: PCP Internal Medicine; Referring Provider Internal Medicine; Visit Provider Internal Medicine
DX: Z13.6 Encounter for screening for cardiovascular disorders (principal); J44.9 Chronic obstructive pulmonary disease, unspecified; F41.8 Other specified anxiety disorders
CPT/HCPCS: 36415; 80053; 80061; 85025

== ENCOUNTER 2024-09-10 17:30 | Emergency (ER) | payer MEDICAID, SELFPAY ==
[2024-09-10 17:30] VITALS: BP 168/98; PULSE 73; RESP 22; TEMP 36.3; O2SAT 97; BMI 44.0
[2024-09-10 17:32] VITALS: BP 168/98; PULSE 77; RESP 22; TEMP 36.3; O2SAT 96
[2024-09-10] MEDS: HYDROcodone Bitartrate/Apap 5/325 Tablet PO (20:44)
[2024-09-10 20:52] VITALS: BP 159/89; PULSE 76; RESP 14; O2SAT 97
[2024-09-10 21:16] LABS: Hematocrit 45.9 % (37-47); Hemoglobin 15.1 g/dL (12.0-15.0); Immature Granulocytes Count 0.050 X10^3/uL (0.0-0.0); Mean Corp Hgb Conc 32.9 g/dL (32-36); Mean Corpuscular Volume 89.6 fL (81-99); Mean Platelet Vol. 9.4 fl (6.2-12.0); NRBC Flagged by Analyzer 0 % (0-5); Platelet Count 311 K/mm3 (150-450); RBC Distribution Width CV 13.2 % (11.6-14.6); RBC Distribution Width SD 43.1 fl (35.1-43.9); Red Blood Count 5.12 M/mm3 (4.2-5.4); White Blood Count 10.3 K/mm3 (4.4-11.0)
--- NOTE | 2024-09-10 21:16 | RAD_ITS ---
PROCEDURE: TOE(S) MIN 2 VIEWS 09/10/2024 REASON FOR EXAM: RIGHT GREAT TOE PAIN TECHNIQUE: TOE(S) MIN 2 VIEWS FINDINGS: No visible fracture. Normal alignment. Soft tissues are unremarkable. RAD/Toe(s) Min 2 Views IMPRESSION: NEGATIVE TOE SERIES Reading Location: [facility]
[2024-09-10 21:35] LABS: Anion Gap 11 (5-15); BUN 17 mg/dL (4-19); BUN/Creat Ratio 13.5 RATIO (10-20); Calcium,Total 9.2 mg/dL (7.6-11.0); Carbon Dioxide 25.4 mmol/L (21.0-32.0); Chloride 102 mmol/L (98-108); Estimated Creatinine Clearance 64.85 ml/min (50-250); Glucose 109 mg/dL (70-99); Potassium 4.2 mmol/L (3.3-5.1)
--- NOTE | 2024-09-10 21:44 | EX.ED.DYSGE1 ---
HPI History of Present Illness Chief Complaint: Wound Detail of Chief Complaint: Right great toe pain after toenail removal by Dr. Nguyen Informant: patient Onset/Context/Timing Onset: Weeks Context: Sudden Onset Timing: Continuous Quality: Pain and discoloration Location: Right great toe Current Severity: Mild Maximum Severity: Severe Worsened by: Pressure Relieved by: Nothing Associated Symptoms Associated Symptoms: None Narrative Narrative: Patient is a 58-year-old woman. She presents with right great toe pain. She states she cannot live a blanket on her toe. She denies history of gout or pseudogout. She denies fever, chills night sweats. She denies history of trauma. She has not contacted Dr. Nguyen. She is scheduled to see him this coming week. She denies symptoms of claudication. She does have neuropathy. She denies history of PAD. She does have history of fibromyalgia. Prior similar symptoms: Yes Recent Illness/Hospitalization: Yes [facility]SH [facility] Medical History Health care maintenance URI (upper respiratory infection) Screening for cardiovascular condition Abdominal pain Grief reaction Tobacco use FRANK (obstructive sleep apnea) Chronic diarrhea Boil Wears glasses Redness of skin History of blood transfusion Smoker Tobacco abuse counseling Morbid obesity SOB (shortness of breath) Abdominal pain Umbilical hernia Abdominal hernia Rectal bleeding Frequent headaches COPD (chronic obstructive pulmonary disease) GERD (gastroesophageal reflux disease) Anxiety and depression Vertigo Impaired glucose tolerance Abdominal pain Chronic low back pain Arthritis of hip Osteoarthritis of knee Chronic constipation Dyslipidemia Home Medications ?Medication ?Instructions ?Recorded ?Last Taken ?Type estradiol 1 mg tablet 1.5 mg PO DAILY 02/21/17 02/05/19 History bupropion HCl 150 mg tablet,12 hr 150 mg PO BID Smoking Cessation 04/06/22 Unknown Rx sustained-release (Wellbutrin SR) #180 ea hydrocortisone 2.5 % topical cream 1 applic topical TID PRN rash #30 04/06/22 Unknown Rx grams lorazepam 2 mg tablet 1 mg PO QHS PRN PSYCHIATRY 04/06/22 Unknown History venlafaxine 75 mg capsule,extended 75 mg PO DAILY PSYCHIATRY 04/06/22 Unknown History release 24 hr (Effexor XR) sucralfate 1 gram tablet (Carafate) 1 g PO QACHS #120 tabs 06/20/22 Unknown Rx hydrocodone-acetaminophen 5-325mg 1 tab PO Q6H PRN PRN Pain 3 days 12/13/22 Unknown Rx 5mg-325mg #12 TABLETS albuterol sulfate 2.5 mg/0.5 mL 2.5 mg (0.5 mL) inhalation Q4H PRN 01/03/23 Unknown Rx solution for nebulization PRN Wheezing #90 ea nebulizer accessories #1 ea 01/03/23 Unknown Rx albuterol sulfate 90 mcg/actuation 2 puff inhalation Q6H PRN 01/11/23 Unknown Rx aerosol inhaler shortness of breath or wheezing #8.5 grams codeine 10 mg-guaifenesin 200 mg/5 5 ml PO .q12 PRN cough #473 mL 01/18/23 Unknown Rx mL oral liquid prednisone 20 mg tablet 40 mg (2 x 20 mg) PO DAILY #10 tabs 01/18/23 Unknown Rx nystatin 100,000 unit/mL oral 5 ml PO .qid #200 mL 04/07/23 Unknown Rx suspension simethicone 180 mg capsule 180 mg PO BID PRN abdominal 05/20/23 Unknown Rx distention #60 caps meclizine 25 mg tablet 25 mg PO DAILY PRN dizziness #90 09/27/23 Unknown Rx tabs omeprazole 40 mg capsule,delayed 40 mg PO DAILY #90 caps 09/27/23 Unknown Rx release hydrocodone-acetaminophen 5-325mg 1 tab PO Q6H PRN PRN Pain 1 day #4 09/10/24 Unknown Rx 5mg-325mg TABLETS Allergy/AdvReac Type Severity Reaction Status Date / Time ceftriaxone sodium (From Allergy Hives Verified 09/10/24 17:33 Rocephin) Cephalosporins Allergy Rash Verified 09/10/24 17:33 doxycycline Allergy rapid Verified 09/10/24 17:33 heart rate/anxiety attack gabapentin Allergy Unknown Verified 09/10/24 17:33 caffeine AdvReac increases Verified 09/10/24 17:33 anxiety diclofenac potassium (From AdvReac Upset Verified 09/10/24 17:33 Cataflam) Stomach meperidine HCl (From Demerol) AdvReac Upset Verified 09/10/24 17:33 Stomach naproxen (From Aleve) AdvReac Upset Verified 09/10/24 17:33 Stomach Penicillins (PCN) AdvReac Upset Verified 09/10/24 17:33 Stomach Sulfa (Sulfonamide AdvReac Upset Verified 09/10/24 17:33 Antibiotics) Stomach Family History Mother Hypertension Ovarian cancer Colon cancer Breast cancer Brother Alcoholism Cancer lung, liver Sister Kidney disease Thyroid disorder Cancer Surgical History History of umbilical hernia repair History of hysterectomy s/p left wrist H/O total hysterectomy Social History Smoking Status: Current every day smoker tobacco type: cigarettes Tobacco: How many years used: 40 alcohol intake: never substance use type: does not use what type of physical activity do you participate in: none ROS ROS ED Constitutional Constitutional ED: Denies chills, fever(s), subjective, sweats or weight loss Eyes Eyes: Reports other Details: No photophobia. Gastrointestinal Gastrointestinal: Reports nausea and vomiting Genitourinary Genitourinary ED: Reports dysuria and urinary frequency Musculoskeletal Musculoskeletal: Reports other Details: HPI narrative ; Denies arthralgias, back pain or myalgias Integumentary Reports other Details: Purplish discoloration of the right great toe. There is no erythema, warmth and patient denies drainage. Neurologic Neurologic: Denies paresthesias Hematologic/Lymphatic Hematologic/Lymphatic: Reports systems reviewed and no addt'l complaints, except as documented EXAM Physical Exam Const Vital Signs: 09/10/24 17:30 09/10/24 17:32 09/10/24 20:52 Temperature 97.4 F L 97.4 F L Temperature Source Temporal Oral Pulse Rate 73 77 76 Respiratory Rate 22 H 22 H 14 Blood Pressure 168/98 H 168/98 H 159/89 H Blood Pressure Mean 121 121 112 Pulse Ox 97 96 97 Oxygen Delivery Method Room Air Room Air Room Air Positive well nourished and well developed Constitutional Narrative: Affect is flat. Blood pressure is elevated. General Appearance ED: well developed and NAD HEENT Reports moist mucous membranes HEENT Narrative: Head is atraumatic normocephalic. Ears normal. Nares patent. Patient wears glasses. Eyes PERRL and EOMs intact bilaterally General Eye ED: Negative for pale conjunctiva or scleral icterus Resp normal respiratory effort Cardio regular rate and regular rhythm Extremity Negative for normal to inspection Extremity Narrative: Patient had her nail removed right great toe. The great toe is purplish in color. Capillary fill is normal. There is no fluctuance. There is no warmth or induration. There is no lymphangitis. There is no popliteal or inguinal lymphadenopathy. There is no pain palpation over the MTP joint. General Extremety ED: Yes tenderness Neuro oriented x3, CN's II-XII intact bilaterally and no sensory deficits noted Sensorium / Orientation: alert Motor Exam: strength 5/5 throughout Psych Mood & Affect: depressed Skin Skin Narrative: Described under the extremity portion of the MDM. MDM MDM MDM Narrative Medical decision making narrative: Patient with toe pain. Since she had recent intervention will obtain x-ray. Will also obtain CBC to assess white count differential. History is not consistent with gout or pseudogout. Lab Data Attestation: I reviewed the patient's lab results. Lab results narrative: White count is unremarkable. Basic metabolic panel is remarkable for an elevated creatinine. Her creatinine is varied between normal to 1.28. Labs: Laboratory Results - last 24 hr 09/10/24 20:49 WBC 10.3 RBC 5.12 Hgb 15.1 H Hct 45.9 MCV 89.6 MCH 29.5 MCHC 32.9 RDW Std Deviation 43.1 RDW Coeff of Viviana 13.2 Plt Count 311 MPV 9.4 Immature Gran % (Auto) 0.500 Neut % (Auto) 59.9 Lymph % (Auto) 27.0 [place] % (Auto) 8.6 Eos % (Auto) 3.4 Baso % (Auto) 0.6 Absolute Neuts (auto) 6.1 Absolute Lymphs (auto) 2.77 Nucleated RBC % 0 ESR 56 H Sodium 139 Potassium 4.2 Chloride 102 Carbon Dioxide 25.4 Anion Gap 11 BUN 17 Creatinine 1.27 H Estim Creat Clear Calc 64.85 Est GFR (MDRD) Non-Af 49 L BUN/Creatinine Ratio 13.5 Glucose 109 H Calcium 9.2 Radiography Chest X-Ray - ED: Read by ED Physician (Three-view x-ray great toe was independent reviewed interpreted by me at 2137 is negative for any acute findings. She has some chronic arthritic changes of the distal phalanx. Otherwise no abnormality.) Treatment and Re-Evaluation :: Patient did receive a [place] tablet. She was discharged with 4 [place] tablets. She was instructed to follow-up with Dr. Nguyen. Discharge Plan Triage Chief Complaint: Wound ED Provider: Jamil Jenninsg Dx/Rx/DC Orders Clinical Impression: Pain of right great toe, Osteoarthritis, Elevated blood-pressure reading without diagnosis of hypertension Instructions: ED Pain, Acute, Uncertain Cause Prescriptions: New hydrocodone-acetaminophen 5-325 mg tablet 1 tab PO Q6H PRN PRN (Reason: Pain) 1 Days Qty: 4 0RF No Action venlafaxine [Effexor XR] 75 mg capsule,extended release 24hr 75 mg PO DAILY lorazepam 2 mg tablet 1 mg PO QHS PRN (Reason: PSYCHIATRY) bupropion HCl [Wellbutrin SR] 150 mg tablet sustained-release 12 hr 150 mg PO BID Qty: 180 0RF Rx Instructions: Start 150mg for 3 day then increase to twice a day. Separate dose by at least 8 hours, second dose no later than 6pm. Stop smoking after first week of treatment. hydrocortisone 2.5 % cream 1 applic topical TID PRN (Reason: rash) Qty: 30 0RF sucralfate [Carafate] 1 gram tablet 1 g PO QACHS Qty: 120 0RF prednisone 20 mg tablet 40 mg PO DAILY Qty: 10 0RF codeine-guaifenesin 10-200 mg/5 mL liquid 5 ml PO .q12 PRN (Reason: cough) Qty: 473 0RF estradiol 1 MG tablet 1.5 mg PO DAILY hydrocodone-acetaminophen 5-325 mg tablet 1 tab PO Q6H PRN PRN (Reason: Pain) 3 Days Qty: 12 0RF (DME) nebulizer accessories Misc See Rx Instructions .Route Qty: 1 2RF Rx Instructions: As directed albuterol sulfate 2.5 mg/0.5 mL solution for nebulization 2.5 mg INHALATION Q4H PRN PRN (Reason: Wheezing) Qty: 90 1RF albuterol sulfate 90 mcg/actuation HFA aerosol inhaler 2 puff inhalation Q6H PRN (Reason: shortness of breath or wheezing) Qty: 8.5 0RF nystatin 100,000 unit/mL suspension 5 ml PO .qid Qty: 200 0RF Rx Instructions: swish, retain in mouth for as long as able then swish and swallow or discard simethicone 180 mg capsule 180 mg PO BID PRN (Reason: abdominal distention) Qty: 60 1RF meclizine 25 mg tablet 25 mg PO DAILY PRN (Reason: dizziness) Qty: 90 0RF omeprazole 40 mg capsule,delayed release(DR/EC) 40 mg PO DAILY Qty: 90 1RF Primary Care Provider: Care Physician,No Primary Referrals: Care Physician,No Primary [Primary Care Provider] - Print Language: Bengali Disposition Disposition: Home, Self Care
[2024-09-10 22:35] VITALS: BP 158/78; PULSE 79; RESP 18; TEMP 37; O2SAT 99
== END 2024-09-10 22:39 | disposition home or self-care (01) ==
PROVIDERS: Emergency Provider Emergency Medicine; Visit Provider Emergency Medicine
DX: M19.071 Primary osteoarthritis, right ankle and foot (principal); R03.0 Elevated blood-pressure reading, without diagnosis of hypertension; F17.210 Nicotine dependence, cigarettes, uncomplicated
CPT/HCPCS: J2405; 73660; 80048; 85025; 85652; 99282